=== PATIENT | female | born 1945 | race Caucasian/White ===

== ENCOUNTER 2020-04-06 11:28 | Outpatient (CLI) | payer MEDICARE, SELFPAY ==
[2020-04-06 12:14] LABS: Alanine Aminotransferase 36 U/L (4-35); Albumin Level 4.1 g/dL (3.5-5.1); Alkaline Phosphatase 74 U/L (38-126); Aspartate Amino Transferase 45 U/L (14-36); Bilirubin,Total 0.7 mg/dL (0.2-1.3); Blood Urea Nitrogen 18 mg/dL (7-17); Carbon Dioxide 29 mmol/L (22-30); Chloride 103 mmol/L (98-107); Cholesterol 155 mg/dL (0-200); Estimated Glomerular Filt Rate 34; Glucose 95 mg/dL (65-105); HDL Direct 50 mg/dL; Magnesium 2.1 mg/dL (1.6-2.3); Potassium 4.5 mmol/L (3.4-5.0); Sodium 136 mmol/L (137-145); Triglycerides 96 mg/dL (<150)
[2020-04-06 12:25] LABS: LDL Cholesterol Direct 84 mg/dL
== END 2020-04-06 11:29 | disposition home or self-care (01) ==
PROVIDERS: PCP Internal Medicine; Visit Provider Internal Medicine Cardiovascular Disease
DX: E78.5 Hyperlipidemia, unspecified (principal); I50.40 Unspecified combined systolic (congestive) and diastolic (congestive) heart failure
CPT/HCPCS: 36415; 80053; 80061; 83735

== ENCOUNTER 2020-07-08 11:54 | Outpatient (CLI) | payer MEDICARE, SELFPAY ==
[2020-07-08 12:41] LABS: Add Urine Microscopic? YES; Appearance Urine Clear (Clear); Bacteria Urine Trace /hpf; Bilirubin Urine Negative (Negative); Blood Urine 2+ (Negative); Color Urine Yellow (Yellow); Glucose Urine UA Negative (Negative); Ketones Urine Negative (Negative); Leukocyte Esterase Ur 2+ LEU/UL (NEGATIVE); Mucus Urine Rare /lpf; Nitrate Urine Negative (Negative); Protein Urine Negative (Negative); Specific Grav Ur 1.017 (1.001-1.035); Squamous Epithelial Cell Urine Few /hpf (Few); WBC Urine >75 /hpf (0-3)
== END 2020-07-08 11:55 | disposition home or self-care (01) ==
LOC: ANHLAB 11:57
PROVIDERS: PCP Internal Medicine; Visit Provider Internal Medicine
DX: R39.9 Unspecified symptoms and signs involving the genitourinary system (principal)
CPT/HCPCS: 81001; 87077; 87086; 87088; 87186

== ENCOUNTER 2020-10-04 11:39 | Outpatient (CLI) | payer MEDICARE, SELFPAY ==
[2020-10-04 12:19] LABS: Basophils Absolute Auto 0.1 K/mm3 (0.0-0.1); Basophils Percent Auto 0.4 % (0.2-1.2); Eosinophils Absolute Auto 0.4 K/mm3 (0-0.3); Eosinophils Percent Auto 3.1 % (0-4.4); Hematocrit 36.6 % (37.0-47.0); Hemoglobin 11.9 g/dL (12.0-15.0); Immature Granulocyte Absolute 0.05 K/mm3 (0.00-0.031); Immature Granulocyte Percent A 0.4 % (0-0.5); Lymphocytes Absolute Auto 1.83 K/mm3 (0.9-3.2); Lymphocytes Percent Auto 14.7 % (18.3-44.2); Mean Corpuscular HGB Conc 32.5 g/dl (32-36); Mean Corpuscular Hemoglobin 29.9 pg (26-34); Mean Platelet Volume 9.2 fl (7.4-10.4); Monocytes Absolute Auto 1.2 K/mm3 (0.1-0.6); Monocytes Percent Auto 9.7 % (2.6-8.5); Neutrophils Absolute Auto 8.9 K/mm3 (1.3-6.7); Neutrophils Percent Auto 71.7 % (45.5-73.1); Platelet Count Result 259 k/mm3 (150-375); Red Blood Count 3.98 M/mm3 (4.2-5.4); Red Cell Distribution Width 13.9 % (11.5-14.5); White Blood Count 12.4 K/mm3 (4.5-10.0)
[2020-10-04 12:22] LABS: Add Urine Microscopic? YES; Appearance Urine Clear (Clear); Bilirubin Urine Negative (Negative); Blood Urine 1+ (Negative); Color Urine Straw (Yellow); Glucose Urine UA Negative (Negative); Ketones Urine Negative (Negative); Leukocyte Esterase Ur Negative LEU/UL (NEGATIVE); Mucus Urine Rare /lpf; Nitrate Urine Negative (Negative); Protein Urine Negative (Negative); RBC Urine 0-2 /hpf (0-2); Specific Grav Ur 1.011 (1.001-1.035); Squamous Epithelial Cell Urine Few /hpf (Few); Urobilinogen Urine Negative mg/dL (<2.0)
[2020-10-04 12:32] LABS: Alanine Aminotransferase 48 U/L (4-35); Albumin Level 3.9 g/dL (3.5-5.1); Alkaline Phosphatase 81 U/L (38-126); Anion Gap 7 mmol/L (8-16); Aspartate Amino Transferase 51 U/L (14-36); Bilirubin,Total 0.5 mg/dL (0.2-1.3); Blood Urea Nitrogen 19 mg/dL (7-17); Calcium 8.8 mg/dL (8.4-10.2); Carbon Dioxide 27 mmol/L (22-30); Chloride 104 mmol/L (98-107); Cholesterol 146 mg/dL (0-200); Estimated Glomerular Filt Rate 44; Glucose 104 mg/dL (65-105); HDL Direct 50 mg/dL; Potassium 4.2 mmol/L (3.4-5.0); Sodium 138 mmol/L (137-145); Triglycerides 67 mg/dL (<150)
[2020-10-04 12:43] LABS: LDL Cholesterol Direct 87 mg/dL
[2020-10-04 13:01] LABS: Thyroid Stimulating Hormone 0.978 uIU/mL (0.465-4.680)
[2020-10-04 13:12] LABS: Free T4 Free Thyroxine 1.71 ng/mL (0.78-2.19)
== END 2020-10-04 11:40 | disposition home or self-care (01) ==
LOC: ANHLAB 11:43
PROVIDERS: PCP Internal Medicine; Visit Provider Internal Medicine
DX: Z79.899 Other long term (current) drug therapy (principal); E78.5 Hyperlipidemia, unspecified
CPT/HCPCS: 36415; 80048; 80061; 80076; 81001; 83036; 84439; 84443; 85025

== ENCOUNTER 2021-02-15 13:56 | Outpatient (CLI) | payer MEDICARE, SELFPAY ==
[2021-02-15 14:35] LABS: Basophils Absolute Auto 0.1 K/mm3 (0.0-0.1); Basophils Percent Auto 0.7 % (0.2-1.2); Eosinophils Absolute Auto 0.4 K/mm3 (0-0.3); Eosinophils Percent Auto 3.8 % (0-4.4); Hematocrit 36.8 % (37.0-47.0); Hemoglobin 12.1 g/dL (12.0-15.0); Immature Granulocyte Absolute 0.03 K/mm3 (0.00-0.031); Immature Granulocyte Percent A 0.3 % (0-0.5); Lymphocytes Absolute Auto 1.69 K/mm3 (0.9-3.2); Lymphocytes Percent Auto 16.6 % (18.3-44.2); Mean Corpuscular HGB Conc 32.9 g/dl (32-36); Mean Corpuscular Hemoglobin 30.3 pg (26-34); Mean Platelet Volume 9.3 fl (7.4-10.4); Monocytes Percent Auto 9.7 % (2.6-8.5); Neutrophils Percent Auto 68.9 % (45.5-73.1); Platelet Count Result 251 k/mm3 (150-375); Red Cell Distribution Width 13.9 % (11.5-14.5); White Blood Count 10.2 K/mm3 (4.5-10.0)
[2021-02-15 14:49] LABS: Anion Gap 3 mmol/L (8-16); Blood Urea Nitrogen 18 mg/dL (7-17); Calcium 8.7 mg/dL (8.4-10.2); Carbon Dioxide 31 mmol/L (22-30); Chloride 104 mmol/L (98-107); Cholesterol 143 mg/dL (0-200); Estimated Glomerular Filt Rate 40; Glucose 95 mg/dL (65-105); HDL Direct 53 mg/dL; Potassium 3.4 mmol/L (3.4-5.0); Sodium 138 mmol/L (137-145); Triglycerides 85 mg/dL (<150)
[2021-02-15 15:00] LABS: LDL Cholesterol Direct 72 mg/dL
[2021-02-15 15:19] LABS: Thyroid Stimulating Hormone 0.668 uIU/mL (0.465-4.680)
[2021-02-15 15:29] LABS: Free T4 Free Thyroxine 1.72 ng/mL (0.78-2.19)
[2021-02-18 13:32] LABS: Homocysteine 13.3 umol/L (<10.4)
== END 2021-02-15 13:57 | disposition home or self-care (01) ==
PROVIDERS: PCP Internal Medicine; Visit Provider Internal Medicine
DX: E78.5 Hyperlipidemia, unspecified (principal); Z51.81 Encounter for therapeutic drug level monitoring; Z79.899 Other long term (current) drug therapy; R79.89 Other specified abnormal findings of blood chemistry
CPT/HCPCS: 36415; 80048; 80061; 83090; 84439; 84443; 85025

== ENCOUNTER 2021-02-22 12:36 | Outpatient (CLI) | payer MEDICARE, SELFPAY ==
[2021-02-22 12:55] LABS: Add Urine Microscopic? YES; Appearance Urine Cloudy (Clear); Bacteria Urine Trace /hpf; Bilirubin Urine Negative (Negative); Blood Urine Negative (Negative); Color Urine Yellow (Yellow); Glucose Urine UA Negative (Negative); Ketones Urine Negative (Negative); Leukocyte Esterase Ur 1+ LEU/UL (NEGATIVE); Mucus Urine Rare /lpf; Nitrate Urine Negative (Negative); Protein Urine 1+ mg/dL (Negative); Specific Grav Ur 1.029 (1.001-1.035); Squamous Epithelial Cell Urine Few /hpf (Few)
== END 2021-02-22 12:37 | disposition home or self-care (01) ==
PROVIDERS: PCP Internal Medicine; Visit Provider Internal Medicine
DX: N18.2 Chronic kidney disease, stage 2 (mild) (principal)
CPT/HCPCS: 81001

== ENCOUNTER 2021-03-01 08:53 | Outpatient (CLI) | payer MEDICARE, SELFPAY ==
--- NOTE | ~2021-03-01 | XR_ITS ---
EXAMINATION: XR chest 2V DATE: 03/01/2021 09:17 INDICATION: Shortness of breath. TECHNIQUE: Frontal and lateral views of the chest were obtained. COMPARISON: Chest 2 views 12/12/2018 FINDINGS: There is mild atelectasis in the lingula. No pleural effusion or pneumothorax. Cardiomegaly is noted. There are changes of heart valve replacement. Calcified right lung nodules and calcified l eft hilar and mediastinal lymph nodes are consistent with old granulomatous disease. There is a chron ic sclerotic lesion in proximal left humerus, likely an enchondroma or osteonecrosis. IMPRESSION: 1. Mild atelectasis in the lingula. 2. Cardiomegaly. Reviewed, dictated and finalized at location A.
--- NOTE | ~2021-03-01 | CT_ITS ---
EXAMINATION: CT abdomen pelvis wo con EXAM DATE: 03/01/2021 09:20 INDICATION: R31.29 - Other microscopic hematuria. TECHNIQUE: Spiral CT of the abdomen and pelvis was performed without contrast. Axial, coronal and sag ittal images were reviewed. The dose-length product (DLP) for this examination was 228.91 mGy-cm. T he exposure was tailored according to patient size (auto mA exposure control), and iterative reconstr uction (ASIR) was used as additional dose reduction technique. Comparison is made to prior examinatio n from 05/22/2014. FINDINGS: There is no nephrolithiasis or hydronephrosis. The uterus is not identified and has likel y been surgically resected. The bladder is unremarkable. Liver hyperdense, measures 19 [place] u nits, could be hemosiderosis, hemachromatosis, or amiodarone treatment. No focal liver lesions. Splen ic granulomata. Adrenal glands, pancreas are unremarkable. There are gallstones within an otherwise u nremarkable gallbladder. No evidence of obstructive biliary disease. There is no retroperitoneal or pelvic lymphadenopathy. Small umbilical fat-containing hernia. The appendix is not positively visualized. There is no pericecal inflammatory change to suggest appe ndicitis. There is moderate sigmoid, otherwise mild scattered colonic diverticulosis. There is no ad jacent inflammatory change to suggest diverticulitis. The stomach and small bowel are unremarkable. There is expected amount of colonic stool. No free intraperitoneal gas. There is mild cardiomegal y. Aortic valve replacement. Basilar mosaic attenuation most consistent with air trapping. Mild tho racolumbar levoscoliosis. IMPRESSION: 1. No nephrolithiasis, hydronephrosis or acute intra-abdominal findings. 2. Hyperdense liver, could be amiodarone treatment, hemosiderosis or hemachromatosis. 3. Colonic diverticulosis. 4. Cholelithiasis. Reviewed, dictated and finalized at location A. IMPRESSION: 1. No nephrolithiasis, hydronephrosis or acute intra-abdominal findings. 2. Hyperdense liver, could be amiodarone treatment, hemosiderosis or hemachrom atosis. 3. Colonic diverticulosis. 4. Cholelithiasis.
--- NOTE | ~2021-03-01 | XR_ITS ---
EXAMINATION: XR shoulder RT min 2V DATE: 03/01/2021 09:17 INDICATION: Myalgia. Right shoulder pain. TECHNIQUE: 4 views of right shoulder were obtained. COMPARISON: None. FINDINGS: Bone alignment is normal. No fracture. There is mild glenohumeral and acromioclavicular laura nt osteoarthritis. There are changes of heart valve replacement. IMPRESSION: 1. Mild polyarticular osteoarthritis. Reviewed, dictated and finalized at location A.
== END 2021-03-01 08:54 | disposition home or self-care (01) ==
PROVIDERS: PCP Internal Medicine; Visit Provider Internal Medicine
DX: M79.18 Myalgia, other site (principal); M19.011 Primary osteoarthritis, right shoulder; R31.29 Other microscopic hematuria; K80.20 Calculus of gallbladder without cholecystitis without obstruction; K57.30 Diverticulosis of large intestine without perforation or abscess without bleeding; I51.7 Cardiomegaly
CPT/HCPCS: 71046; 73030; 74176

== ENCOUNTER 2021-03-08 14:05 | Outpatient (CLI) | payer MEDICARE, SELFPAY | END 2021-03-08 14:06 | disposition home or self-care (01) | PROVIDERS: PCP Internal Medicine; Visit Provider Internal Medicine | DX: D64.9 Anemia, unspecified (principal) | CPT/HCPCS: 36415; 82728 ==

== ENCOUNTER 2021-03-16 12:31 | Emergency (ER) | payer MEDICARE, SELFPAY ==
--- NOTE | ~2021-03-16 | XR_ITS ---
EXAMINATION: XR chest 1V portable DATE: 03/16/2021 12:52 INDICATION: Fall. TECHNIQUE: A single frontal view of the chest was obtained. COMPARISON: Chest 2 views 03/01/2021 FINDINGS: Again seen is linear atelectasis in left midlung zone. No pleural effusion or pneumothorax. Cardiomegaly is noted. Calcified left hilar lymph nodes are consistent with old granulomatous diseas e. There are changes of heart valve replacement. There is a chronic sclerotic lesion in proximal left humerus, likely an enchondroma or osteonecrosis. IMPRESSION: 1. Linear atelectasis in left midlung zone. 2. Cardiomegaly. Reviewed, dictated and finalized at location B.
--- NOTE | ~2021-03-16 | CT_ITS ---
EXAMINATION: CT brain wo con DATE: 03/16/2021 12:37 INDICATION: Stroke presenting with confusion, nausea and vomiting. TECHNIQUE: Computed tomography (CT) of the head was performed without intravenous contrast. Sagittal and coronal reconstructions were performed. The mA was adjusted according to patient size. Iterative reconstruction technique was employed. The dose-length product was 605.33 mGy-cm. COMPARISON: Brain MR dated 02/28/2018 FINDINGS: Kinsinger regions of encephalomalacia, small the right occipital lobe and moderate sized in the left occipital and posterior parietal regions consistent with chronic infarcts. Additional small old infar cts in the bilateral cerebellar hemispheres, again left more prominent than right. High attenuation a cute intraparenchymal hemorrhage centered at the right lentiform nucleus which measures 2.9 cm cranio caudally and 1.8 x 1.3 cm in maximal transaxial dimensions. No acute intracranial infarction or mass. There is mild to moderate scattered white matter hypoattenuation consistent with chronic small vesse l ischemic disease. Symmetric prominence of the sulci and subarachnoid spaces overlying the convexiti es consistent with mild to moderate age-appropriate diffuse cerebral volume loss. Ventricles are norm al and symmetric. The orbits, paranasal sinuses and mastoid air cells are normal. Intracranial calcif ied cerebral atherosclerosis is noted. IMPRESSION: 1. Acute intraparenchymal hemorrhage at the right basal ganglia measuring 2.9 x 1.[address] Anastasia zapien discussed these findings with Dr. Rivera at 12:40 PM. 2. Stable appearance of old infarcts in the bilateral cerebellar hemispheres and bilateral occipital lobes, both left greater than right. 3. Age-related changes including mild to moderate diffuse volume loss and mild to moderate scattered white matter hypoattenuation consistent with chronic small vessel ischemic disease. Reviewed, dictated and finalized at location A. IMPRESSION: 1. Acute intraparenchymal hemorrhage at the right basal ganglia measuring 2.9 x 1.[address] Murillo discussed these findings with Dr. Rivera at 12:40 PM. 2. Stable appearance of old infarcts in the bilateral cerebellar hemispheres an d bilateral occipital lobes, both left greater than right. 3. Age-related changes including mild to moderate diffuse volume loss and mild to moderate scattered white matter hypoattenuation consistent with chronic smal l vessel ischemic disease.
[2021-03-16 12:39] VITALS: BP 141/57; PULSE 60; RESP 24; TEMP 36.4; O2SAT 99
--- NOTE | 2021-03-16 12:40 | ECG_ITS ---
Measurements Intervals [place] Rate: 56 P: 59 CO: 242 QRS: -12 QRSD: 88 T: 143 QT: 430 QTc: 416 Interpretive Statements SINUS BRADYCARDIA WITH FIRST DEGREE AV BLOCK DELAYED PRECORDIAL R/S TRANSITION BORDERLINE ST-T WAVE ABNORMALITY- ANTEROLAT/HIGH LAT LEADS BASELINE WANDER- I, II, AVR, AVL, AVF, V1-V6 ABNORMAL ECG Electronically Signed On 03-16-2021 12:54:33 CDT by Keenan Mayes D.O.
--- NOTE | 2021-03-16 12:40 | ED.NEUROSD ---
HPI - Neuro Symptoms/Deficit General Chief Complaint: Suspected CVA Stated Complaint: L SIDED WEAKNESS,N/V/NOSE BLEED Time Seen by Provider: 03/16/21 12:37 Source: RN notes reviewed History of Present Illness HPI Narrative: Patient presents to emergency department from home for left-sided weakness. Patient states that approximately at 1145 she developed nausea and vomiting followed by a nosebleed. She states that immediately following this she developed left-sided weakness and left-sided facial droop patient states that her nausea is resolved at this time and currently no nosebleed. When she was getting out into her car the patient did fall questionably striking her head as well patient is currently on Coumadin secondary to an artificial valve she denies any vision changes chest pain shortness of breath or any other symptoms at this time Related Data Home Medications Medication Instructions Recorded Confirmed albuterol sulfate 90 mcg/actuation 1 puff INHALATION Q4H PRN 10/03/19 03/16/21 aerosol inhaler furosemide 20 mg tablet 20 mg PO DAILY tablet 10/03/19 03/16/21 omega 8-ivf-iuj-fish oil 100 cap PO 10/03/19 03/16/21 mg-160 mg-1,000 mg capsule mecobalamin (vitamin B12) 1,000 1,000 mcg SUBLINGUAL DAILY 10/07/19 03/16/21 mcg disintegrating tablet,sublingual dextromethorphan-guaifenesin ER 60 1 tablet PO Q12H 02/28/21 03/16/21 mg-1,200 mg tab,extend release,12hr Allergies Allergy/AdvReac Type Severity Reaction Status Date / Time hydroxyzine AdvReac Intermediate Nausea and Verified 03/15/21 09:43 Vomiting Review of Systems Review of Systems: Narrative: Gen.: Denies fevers or chills Eyes: Denies eye pain or visual change ENT: Denies congestion Respiratory: Denies shortness of breath or cough CV: Denies chest pain or palpitations GI: Denies abdominal pain nausea, emesis or diarrhea Musculoskeletal: Denies back pain or muscle pain Neuro: See HPI Skin: Denies rash Except as documented, all other systems reviewed and negative PMFSH Past Medical History Medical History Anemia Atrial fibrillation BMI 21.0-21.9, adult BMI 22.0-22.9, adult Bug bites Cancer Chronic obstructive pulmonary disease CKD (chronic kidney disease) Colon cancer screening Complaint of paresthesia Congestive heart failure Encounter for Medicare annual wellness exam Encounter for routine adult health examination without abnormal findings Encounter for screening mammogram for malignant neoplasm of breast Fatigue Follow up Hearing loss Memory impairment Microscopic hematuria Musculoskeletal pain Myocardial infarction 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 Stroke Surgical History Surgical History History of hysterectomy History of open heart surgery Family History Family History Sibling Diabetes mellitus Father Diabetes mellitus Family history of congestive heart failure Family history of cardiovascular disease Family history of diabetes mellitus in first degree relative Family history of heart disease in male family member before age 55 Mother Family history of Alzheimer's disease Other Family history of malignant neoplasm Social History Social History Smoking packs per day: 0.25 Smoking cigarettes per day: 5.0 Years smoked: 3 Smoking pack-years: 0.75 Smoking status: Former smoker Second hand tobacco smoke exposure: No Alcohol intake: current Exam Narrative: Exam Narrative: APPEARANCE: No acute distress, nontoxic, resting in bed HEENT: Normocephalic, atraumatic, OMM, TMs clear bilaterally EYES: PERRL, EOMI NECK: Supple, nontender, full range of motion without pain, no meningismus RESPIRATORY: No respiratory distress, clear to auscultation bilaterally with no rhonchi wheezing or rale
[2021-03-16 12:43] VITALS: BP 141/57; PULSE 73; RESP 23
[2021-03-16 12:46] LABS: Glucose Point of Care 109 (65-105)
[2021-03-16 12:53] VITALS: BP 143/58; PULSE 59; RESP 24; O2SAT 97
[2021-03-16 12:56] LABS: Basophils Absolute Auto 0.1 K/mm3 (0.0-0.1); Basophils Percent Auto 0.6 % (0.2-1.2); Eosinophils Absolute Auto 0.5 K/mm3 (0-0.3); Eosinophils Percent Auto 5.8 % (0-4.4); Hematocrit 36.2 % (37.0-47.0); Hemoglobin 11.7 g/dL (12.0-15.0); Immature Granulocyte Absolute 0.03 K/mm3 (0.00-0.031); Immature Granulocyte Percent A 0.4 % (0-0.5); Lymphocytes Absolute Auto 1.42 K/mm3 (0.9-3.2); Lymphocytes Percent Auto 16.8 % (18.3-44.2); Mean Corpuscular HGB Conc 32.3 g/dl (32-36); Mean Corpuscular Hemoglobin 29.8 pg (26-34); Mean Corpuscular Volume 92.1 fl (80-100); Mean Platelet Volume 8.9 fl (7.4-10.4); Monocytes Absolute Auto 0.8 K/mm3 (0.1-0.6); Monocytes Percent Auto 9.3 % (2.6-8.5); Neutrophils Absolute Auto 5.7 K/mm3 (1.3-6.7); Neutrophils Percent Auto 67.1 % (45.5-73.1); Platelet Count Result 270 k/mm3 (150-375); Red Blood Count 3.93 M/mm3 (4.2-5.4); Red Cell Distribution Width 14.5 % (11.5-14.5); White Blood Count 8.5 K/mm3 (4.5-10.0)
[2021-03-16 13:06] LABS: INR 2.9; Partial Thromboplastin Time 37.4 SECONDS (22.3-36.8); Prothrombin Time 30.5 Seconds (11.1-14.7)
[2021-03-16 13:08] LABS: Anion Gap 6 mmol/L (8-16); Blood Urea Nitrogen 20 mg/dL (7-17); Calcium 8.5 mg/dL (8.4-10.2); Carbon Dioxide 30 mmol/L (22-30); Chloride 102 mmol/L (98-107); Estimated CRCL calculation 31 ml/min; Estimated Glomerular Filt Rate 54; Glucose 120 mg/dL (65-105); Potassium 3.5 mmol/L (3.4-5.0); Sodium 138 mmol/L (137-145)
[2021-03-16 13:18] VITALS: BP 142/63; PULSE 59; RESP 22; O2SAT 97
[2021-03-16 13:20] LABS: Troponin I < 0.012 ng/mL (0.000-0.034)
[2021-03-16 13:43] VITALS: BP 146/65; PULSE 60; RESP 20; O2SAT 97
== END 2021-03-16 13:47 | disposition short-term general hospital (02) ==
LOC: ANHED 13:08
PROVIDERS: Emergency Provider Emergency Medicine; PCP Internal Medicine
DX: I62.9 Nontraumatic intracranial hemorrhage, unspecified (principal); D68.32 Hemorrhagic disorder due to extrinsic circulating anticoagulants; I44.0 Atrioventricular block, first degree; R94.31 Abnormal electrocardiogram [ECG] [EKG]; F17.210 Nicotine dependence, cigarettes, uncomplicated; I48.91 Unspecified atrial fibrillation; J44.9 Chronic obstructive pulmonary disease, unspecified; N18.9 Chronic kidney disease, unspecified; I50.9 Heart failure, unspecified; I25.2 Old myocardial infarction; Z86.73 Personal history of transient ischemic attack (TIA), and cerebral infarction without residual deficits
CPT/HCPCS: 36415; 70450; 71045; 80048; 82948; 84484; 85025; 85610; 85730; 93005; 96374; 99285; C9132

== ENCOUNTER 2021-06-15 10:12 | Outpatient (CLI) | payer MEDICARE, SELFPAY ==
[2021-06-15 11:16] LABS: Troponin I < 0.012 ng/mL (0.000-0.034)
== END 2021-06-15 10:13 | disposition home or self-care (01) ==
PROVIDERS: PCP Internal Medicine; Visit Provider Internal Medicine Cardiovascular Disease
DX: R07.9 Chest pain, unspecified (principal)
CPT/HCPCS: 36415; 84484

== ENCOUNTER 2021-09-01 15:27 | Outpatient (CLI) | payer MEDICARE, SELFPAY ==
[2021-09-01 16:05] LABS: Add Urine Microscopic? YES; Appearance Urine Cloudy (Clear); Bacteria Urine 4+ /hpf; Bilirubin Urine Negative (Negative); Blood Urine 2+ (Negative); Color Urine Yellow (Yellow); Glucose Urine UA Negative (Negative); Ketones Urine Negative (Negative); Leukocyte Esterase Ur 3+ LEU/UL (Negative); Mucus Urine Rare /lpf; Nitrate Urine Positive (Negative); Protein Urine 1+ mg/dL (Negative); Specific Grav Ur 1.019 (1.001-1.035); Squamous Epithelial Cell Urine Moderate /hpf (Few); WBC Urine >75 /hpf
== END 2021-09-01 15:28 | disposition home or self-care (01) ==
LOC: ANHLAB 15:30
PROVIDERS: PCP Internal Medicine; Visit Provider Internal Medicine
DX: N30.90 Cystitis, unspecified without hematuria (principal); R30.0 Dysuria
CPT/HCPCS: 81001; 87077; 87086; 87088; 87186

== ENCOUNTER 2021-10-07 10:56 | Outpatient (CLI) | payer MEDICARE, SELFPAY ==
--- NOTE | ~2021-10-07 | XR_ITS ---
XR chest 2V 10/07/2021 11:10 Indication: Cough Procedure: 2 view chest Comparison: Comparison to multiple prior studies sequentially, with oldest reviewed study dated 03/14. Findings: That is post median sternotomy for CABG. There is a prosthetic heart valve. Cardiomegaly. C alcified mediastinal lymph nodes, consistent with chronic granulomatous disease. There is focal right perihilar airspace disease, consistent with pneumonia. Impression: 1: Focal right perihilar airspace disease, consistent with pneumonia. Cannot exclude underlying mass. Recommend follow-up chest x-ray in 4-6 weeks following appropriate therapy to assess for resolution. Reviewed, dictated and finalized at location A. S MANAGEMENT TRAINEE Impression: 1: Focal right perihilar airspace disease, consistent with pneumonia. Cannot ex clude underlying mass. Recommend follow-up chest x-ray in 4-6 weeks following a ppropriate therapy to assess for resolution.
== END 2021-10-07 10:57 | disposition home or self-care (01) ==
PROVIDERS: PCP Internal Medicine; Visit Provider Internal Medicine
DX: R05.9 Cough, unspecified (principal); R91.8 Other nonspecific abnormal finding of lung field
CPT/HCPCS: 71046

== ENCOUNTER 2021-10-11 14:10 | Outpatient (CLI) | payer MEDICARE, SELFPAY ==
--- NOTE | ~2021-10-11 | XR_ITS ---
XR chest 2V DATE: 10/11/2021 14:33 INDICATION: Pneumonia TECHNIQUE: PA and lateral views COMPARISON: 10/07/2021 2 view chest FINDINGS: Status post sternotomy and cardiac valve replacement. There is cardiomegaly. There is aortic calcification and unfolding. There are calcified left hilar nodes and calcified splenic granulomas, consistent with old granulomat ous disease. There is patchy infiltrate in the right lower lung. The lungs are otherwise clear. No pleural effus ion. No pneumothorax. Right upper quadrant calcifications, likely due to cholelithiasis. There is diffuse osteopenia. 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 Thoracic and lumbar scoliosis. IMPRESSION: Right lower lung pulmonary infiltrate Status post sternotomy and cardiac valve replacement Cardiomegaly Osteopenia Reviewed, dictated and finalized at location A. NICAL INSPECTOR
== END 2021-10-11 14:11 | disposition home or self-care (01) ==
LOC: ANHIMG 14:11
PROVIDERS: PCP Internal Medicine; Visit Provider Internal Medicine
DX: J18.9 Pneumonia, unspecified organism (principal); R05.9 Cough, unspecified; I51.7 Cardiomegaly; M85.88 Other specified disorders of bone density and structure, other site; R91.8 Other nonspecific abnormal finding of lung field; Z95.2 Presence of prosthetic heart valve
CPT/HCPCS: 71046

== ENCOUNTER 2021-10-17 14:04 | Outpatient (CLI) | payer MEDICARE, SELFPAY ==
--- NOTE | ~2021-10-17 | XR_ITS ---
XR chest 2V 10/17/2021 14:49 Indication: Pneumonia Procedure: PA and lateral views of the chest Comparison: Comparison to multiple prior studies sequentially, with oldest reviewed study dated 03/16. Findings: Status post median sternotomy for CABG. Cardiomegaly. There is a prosthetic heart valve. Th ere are calcified left hilar lymph nodes, consistent with chronic granulomatous disease. There are po ssible gallstones. Stable airspace disease right lower lung. No significant pleural effusion. No alejandra a or pneumothorax. No acute osseous abnormality. There are epicardial pacing leads. Impression: 1: Stable airspace disease right lower lung, compatible with pneumonia. Reviewed, dictated and finalized at location A. 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
== END 2021-10-17 14:05 | disposition home or self-care (01) ==
LOC: ANHIMG 14:11
PROVIDERS: PCP Internal Medicine; Visit Provider Internal Medicine
DX: J18.9 Pneumonia, unspecified organism (principal); R91.8 Other nonspecific abnormal finding of lung field
CPT/HCPCS: 71046

== ENCOUNTER 2021-10-18 15:35 | Observation (INO) | payer MEDICARE, SELFPAY ==
[2021-10-18] VITALS (15 sets, daily range): BP systolic 96–109; BP diastolic 69–82; PULSE 125–139; RESP 12–31; TEMP 36.4; O2SAT 92–100
--- NOTE | ~2021-10-18 | XR_ITS ---
EXAMINATION: XR chest 2V DATE: 10/18/2021 16:27 INDICATION: Weakness. TECHNIQUE: Frontal and lateral views of the chest were obtained. COMPARISON: Chest 2 views 10/17/2021, CT abdomen and pelvis 03/01/2021, chest 2 views 12/12/2018 FINDINGS: There are airspace opacities in medial right lower lung zone. No pleural effusion or pneumo thorax. Cardiomegaly is noted. There are changes of aortic valve replacement. Calcified left hilar an d mediastinal lymph nodes are consistent with old granulomatous disease. There is a chronic sclerotic lesion in proximal left humerus, likely an enchondroma or osteonecrosis. IMPRESSION: 1. Persistent airspace opacities in medial right lower lung zone, consistent with pneumonia. 2. Cardiomegaly. Reviewed, dictated and finalized at location B. PING PROCESSOR IMPRESSION: 1. Persistent airspace opacities in medial right lower lung zone, consistent wi th pneumonia. 2. Cardiomegaly.
--- NOTE | ~2021-10-18 | XR_ITS ---
EXAMINATION: XR barium swallow modified DATE: 10/20/2021 12:00 INDICATION: Dysphagia TECHNIQUE: Modified barium esophagram was performed by myself to administered fluoroscopy, in conjun ction with speech pathologist who administered barium in varying consistencies as per speech patholog ist documentation. This was recorded on tape. A single fluoroscopic spot image was recorded. The DAP for this procedure was 1.9 Gycm2. Fluoroscopy exposure time was 2.9 minutes. FINDINGS: Oral stage: Adequate function. Pharyngeal phase: Reduced laryngeal elevation, reduced pharyngeal squeeze, vallecular and piriform si nus residue. Laryngeal penetration: Trace within liquids. Aspiration: None. Laryngeal sensitivity: Not applicable. IMPRESSION: Abnormal modified barium swallow as above. Please refer to speech pathologist findings an d specific feeding recommendations. Reviewed, dictated and finalized at location A. OM SAW OPERATOR IMPRESSION: Abnormal modified barium swallow as above. Please refer to speech p athologist findings and specific feeding recommendations.
--- NOTE | 2021-10-18 15:38 | ECG_ITS ---
Measurements Intervals [place] Rate: 127 P: [place]: 0 QRS: 10 QRSD: 77 T: 101 QT: 335 QTc: 489 Interpretive Statements ATRIAL FLUTTER WITH RAPID VENTRICULAR RESPONSE NONSPECIFIC ST & T-WAVE ABNORMALITY- INF/HIGH LAT LEADS BASELINE ARTIFACT- I, II, III, AVR, AVL, AVF ABNORMAL ECG Electronically Signed On 10-18-2021 16:31:45 CROSS CUT SAW OPERATOR by Keenan Mayes D.O.
[2021-10-18 15:50] LABS: Basophils Absolute Auto 0.1 K/mm3 (0.0-0.1); Basophils Percent Auto 0.8 % (0.2-1.2); Eosinophils Absolute Auto 0.4 K/mm3 (0-0.3); Hematocrit 35.9 % (37.0-47.0); Hemoglobin 11.7 g/dL (12.0-15.0); Immature Granulocyte Absolute 0.02 K/mm3 (0.00-0.031); Immature Granulocyte Percent A 0.2 % (0-0.5); Lymphocytes Absolute Auto 3.15 K/mm3 (0.9-3.2); Lymphocytes Percent Auto 34.7 % (18.3-44.2); Mean Corpuscular HGB Conc 32.6 g/dl (32-36); Mean Corpuscular Hemoglobin 31.3 pg (26-34); Monocytes Absolute Auto 0.6 K/mm3 (0.1-0.6); Monocytes Percent Auto 6.8 % (2.6-8.5); Neutrophils Absolute Auto 4.9 K/mm3 (1.3-6.7); Neutrophils Percent Auto 53.5 % (45.5-73.1); Platelet Count Result 242 k/mm3 (150-375); Red Blood Count 3.74 M/mm3 (4.2-5.4); Red Cell Distribution Width 14.6 % (11.5-14.5); White Blood Count 9.1 K/mm3 (4.5-10.0)
[2021-10-18 16:06] LABS: Alanine Aminotransferase 14 U/L (4-35); Albumin Level 4.4 g/dL (3.5-5.1); Alkaline Phosphatase 72 U/L (38-126); Anion Gap 9 mmol/L (8-16); Aspartate Amino Transferase 36 U/L (14-36); Bilirubin,Total 0.9 mg/dL (0.2-1.3); Blood Urea Nitrogen 22 mg/dL (7-17); Calcium 9.1 mg/dL (8.4-10.2); Carbon Dioxide 24 mmol/L (22-30); Chloride 103 mmol/L (98-107); Estimated CRCL calculation 24 ml/min; Estimated Glomerular Filt Rate 40; Glucose 116 mg/dL (65-110); Potassium 4.2 mmol/L (3.4-5.0); Sodium 136 mmol/L (137-145)
[2021-10-18 17:18] LABS: Add Urine Microscopic? YES; Appearance Urine Cloudy (Clear); Bilirubin Urine Negative (Negative); Blood Urine 1+ (Negative); Color Urine Yellow (Yellow); Glucose Urine UA Negative (Negative); Hyaline Casts Urine 20-29 /lpf; Ketones Urine Negative (Negative); Leukocyte Esterase Ur Negative LEU/UL (Negative); Mucus Urine Few /lpf; Nitrate Urine Negative (Negative); Protein Urine Negative (Negative); Specific Grav Ur 1.019 (1.001-1.035); Squamous Epithelial Cell Urine Occasional /hpf (Few); Urobilinogen Urine Negative mg/dL (<2.0); WBC Urine 0-3 /hpf
--- NOTE | 2021-10-18 17:19 | ED.GENADULT ---
HPI - General Adult General Chief complaint: Arrhythmia/Palpitations Stated complaint: Irreguar HR for One Month Time Seen by Provider: 10/18/21 16:14 Source: patient History of Present Illness HPI narrative: Patient is a 76 y/o female complaining of heart palpitation for over 1 month. She states that her HR was over 130. There is no known alleviating or exacerbating factor. She is on Toprol XL. She was on Amiodarone which caused vision problems and hair loss and was discontinued. She has no chest pain or SOB. Related Data Home Medications Medication Instructions Recorded Confirmed omega 1-len-peg-fish oil 100 cap PO 10/03/19 09/05/21 mg-160 mg-1,000 mg capsule mecobalamin (vitamin B12) 1,000 1,000 mcg SUBLINGUAL DAILY 10/07/19 09/05/21 mcg disintegrating tablet,sublingual furosemide 20 mg tablet 10 mg PO QAM tablet 05/04/21 09/05/21 Allergies Allergy/AdvReac Type Severity Reaction Status Date / Time hydroxyzine AdvReac Intermediate Nausea and Verified 10/18/21 14:28 Vomiting Review of Systems Constitutional: Constitutional: Denies chills, Denies fever(s), Denies headache(s) and Denies weakness Eyes: Eyes: Denies blurry vision ENT: Denies headache(s) and Denies neck pain Cardiovascular: Cardiovascular: Denies chest pain, Reports rapid heart rate and Denies dyspnea Respiratory: Respiratory: Denies cough and Denies dyspnea Gastrointestinal: Gastrointestinal: Denies abdominal pain, Denies diarrhea, Denies nausea and Denies vomiting Genitourinary: Genitourinary: Denies hematuria and Denies dysuria Musculoskeletal: Musculoskeletal: Denies back pain and Denies neck pain Neurologic: Denies headache(s) and Denies weakness [facility] Past Medical History Medical History (Updated 10/18/21 @ 21:04 by Ruthie De Jesus MD) Anemia Atrial fibrillation Bladder infection BMI 20.0-20.9, adult BMI 21.0-21.9, adult BMI 22.0-22.9, adult Bug bites Cancer Chronic obstructive pulmonary disease CKD (chronic kidney disease) Colon cancer screening Complaint of paresthesia Congestive heart failure Cough Encounter for Medicare annual wellness exam Encounter for routine adult health examination without abnormal findings Encounter for screening mammogram for malignant neoplasm of breast Fatigue Follow up Hearing loss 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 Memory impairment Microscopic hematuria Musculoskeletal pain Myocardial infarction 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 Pneumonia Stroke Stroke of right basal ganglia Vision changes Surgical History Surgical History History of hysterectomy History of open heart surgery Family History Family History Sibling Diabetes mellitus Father Diabetes mellitus Family history of congestive heart failure Family history of cardiovascular disease Family history of diabetes mellitus in first degree relative Family history of heart disease in male family member before age 55 Mother Family history of Alzheimer's disease Other Family history of malignant neoplasm Social History Social History Smoking packs per day: 0.25 Smoking cigarettes per day: 5.0 Years smoked: 3 Smoking pack-years: 0.75 Smoking status: Never smoker Second hand tobacco smoke exposure: No Alcohol intake: current Exam Const: General: no acute distress and well developed Orientation/consciousness: oriented to person, oriented to place, oriented to time and patient oriented x3 HENMT: Head: normocephalic Ears: external ears normal General nose exam: Normal external nose present Eyes: General: appearance normal, both eyes and all related structures Conjunctivae: conjunctivae normal Neck: Neck: normal visual inspection and full ROM Chest: Chest palpation & inspection: normal inspection of t
[2021-10-18 17:56] LABS: Troponin I < 0.012 ng/mL (0.000-0.034)
[2021-10-18] MEDS: METOPROLOL TARTRATE INJ 5 MG/5 ML VIAL IV PUSH (18:09)
[2021-10-18 18:15] LABS: Thyroid Stimulating Hormone 0.591 uIU/mL (0.465-4.680)
[2021-10-18 18:43] LABS: INR 1.8; Prothrombin Time 20.7 Seconds (11.1-14.7)
[2021-10-18 18:44] LABS: Partial Thromboplastin Time 34.4 SECONDS (22.3-36.8)
[2021-10-18] MEDS: SODIUM CHLORIDE 0.9% IV 1,000 ML 999 ML IV CONT (20:27)
[2021-10-18] MEDS: DIGOXIN INJ 250 MCG/ML 2 ML AMP (*BKC) IV PUSH (20:30)
[2021-10-18 20:32] LABS: Troponin I < 0.012 ng/mL (0.000-0.034)
--- NOTE | 2021-10-18 20:46 | PM.IMHP ---
H&P: HPI History of Present Illness Date/Time: 10/18/21 20:46 Chief Complaint: Palpitations Narrative: This is a 76-year-old female with past medical history significant for atrial fibrillation, atrial flutter, aortic valve replacement with mechanical valve, S stroke, hypertension, chronic obstructive pulmonary disease, chronic kidney disease, congestive heart failure, patient presented to the emergency room due to palpitations she has been having symptoms for over a month according to patient she had Holter monitoring for 1 month and 2 weeks ago went for office visit and is currently awaiting her upcoming appointment with 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 Woo. She presented today to the emergency room due to palpitations with lightheadedness, shortness of breath, no syncope, no near-syncope, no nausea, no vomiting, no abdominal pain, no chest pain, no fevers, no rigors, no chills, no leg swelling, no calf pain. Patient had been on amiodarone for many years but recently was discontinued due to adverse effects with alopecia vision changes and skin deposits. She has been kept on Toprol XL. Upon arrival to the emergency room patient was found to be on atrial flutter, she received digoxin and metoprolol IV push. Preliminary workup was significant for chest x-ray with lung infiltrate. Decision was made to bring the patient for further evaluation, assessment and treatment. Review of Systems Review of Systems: PALPITATIONS FOR OVER A MONTH Constitutional: Constitutional: Denies chills, Reports fatigue, Denies fever(s), Denies night sweats, Denies poor appetite and Denies weakness Eyes: Eyes: Denies change in vision ENT: Denies dysphagia, Denies vertigo, Denies nasal congestion, Denies nasal discharge and Denies nasal obstruction Cardiovascular: Cardiovascular: Denies chest pain, Denies claudication, Denies radiating jaw, neck or arm pain, Reports palpitations and Reports dyspnea Respiratory: Respiratory: Denies change in phlegm color, Denies cough, Denies excessive phlegm production and Denies wheezing Gastrointestinal: Gastrointestinal: Denies abdominal pain, Denies dyspepsia, Denies heartburn and Denies vomiting Genitourinary: Genitourinary: Denies dysuria Musculoskeletal: Musculoskeletal: Denies arthralgias and Denies joint swelling Integumentary/Breasts: Skin/Breast: Denies rash Neurologic: Denies Sensory deficit (Neuro) and Denies weakness Psychiatric: Psychiatric: Reports no additional psychiatric complaints and Reports as per HPI Endocrine: Endocrine: Reports no additional endocrine complaints and Reports as per HPI Hematologic/Lymphatic: Hematologic/Lymphatic: Reports no additional hematologic/lymphatic complaints and Reports as per HPI Allergic/Immunologic: Allergic/Immunologic: Reports no additional allergic/immunologic complaints and Reports as per HPI PMFSH Past Medical History Medical History (Updated 10/19/21 @ 03:45 by León Ashton MD) Anemia Atrial fibrillation Bladder infection BMI 20.0-20.9, adult BMI 21.0-21.9, adult BMI 22.0-22.9, adult Bug bites Cancer Chronic obstructive pulmonary disease CKD (chronic kidney disease) Colon cancer screening Complaint of paresthesia Congestive heart failure Cough Encounter for Medicare annual wellness exam Encounter for routine adult health examination without abnormal findings Encounter for screening mammogram for malignant neoplasm of breast Fatigue Follow up Hearing loss 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
[2021-10-18 23:38] LABS: Troponin I 0.012 ng/mL (0.000-0.034)
[2021-10-19] VITALS (26 sets, daily range): BP systolic 82–108; BP diastolic 45–71; PULSE 67–138; RESP 12–20; TEMP 36.1–37.7; O2SAT 95–98; BMI 18.3; BMI 35.9
--- NOTE | 2021-10-19 01:25 | ADMGEN ---
This patient, Elizabeth Marx, was admitted to IMU Room 210-01 AT 0050 on 10/19/2021. Patient/family oriented to hospital policies and general routines including ID bracelet, bed and alarms, visiting hours, pain management, procedures, bathroom and other care routines, personal items, smoking policy, room service/diet, and visiting hours. Information on how to activate the Rapid Response Team has been discussed. Patient/Family are encouraged to report perceived risks to care and to ask questions if they do not understand what they are told or what they should do.
--- NOTE | 2021-10-19 01:59 | ECG_ITS ---
Measurements Intervals [place] Rate: 129 P: OR: 0 QRS: 12 QRSD: 75 T: 137 QT: 369 QTc: 542 Interpretive Statements ATRIAL FLUTTER/TACHYCARDIA WITH RAPID VENTRICULAR RESPONSE NONSPECIFIC ST & T-WAVE ABNORMALITY- LAT/HIGH LAT LEADS BASELINE ARTIFACT- I, II, AVR, AVL, AVF ABNORMAL ECG Electronically Signed On 10-19-2021 6:46:25 EDI SPECIALIST by Keenan Mayes D.O.
[2021-10-19] MEDS: dilTIAZem HCl INJ 25 MG/5 ML VIAL 10 MG IV PUSH (04:33)
[2021-10-19] MEDS: cefTRIAXone 2 GM in SODIUM CHLORIDE 0.9% IV 100 ML 200 ML IVPB ×2 (04:45→21:10)
[2021-10-19] MEDS: FLUTICASONE/SALMETEROL 230-21 MCG INHALER 1 PUFF 2 PUFF INHALATION ×2 (08:28→21:16)
[2021-10-19 08:47] LABS: Hemoglobin 10.3 g/dL (12.0-15.0); Mean Corpuscular HGB Conc 33.2 g/dl (32-36); Mean Corpuscular Hemoglobin 31.1 pg (26-34); Mean Corpuscular Volume 93.7 fl (80-100); Mean Platelet Volume 9.1 fl (7.4-10.4); Platelet Count Result 168 k/mm3 (150-375); Red Blood Count 3.31 M/mm3 (4.2-5.4); Red Cell Distribution Width 14.4 % (11.5-14.5); White Blood Count 7.7 K/mm3 (4.5-10.0)
[2021-10-19 08:53] LABS: Albumin Level 3.6 g/dL (3.5-5.1); Anion Gap 6 mmol/L (8-16); Blood Urea Nitrogen 17 mg/dL (7-17); Calcium 8.5 mg/dL (8.4-10.2); Carbon Dioxide 22 mmol/L (22-30); Chloride 107 mmol/L (98-107); Estimated CRCL calculation 49 ml/min; Estimated Glomerular Filt Rate 54; Glucose 95 mg/dL (65-110); Sodium 135 mmol/L (137-145)
[2021-10-19] MEDS: PRAVASTATIN SODIUM 20 MG TABLET 40 MG BY MOUTH (10:07)
[2021-10-19] MEDS: ESCITALOPRAM OXALATE 10 MG TABLET BY MOUTH (10:08)
[2021-10-19] MEDS: CHOLECALCIFEROL 1,000 UNITS TABLET 2000 UNITS PO (10:08)
[2021-10-19] MEDS: CYANOCOBALAMIN 1,000 MCG TABLET 1000 MCG PO (10:08)
[2021-10-19] MEDS: SPIRONOLACTONE 12.5 MG TABLET BY MOUTH (10:08)
[2021-10-19] MEDS: METOPROLOL TARTRATE 12.5 MG TABLET PO (10:08)
[2021-10-19] MEDS: FOLIC ACID 1 MG TABLET BY MOUTH (10:08)
[2021-10-19] MEDS: OMEGA 3 POLYUNSAT FATTY ACIDS 1 GM CAP PO (10:08)
--- NOTE | 2021-10-19 10:29 | PM.CNCAR ---
Assessment and Plan Additional Plan 76-year-old lady who is in chronic stable but symptomatic atypical atrial flutter who is hospitalized because of the sense of tachycardia and palpitations. According to the cordwainer note which is in our chart for any ones review there is not much else that can be done in the way of rhythm control medication. She has not responded well to a modest dose of beta-alexandr. Her follow-up appointment with them is in several weeks at which time I would imagine an AV junction ablation and pacemaker implant will be discussed. In the meantime I suppose I am going to try shifting her from the beta-alexandr to diltiazem to see if we can not suppress her AV node medically a little bit more aggressively/effectively to help her feel better while she is waiting for that appointment. There is no other evaluation and workup that needs to be done here at [facility] as it has been completed as an outpatient and once again the reader is referred to the electrophysiology consult note from last month in the record. We will see how she response to some oral diltiazem and I will hopefully be able to discharge her relatively soon as I do not believe there is much else to offer her in the way of effective treatment for this here at [facility]. I will communicate with her physician at the arrhythmia Center at [facility] so they are aware of this situation. Cali Vna MD [facility] History of Present Illness History of Present Illness Consult date/time: 10/19/21 10:29 Reason For Visit: Atrial Flutter with RVR Narrative: This is a 76-year-old woman that I am seeing at the request of the hospitalist because of atrial flutter with rapid ventricular response. The patient's entire chart which is somewhat extensive was reviewed with the patient being seen in the IMU today. This is a lady with a long history of valvular heart disease with aortic valve replacement with a mechanical Medtr[employer] Bruno prosthesis that was done many years ago because of bicuspid aortic valve stenosis. She over the intervening years has seen quite a few rn appeals including her original physician in [place], 3 or 4 physicians [place] most recently in our practice by Dr. Woo. She has had a extensive outpatient workup of this atrial flutter the results of which are in the chart here for any ones review. She has had a history of atypical atrial flutter for quite a while and she is symptomatic with her arrhythmia with palpitations. She previously had been placed on amiodarone for this which I believe controlled the rhythm reasonably well but was stopped because of several drug-induced side effects including hair loss, skin pigmentation and blurring of her vision. She also had a skin rash which she attributed to the medication. She went into sustained pattern of atypical atrial flutter and had been seen by my partner in the office and referred to electrophysiology consultation at [facility] the note of which is on the chart from 1 month ago. According to the electrophysiology nursing education consultant there are really no effective rhythm control medication options left for this lady because of her desire not to consider amiodarone again and renal insufficiency making other anti arrhythmics contraindicated. The decision last month was to place the patient on a modest dose of amiodarone obtain a 30 day event monitor to look at the chronic heart rate control and she has follow-up with that physician scheduled for the middle of October and about 3 weeks. Patient states that her 30 day monitor demonstrated her heart rate to be 130 although all of the time and she was concerned that no one has called her and attended to this prior to now. She is not symptomatic with anything else she is not describing any symptoms of chest pain pressure or heaviness orthopnea PND or accumulating edema. Because of ongoing sense of tachycardia and p
--- NOTE | 2021-10-19 11:32 | PM.IMPN ---
Progress Note: A&P Assessment and Plan (1) Atrial flutter: Qualifiers: Atrial flutter type: unspecified Qualified Code(s): I48.92 - Unspecified atrial flutter Code(s): I48.92 - Unspecified atrial flutter Status: Acute Assessment and Plan: Currently in atrial flutter which sounds as if not well controlled over the past few weeks. Was on Diltiazem drip but changed to oral now. BP soft as well. Troponins negative x3. Continue tele monitoring. Add heparin until INR therapeutic. Appreciate Cardiology input (2) Pneumonia: Qualifiers: Laterality: right Lung location: lower lobe of lung Pneumonia type: due to unspecified organism Qualified Code(s): J18.9 - Pneumonia, unspecified organism Code(s): J18.9 - Pneumonia, unspecified organism Status: Acute Assessment and Plan: She states she was on abx prior to admission. CXR 10/11 showing RLL airspace disease. No notes to determine if and with what abx were given. CXR here showing stable RLL airspace disease. Continue Rocephin and Zithromax for now. Follow up on BCx results. Check bedside swallow. Clarify home meds. (3) H/O mechanical aortic valve replacement: Code(s): Z95.2 - Presence of prosthetic heart valve Status: Acute Assessment and Plan: Anticoagulated with Coumadin but INR 1.8. Start Heparin drip. Contineu Coumadiin (4) Combined systolic and diastolic heart failure: Qualifiers: Heart failure chronicity: chronic Qualified Code(s): I50.42 - Chronic combined systolic (congestive) and diastolic (congestive) heart failure Code(s): I50.40 - Unspecified combined systolic (congestive) and diastolic (congestive) heart failure Status: Acute Assessment and Plan: Echo in April 2021 showing EF 45-50%, severe LAE, mild-mod MR, mild AI, and mild pHTN. Appears euvolemic. Daily I's and O's. Lasix on hold. Hold Spironolactone given the soft BP (5) CKD (chronic kidney disease) stage 3, GFR 30-59 ml/min: Qualifiers: Chronic kidney disease stage 3 subtype: unspecified whether 3a or 3b Qualified Code(s): N18.30 - Chronic kidney disease, stage 3 unspecified Code(s): N18.3 - Chronic kidney disease, stage 3 (moderate) Status: Acute Assessment and Plan: BUN and creatinine normal now. Continue to hold Lasix. (6) CVA (cerebrovascular accident due to intracerebral hemorrhage): Qualifiers: Cerebral hemorrhage location: unspecified cerebral location Intracerebral hemorrhage etiology: nontraumatic Laterality: right Qualified Code(s): I61.9 - Nontraumatic intracerebral hemorrhage, unspecified Code(s): I61.9 - Nontraumatic intracerebral hemorrhage, unspecified Status: Acute Assessment and Plan: Patient with history of hemorrhagic CVA. Continue statin. Hold ASA for now. (7) Chronic obstructive pulmonary disease: Qualifiers: COPD type: unspecified COPD Qualified Code(s): J44.9 - Chronic obstructive pulmonary disease, unspecified Code(s): J44.9 - Chronic obstructive pulmonary disease, unspecified Status: Acute Assessment and Plan: No wheezing appreciated. Continue Advair. Continue to monitor Subjective Date/time seen: 10/19/21 11:32 Interval history: 76yo female with mechanical AVR, CHF, CKD, cAFib here for palpiations. No SOB or CP. She states she has had been on a monitor at home and has had elevated HR for the past few weeks 130-140. She has a cough but is finishing abx from the outpatient setting for a PNA. She confirms that she has a mechanical valve. Exam Narrative: AF 98.5 108/69 138 16 95% ra Gen - NARD Chest - CTA bilaterally, nml RR CV - tachycardic, regular; Tele showing AFlutter with mostly 2:1 Abd - Soft, NT/ND, Positive BS Ext - No pedal edema Psych - Nml mood and affect Skin - Warm and dry Objective Data Vital Signs Vital Signs: Vital Signs - 24 hr
[2021-10-19 11:37] LABS: INR 1.8; Prothrombin Time 20.6 Seconds (11.1-14.7)
[2021-10-19] MEDS: SODIUM CHLORIDE 0.9% IV 500 ML 999 ML IV CONT (11:55)
[2021-10-19] MEDS: HEPARIN SOD/D5W 100 UNITS/ML 25,000 UNITS/250 ML BAG 13 UNITS IV CONT (13:56)
[2021-10-19] MEDS: dilTIAZem HCL CD 180 MG CAP.ER.24H PO (13:56)
[2021-10-19] MEDS: WARFARIN (*PBKC) 1 MG TABLET BY MOUTH (18:22)
--- NOTE | 2021-10-19 18:29 | ECG_ITS ---
Measurements Intervals [place] Rate: 68 P: MT: 0 QRS: 7 QRSD: 101 T: 107 QT: 413 QTc: 440 Interpretive Statements ATRIAL FLUTTER BORDERLINE ST-T WAVE ABNORMALITY- HIGH LATERAL LEADS BASELINE ARTIFACT- I, II, III, AVR, AVL, AVF ABNORMAL ECG Electronically Signed On 10-20-2021 11:31:49 PLASTER MACHINE OPERATOR by Keenan Mayes D.O.
[2021-10-19 22:07] LABS: Partial Thromboplastin Time > 200.0 SECONDS (22.3-36.8)
[2021-10-20] VITALS (11 sets, daily range): BP systolic 93–105; BP diastolic 42–45; PULSE 66–136; RESP 16–18; TEMP 36.2–36.3; O2SAT 96–98
[2021-10-20] MEDS: METOPROLOL TARTRATE INJ 5 MG/5 ML VIAL IV PUSH ×2 (04:05→04:43)
--- NOTE | 2021-10-20 06:48 | PC.NURSE ---
dr woodson is aware of patients heart rate increased to the 130's. new medication orders are in.
[2021-10-20 06:52] LABS: Basophils Percent Auto 0.5 % (0.2-1.2); Eosinophils Absolute Auto 0.1 K/mm3 (0-0.3); Eosinophils Percent Auto 1.9 % (0-4.4); Hematocrit 30.6 % (37.0-47.0); Hemoglobin 9.8 g/dL (12.0-15.0); Immature Granulocyte Absolute 0.02 K/mm3 (0.00-0.031); Immature Granulocyte Percent A 0.3 % (0-0.5); Lymphocytes Absolute Auto 1.85 K/mm3 (0.9-3.2); Mean Corpuscular Hemoglobin 30.3 pg (26-34); Mean Corpuscular Volume 94.7 fl (80-100); Mean Platelet Volume 9.6 fl (7.4-10.4); Monocytes Absolute Auto 0.5 K/mm3 (0.1-0.6); Monocytes Percent Auto 6.8 % (2.6-8.5); Neutrophils Absolute Auto 4.9 K/mm3 (1.3-6.7); Neutrophils Percent Auto 65.5 % (45.5-73.1); Platelet Count Result 168 k/mm3 (150-375); Red Blood Count 3.23 M/mm3 (4.2-5.4); Red Cell Distribution Width 14.3 % (11.5-14.5); White Blood Count 7.4 K/mm3 (4.5-10.0)
[2021-10-20 07:01] LABS: Alanine Aminotransferase 13 U/L (4-35); Albumin Level 3.5 g/dL (3.5-5.1); Alkaline Phosphatase 62 U/L (38-126); Anion Gap 7 mmol/L (8-16); Aspartate Amino Transferase 31 U/L (14-36); Bilirubin,Total 0.4 mg/dL (0.2-1.3); Blood Urea Nitrogen 13 mg/dL (7-17); Calcium 8.7 mg/dL (8.4-10.2); Carbon Dioxide 23 mmol/L (22-30); Chloride 106 mmol/L (98-107); Estimated CRCL calculation 35 ml/min; Estimated Glomerular Filt Rate 54; Glucose 108 mg/dL (65-110); Magnesium 1.8 mg/dL (1.6-2.3); Phosphorus 3.8 mg/dL (2.5-4.5); Potassium 3.9 mmol/L (3.4-5.0); Sodium 136 mmol/L (137-145)
[2021-10-20 07:29] LABS: Prothrombin Time 22.1 Seconds (11.1-14.7)
[2021-10-20 07:43] LABS: Partial Thromboplastin Time > 200.0 SECONDS (22.3-36.8)
[2021-10-20] MEDS: FLUTICASONE/SALMETEROL 230-21 MCG INHALER 1 PUFF 2 PUFF INHALATION (08:06)
[2021-10-20] MEDS: FOLIC ACID 1 MG TABLET BY MOUTH (08:12)
[2021-10-20] MEDS: dilTIAZem HCL CD 180 MG CAP.ER.24H PO (08:12)
[2021-10-20] MEDS: ESCITALOPRAM OXALATE 10 MG TABLET BY MOUTH (08:12)
[2021-10-20] MEDS: PRAVASTATIN SODIUM 20 MG TABLET 40 MG BY MOUTH (08:12)
[2021-10-20] MEDS: CYANOCOBALAMIN 1,000 MCG TABLET 1000 MCG PO (08:12)
[2021-10-20] MEDS: CHOLECALCIFEROL 1,000 UNITS TABLET 2000 UNITS PO (08:12)
--- NOTE | 2021-10-20 12:50 | PCSTNOTE ---
Please refer to the Modified Barium Swallow Evaluation in the EMR.
--- NOTE | 2021-10-20 13:01 | PM.DS ---
DS: Admitting Diagnosis Discharge Date 10/20/21 Admitting Diagnosis palpitations DS: Discharge Diagnosis Discharge Diagnosis (1) Atrial flutter: Qualifiers: Atrial flutter type: unspecified Qualified Code(s): I48.92 - Unspecified atrial flutter Code(s): I48.92 - Unspecified atrial flutter Status: Acute Assessment and Plan: Currently in atrial flutter which sounds as if not well controlled over the past few weeks. Was on Diltiazem drip but changed to oral diltiazem. Troponins negative x3. Added heparin drip until INR therapeutic. Per cardiology note, there was no other evaluation or workup that was needed the patient needs to follow-up with electrophysiology. Patient has an appointment with diathermy equipment repairer on November 08 and she was encouraged to keep this appointment. Heart rate did become better controlled with the medications. Appreciate cardiology input. (2) Pneumonia: Qualifiers: Pneumonia type: due to unspecified organism Laterality: right Lung location: lower lobe of lung Qualified Code(s): J18.9 - Pneumonia, unspecified organism Code(s): J18.9 - Pneumonia, unspecified organism Status: Acute Assessment and Plan: She states she was on abx prior to admission. CXR 10/11 showing RLL airspace disease. CXR here showing stable RLL airspace disease. She was started on Rocephin and Zithromax. Modified barium swallow showed that she had some penetration but no aspiration. Speech therapy did not feel patient needed speech therapy at this time. Per the primary care doctor note, it appears the patient had pneumonia treated about 2 weeks prior to this admission. She completed course of antibiotics. Was not felt further antibiotic treatment was warranted. Recommend CT chest. (3) H/O mechanical aortic valve replacement: Code(s): Z95.2 - Presence of prosthetic heart valve Status: Acute Assessment and Plan: Anticoagulated with Coumadin but INR 1.8. And she has AFib/flutter. We started Heparin drip and INR became therapeutic. (4) Combined systolic and diastolic heart failure: Qualifiers: Heart failure chronicity: chronic Qualified Code(s): I50.42 - Chronic combined systolic (congestive) and diastolic (congestive) heart failure Code(s): I50.40 - Unspecified combined systolic (congestive) and diastolic (congestive) heart failure Status: Acute Assessment and Plan: Echo in April 2021 showing EF 45-50%, severe LAE, mild-mod MR, mild AI, and mild pHTN. Appears euvolemic. Lasix and Spironolactone held given the soft BP (5) CKD (chronic kidney disease) stage 3, GFR 30-59 ml/min: Qualifiers: Chronic kidney disease stage 3 subtype: unspecified whether 3a or 3b Qualified Code(s): N18.30 - Chronic kidney disease, stage 3 unspecified Code(s): N18.3 - Chronic kidney disease, stage 3 (moderate) Status: Acute Assessment and Plan: BUN 22, Cr 1.3 on admission but BUN and creatinine normal now. We held Lasix and spironolactone. Contineu to hold these medications for now. (6) CVA (cerebrovascular accident due to intracerebral hemorrhage): Qualifiers: Intracerebral hemorrhage etiology: nontraumatic Cerebral hemorrhage location: unspecified cerebral location Laterality: right Qualified Code(s): I61.9 - Nontraumatic intracerebral hemorrhage, unspecified Code(s): I61.9 - Nontraumatic intracerebral hemorrhage, unspecified Status: Acute Assessment and Plan: Patient with history of hemorrhagic CVA. Continue statin. Not on ASA probably due to hemorrhagic CVA and that she is on Coumadin (7) Chronic obstructive pulmonary disease: Qualifiers: COPD type: unspecified COPD Qualified Code(s): J44.9 - Chronic obstructive pulmonary disease, unspecified Code(s): J44.9 - Chronic obstructive pulmonary disease, unspecified Status: Acute
--- NOTE | 2021-10-20 14:36 | PM.PNCARD ---
Progress Note: A&P Additional Plan AF with RVR controlled today, plan cont diltiazem 180 mg daily and oral anticoagulation with warfarin Subjective Date/time seen: 10/20/21 14:36 Interval history: feels better today HR has been controlled in 80s Review of Systems Review of Systems: All systems reviewed & are unremarkable except as noted in HPI and below Exam Const: General: comfortable and no acute distress Other: Able to lie flat HENMT: General nose exam: Normal nares present and no epistaxis Mouth: Yes moist mucous membranes Eyes: Sclera: sclerae normal Pupils: Equal, round and reactive pupils present Neck: Neck: supple and no JVD Carotids: no bruits Resp: Auscultation: clear to auscultation bilaterally and lung sounds not diminished Other: No chest wall tenderness Cardio: Rate: abnormal rate Rhythm: abnormal rhythm Heart sounds: no gallops, no murmurs and no rubs GI: GI Palp: Yes Soft to palpation and No Tenderness to palpation present (GI) Auscultation: normal bowel sounds Skin: General skin exam: normal color, rashes and/or lesions noted and no erythema Other: Warm Neuro: Cranial nerves: Yes Equal, round and reactive pupils present Speech: normal speech Other: No obvious focal deficit or facial asymmetry Extrem: General: no edema Other: Normal capillary refills Intact distal pulses. Objective Data Vital Signs Vital Signs: Vital Signs - 24 hr 10/19/21 16:00 10/19/21 18:00 10/19/21 19:33 Temperature 36.7 C 37.7 C H Pulse Rate 134 H 68 68 Respiratory Rate 12 16 Blood Pressure 95/45 L 98/47 L Pulse Oximetry 96 98 10/19/21 20:00 10/19/21 21:17 10/19/21 22:00 Temperature Pulse Rate 68 67 Respiratory Rate 16 Blood Pressure Pulse Oximetry 98 95 10/20/21 00:00 10/20/21 02:00 10/20/21 04:00 Temperature 36.3 C L Pulse Rate 81 82 80 Respiratory Rate 16 16 Blood Pressure 93/42 L 94/42 L Pulse Oximetry 98 98 10/20/21 04:05 10/20/21 04:09 10/20/21 04:43 Temperature Pulse Rate 136 H 136 H 115 H Respiratory Rate Blood Pressure Pulse Oximetry 10/20/21 06:00 10/20/21 08:00 10/20/21 08:07 Temperature 36.3 C L Pulse Rate 83 66 Respiratory Rate 16 Blood Pressure 104/45 L Pulse Oximetry 97 98 10/20/21 10:00 10/20/21 12:00 Temperature 36.2 C L Pulse Rate 82 73 Respiratory Rate 18 Blood Pressure 105/45 L Pulse Oximetry 96 Intake/Output Intake/Output: Intake & Output 10/17/21 10/18/21 10/19/21 10/20/21 23:59 23:59 23:59 23:59 Intake Total 1000 960.5 420 Output Total 1100 Balance 1000 -139.5 420 Meds/Results Medications: Active Medications Generic Name Dose Route Start Last Admin Trade Name Freq PRN Reason Stop Dose Admin Albuterol 2 puff 10/19/21 03:10 Albuterol Sulfate (*Sp) Aerosol 1 Puff INHALATION Q4-6H PRN shortness of breath or wheezing Cyanocobalamin 1,000 mcg 10/19/21 09:00 10/20/21 08:12 Cyanocobalamin 1,000 Mcg Tablet PO 1,000 mcg QAM OTF Administration Diltiazem HCl 180 mg 10/19/21 13:05 10/20/21 08:12 Diltiazem Hcl Cd 180 Mg Cap.Er.24h PO 180 mg QAM OTF Administration Escitalopram Oxalate 10 mg 10/19/21 09:00 10/20/21 08:12 Escitalopram Oxalate 10 Mg Tablet BY MOUTH 10 mg DAILY OTF Administration Fish Oil 1 gm 10/19/21 09:00 10/20/21 08:16 [place] 3 Polyunsat Fatty Acids 1 Gm Cap PO 11/18/21 08:59 Not Given DAILY OTF Folic Acid 1 mg 10/19/21 09:00 10/20/21 08:12 Folic Acid 1 Mg Tablet BY MOUTH 1 mg DAILY OTF Administration Ceftriaxone Sodium 2 gm/ 100 mls @ 200 mls/hr 10/19/21 04:00 10/19/21 21:10 Sodium Chloride IVPB 200 mls/hr DAILY@2200 OTF Administration Azithromycin 500 mg in 250 mls @ 250 mls/hr 10/19/21 04:00 10/19/21 21:10 Zithromax IVPB 250 mls/hr DAILY@2200 OTF Administration Metoprolol Tartrate 5 mg 10/20/21 03:57 Metoprolol Tartrate Inj 5 Mg/5 Ml Vial IV PUSH Q2H PRN
== END 2021-10-20 13:45 | disposition home or self-care (01) ==
LOC: ANHED 21:04 → ANHIMU 10-19 03:55
PROVIDERS: Internal Medicine Cardiovascular Disease; Admitting Provider Internal Medicine; Emergency Provider Emergency Medicine; PCP Internal Medicine; Visit Provider Internal Medicine
DX: I48.92 Unspecified atrial flutter (principal); I48.0 Paroxysmal atrial fibrillation; J18.9 Pneumonia, unspecified organism; R13.10 Dysphagia, unspecified; R93.3 Abnormal findings on diagnostic imaging of other parts of digestive tract; D64.9 Anemia, unspecified; I13.0 Hypertensive heart and chronic kidney disease with heart failure and stage 1 through stage 4 chronic kidney disease, or unspecified chronic kidney disease; N18.30 Chronic kidney disease, stage 3 unspecified; I50.40 Unspecified combined systolic (congestive) and diastolic (congestive) heart failure; J44.9 Chronic obstructive pulmonary disease, unspecified; I69.352 Hemiplegia and hemiparesis following cerebral infarction affecting left dominant side; I25.2 Old myocardial infarction; Z79.01 Long term (current) use of anticoagulants; Z79.51 Long term (current) use of inhaled steroids; Z95.2 Presence of prosthetic heart valve; Z87.891 Personal history of nicotine dependence
CPT/HCPCS: 36415; 71046; 80053; 80069; 81001; 83735; 84100; 84443; 84484; 85025; 85027; 85610; 85730; 87040; 92611; 93005; 94640; 96361; 96365; 96366; 96367; 96368; 96375; 96376; 99285; A9270; G0378; J0456; J0696; J1160; J1644; J7030; J7040

== ENCOUNTER 2021-11-02 13:32 | Outpatient (CLI) | payer MEDICARE, SELFPAY ==
--- NOTE | ~2021-11-02 | CT_ITS ---
EXAMINATION: CT diagnostic chest w con DATE: 11/02/2021 14:04 INDICATION: Shortness of breath, abnormal finding of the lung field TECHNIQUE: Transaxial computed tomographic images of the chest were obtained after the administration of 75 cc of Omnipaque 350 intravenous contrast. The dose-length product (DLP) was 132.08 mGy-cm. Ite rative reconstruction was used. COMPARISON: 10/15/2016; chest radiograph dated 10/18/2021 FINDINGS: There are minimal airspace opacities of the right lower lobe and lingula. No persistent air space opacity is identified in the area questioned on chest radiograph. There is no pleural effusion or pneumothorax. Cardiomegaly is noted. There are changes of aortic valve surgery. There is fusiform enlargement of the ascending aorta which measures up to 4.1 cm. There is no aortic dissection. There is mild right lower paratracheal lymphadenopathy. Calcified pulmonary nodules and calcified left jian r, and mediastinal lymph nodes are consistent with old granulomatous disease. There is mild thoracic spondylosis. Stones are present in the nondistended gallbladder. Punctate calcifications in an other tellez normal spleen likely represent healed granulomatous disease. IMPRESSION: 1. Minimal airspace opacities of the lingula and right lower lobe, likely infectious or inflammatory. 2. Mild mediastinal lymphadenopathy, likely reactive. 3. Cardiomegaly. Reviewed, dictated and finalized at location A. ENT SAFETY ATTENDANT IMPRESSION: 1. Minimal airspace opacities of the lingula and right lower lobe, likely infec tious or inflammatory. 2. Mild mediastinal lymphadenopathy, likely reactive. 3. Cardiomegaly.
[2021-11-02 14:38] LABS: Basophils Absolute Auto 0.1 K/mm3 (0.0-0.1); Basophils Percent Auto 0.9 % (0.2-1.2); Eosinophils Absolute Auto 0.3 K/mm3 (0-0.3); Eosinophils Percent Auto 3.6 % (0-4.4); Hemoglobin 11.5 g/dL (12.0-15.0); Immature Granulocyte Absolute 0.03 K/mm3 (0.00-0.031); Immature Granulocyte Percent A 0.3 % (0-0.5); Lymphocytes Absolute Auto 2.45 K/mm3 (0.9-3.2); Lymphocytes Percent Auto 28.1 % (18.3-44.2); Mean Corpuscular HGB Conc 31.9 g/dl (32-36); Mean Corpuscular Hemoglobin 30.7 pg (26-34); Mean Platelet Volume 9.1 fl (7.4-10.4); Monocytes Absolute Auto 0.8 K/mm3 (0.1-0.6); Monocytes Percent Auto 8.9 % (2.6-8.5); Neutrophils Absolute Auto 5.1 K/mm3 (1.3-6.7); Neutrophils Percent Auto 58.2 % (45.5-73.1); Platelet Count Result 218 k/mm3 (150-375); Red Blood Count 3.75 M/mm3 (4.2-5.4); Red Cell Distribution Width 14.1 % (11.5-14.5); White Blood Count 8.7 K/mm3 (4.5-10.0)
[2021-11-02 15:02] LABS: Alanine Aminotransferase 17 U/L (4-35); Albumin Level 4.2 g/dL (3.5-5.1); Alkaline Phosphatase 81 U/L (38-126); Anion Gap 9 mmol/L (8-16); Aspartate Amino Transferase 39 U/L (14-36); Blood Urea Nitrogen 15 mg/dL (7-17); Calcium 9.1 mg/dL (8.4-10.2); Carbon Dioxide 25 mmol/L (22-30); Chloride 101 mmol/L (98-107); Cholesterol 139 mg/dL (0-200); Glucose 106 mg/dL (65-110); HDL Direct 50 mg/dL; Potassium 4.2 mmol/L (3.4-5.0); Sodium 135 mmol/L (137-145); Triglycerides 62 mg/dL (<150)
[2021-11-02 15:10] LABS: LDL Cholesterol Direct 65 mg/dL
[2021-11-02 15:18] LABS: Estimated Glomerular Filt Rate 48
[2021-11-02 15:53] LABS: Vitamin D 25 Hydroxy 79.7 ng/mL
[2021-11-02 19:49] LABS: Hemoglobin A1C 4.4 % (<5.7)
== END 2021-11-02 13:33 | disposition home or self-care (01) ==
LOC: ANHIMG 13:33
PROVIDERS: PCP Internal Medicine; Visit Provider Internal Medicine
DX: R91.8 Other nonspecific abnormal finding of lung field (principal); E55.9 Vitamin D deficiency, unspecified; E78.5 Hyperlipidemia, unspecified; Z79.899 Other long term (current) drug therapy; I51.7 Cardiomegaly
CPT/HCPCS: 36415; 71260; 80053; 80061; 82306; 83036; 85025; Q9967

== ENCOUNTER 2022-03-27 14:18 | Outpatient (CLI) | payer MEDICARE, SELFPAY ==
[2022-03-27 16:05] LABS: Free T4 Free Thyroxine 1.08 ng/mL (0.78-2.19); Vitamin D 25 Hydroxy 85.3 ng/mL
[2022-03-27 16:42] LABS: Alanine Aminotransferase 20 U/L (4-35); Albumin Level 4.2 g/dL (3.5-5.1); Alkaline Phosphatase 65 U/L (38-126); Anion Gap 5 mmol/L (8-16); Aspartate Amino Transferase 40 U/L (14-36); Bilirubin,Total 0.8 mg/dL (0.2-1.3); Blood Urea Nitrogen 15 mg/dL (7-17); Calcium 8.6 mg/dL (8.4-10.2); Carbon Dioxide 28 mmol/L (22-30); Chloride 106 mmol/L (98-107); Cholesterol 126 mg/dL (0-200); Estimated Glomerular Filt Rate > 60; Glucose 93 mg/dL (65-110); HDL Direct 46 mg/dL; Potassium 3.9 mmol/L (3.4-5.0); Sodium 139 mmol/L (137-145); Triglycerides 68 mg/dL (<150)
[2022-03-27 16:54] LABS: LDL Cholesterol Direct 58 mg/dL
[2022-03-27 17:41] LABS: Thyroid Stimulating Hormone 0.505 uIU/mL (0.465-4.680)
[2022-03-27 18:20] LABS: Folic Acid > 20.0 ng/mL (2.76->20); Vitamin B12 > 1000.0 pg/mL (239-931)
[2022-03-31 13:40] LABS: Vitamin B6 9.5 ng/mL (2.1-21.7)
[2022-03-31 17:01] LABS: Vitamin B1 19 nmol/L (8-30)
== END 2022-03-27 14:19 | disposition home or self-care (01) ==
LOC: ANHLAB 14:19
PROVIDERS: PCP Internal Medicine; Visit Provider Internal Medicine
DX: E78.5 Hyperlipidemia, unspecified (principal); Z13.29 Encounter for screening for other suspected endocrine disorder; Z79.899 Other long term (current) drug therapy; E55.9 Vitamin D deficiency, unspecified; I10 Essential (primary) hypertension; E53.8 Deficiency of other specified B group vitamins
CPT/HCPCS: 36415; 80053; 80061; 82306; 82607; 82746; 84207; 84252; 84425; 84439; 84443

== ENCOUNTER 2022-04-10 13:59 | Outpatient (CLI) | payer MEDICARE, SELFPAY ==
--- NOTE | ~2022-04-10 | XR_ITS ---
EXAM: XR shoulder LT min 2V HISTORY: M25.519 - Pain PROXIMAL to head of shoulder radiates to arm . COMPARISON: X-ray chest 08/28/2017. FINDINGS: Left chest pacer with intact leads. Abandoned epicardial wires. Intact sternotomy wires. V alve replacement. Calcified left lung granuloma and left hilar nodes. Diffusely decreased mineralizat ion. No fracture or dislocation. Likely proximal left humeral enchondroma without endosteal scallopin g or periosteal change, stable since 08/28/2017. Joint spaces maintained. No erosion or periosteal michelle nge. Soft tissues within normal limits. IMPRESSION: No acute osseous finding in the left shoulder. Sclerotic proximal humeral lesion has the radiographic appearance of an enchondroma, has been stable, and has no concerning radiographic featur es. However, if there is proximal humeral pain this would raise concern for low-grade chondrosarcoma, for which close clinical and radiographic follow-up would be recommended. Reviewed, dictated and finalized at location K. IMPRESSION: No acute osseous finding in the left shoulder. Sclerotic proximal h umeral lesion has the radiographic appearance of an enchondroma, has been stabl e, and has no concerning radiographic features. However, if there is proximal h umeral pain this would raise concern for low-grade chondrosarcoma, for which cl ose clinical and radiographic follow-up would be recommended.
== END 2022-04-10 14:00 | disposition home or self-care (01) ==
PROVIDERS: PCP Internal Medicine; Visit Provider Internal Medicine
DX: M25.519 Pain in unspecified shoulder (principal)
CPT/HCPCS: 73030

== ENCOUNTER 2022-05-18 10:50 | Outpatient (CLI) | payer MEDICARE, SELFPAY ==
--- NOTE | ~2022-05-18 | XR_ITS ---
EXAMINATION: XR humerus LT DATE: 05/18/2022 11:14 INDICATION: Disorder of bone with sclerotic lesion at the proximal left humerus TECHNIQUE: AP and lateral views of the left humerus were obtained. COMPARISON: 04/10/2022 and 07/27/2005 FINDINGS: Bone alignment is normal. No fracture. No significant interval change in a sclerotic lesion extending approximately 4 cm proximal to distal at the proximal metaphyseal region of the left humerus with ri ng and arc-like configuration consistent with chondroid matrix in an enchondroma. No evident endostea l scalloping or periosteal reaction. Mild left acromioclavicular osteoarthritis. Left pectoral dual-l ead cardiac pacemaker with a lead tip projecting along the lateral left heart border likely within a coronary vein. Calcified nodule at the left lung base consistent with old granulomatous disease. IMPRESSION: 1. 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 Reviewed, dictated and finalized at location B. IMPRESSION: 1. Chronic 4 cm enchondroma without aggressive features in the proximal left hu meral metaphysis.
--- NOTE | ~2022-05-18 | CT_ITS ---
EXAMINATION: CT humerus LT wo con DATE: 05/18/2022 11:24 INDICATION: Bone lesion TECHNIQUE: High resolution computed tomography (CT) of the left humerus was performed without intrave nous contrast. Additional sagittal and coronal reconstructions were performed. Automated exposure con trol and iterative reconstruction technique were employed. The dose-length product was 415.10 mGy-cm. COMPARISON: Radiograph dated 05/18/2022, 04/10/2022 and 07/27/2005 FINDINGS: Bone alignment is normal. No fracture. Chondroid matrix extending for approximately 3.8 cm proximal t o distal length along the proximal metaphysis of the left humerus consistent with an enchondroma. Thi s appears grossly unchanged when compared with radiograph dated 07/27/2005. No endosteal scalloping or evident soft tissue density replacement of the surrounding marrow fat to suggest malignancy/malignant transformation. Left glenohumeral joint space is normal. No left glenohumeral joint effusion. Mild l eft acromioclavicular osteoarthritis. Partially visualized left pectoral cardiac pacemaker. No pathol ogically enlarged left axillary lymphadenopathy. IMPRESSION: 1. Enchondroma at the proximal left humeral metaphysis without appreciable interval change on plain r adiographs since 07/27/2005 Reviewed, dictated and finalized at location B. IMPRESSION: 1. Enchondroma at the proximal left humeral metaphysis without appreciable inte rval change on plain radiographs since 07/27/2005
== END 2022-05-18 10:51 | disposition home or self-care (01) ==
PROVIDERS: PCP Internal Medicine; Visit Provider Internal Medicine
DX: M89.9 Disorder of bone, unspecified (principal)
CPT/HCPCS: 73060; 73200

== ENCOUNTER 2022-06-08 13:03 | Outpatient (CLI) | payer MEDICARE, SELFPAY ==
--- NOTE | ~2022-06-08 | XR_ITS ---
XR shoulder LT min 2V DATE: 06/08/2022 13:25 INDICATION: Left shoulder pain and limited range of motion following a fall 2 months ago. TECHNIQUE: 4 views COMPARISON: 05/18/2022 CT left humerus 05/18/2022 left humerus FINDINGS: Status post sternotomy and cardiac valve replacement. Cardiomegaly. Left-sided triple lead pacemaker device. Aortic calcification. Calcified left hilar and aortopulmonary window nodes and calc ified left lower lung granuloma consistent with old granulomatous disease. Diffuse osteopenia. Normal alignment at the left acromioclavicular and glenohumeral joints. Calcified and chondroma of left humeral proximal metaphysis and proximal shaft. No fracture or disloc ation of the left shoulder. No periosteal reaction or bone destruction. No abnormal soft tissue calci fication. IMPRESSION: Calcified enchondroma of the proximal left humeral metaphysis and shaft Osteopenia Reviewed, dictated and finalized at location A. IMPRESSION: Calcified enchondroma of the proximal left humeral metaphysis and s haft Osteopenia
== END 2022-06-08 13:04 | disposition home or self-care (01) ==
PROVIDERS: PCP Internal Medicine; Visit Provider Orthopaedic Surgery
DX: M85.812 Other specified disorders of bone density and structure, left shoulder (principal)
CPT/HCPCS: 73030

== ENCOUNTER 2022-12-11 14:15 | Outpatient (CLI) | payer MEDICARE, SELFPAY ==
--- NOTE | ~2022-12-11 | XR_ITS ---
XR_CERV2-3V_CR DATE: 12/11/2022 14:36 INDICATION: Left-sided neck pain. No injury. TECHNIQUE: AP, open-mouth and lateral views COMPARISON: None FINDINGS: There is mild reversal cervical curvature which may be due to muscle spasm. Mild levoscolio sis of the cervical spine. C1 and C2 are normally aligned and the odontoid process is intact. There is approximately 2.5 mm anterolisthesis and mild loss of interspace height at C3-4. There is superior degenerative disc disease and minimal retrolisthesis at C4-5. There is minimal anterolisthesis relative preservation of disc space at C5-6. There is severe degenerative disc disease and mild retrolisthesis at C6-7. There is degenerative change at the apophyseal joints throughout the cervical spine and degenerative spurring of the uncovertebral joints at the mid and lower cervical spine. Status post sternotomy. Left-sided transvenous pacemaker device. IMPRESSION: Reversal cervical curvature, likely due to muscle spasm Prominent cervical spondylosis Reviewed, dictated and finalized at [facility]. Reviewed, dictated and finalized at location [facility]. ADMINISTRATIVE ASSISTANT
== END 2022-12-11 14:16 | disposition home or self-care (01) ==
PROVIDERS: PCP Internal Medicine; Visit Provider Internal Medicine
DX: M54.2 Cervicalgia (principal); M53.82 Other specified dorsopathies, cervical region; M43.02 Spondylolysis, cervical region
CPT/HCPCS: 72040

== ENCOUNTER 2023-01-01 06:40 | Outpatient (CLI) | payer MEDICARE, SELFPAY ==
--- NOTE | ~2023-01-01 | CT_ITS ---
Non-contrast Head CT History: Head pain, memory issues COMPARISON: 03/16/2021 Technique: Axial imaging of the brain was performed prior to and following intravenous administratio n of 100 cc of Omnipaque 350 contrast material. Dose reduction technique was used on this scan by yuni ananding automated exposure control and iterative reconstruction technique. The dose-length product (DL P) was 1135.00 mGy-cm. Findings: There is no evidence of intracranial hemorrhage, mass lesion, or acute infarct. Stable chr onic infarcts in the posterior left parietal lobe and left cerebellum. Mild chronic white matter harris ges are noted bilaterally, consistent with microvascular ischemic change. The ventricles and subarach noid spaces are normal in size. The calvarium appears normal. The visualized paranasal sinuses and mastoid air cells are clear. No abnormal postcontrast enhancement. Impression: No acute abnormality. Stable chronic infarcts in the posterior left parietal lobe and left cerebellum. Stable chronic microvascular ischemic changes. Reviewed, dictated and finalized at [facility]. ING CAREGIVER Impression: No acute abnormality. Stable chronic infarcts in the posterior left parietal lobe and left cerebellum . Stable chronic microvascular ischemic changes.
[2023-01-01 07:24] LABS: Estimated Glomerular Filt Rate 54
== END 2023-01-01 06:41 | disposition home or self-care (01) ==
PROVIDERS: PCP Internal Medicine; Visit Provider Internal Medicine
DX: F09 Unspecified mental disorder due to known physiological condition (principal); H92.01 Otalgia, right ear; I61.9 Nontraumatic intracerebral hemorrhage, unspecified; R41.3 Other amnesia
CPT/HCPCS: 70470; Q9967

== ENCOUNTER 2023-06-18 09:34 | Outpatient (CLI) | payer MEDICARE, SELFPAY ==
[2023-06-18 10:10] LABS: Basophils Absolute Auto 0.1 K/mm3 (0.0-0.1); Basophils Percent Auto 0.8 % (0.2-1.2); Eosinophils Absolute Auto 0.5 K/mm3 (0-0.3); Eosinophils Percent Auto 5.7 % (0-4.4); Hematocrit 38.7 % (37.0-47.0); Hemoglobin 12.9 g/dL (12.0-15.0); Immature Granulocyte Absolute 0.02 K/mm3 (0.00-0.031); Immature Granulocyte Percent A 0.2 % (0-0.5); Lymphocytes Absolute Auto 2.39 K/mm3 (0.9-3.2); Lymphocytes Percent Auto 27.6 % (18.3-44.2); Mean Corpuscular HGB Conc 33.3 g/dl (32-36); Mean Corpuscular Hemoglobin 30.3 pg (26-34); Mean Corpuscular Volume 90.8 fl (80-100); Mean Platelet Volume 9.2 fl (7.4-10.4); Monocytes Absolute Auto 0.7 K/mm3 (0.1-0.6); Monocytes Percent Auto 8.2 % (2.6-8.5); Neutrophils Percent Auto 57.5 % (45.5-73.1); Platelet Count Result 224 k/mm3 (150-375); Red Blood Count 4.26 M/mm3 (4.2-5.4); Red Cell Distribution Width 13.5 % (11.5-14.5); White Blood Count 8.7 K/mm3 (4.5-10.0)
[2023-06-18 10:18] LABS: Appearance Urine Clear (Clear); Bacteria Urine None Seen /hpf; Bilirubin Urine Negative (Negative); Blood Urine 1+ (Negative); Color Urine Yellow (Yellow); Glucose Urine UA Negative (Negative); Ketones Urine Negative (Negative); Leukocyte Esterase Ur 2+ LEU/UL (Negative); Nitrate Urine Negative (Negative); Non Pathogenic Casts 0-2; Protein Urine Negative (Negative); RBC Urine 0-2 /hpf (0-2); Squamous Epithelial Cell Urine Few /hpf (Few); Urobilinogen Urine 0.2 mg/dL (<2.0); pH Urine 5.5 (5.0-9.0)
[2023-06-18 10:24] LABS: Potassium 4.1 mmol/L (3.4-5.0)
[2023-06-18 10:25] LABS: Alanine Aminotransferase 18 U/L (6-35); Albumin Level 4.3 g/dL (3.5-5.1); Alkaline Phosphatase 71 U/L (38-126); Anion Gap 8 mmol/L (8-16); Aspartate Amino Transferase 32 U/L (14-36); Bilirubin,Total 0.8 mg/dL (0.2-1.3); Blood Urea Nitrogen 16 mg/dL (7-17); Calcium 9.2 mg/dL (8.4-10.2); Carbon Dioxide 27 mmol/L (22-30); Chloride 105 mmol/L (98-107); Cholesterol 168 mg/dL (0-200); Estimated Glomerular Filt Rate 54; Glucose 100 mg/dL (65-110); HDL Direct 45 mg/dL; Sodium 140 mmol/L (137-145); Triglycerides 66 mg/dL (<150)
[2023-06-18 10:36] LABS: LDL Cholesterol Direct 91 mg/dL
[2023-06-18 10:52] LABS: Thyroid Stimulating Hormone 0.997 uIU/mL (0.465-4.680)
[2023-06-18 10:58] LABS: Free T4 Free Thyroxine 1.41 ng/mL (0.78-2.19); Vitamin D 25 Hydroxy 90.7 ng/mL
[2023-06-18 10:58] LABS: Add Urine Microscopic? YES
[2023-06-18 11:28] LABS: Folic Acid 7.2 ng/mL (2.76->20)
[2023-06-22 16:37] LABS: Vitamin B6 12.1 ng/mL (2.1-21.7)
[2023-06-24 09:16] LABS: Vitamin B1 15 nmol/L (8-30)
[2023-06-27 22:03] LABS: Vitamin B2 10.7 nmol/L (6.2-39.0)
== END 2023-06-18 09:35 | disposition home or self-care (01) ==
PROVIDERS: PCP Internal Medicine; Visit Provider Internal Medicine
DX: I10 Essential (primary) hypertension (principal); E53.8 Deficiency of other specified B group vitamins; R53.83 Other fatigue; Z79.899 Other long term (current) drug therapy; Z13.29 Encounter for screening for other suspected endocrine disorder; E78.2 Mixed hyperlipidemia; E55.9 Vitamin D deficiency, unspecified
CPT/HCPCS: 36415; 80053; 80061; 81001; 82306; 82607; 82746; 84207; 84252; 84425; 84439; 84443; 85025; 85610; 87086; 87088

== ENCOUNTER 2023-07-02 12:15 | Emergency (ER) | payer MEDICARE, SELFPAY ==
[2023-07-02] VITALS (8 sets, daily range): BP systolic 127–147; BP diastolic 51–70; PULSE 59–76; RESP 14–22; TEMP 36.1; O2SAT 96–99
--- NOTE | ~2023-07-02 | CT_ITS ---
Clinical Indication: Chest pain CT Scan of the Chest with Contrast: Technique: Contiguous sections were acquired throughout the chest after intravenous administration of 100 cc of Omnipaque 350. Dose reduction technique was used on this scan by utilizing automated expos ure control and iterative reconstruction technique. The dose-length product (DLP) was 175.42 mGy-cm. COMPARISON: 11/02/2021 Findings: Right paratracheal lymphadenopathy is similar to prior exam. Calcified left hilar lymph nodes are pre sent. There is no filling defect in the pulmonary arterial tree to suggest pulmonary embolus. Ascendi ng aorta is upper limits of normal in diameter, at 4 cm. No aortic dissection. There is cardiomegaly, with enlargement of the left atrium. There are atherosclerotic calcifications of the aorta. There is no evidence of pleural or pericardial effusion. There is extensive groundglass pulmonary disease. Images through the upper abdomen reveal calcified gallstones. Impression: Extensive groundglass pulmonary disease, nonspecific. Likely diagnostic considerations could include pulmonary edema, bronchiolitis, hypersensitivity pneumonitis. Clinical correlation required. Cardiomegaly, with ascending aorta upper limits of normal in diameter. Mild right paratracheal lymphadenopathy, stable from prior exam, therefore likely benign. Cholelithiasis. Reviewed, dictated and finalized at location [facility]. Impression: Extensive groundglass pulmonary disease, nonspecific. Likely diagnostic conside rations could include pulmonary edema, bronchiolitis, hypersensitivity pneumoni tis. Clinical correlation required. Cardiomegaly, with ascending aorta upper limits of normal in diameter. Mild right paratracheal lymphadenopathy, stable from prior exam, therefore like ly benign. Cholelithiasis.
--- NOTE | ~2023-07-02 | XR_ITS ---
EXAMINATION: XR chest 1V portable DATE: 07/02/2023 12:43 INDICATION: Chest pain. TECHNIQUE: A single frontal view of the chest was obtained. COMPARISON: Chest 2 views 10/18/2021 FINDINGS: Calcified left lung nodules and calcified left hilar and mediastinal lymph nodes are consis tent with old granulomatous disease. There is no pneumonia, pleural effusion, or pneumothorax. Cardio megaly is noted. There are changes of heart valve replacement. There is a left chest pacer with leads in right ventricle and coronary sinus. Again seen is a sclerotic lesion in proximal left humerus, li ta an enchondroma or osteonecrosis. IMPRESSION: 1. Cardiomegaly. Reviewed, dictated and finalized at location A. IMPRESSION: 1. Cardiomegaly.
--- NOTE | 2023-07-02 12:21 | ECG_ITS ---
Measurements Intervals [place] Rate: 60 P: AL: 0 QRS: 226 QRSD: 124 T: 86 QT: 479 QTc: 479 Interpretive Statements ELECTRONIC VENTRICULAR PACEMAKER ATRIAL RHYTHM IS ATRIAL FLUTTER ABNORMAL RHYTHM ECG COMPARED TO ECG 10/19/2021 18:37:16 ELECTRONIC VENTRICULAR PACING IS NOW SEEN Electronically Signed On 07-02-2023 14:08:57 CDT by Cali Van M.D.
[2023-07-02 12:39] LABS: Basophils Absolute Auto 0.1 K/mm3 (0.0-0.1); Basophils Percent Auto 0.7 % (0.2-1.2); Eosinophils Absolute Auto 0.3 K/mm3 (0-0.3); Eosinophils Percent Auto 2.7 % (0-4.4); Hematocrit 41.2 % (37.0-47.0); Hemoglobin 13.3 g/dL (12.0-15.0); Immature Granulocyte Absolute 0.04 K/mm3 (0.00-0.031); Immature Granulocyte Percent A 0.4 % (0-0.5); Lymphocytes Absolute Auto 2.88 K/mm3 (0.9-3.2); Lymphocytes Percent Auto 25.6 % (18.3-44.2); Mean Corpuscular HGB Conc 32.3 g/dl (32-36); Mean Corpuscular Hemoglobin 29.3 pg (26-34); Mean Corpuscular Volume 90.7 fl (80-100); Mean Platelet Volume 9.7 fl (7.4-10.4); Monocytes Absolute Auto 0.9 K/mm3 (0.1-0.6); Monocytes Percent Auto 7.7 % (2.6-8.5); Neutrophils Absolute Auto 7.1 K/mm3 (1.3-6.7); Neutrophils Percent Auto 62.9 % (45.5-73.1); Platelet Count Result 234 k/mm3 (150-375); Red Blood Count 4.54 M/mm3 (4.2-5.4); Red Cell Distribution Width 13.7 % (11.5-14.5); White Blood Count 11.2 K/mm3 (4.5-10.0)
[2023-07-02 12:48] LABS: Alanine Aminotransferase 20 U/L (6-35); Albumin Level 4.4 g/dL (3.5-5.1); Alkaline Phosphatase 70 U/L (38-126); Anion Gap 8 mmol/L (8-16); Aspartate Amino Transferase 34 U/L (14-36); Bilirubin,Total 0.8 mg/dL (0.2-1.3); Blood Urea Nitrogen 18 mg/dL (7-17); Calcium 9.2 mg/dL (8.4-10.2); Carbon Dioxide 23 mmol/L (22-30); Chloride 103 mmol/L (98-107); Estimated CRCL calculation 30 ml/min; Estimated Glomerular Filt Rate 54; Glucose 120 mg/dL (65-110); Lipase 170 U/L (23-300); Potassium 3.9 mmol/L (3.4-5.0); Sodium 134 mmol/L (137-145)
[2023-07-02] MEDS: ASPIRIN 81 MG CHEWABLE TABLET 324 MG PO (12:48)
[2023-07-02 12:51] LABS: INR 1.5; Partial Thromboplastin Time 31.4 SECONDS (22.3-36.8); Prothrombin Time 19.3 Seconds (11.1-14.7)
[2023-07-02 13:00] LABS: Troponin I 0.033 ng/mL (0.000-0.034)
--- NOTE | 2023-07-02 13:30 | ED.CHESTPAIN ---
HPI - Chest Pain General Chief Complaint: Chest Pain Stated Complaint: CP Time Seen by Provider: 07/02/23 13:23 History of Present Illness HPI narrative: Pt presents with throbbing pain in right chest for about 4 hrs. Pt was supposed to have some type of outpatient imaging but told them she had CP and was sent to ER. Pt denies precip or relieving factors. Pt denies SOB. Related Data Home Medications Medication Instructions Recorded Confirmed omega 3-rnd-jkd-fish oil 100 1 cap PO DAILY 10/03/19 06/19/23 mg-160 mg-1,000 mg capsule (Fish Oil) mecobalamin (vitamin B12) 1,000 1,000 mcg sublingual DAILY 10/07/19 06/19/23 mcg disintegrating tablet,sublingual calcium carbonate 600 mg calcium 600 mg PO BID 12/26/22 06/19/23 (1,500 mg) tablet cholecalciferol (vitamin D3) 25 25 mcg PO DAILY 06/18/23 06/19/23 mcg (1,000 unit) capsule riboflavin (vitamin B2) 50 mg 50 mg PO DAILY 06/28/23 tablet Allergies Allergy/AdvReac Type Severity Reaction Status Date / Time amiodarone Allergy Blurry Verified 06/18/23 08:46 Vision hydroxyzine AdvReac Intermediate Nausea and Verified 06/18/23 08:46 Vomiting Review of Systems Review of Systems: All systems reviewed & are unremarkable except as noted in HPI and below PMFSH Past Medical History Medical History (Updated 07/02/23 @ 16:42 by Roger López III, DO) Anemia Atrial fibrillation Benign essential hypertension Bladder infection BMI 20.0-20.9, adult BMI 21.0-21.9, adult BMI 22.0-22.9, adult Bone lesion Bug bites Cancer Cardiac pacemaker in situ Cervicalgia Chronic combined systolic and diastolic CHF, NYHA class 2 Chronic obstructive pulmonary disease Chronic systolic congestive heart failure CKD (chronic kidney disease) Cognitive dysfunction Colon cancer screening Complaint of paresthesia Congestive heart failure Cough Dizziness DJD (degenerative joint disease), multiple sites SINGLETARY (dyspnea on exertion) Encounter for Medicare annual wellness exam Encounter for routine adult health examination without abnormal findings Encounter for screening mammogram for malignant neoplasm of breast Fatigue Follow up Frozen shoulder Hearing loss 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 Intractable headache Itching Memory impairment Microscopic hematuria Mitral valve regurgitation Musculoskeletal pain Myocardial infarction On fci drug therapy Pacemaker Pneumonia Pneumonia due to infectious organism Shortness of breath Stroke Stroke of right basal ganglia Vision changes Surgical History Surgical History History of hysterectomy History of open heart surgery Family History Family History Sibling Diabetes mellitus Cancer Breast cancer Father Family history of heart disease in male family member before age 55 Family history of cardiovascular disease Diabetes mellitus Family history of diabetes mellitus in first degree relative Family history of congestive heart failure Mother Family history of Alzheimer's disease Social History Social History Smoking packs per day: 0.5 Smoking cigarettes per day: 10.0 Years smoked: 10 Smoking pack-years: 5.00 Smoking status: Former smoker Tobacco type: cigarettes Second hand tobacco smoke exposure: Yes Alcohol intake: current Substance use: never Lack of Transportation: No Lack of Food: Never True Current Housing: I Have Housing Concerned About Future Housing: No Difficulty Paying Gas/Electric Bills: No Difficulty Paying for Meds: No Currently Unemployed: No Education: Trade/Vocational Certificate Difficulty w/ Childcare or Family Care: No Living arrangements: with family Occupation/Education: retired Gender identity (if verbalized by the
[2023-07-02 16:04] LABS: Troponin I 0.027 ng/mL (0.000-0.034)
== END 2023-07-02 17:00 | disposition home or self-care (01) ==
PROVIDERS: Emergency Provider Emergency Medicine; PCP Internal Medicine
DX: R07.89 Other chest pain (principal); I48.91 Unspecified atrial fibrillation; I13.0 Hypertensive heart and chronic kidney disease with heart failure and stage 1 through stage 4 chronic kidney disease, or unspecified chronic kidney disease; N18.9 Chronic kidney disease, unspecified; I50.42 Chronic combined systolic (congestive) and diastolic (congestive) heart failure; J44.9 Chronic obstructive pulmonary disease, unspecified; I69.952 Hemiplegia and hemiparesis following unspecified cerebrovascular disease affecting left dominant side; I34.0 Nonrheumatic mitral (valve) insufficiency; I25.2 Old myocardial infarction; Z95.0 Presence of cardiac pacemaker; Z87.01 Personal history of pneumonia (recurrent); Z87.440 Personal history of urinary (tract) infections; Z87.891 Personal history of nicotine dependence; Z90.710 Acquired absence of both cervix and uterus; Z79.01 Long term (current) use of anticoagulants; I48.92 Unspecified atrial flutter; I51.7 Cardiomegaly
CPT/HCPCS: 36415; 71045; 71275; 80053; 83690; 84484; 85025; 85610; 85730; 93005; 99284; A9270; Q9967

== ENCOUNTER 2023-07-10 10:17 | Outpatient (CLI) | payer MEDICARE, SELFPAY ==
--- NOTE | 2023-08-02 19:10 | WPDSLEEPSTUD ---
Sleep Study Date of Study: 07/10/23 Ordering Provider: Thad Mitchell MD Interpreting Physician: Roxy Gibson DO Sleep Study Type: Split Polysomnogram Height: 1.52 m Weight: 47.627 kg Body Mass Index: 20.5 Neck Circumference (inches): 13.5 Maysel: 4 Reason for Sleep Study Difficulty sleeping Sleep History The patient is a 77-year-old female with atrial fibrillation, anemia, hypertension, pacemaker, congestive heart failure, COPD, chronic kidney disease, cognitive dysfunction, history of stroke and history of tobacco use that had a sleep study ordered by her primary care physician for evaluation of sleep apnea. The patient denies awakening from sleep short of breath. She denies awakening at night with heartburn, belching or cough. She denies snoring. She rarely has trouble sleeping when she has a cold. She denies waking up gasping for air throughout the night. She denies having breathing problems at night observed by herself or others. She occasionally sweats excessively at night. She rarely has heart palpitations or irregular heartbeats during the night. She denies falling asleep during the day and while driving. She denies sleep paralysis, cataplexy and hypnagogic / hypnopompic hallucinations. She denies having trouble at school or work due to sleepiness. She denies feeling afraid of going to sleep. She rarely has nightmares. She rarely remembers her dreams. She constantly has thoughts racing through her mind. She constantly feels sad or depressed. She occasionally has anxiety. She denies having muscular tension. She rarely notices parts of her body jerk. She constantly kicks during the night. She occasionally has crawling and aching feelings in her legs and occasionally has leg pain during the night. She occasionally grinds her teeth during sleep but denies awakening with morning jaw pain. She is occasionally bothered by pain during the night. She frequently wakes up feeling stiff in the morning. She frequently wakes up with sore or achy muscles. She occasionally wakes up with pain in the neck, spine or other joints. She goes to bed between 11:00 p.m. to midnight both weekdays and weekends. It takes her 10 minutes to fall asleep. She wakes up once throughout the to urinate and is able fall back asleep immediately. She wakes up at 7:00 a.m. on weekdays and 9:00 a.m. weekends. He typically gets 8 hours of sleep per. She does not stay in bed after waking up in the morning. She currently lives with her . She denies consuming any caffeinated beverages within 2 hours of bedtime. She denies engaging in physical exercise before bedtime. She will watch television before falling asleep. She will take naps in afternoon or the evening and they are refreshing. She consumes 2 cups of caffeinated beverage per day. She is a former smoker. She denies alcohol and recreational drug use. [facility] Past Medical History Medical History Adult BMI 19-24 kg/sq m Anemia Atrial fibrillation Benign essential hypertension Bladder infection BMI 20.0-20.9, adult BMI 21.0-21.9, adult BMI 22.0-22.9, adult Bone lesion Bug bites Cancer Cardiac pacemaker in situ Cervicalgia Cholelithiasis Chronic combined systolic and diastolic CHF, NYHA class 2 Chronic obstructive pulmonary disease Chronic systolic congestive heart failure CKD (chronic kidney disease) Cognitive dysfunction Colon cancer screening Complaint of paresthesia Congestive heart failure Costochondritis Cough Dizziness DJD (degenerative joint disease), multiple sites SINGLETARY (dyspnea on exertion) Encounter for Medicare annual wellness exam Encounter for routine adult health examination without abnormal findings Encounter for screening mammogram for malignant neoplasm of breast Fatigue Follow up Frozen shoulder Hearing loss 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
[2023-08-02 19:37] VITALS: BMI 20.5
== END 2023-07-11 06:37 | disposition home or self-care (01) ==
PROVIDERS: PCP Internal Medicine; Visit Provider Internal Medicine
DX: G47.33 Obstructive sleep apnea (adult) (pediatric) (principal); Z99.89 Dependence on other enabling machines and devices
CPT/HCPCS: 95811

== ENCOUNTER 2023-07-18 16:48 | Outpatient (CLI) | payer MEDICARE, SELFPAY ==
--- NOTE | ~2023-07-18 | US_ITS ---
EXAMINATION: US carotid duplex BI DATE: 07/18/2023 17:41 INDICATION: Endocarditis, valve unspecified TECHNIQUE: Grayscale, color Doppler, and pulsed Doppler images of the cervical carotid arteries were obtained. The degree of vessel stenosis is placed in one of the following categories: normal, <50%, 5 0-69%, >=70% but less than near-occlusion, near-occlusion, or total occlusion. Note that percent sten osis relative to normal distal artery lumen diameter is indirectly measured from velocity measurement s as described by Tirso, et al. Radiology 2003; 229:340-346. COMPARISON: None. FINDINGS: RIGHT: The right common carotid artery (CCA) peak systolic velocity (PSV) is 51 cm/s. The right internal car otid artery (ICA) PSV is 35 cm/s. The right ICA end-diastolic velocity (EDV) is 9 cm/s. The right ICA /CCA PSV ratio is 0.7. Grayscale and color Doppler images yield an estimate of <50% diameter reductio n from plaque in the ICA. The external carotid artery (ECA) PSV is 63 cm/s. There is antegrade flow i n the right vertebral artery. LEFT: The left CCA PSV is 60 cm/s. The left ICA PSV is 69 cm/s. The left ICA EDV is 20 cm/s. The left ICA/C CA PSV ratio is 1.2. Grayscale and color Doppler images yield an estimate of <50% diameter reduction from plaque in the ICA. The ECA PSV is 45 cm/s. There is antegrade flow in the left vertebral artery. IMPRESSION: 1. <50% stenosis in the right internal carotid artery. 2. <50% stenosis in the left internal carotid artery. Reviewed, dictated and finalized at location [facility].
== END 2023-07-18 16:49 | disposition home or self-care (01) ==
PROVIDERS: PCP Internal Medicine; Visit Provider Internal Medicine
DX: I65.23 Occlusion and stenosis of bilateral carotid arteries (principal); I38 Endocarditis, valve unspecified; R53.83 Other fatigue; I61.9 Nontraumatic intracerebral hemorrhage, unspecified
CPT/HCPCS: 36415; 85610; 93880

== ENCOUNTER 2023-07-31 11:12 | Outpatient (RCR) | payer MEDICARE, SELFPAY ==
[2023-05-04 14:16] LABS: INR 1.1; Prothrombin Time 14.5 Seconds (11.1-14.7)
[2023-05-10 11:15] LABS: INR 1.4; Prothrombin Time 18.4 Seconds (11.1-14.7)
[2023-05-15 13:55] LABS: INR 2.7; Prothrombin Time 30.7 Seconds (11.1-14.7)
[2023-05-25 16:43] LABS: INR 2.2; Prothrombin Time 25.8 Seconds (11.1-14.7)
[2023-06-18 10:21] LABS: INR 1.1; Prothrombin Time 14.9 Seconds (11.1-14.7)
[2023-07-18 18:06] LABS: INR 1.3; Prothrombin Time 16.9 Seconds (11.1-14.7)
[2023-07-31 12:23] LABS: INR 1.3
== END 2023-08-02 23:59 | disposition home or self-care (01) ==
LOC: ANHLAB 11:12
PROVIDERS: PCP Internal Medicine; Visit Provider Specialist
DX: Z51.81 Encounter for therapeutic drug level monitoring (principal); I48.91 Unspecified atrial fibrillation; Z95.2 Presence of prosthetic heart valve; Z79.01 Long term (current) use of anticoagulants
CPT/HCPCS: 36415; 85610

== ENCOUNTER 2023-08-06 16:53 | Outpatient (RCR) | payer MEDICARE, SELFPAY ==
[2023-08-06 18:43] LABS: INR 1.3; Prothrombin Time 16.9 Seconds (11.1-14.7)
== END 2023-09-27 11:17 | disposition home or self-care (01) ==
LOC: ANHLAB 16:53
PROVIDERS: PCP Internal Medicine; Visit Provider Specialist
DX: Z51.81 Encounter for therapeutic drug level monitoring (principal); I48.91 Unspecified atrial fibrillation; Z95.2 Presence of prosthetic heart valve; Z79.01 Long term (current) use of anticoagulants
CPT/HCPCS: 36415; 85610

== ENCOUNTER 2023-08-28 10:33 | Outpatient (CLI) | payer MEDICARE, SELFPAY ==
--- NOTE | ~2023-08-28 | XR_ITS ---
EXAMINATION: XR chest 2V DATE: 08/28/2023 11:17 INDICATION: Cough. Fatigue. TECHNIQUE: Frontal and lateral views of the chest were obtained. COMPARISON: Chest single view 07/02/23, 10/18/2021 FINDINGS: A calcified left lung nodule and calcified left hilar and mediastinal lymph nodes are consi stent with old granulomatous disease. No pleural effusion or pneumothorax. Cardiomegaly is noted. The re are changes of heart valve replacement. There is a left chest pacer with leads in right ventricle and coronary sinus. There is a chronic sclerotic lesion in proximal left humerus, likely an enchondro ma or osteonecrosis. IMPRESSION: 1. Cardiomegaly. Reviewed, dictated and finalized at location [facility]. IMPRESSION: 1. Cardiomegaly.
--- NOTE | ~2023-08-28 | XR_ITS ---
EXAMINATION: XR lumbar spine 2-3V DATE: 08/28/2023 11:17 INDICATION: Low back pain. TECHNIQUE: 3 views of lumbar spine were obtained. COMPARISON: CT abdomen and pelvis 03/01/21 FINDINGS: There is 10 degrees levoscoliosis of lumbar spine. There is 3 mm anterolisthesis of L4 on L 5. Vertebral body heights are normal. There is mildly decreased disc height at L2-L3, L3-L4, and L4-L 5. There is multilevel facet joint osteoarthritis, severe in lower lumbar spine. There are gallstones in the gallbladder. Calcifications in the spleen are consistent with old granulomatous disease. IMPRESSION: 1. Mild lumbar spondylosis. 2. Lumbar levoscoliosis. Reviewed, dictated and finalized at location [facility].
== END 2023-08-28 10:34 | disposition home or self-care (01) ==
PROVIDERS: PCP Internal Medicine; Visit Provider Internal Medicine
DX: R53.83 Other fatigue (principal); J98.4 Other disorders of lung; M47.896 Other spondylosis, lumbar region
CPT/HCPCS: 71046; 72100

== ENCOUNTER 2023-09-03 13:59 | Outpatient (CLI) | payer MEDICARE, SELFPAY ==
--- NOTE | ~2023-09-03 | CT_ITS ---
EXAMINATION: CT lumbar spine wo con DATE: 09/03/2023 14:30 INDICATION: Mid to low back pain. Unsteady gait. TECHNIQUE: Computed tomography (CT) of the lumbar spine was performed without intravenous contrast. A utomated exposure control and iterative reconstruction technique were employed. The dose-length produ ct was 169.39 mGy-cm. COMPARISON: None FINDINGS: There are gallstones in the gallbladder. Calcifications in the spleen are consistent with o ld granulomatous disease. There is calcified atherosclerosis of the aorta and many of the other arter ies. There is 11 degrees levoscoliosis of thoracolumbar spine. Vertebral body heights are normal. The re is mildly decreased disc height at L2-L3 and L3-L4. The following disc levels are specifically dis cussed: L1-L2: The disc is bulging. There is moderate bilateral facet joint osteoarthritis. There is mild aubree ateral neural foraminal stenosis. There is no central canal stenosis. L2-L3: The disc is bulging. There is severe bilateral facet joint osteoarthritis. There is mild bilat eral neural foraminal stenosis. There is mild central canal stenosis. L3-L4: The disc is bulging. There is severe bilateral facet joint osteoarthritis. There is mild bilat eral neural foraminal stenosis. There is mild central canal stenosis. L4-L5: The disc is bulging. There is severe bilateral facet joint osteoarthritis. There is mild bilat eral neural foraminal stenosis. There is mild central canal stenosis. L5-S1: The disc is bulging. There is severe bilateral facet joint osteoarthritis. There is mild bilat eral neural foraminal stenosis. There is mild central canal stenosis. IMPRESSION: 1. Mild lumbar spondylosis. 2. Thoracolumbar levoscoliosis. Reviewed, dictated and finalized at location A.
== END 2023-09-03 14:00 | disposition home or self-care (01) ==
PROVIDERS: PCP Internal Medicine; Visit Provider Internal Medicine
DX: M41.80 Other forms of scoliosis, site unspecified (principal); M47.896 Other spondylosis, lumbar region
CPT/HCPCS: 72131

== ENCOUNTER 2023-11-27 14:37 | Outpatient (RCR) | payer MEDICARE, SELFPAY ==
[2023-09-27 12:09] LABS: INR 1.4; Prothrombin Time 17.7 Seconds (11.1-14.7)
[2023-10-04 12:49] LABS: INR 1.7
[2023-10-25 15:55] LABS: INR 1.9; Prothrombin Time 23.6 Seconds (11.1-14.7)
[2023-11-23 13:26] LABS: INR 1.5; Prothrombin Time 19.4 Seconds (11.1-14.7)
[2023-11-27 15:16] LABS: INR 1.9; Prothrombin Time 23.2 Seconds (11.1-14.7)
== END 2023-12-26 23:59 | disposition home or self-care (01) ==
LOC: ANHLAB 14:37
PROVIDERS: PCP Internal Medicine; Visit Provider Specialist
DX: Z51.81 Encounter for therapeutic drug level monitoring (principal); Z95.2 Presence of prosthetic heart valve; Z79.01 Long term (current) use of anticoagulants
CPT/HCPCS: 36415; 85610

== ENCOUNTER 2023-12-27 16:06 | Outpatient (RCR) | payer MEDICARE, SELFPAY ==
[2023-12-27 17:39] LABS: INR 1.7; Prothrombin Time 20.6 Seconds (11.1-14.7)
== END 2024-03-26 23:59 | disposition home or self-care (01) ==
LOC: ANHLAB 16:06
PROVIDERS: PCP Internal Medicine; Visit Provider Specialist
DX: Z51.81 Encounter for therapeutic drug level monitoring (principal); Z95.2 Presence of prosthetic heart valve; Z79.01 Long term (current) use of anticoagulants
CPT/HCPCS: 36415; 85610

== ENCOUNTER 2023-12-30 12:33 | Observation (INO) | payer MEDICARE, SELFPAY ==
--- NOTE | ~2023-12-30 | XR_ITS ---
EXAMINATION: XR hip LT 2V w AP pelvis INDICATION: Left hip pain TECHNIQUE: AP view of the pelvis and two views of the left hip are obtained. COMPARISON: None available FINDINGS: Bone alignment is normal. There is no fracture. Calcified atherosclerosis is noted. There i s mild soft tissue swelling overlying the left hip. IMPRESSION: 1. No acute osseous abnormality. Reviewed, dictated and finalized at location A. FING ACCOUNT MANAGER
--- NOTE | ~2023-12-30 | CT_ITS ---
EXAMINATION: CT abd pelvis lumbar w con DATE: 12/30/2023 14:19 INDICATION: fall, pain TECHNIQUE: Computed tomography (CT) of the abdomen and pelvis and lumbar was performed with 100 cc Om nipaque 350 intravenous contrast. Automated exposure control and iterative reconstruction technique w ere employed. The dose-length product was 256.84 mGy-cm. COMPARISON: 12/30/2020. FINDINGS: Lower thorax: Senescent/interstitial change in the lung bases. Cardiomegaly. Cardiac valve replacemen t. Coronary artery calcification. Liver: Normal. Biliary/Gallbladder: Cholelithiasis. No bile duct dilation. Pancreas: No mass or duct dilation. Spleen: Normal. Adrenals:No mass. Kidneys: No suspicious mass, obstructing stone, or hydronephrosis. Subcentimeter right upper pole hyp odensities, likely cysts. Punctate nonobstructing right upper pole calcification. GI tract: Mild distal esophageal and gastric wall edema. No small or large bowel dilation. Appendix n ot confidently visualized. Diverticulosis without diverticulitis. Mesentery/Peritoneum: No ascites, mass, or free air. Retroperitoneum: No mass. Pelvis: Normal urinary bladder. Absent uterus. Soft Tissues: Soft tissues and body wall unremarkable. Bones (excluding spine): No acute osseous finding. LUMBAR SPINE: 5 nonrib-bearing lumbar-type vertebral bodies. Pedicles intact. Trace anterolisthesis at L4-5, otherw ise normal vertebral body alignment. Vertebral body heights preserved. Multilevel mild degenerative d isc disease. Multilevel mild and moderate degrees of facet arthropathy. No severe central canal or ne ural foraminal narrowing. IMPRESSION: Mild esophagitis/gastritis. Otherwise, no acute abdominopelvic process detected Reviewed, dictated and finalized at location K. DING INSULATION SUPERVISOR
--- NOTE | ~2023-12-30 | CT_ITS ---
EXAMINATION: CT cervical spine wo con DATE: 12/30/2023 14:19 INDICATION: trauma TECHNIQUE: Computed tomography (CT) of the cervical spine was performed without intravenous contrast. Automated exposure control and iterative reconstruction technique were employed. The dose-length pro duct was 166.07 mGy-cm. COMPARISON: MR C-spine 1023. FINDINGS: Vertebral Body Alignment: Intact. Stable mild multilevel degenerative listheses Craniocervical and atlantoaxial alignment: Moderate degenerative change. Alignment intact. Osseous structures/fracture: No evidence of a lytic or blastic process in the visualized spine. No e vidence of acute fracture. Cervical soft tissues: The paraspinal soft tissues planes are maintained. Septal thickening and mosai c attenuation in the lung apices. Degenerative changes: Degenerative changes, without severe neural foraminal or central canal narrowin g. IMPRESSION: No acute fracture or traumatic malalignment in the cervical spine. Mosaic attenuation which can be seen with asthma, bronchiolitis obliterans, hypersensitivity pneumoni tis, and chronic thromboembolic disease. Reviewed, dictated and finalized at location K. EDURE WRITER IMPRESSION: No acute fracture or traumatic malalignment in the cervical spine. Mosaic attenuation which can be seen with asthma, bronchiolitis obliterans, hyp ersensitivity pneumonitis, and chronic thromboembolic disease.
--- NOTE | ~2023-12-30 | CT_ITS ---
EXAMINATION: CT brain wo con DATE: 12/30/2023 14:18 INDICATION: fall, trauma . TECHNIQUE: Computed tomography (CT) of the head was performed without intravenous contrast. The mA wa s adjusted according to patient size. Iterative reconstruction technique was employed. The dose-lengt h product was 605.33 mGy-cm. COMPARISON: 01/01/23. FINDINGS: No acute intracranial hemorrhage or extra-axial fluid collection. No hydrocephalus, mass, or herniation. No acute ischemic infarct. Unremarkable dural venous sinus attenuation. No acute osseous abnormality. The aerated spaces are clear. Moderate atrophy and chronic white matter change. Atherosclerotic intracranial calcification. Bilater al parieto-occipital encephalomalacia. Old small right and moderate sized left cerebellar infarcts. IMPRESSION: No acute intracranial process. Reviewed, dictated and finalized at location K. GRADER
[2023-12-30 12:28] VITALS: BP 128/50; PULSE 66; RESP 16; TEMP 36.7; O2SAT 98
[2023-12-30 12:39] VITALS: BP 128/50; PULSE 100; RESP 20; O2SAT 100
--- NOTE | 2023-12-30 12:41 | ECG_ITS ---
Measurements Intervals [place] Rate: 60 P: NE: 0 QRS: 238 QRSD: 125 T: 118 QT: 458 QTc: 458 Interpretive Statements ELECTRONIC VENTRICULAR PACEMAKER ATRIAL RHYTHM IS ATRIAL FLUTTER ABNORMAL ECG COMPARED TO ECG 07/02/2023 12:26:20 NO SIGNIFICANT CHANGES Electronically Signed On 12-31-2023 7:27:45 EDUCATION PARAPROFESSIONAL by Cali Van M.D.
--- NOTE | 2023-12-30 12:58 | ED.FALL ---
HPI - Fall General Chief Complaint: Fall Stated Complaint: fall Time Seen by Provider: 12/30/23 12:47 History of Present Illness HPI Narrative: Patient is a 78 year old female with history of A.fib, HTN, CKD, CHF, pacemaker in place here after a fall. Patient notes that last night she was getting up to go to the bathroom and believes she tripped and fell. She denies any prodromal chest pain, shortness of breath, light headedness before falling. She notes that she fell straight down on her buttocks and had immediate pain in her tailbone. Patient believes she was helped off of the ground by her family. Today she had continued pain today in her tailbone and EMS brought her into the ER. They were concerned for possible hip fracture due to the positioning of her left leg. She denies hip pain, leg pain. She does believe she fell backward and hit her head when she fell down. Denies taking blood thinners. Related Data Home Medications Medication Instructions Recorded Confirmed Vitamin D3 2,000 unit PO DAILY 12/30/23 12/30/23 bupropion HBr 150 mg PO DAILY 12/30/23 12/30/23 buspirone 10 mg PO TID 12/30/23 12/30/23 co [id number] oil-omega 3-E 1,200 mg PO DAILY 12/30/23 12/30/23 cyproheptadine 4 mg PO BID 12/30/23 12/30/23 memantine 10 mg PO BID 12/30/23 12/30/23 riboflavin (vitamin B2) 400 mg PO DAILY 12/30/23 12/30/23 trazodone 100 mg PO QHS 12/30/23 12/30/23 warfarin See Rx Instructions .Route .COMPLEX 12/30/23 Allergies Allergy/AdvReac Type Severity Reaction Status Date / Time amiodarone Allergy Blurry Verified 10/24/23 14:24 Vision hydroxyzine AdvReac Intermediate Nausea and Verified 10/24/23 14:24 Vomiting Review of Systems Review of Systems: All systems reviewed & are unremarkable except as noted in HPI and below PMFSH Past Medical History Medical History (Updated 12/30/23 @ 16:51 by Supriya Tariq MD) Adult BMI 19-24 kg/sq m Adult BMI <19 kg/sq m Anemia Atrial fibrillation Benign essential hypertension Bladder infection BMI 20.0-20.9, adult BMI 21.0-21.9, adult BMI 22.0-22.9, adult Bone lesion Bug bites Cancer Cardiac pacemaker in situ Cervicalgia Cholelithiasis Chronic combined systolic and diastolic CHF, NYHA class 2 Chronic obstructive pulmonary disease Chronic systolic congestive heart failure CKD (chronic kidney disease) Cognitive dysfunction Colon cancer screening Complaint of paresthesia Congestive heart failure Costochondritis Cough Dizziness DJD (degenerative joint disease), multiple sites SINGLETARY (dyspnea on exertion) Encounter for Medicare annual wellness exam Encounter for routine adult health examination without abnormal findings Encounter for screening mammogram for malignant neoplasm of breast Fatigue Follow up Frozen shoulder Hearing loss 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 Intractable headache Itching Low back pain Memory impairment Microscopic hematuria Mitral valve regurgitation Musculoskeletal pain Myocardial infarction On long-term drug therapy Pacemaker Pneumonia Pneumonia due to infectious organism Shortness of breath Stroke Stroke of right basal ganglia Vision changes Surgical History Surgical History History of hysterectomy History of open heart surgery Family History Family History Sibling Diabetes mellitus Cancer Breast cancer Father Family history of heart disease in male family member before age 55 Family history of cardiovascular disease Diabetes mellitus Family history of diabetes mellitus in first degree relative Family history of congestive heart failure Mother Family history of Alzheimer's disease Social History Social History Smoking packs per day: 0.5 Smoking cigarettes per day: 10.0 Years smoked: 10 Smoking pack-years:
[2023-12-30 13:13] LABS: Basophils Percent Auto 0.4 % (0.2-1.2); Eosinophils Absolute Auto 0.2 K/mm3 (0-0.3); Hematocrit 36.5 % (37.0-47.0); Hemoglobin 11.6 g/dL (12.0-15.0); Immature Granulocyte Absolute 0.03 K/mm3 (0.00-0.031); Immature Granulocyte Percent A 0.3 % (0-0.5); Lymphocytes Absolute Auto 1.82 K/mm3 (0.9-3.2); Lymphocytes Percent Auto 19.5 % (18.3-44.2); Mean Corpuscular HGB Conc 31.8 g/dl (32-36); Mean Corpuscular Hemoglobin 29.5 pg (26-34); Mean Corpuscular Volume 92.9 fl (80-100); Mean Platelet Volume 9.5 fl (7.4-10.4); Monocytes Absolute Auto 0.7 K/mm3 (0.1-0.6); Monocytes Percent Auto 7.9 % (2.6-8.5); Neutrophils Absolute Auto 6.5 K/mm3 (1.3-6.7); Neutrophils Percent Auto 69.9 % (45.5-73.1); Platelet Count Result 160 k/mm3 (150-375); Red Blood Count 3.93 M/mm3 (4.2-5.4); Red Cell Distribution Width 13.7 % (11.5-14.5); White Blood Count 9.3 K/mm3 (4.5-10.0)
[2023-12-30 13:22] LABS: Alanine Aminotransferase 43 U/L (6-35); Albumin Level 3.6 g/dL (3.5-5.1); Alkaline Phosphatase 75 U/L (38-126); Anion Gap 3 mmol/L (8-16); Aspartate Amino Transferase 46 U/L (14-36); Bilirubin,Total 0.9 mg/dL (0.2-1.3); Blood Urea Nitrogen 12 mg/dL (7-17); Calcium 8.9 mg/dL (8.4-10.2); Carbon Dioxide 30 mmol/L (22-30); Chloride 103 mmol/L (98-107); Creatine Kinase 32 U/L (30-135); Estimated CRCL calculation 33 ml/min; Estimated Glomerular Filt Rate > 60; Glucose 122 mg/dL (65-110); Potassium 3.9 mmol/L (3.4-5.0); Sodium 136 mmol/L (137-145)
[2023-12-30 13:50] VITALS: PULSE 66; RESP 18; O2SAT 98
[2023-12-30 15:50] VITALS: BP 115/93; PULSE 60; RESP 17; O2SAT 99
[2023-12-30 15:55] LABS: Appearance Urine Clear (Clear); Bilirubin Urine Negative (Negative); Blood Urine Negative (Negative); Color Urine Dark Yellow (Yellow); Glucose Urine UA Negative (Negative); Ketones Urine Negative (Negative); Leukocyte Esterase Ur Negative LEU/UL (Negative); Nitrate Urine Negative (Negative); Protein Urine Negative (Negative); pH Urine 7.5 (5.0-9.0)
[2023-12-30 16:16] LABS: Add Urine Microscopic? NO
--- NOTE | 2023-12-30 18:00 | ADMGEN ---
This patient, Elizabeth Marx, was admitted to [facility] Surg Room 316-02. Patient/family oriented to hospital policies and general routines including ID bracelet, bed and alarms, visiting hours, pain management, procedures, bathroom and other care routines, personal items, smoking policy, room service/diet, and visiting hours. Information on how to activate the Rapid Response Team has been discussed. Patient/Family are encouraged to report perceived risks to care and to ask questions if they do not understand what they are told or what they should do.
[2023-12-30 20:33] VITALS: BP 145/60; PULSE 60; RESP 18; TEMP 36.4; O2SAT 93
--- NOTE | 2023-12-30 21:41 | PM.IMHP ---
H&P: HPI History of Present Illness Date/Time: 12/30/23 21:41 Chief Complaint: Fall and Hip/Tailbone Pain Narrative: 78 y/o F presents here with ground level fall with past medical history of AFib, HTN, CKD, CHF, pacemaker in place, anemia, [place], COPD, and CVA. Patient presents here for evaluation from home after sustaining a mechanical ground level fall last night. Patient was getting up to use the restroom when she tripped and fell onto her buttocks. Patient reports she felt immediate pain to her buttocks/tailbone region. Denies LOC. Was later helped off the ground by her family and brought in via EMS. Family voiced concerns that patient is no longer safe to stay at home given falls and patient is amenable to placement. Does have a family friend who lives with her occasionally. Fell last (12/27) as well, also a mechanical fall. Reports intermittent slurred speech x1 week. No focal weakness, blurred vision/diplopia, or ESCOBEDO. Assistive device - has a wheelchair at home, typically uses this. Initial VS at presentation: 98.1 F, HR 66, RR 16, 128/50, 98% on RA. ED workup showed no leukocytosis, mild anemia with hemoglobin of 11.6, chemistries unremarkable, glucose 122, LFTs mildly elevated, and UA not indicative of UTI. Hip and pelvis XR showed no acute osseous abnormality. Head CT, C-spine CT, CT of the abdomen/pelvis last lumbar showed no acute processes. Currently has moderate to full relief from buttock/coccyx pain post-fall. No other complaints. Review of Systems Review of Systems: All systems reviewed & are unremarkable except as noted in HPI and below [facility] Past Medical History Medical History (Updated 12/30/23 @ 21:53 by Ayesha Neal, NIRU) Anemia Atrial fibrillation Benign essential hypertension Bone lesion Cancer Cardiac pacemaker in situ Cervicalgia Cholelithiasis Chronic obstructive pulmonary disease CKD (chronic kidney disease) Cognitive dysfunction Congestive heart failure chronic, combined systolic and diastolic Dizziness DJD (degenerative joint disease), multiple sites Frozen shoulder Hearing loss 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 Memory impairment Mitral valve regurgitation Musculoskeletal pain Myocardial infarction Pneumonia Shortness of breath Stroke of right basal ganglia Vision changes Surgical History Surgical History (Updated 12/30/23 @ 21:53 by Ayesha Neal APRN) History of hysterectomy History of open heart surgery History of pacemaker Family History Family History Sibling Diabetes mellitus Cancer Breast cancer Father Family history of heart disease in male family member before age 55 Family history of cardiovascular disease Diabetes mellitus Family history of diabetes mellitus in first degree relative Family history of congestive heart failure Mother Family history of Alzheimer's disease Social History Social History Smoking packs per day: 0.5 Smoking cigarettes per day: 10.0 Years smoked: 10 Smoking pack-years: 5.00 Smoking status: Never smoker Tobacco type: cigarettes Second hand tobacco smoke exposure: Yes Alcohol intake: never Substance use: never Substance use type: does not use Do You Feel Safe in your Home?: Yes Lack of Transportation: No Lack of Food: Never True Current Housing: I Have Housing Concerned About Future Housing: No Difficulty Paying Gas/Electric Bills: No Difficulty Paying for Meds: No Currently Unemployed: No Education: Decline to Answer Difficulty w/ Childcare or Family Care: No Living arrangements: with family Occupation/Education: retired Gender identity (if verbalized by the patient): Female Spiritual care concerns: No Meds Home Medications and Allergies Home Medications Medication Instructions Recorded Confirmed Type
--- NOTE | 2023-12-31 04:34 | PC.NURSE ---
Pt states I woke up 3 times at 3 different hospitals. Where am I? pt AxO to person. Pt unaware of falling at home. Pt has been impulsive with getting out of bed and not understanding the importance of using the call light for help. Repetitive education of using the call light for help continues. Bed Alarm on Zone 2 maintained. Pt extremely unsteady on feet. Close monitoring continued.
[2023-12-31 05:29] VITALS: BP 134/59; PULSE 60; RESP 16; TEMP 36.3; O2SAT 96
[2023-12-31 06:50] LABS: Hematocrit 39.1 % (37.0-47.0); Hemoglobin 12.6 g/dL (12.0-15.0); Mean Corpuscular HGB Conc 32.2 g/dl (32-36); Mean Corpuscular Hemoglobin 29.4 pg (26-34); Mean Corpuscular Volume 91.1 fl (80-100); Mean Platelet Volume 9.5 fl (7.4-10.4); Platelet Count Result 177 k/mm3 (150-375); Red Blood Count 4.29 M/mm3 (4.2-5.4); Red Cell Distribution Width 13.7 % (11.5-14.5); White Blood Count 7.7 K/mm3 (4.5-10.0)
[2023-12-31 07:03] LABS: Anion Gap 5 mmol/L (8-16); Blood Urea Nitrogen 12 mg/dL (7-17); Calcium 9.3 mg/dL (8.4-10.2); Carbon Dioxide 31 mmol/L (22-30); Chloride 102 mmol/L (98-107); Estimated CRCL calculation 30 ml/min; Estimated Glomerular Filt Rate > 60; Glucose 90 mg/dL (65-110); Sodium 138 mmol/L (137-145)
[2023-12-31] MEDS: busPIRone HCL 10 MG TABLET PO ×3 (11:03→18:01)
[2023-12-31] MEDS: MEMANTINE 10 MG TABLET PO ×2 (11:03→20:23)
[2023-12-31] MEDS: PANTOPRAZOLE SODIUM IV 40 MG VIAL IV PUSH (11:50)
[2023-12-31 13:21] VITALS: BMI 17.2
[2023-12-31 14:00] VITALS: BP 108/46; PULSE 59; RESP 16; TEMP 36.3; O2SAT 97
[2023-12-31] MEDS: WARFARIN (*PBKC) 2 MG TABLET PO (18:06)
--- NOTE | 2023-12-31 18:45 | PM.IMPN ---
Progress Note: A&P Assessment and Plan (1) Fall: Qualifiers: Encounter type: initial encounter Qualified Code(s): W19.XXXA - Unspecified fall, initial encounter Code(s): W19.XXXA - Unspecified fall, initial encounter Status: Acute Assessment and Plan: -trauma workup benign -hip and pelvis XR: No acute osseous abnormality -head CT: No acute intracranial process -c spine CT: No acute fracture or traumatic malalignment in the cervical spine. Was ache attenuation which can be seen with asthma, bronchiolitis obliterans, hypersensitivity pneumonitis, and chronic thromboembolic disease. -abd/pelvis/lumbar CT: Mild esophagitis/gastritis, otherwise no acute abdominal/pelvic process detected -observation for placement -care coordination consulted -PT/OT eval and treat in interim (2) Combined systolic and diastolic heart failure: Qualifiers: Heart failure chronicity: chronic Qualified Code(s): I50.42 - Chronic combined systolic (congestive) and diastolic (congestive) heart failure Code(s): I50.40 - Unspecified combined systolic (congestive) and diastolic (congestive) heart failure Status: Acute Assessment and Plan: -previous echo (05/02/2021): EF 45-50%, -recheck echo pending -euvolemic on exam -monitor I&Os -record daily weights (3) CKD (chronic kidney disease) stage 3, GFR 30-59 ml/min: Qualifiers: Chronic kidney disease stage 3 subtype: unspecified whether 3a or 3b Qualified Code(s): N18.30 - Chronic kidney disease, stage 3 unspecified Code(s): N18.3 - Chronic kidney disease, stage 3 (moderate) Status: Acute Assessment and Plan: -creatinine 0.9, BUN 12, GFR greater than 60 -monitor renal function (4) Benign essential hypertension: Code(s): I10 - Essential (primary) hypertension Status: Acute Assessment and Plan: -BP currently well controlled -not currently on medications -monitor (5) PAF (paroxysmal atrial fibrillation): Code(s): I48.0 - Paroxysmal atrial fibrillation Status: Acute Assessment and Plan: -pacemaker in place -EKG, initial: Electronic ventricular pacemaker, abnormal rhythm EKG, when compared to previous EKG on 07/02/2023 there are no significant changes. . -continue home warfarin Plan Home Meds/Chronic Conditions -OTC/supplements: Hold home Co Z05-qxhe oil-[place] 3, vitamin B2, vitamin D3 -memory loss: Continue Namenda -continue home BuSpar and Wellbutrin -itching/allergies: continue peractin -insomnia: Continue home trazodone Diet: Heart healthy GI Prophylaxis: Starting pantoprazole due to gastritis seen on CT DVT Prophylaxis: Continue warfarin, SCDs Lines: pIV Code Status: Full Code Subjective Date/time seen: 12/31/23 1030 Interval history: 78 y/o F presents here with ground level fall with past medical history of AFib, HTN, CKD, CHF, pacemaker in place, anemia, [place], COPD, and CVA. Patient presents here for evaluation from home after sustaining a mechanical ground level fall last night.? Patient was getting up to use the restroom when she tripped and fell onto her buttocks.? Patient reports she felt immediate pain to her buttocks/tailbone region.? Denies LOC. Was later helped off the ground by her family and brought in via EMS.? Family voiced concerns that patient is no longer safe to stay at home given falls and patient is amenable to placement. Does have a family friend who lives with her occasionally. Fell last (12/27) as well, also a mechanical fall. Reports intermittent slurred speech x1 week. No focal weakness, blurred vision/diplopia, or ESCOBEDO. Assistive device - has a wheelchair at home, typically uses this. Initial VS at presentation:? 98.1 F, HR 66, RR 16, 128/50, 98% on RA. ED workup showed no leukocytosis, mild anemia with hemoglobin of 11.6, chemistries unremarkable, glucose 122, LFTs mildly elevated, and UA not indicative of UTI.
--- NOTE | 2023-12-31 20:40 | PC.NURSE ---
I reviewed Ary's charting and agree with her findings.
[2023-12-31 21:05] VITALS: BP 119/52; PULSE 61; RESP 17; TEMP 36.5; O2SAT 96
[2024-01-01 05:57] VITALS: BP 113/47; PULSE 77; RESP 17; TEMP 36.4; O2SAT 97
--- NOTE | 2024-01-01 07:00 | ECHO_ITS ---
Patient Info Name: Elizabeth Marx Age: 78 years : 1945 Gender: Female Ht: 61 in Wt: 91 lbs BSA: 1.32 m? BP: 113 / 47 mmHg HR: 77 bpm Exam Date: 01/01/2024 9:38 AM Admit Date: 12/30/2023 Exam Location: Echo Lab Patient Status: Outpatient Exam Type: CA echo doppler color flow Technical Quality: Good Power Tong Operator: Wendy Guzman RDCS Ordering Physician: Delores Good APRN Attending Provider: Blake Us MD Referring Physician: Latisha DOUGLAS; Study Info Indications Code Description weakness fall Procedure(s) Complete two-dimensional, color flow and Doppler transthoracic echocardiogram is performed. Summary 1. Complete two-dimensional, color flow and Doppler transthoracic echocardiogram is performed. 2. Left ventricular chamber dimension is normal. 3. Left ventricular systolic function is normal, estimated at 50-55%. 4. There is mildly increased left ventricular wall thickness. 5. Right ventricular systolic function is normal. 6. Linear artifact in right ventricle suggestive of catheter(s), pacemaker lead(s), or ICD lead(s). 7. Left atrial chamber dimension is severely enlarged. 8. Right atrial chamber dimension is severely enlarged. 9. Linear artifact in the right atrium suggestive of catheter(s), pacemaker lead(s), or ICD lead(s). 10. Known history of mechanical aortic valve. Mean gradient is 7mmHg. 11. There is mild to moderate aortic valve regurgitation. 12. There is moderate mitral valve regurgitation. 13. There is mild tricuspid valve regurgitation. Left Ventricle Left ventricular chamber dimension is normal. Left ventricular systolic function is normal, estimated at 50-55%. There is mildly increased left ventricular wall thickness. Left ventricular septal wall motion is abnormal with septal motion related to pacing. Right Ventricle Linear artifact in right ventricle suggestive of catheter(s), pacemaker lead(s), or ICD lead(s). Right ventricular chamber dimension is normal. Right ventricular systolic function is normal. Left Atria Left atrial chamber dimension is severely enlarged. Right Atria Linear artifact in the right atrium suggestive of catheter(s), pacemaker lead(s), or ICD lead(s). Right atrial chamber dimension is severely enlarged. Atrial Septum Intact interatrial septum visualized by color flow imaging. Aortic Valve Known history of mechanical aortic valve. Mean gradient is 7mmHg. There is mild to moderate aortic valve regurgitation. Mitral Valve There is moderate mitral valve regurgitation. Tricuspid Valve There is mild tricuspid valve regurgitation. Pulmonic Valve The pulmonic valve is not well visualized. There is trace pulmonic regurgitation. Aorta The aortic root size at the sinus of Valsalva is normal. Inferior Vena Cava Normal inferior vena cava with >50% collapse upon inspiration consistent with normal right atrial pressure, 3 mmHg. Pericardium/Pleural There is no pericardial effusion. Ventricles Name Value Normal Name Value Normal LV Dimensions 2D/MM IVS Diastolic Thickness (2D) 1.0 cm 0.6-1.0 LVOT Diameter 1.9 cm LVID Diastole (2D) 3.7 cm 3.8-5.2 LV Mass (2D Cubed) 117.38 g 67.00-162.00 LVIW Diastolic Thickness (2D) 1.0 cm 0.6-0.9 LV Mass Index (2D Cubed) 89 g/m? 43-95 LVID Systole (2D) 3.0 cm 2.2-3.5 Relative Wall Thickness (2D) 0.55 LV Fractional Shortening/Ejection Fraction 2D/MM LV Fractional Shortening (2D) 20 % 27-45 LV Diastolic Volume Index (BP MOD) 42 ml/m? 29-61 LV EF (2D Teicholz) 42 % 54-74 LV Systolic Volume (BP MOD) 27 ml 14-42 LV Diastolic Volume (4C MOD) 51 ml LV Systolic Volume Index (BP MOD) 20 ml/m? 8- 24 LV EF (4C MOD) 57 % LV EF (BP MOD) 52 % 54-74 LV Diastolic Volume (2C MOD) 56 ml LV Diastolic Length (4C) 6.3 cm LV EF (2C M
[2024-01-01 07:30] VITALS: BP 119/61; PULSE 62; RESP 17; TEMP 36.9; O2SAT 97
[2024-01-01] MEDS: PANTOPRAZOLE SODIUM IV 40 MG VIAL IV PUSH (08:40)
[2024-01-01] MEDS: busPIRone HCL 10 MG TABLET PO ×3 (08:41→17:08)
[2024-01-01] MEDS: MEMANTINE 10 MG TABLET PO ×2 (08:41→20:23)
[2024-01-01] MEDS: buPROPion HCL XL (24 HR) 150 MG TABCR PO (08:42)
--- NOTE | 2024-01-01 09:30 | PCOTNOTE ---
Patient unavailable at this time. Patient having an ECHO, will try back at a later time.
[2024-01-01] MEDS: HYDROcodone/acetaminophen (*CRX) 10-325 MG TABLET 1 TAB PO (10:00)
[2024-01-01 11:02] LABS: INR 1.3
[2024-01-01 14:00] VITALS: BP 107/55; PULSE 60; RESP 20; TEMP 36.4; O2SAT 100
--- NOTE | 2024-01-01 15:52 | PM.IMPN ---
Progress Note: A&P Assessment and Plan (1) Fall: Qualifiers: Encounter type: initial encounter Qualified Code(s): W19.XXXA - Unspecified fall, initial encounter Code(s): W19.XXXA - Unspecified fall, initial encounter Status: Acute Assessment and Plan: -trauma workup benign -patient has been accepted to [facility] waiting on insurance verification authorization -PT/OT eval and treat in interim (2) Combined systolic and diastolic heart failure: Qualifiers: Heart failure chronicity: chronic Qualified Code(s): I50.42 - Chronic combined systolic (congestive) and diastolic (congestive) heart failure Code(s): I50.40 - Unspecified combined systolic (congestive) and diastolic (congestive) heart failure Status: Acute Assessment and Plan: -previous echo (05/02/2021): EF 45-50%, -echo . Left ventricular systolic function is normal, estimated at 50-55%. ? There is mild tricuspid valve regurgitation. -euvolemic on exam -monitor I&Os -record daily weights (3) CKD (chronic kidney disease) stage 3, GFR 30-59 ml/min: Qualifiers: Chronic kidney disease stage 3 subtype: unspecified whether 3a or 3b Qualified Code(s): N18.30 - Chronic kidney disease, stage 3 unspecified Code(s): N18.3 - Chronic kidney disease, stage 3 (moderate) Status: Acute Assessment and Plan: -creatinine 0.9, BUN 12, GFR greater than 60 -monitor renal function (4) Benign essential hypertension: Code(s): I10 - Essential (primary) hypertension Status: Acute Assessment and Plan: -BP currently well controlled -not currently on medications (5) PAF (paroxysmal atrial fibrillation): Code(s): I48.0 - Paroxysmal atrial fibrillation Status: Acute Assessment and Plan: -pacemaker in place -EKG, initial: Electronic ventricular pacemaker, abnormal rhythm EKG, when compared to previous EKG on 07/02/2023 there are no significant changes. . -continue home warfarin Plan Home Meds/Chronic Conditions -OTC/supplements: Hold home Co Y91-uien oil-[place] 3, vitamin B2, vitamin D3 -memory loss: Continue Namenda -continue home BuSpar and Wellbutrin -itching/allergies: continue peractin -insomnia: Continue home trazodone Diet: Heart healthy GI Prophylaxis: Starting pantoprazole due to gastritis seen on CT DVT Prophylaxis: Continue warfarin, SCDs Lines: pIV Code Status: Full Code Subjective Date/time seen: 01/01/24 1030 Interval history: 78 y/o F presents here with ground level fall with past medical history of AFib, HTN, CKD, CHF, pacemaker in place, anemia, [place], COPD, and CVA. Patient presents here for evaluation from home after sustaining a mechanical ground level fall last night.? Patient was getting up to use the restroom when she tripped and fell onto her buttocks.? Patient reports she felt immediate pain to her buttocks/tailbone region.? Denies LOC. Was later helped off the ground by her family and brought in via EMS.? Family voiced concerns that patient is no longer safe to stay at home given falls and patient is amenable to placement. Does have a family friend who lives with her occasionally. Fell last (12/27) as well, also a mechanical fall. Reports intermittent slurred speech x1 week. No focal weakness, blurred vision/diplopia, or ESCOBEDO. Assistive device - has a wheelchair at home, typically uses this. Initial VS at presentation:? 98.1 F, HR 66, RR 16, 128/50, 98% on RA. ED workup showed no leukocytosis, mild anemia with hemoglobin of 11.6, chemistries unremarkable, glucose 122, LFTs mildly elevated, and UA not indicative of UTI.? Hip and pelvis XR showed no acute osseous abnormality.? Head CT, C-spine CT, CT of the abdomen/pelvis last lumbar showed no acute processes. Currently has moderate to full relief from buttock/coccyx pain post-fall. No other complaints. Interval Hx: 12/31/2023 Patient
[2024-01-01] MEDS: WARFARIN (*PBKC) 2 MG TABLET PO (17:08)
[2024-01-01 21:20] VITALS: BP 138/63; PULSE 60; RESP 16; TEMP 36.2; O2SAT 90
[2024-01-02 06:34] VITALS: BP 106/63; PULSE 60; RESP 16; TEMP 36.4; O2SAT 93
[2024-01-02 06:50] LABS: INR 1.3; Prothrombin Time 16.9 Seconds (11.1-14.7)
[2024-01-02] MEDS: buPROPion HCL XL (24 HR) 150 MG TABCR PO (09:10)
[2024-01-02] MEDS: MEMANTINE 10 MG TABLET PO (09:10)
[2024-01-02] MEDS: busPIRone HCL 10 MG TABLET PO ×2 (09:10→13:26)
[2024-01-02] MEDS: PANTOPRAZOLE SODIUM IV 40 MG VIAL IV PUSH (09:10)
[2024-01-02 11:10] LABS: SARS-CoV-2 RNA PCR Negative (Negative)
--- NOTE | 2024-01-02 11:40 | PCOTNOTE ---
Patient declined treatment at this time. Patient wanting to lay down only, convinced to stay up in the chair for her lunch. Patient's also encouraging Patient. Will check back at a later time.
[2024-01-02 13:13] VITALS: O2SAT 97
[2024-01-02 14:00] VITALS: BP 102/48; PULSE 60; RESP 16; TEMP 36.6; O2SAT 97
--- NOTE | 2024-01-02 14:04 | PM.DS ---
DS: Admitting Diagnosis Discharge Date January 02, 2024 Admitting Diagnosis Ground level fall DS: Discharge Diagnosis Discharge Diagnosis (1) Fall: Qualifiers: Encounter type: initial encounter Qualified Code(s): W19.XXXA - Unspecified fall, initial encounter Code(s): W19.XXXA - Unspecified fall, initial encounter Status: Acute DS: Summary Hospital Course Hospital Course: A pleasant 78-year-old white female presents with ground level fall. Has a past medical history paroxysmal AFib on warfarin, hypertension, CKD, combined systolic-diastolic CHF, pacemaker, anemia, COPD, history of CVA. Trauma workup benign. On 01/02 the patient is stable for discharge to [facility] for rehab. Her INR is 1.3. She will receive an additional 1 mg dose of warfarin today. On discharge she resume her normal dosing and have an INR recheck tomorrow and resume outpatient INR adjustments. The patient was full code during her admission. Time Spent with Patient Time attestation: Total time spent providing and/or coordinating discharge services: Exam Const: General: cooperative and no acute distress Resp: Effort & Inspection: normal respiratory effort Auscultation: clear to auscultation bilaterally Cardio: Rate: regular rate Rhythm: regular rhythm Heart sounds: S1 normal heart sound present and S2 normal heart sound present GI: GI Palp: No abdominal tenderness Auscultation: normal bowel sounds DS: Data Data Completed and Pending Labs on day of discharge: Labs from last 24 hours 01/02/24 01/02/24 10:27 06:23 PT 16.9 H INR 1.3 SARS-CoV-2 RNA (RT-PCR) Negative Discharge Plan Discharge Attending physician on discharge: Varsha Regan Discharging Clinician: Varsha Regan Patient Disposition: SNF Activity: march shower Diet: as tolerated Patient Instructions: Warfarin (By mouth), Heart Failure (DC) Stand Alone Forms: General Discharge Information Follow-up/Referrals: Thad Mitchell MD [Primary Care Provider] - 1 Week Discharge Medications: Continued Vitamin D3 2,000 unit PO DAILY bupropion HBr 150 mg PO DAILY buspirone 10 mg PO TID co [id number] oil-omega 3-E 1,200 mg PO DAILY cyproheptadine 4 mg PO BID memantine 10 mg PO BID riboflavin (vitamin B2) 400 mg PO DAILY trazodone 100 mg PO QHS warfarin See Rx Instructions .ROUTE .COMPLEX Rx Instructions: 1mg tablet =take2 tabs 4xwk (mon,tu,th,fri), 1.5tab 3xwk (wed,sun,sun) Other Ambulatory Orders: Prothrombin Time INR (Routine) Timeframe: 1 Day Location: Determined by Patient Ordered By: Varsha Regan Date of admission: 12/30/23 16:44 Primary Care Provider: Thad Mitchell Admitting Provider: Blake Us Attending physician on admission: Blake Us Condition: Stable
== END 2024-01-02 14:35 ==
LOC: ANHED 16:51 → ANH3MEDSUR 17:39
PROVIDERS: Nurse Practitioner; Student in an Organized Health Care Education/Training Program; Admitting Provider Internal Medicine; Emergency Provider Student in an Organized Health Care Education/Training Program; PCP Internal Medicine; Visit Provider General Practice
DX: M53.3 Sacrococcygeal disorders, not elsewhere classified (principal); W19.XXXA Unspecified fall, initial encounter; I48.0 Paroxysmal atrial fibrillation; I11.0 Hypertensive heart disease with heart failure; I50.42 Chronic combined systolic (congestive) and diastolic (congestive) heart failure; I13.0 Hypertensive heart and chronic kidney disease with heart failure and stage 1 through stage 4 chronic kidney disease, or unspecified chronic kidney disease; N18.30 Chronic kidney disease, stage 3 unspecified; I69.352 Hemiplegia and hemiparesis following cerebral infarction affecting left dominant side; K29.70 Gastritis, unspecified, without bleeding; D63.1 Anemia in chronic kidney disease; Z95.0 Presence of cardiac pacemaker; J44.9 Chronic obstructive pulmonary disease, unspecified; I08.3 Combined rheumatic disorders of mitral, aortic and tricuspid valves; I25.2 Old myocardial infarction; F10.90 Alcohol use, unspecified, uncomplicated; Z87.891 Personal history of nicotine dependence; Z98.890 Other specified postprocedural states; Z82.49 Family history of ischemic heart disease and other diseases of the circulatory system; Z11.52 Encounter for screening for COVID-19; Z79.01 Long term (current) use of anticoagulants; Z79.899 Other long term (current) drug therapy
CPT/HCPCS: 36415; 70450; 72125; 72132; 73502; 74177; 80048; 80053; 81003; 82550; 85025; 85027; 85610; 87635; 93005; 93306; 96374; 96376; 97116; 97161; 97166; 97530; 97535; 99285; A9270; C9113; G0378; Q9967

== ENCOUNTER 2024-01-04 11:50 | Emergency (ER) | payer MEDICARE, SELFPAY ==
--- NOTE | ~2024-01-04 | CT_ITS ---
EXAMINATION: CT brain wo con INDICATION: Head injury COMPARISON: 12/30/2023 TECHNIQUE: Standard unenhanced head CT. The dose-length product (DLP) was 681.00 mGy-cm. The mA was a djusted according to patient size. Iterative reconstruction technique was employed. FINDINGS: No acute intraparenchymal hemorrhage. No evidence of mass lesion. No evidence of acute infa rction. There are areas of prior infarction in the left cerebellum, the left occipital lobe, and the right parietal lobe. There is mild periventricular and subcortical hypodensity probably related to sm all vessel ischemic disease. There is moderate prominence of the sulci and ventricles related to cere bral atrophy. Intracranial calcified cerebral atherosclerosis is noted. No extra-axial collections. N o mass effect or midline shift. The orbits and soft tissues are unremarkable. The visualized sinuses and mastoid air cells are well aerated. IMPRESSION: 1. Areas of prior infarction without acute intracranial abnormality. 2. Age related findings. Reviewed, dictated and finalized at location B. RY SLICING MACHINE OPERATOR
--- NOTE | ~2024-01-04 | CT_ITS ---
EXAMINATION: CT cervical spine wo con DATE: 01/04/2024 12:28 INDICATION: Head injury TECHNIQUE: Computed tomography (CT) of the cervical spine was performed without intravenous contrast. The dose-length product (DLP) was 146.50 mGy-cm. Automated exposure control and iterative reconstruc tion technique were employed. COMPARISON: 12/30/2023 FINDINGS: There is no fracture. There are 2 mm of stable retrolisthesis of C4 on C5. There is unchang ed severe loss of intervertebral disc space height at C4-5 and C6-7. The odontoid process is intact. The vertebral body heights are maintained. There is multilevel moderate facet and uncovertebral joint osteoarthritis. IMPRESSION: 1. Severe cervical spondylosis without acute findings or significant interval change. Reviewed, dictated and finalized at location B. ANDRY PERSON IMPRESSION: 1. Severe cervical spondylosis without acute findings or significant interval denny greenberg
[2024-01-04 11:54] VITALS: BP 142/64; PULSE 66; RESP 16; TEMP 36.3; O2SAT 93
--- NOTE | 2024-01-04 13:17 | ED.FALL ---
HPI - Fall General Chief Complaint: Fall Stated Complaint: fall hit head Time Seen by Provider: 01/04/24 13:06 History of Present Illness HPI Narrative: Patient is a 78-year-old female who presents emergency department this afternoon status post ground level fall at her nursing facility. Patient fell backwards and hit the back of her head. No loss of consciousness, patient is currently alert oriented to person, place, time and situation and is at her baseline. Patient is currently on completed and was brought to our facility for further evaluation including CT scan given her blood thinner use. Patient is currently denying any symptoms including chest pain, shortness of breath, nausea, vomiting, abdominal pain, dysuria, hematuria, constipation, diarrhea, melena, hematochezia, fevers or chills. Patient also denies any headaches, dizziness, lightheadedness, blurry visions, focal weakness, numbness and or tingling. There are no other modifying, alleviating, or precipitating factors at this time. Related Data Home Medications Medication Instructions Recorded Confirmed Vitamin D3 2,000 unit PO DAILY 12/30/23 01/03/24 bupropion HBr 150 mg PO DAILY 12/30/23 01/03/24 buspirone 10 mg PO TID 12/30/23 01/03/24 co [id number] oil-omega 3-E 1,200 mg PO DAILY 12/30/23 01/03/24 cyproheptadine 4 mg PO BID 12/30/23 01/03/24 memantine 10 mg PO BID 12/30/23 01/03/24 riboflavin (vitamin B2) 400 mg PO DAILY 12/30/23 01/03/24 trazodone 100 mg PO QHS 12/30/23 01/03/24 warfarin See Rx Instructions .Route .COMPLEX 12/30/23 01/03/24 Allergies Allergy/AdvReac Type Severity Reaction Status Date / Time amiodarone Allergy Blurry Verified 12/30/23 18:24 Vision hydroxyzine AdvReac Intermediate Nausea and Verified 12/30/23 18:24 Vomiting Review of Systems Review of Systems: All systems are reviewed and are negative unless stated otherwise in the HPI. [facility] Past Medical History Medical History Anemia Atrial fibrillation Benign essential hypertension Bone lesion Cancer Cardiac pacemaker in situ Cervicalgia Cholelithiasis Chronic obstructive pulmonary disease CKD (chronic kidney disease) Cognitive dysfunction Congestive heart failure chronic, combined systolic and diastolic Dizziness DJD (degenerative joint disease), multiple sites Frozen shoulder Hearing loss 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 Memory impairment Mitral valve regurgitation Musculoskeletal pain Myocardial infarction Pneumonia Shortness of breath Stroke of right basal ganglia Vision changes Surgical History Surgical History History of hysterectomy History of open heart surgery History of pacemaker Family History Family History Sibling Diabetes mellitus Cancer Breast cancer Father Family history of heart disease in male family member before age 55 Family history of cardiovascular disease Diabetes mellitus Family history of diabetes mellitus in first degree relative Family history of congestive heart failure Mother Family history of Alzheimer's disease Social History Social History Smoking packs per day: 0.5 Smoking cigarettes per day: 10.0 Years smoked: 10 Smoking pack-years: 5.00 Smoking status: Never smoker Tobacco type: cigarettes Second hand tobacco smoke exposure: Yes Alcohol intake: never Substance use: never Substance use type: does not use Do You Feel Safe in your Home?: Yes Lack of Transportation: No Lack of Food: Never True Current Housing: I Have Housing Concerned About Future Housing: No Difficulty Paying Gas/Electric Bills: No Difficulty Paying for Meds: No Currently Unemployed: No Education: Decline to Answer Difficulty w/ Childcare or Family
[2024-01-04 13:42] VITALS: BP 140/78; PULSE 74; RESP 20; O2SAT 94
== END 2024-01-04 13:43 ==
PROVIDERS: Emergency Provider Emergency Medicine; PCP Internal Medicine
DX: S00.03XA Contusion of scalp, initial encounter (principal); I48.91 Unspecified atrial fibrillation; J44.9 Chronic obstructive pulmonary disease, unspecified; I13.0 Hypertensive heart and chronic kidney disease with heart failure and stage 1 through stage 4 chronic kidney disease, or unspecified chronic kidney disease; I50.42 Chronic combined systolic (congestive) and diastolic (congestive) heart failure; N18.9 Chronic kidney disease, unspecified; I69.954 Hemiplegia and hemiparesis following unspecified cerebrovascular disease affecting left non-dominant side; I34.0 Nonrheumatic mitral (valve) insufficiency; Z95.0 Presence of cardiac pacemaker; Z87.01 Personal history of pneumonia (recurrent); Z87.891 Personal history of nicotine dependence; Z90.710 Acquired absence of both cervix and uterus; Z79.01 Long term (current) use of anticoagulants; M47.812 Spondylosis without myelopathy or radiculopathy, cervical region; W19.XXXA Unspecified fall, initial encounter
CPT/HCPCS: 70450; 72125; 99284

== ENCOUNTER 2024-01-15 08:59 | Emergency (ER) | payer MEDICARE, SELFPAY ==
[2024-01-15] VITALS (13 sets, daily range): BP systolic 117–168; BP diastolic 56–87; PULSE 60–102; RESP 11–20; TEMP 36.3–36.6; O2SAT 95–100
[2024-01-15] MEDS: HALOPERIDOL LACTATE 5 MG/ML VIAL 2 MG IV PUSH (09:33)
[2024-01-15 10:11] LABS: Basophils Percent Auto 0.2 % (0.2-1.2); Eosinophils Absolute Auto 0.1 K/mm3 (0-0.3); Eosinophils Percent Auto 0.6 % (0-4.4); Hematocrit 41.1 % (37.0-47.0); Hemoglobin 13.4 g/dL (12.0-15.0); Immature Granulocyte Absolute 0.02 K/mm3 (0.00-0.031); Immature Granulocyte Percent A 0.2 % (0-0.5); Lymphocytes Absolute Auto 2.51 K/mm3 (0.9-3.2); Lymphocytes Percent Auto 30.5 % (18.3-44.2); Mean Corpuscular HGB Conc 32.6 g/dl (32-36); Mean Corpuscular Hemoglobin 29.8 pg (26-34); Mean Corpuscular Volume 91.3 fl (80-100); Mean Platelet Volume 9.4 fl (7.4-10.4); Monocytes Absolute Auto 0.8 K/mm3 (0.1-0.6); Monocytes Percent Auto 9.7 % (2.6-8.5); Neutrophils Absolute Auto 4.8 K/mm3 (1.3-6.7); Neutrophils Percent Auto 58.8 % (45.5-73.1); Platelet Count Result 241 k/mm3 (150-375); Red Cell Distribution Width 14.6 % (11.5-14.5); White Blood Count 8.2 K/mm3 (4.5-10.0)
[2024-01-15 10:20] LABS: Alanine Aminotransferase 34 U/L (6-35); Albumin Level 4.5 g/dL (3.5-5.1); Alkaline Phosphatase 153 U/L (38-126); Anion Gap 10 mmol/L (8-16); Aspartate Amino Transferase 52 U/L (14-36); Bilirubin,Total 0.9 mg/dL (0.2-1.3); Blood Urea Nitrogen 21 mg/dL (7-17); Calcium 9.3 mg/dL (8.4-10.2); Carbon Dioxide 30 mmol/L (22-30); Chloride 100 mmol/L (98-107); Estimated CRCL calculation 35 ml/min; Estimated Glomerular Filt Rate 54; Glucose 103 mg/dL (65-110); Lactic Acid Reflex 3.3 mmol/L (0.7-2.0); Sodium 140 mmol/L (137-145)
--- NOTE | 2024-01-15 10:21 | PC.NURSE ---
Pt resting with reg resp. Bilateral soft wrist restraints intact non constricting
[2024-01-15 10:26] LABS: Appearance Urine Cloudy (Clear); Bacteria Urine None Seen /hpf; Bilirubin Urine Negative (Negative); Blood Urine Negative (Negative); Color Urine Dark Yellow (Yellow); Glucose Urine UA Negative (Negative); Hyaline Casts Urine Present /lpf; Ketones Urine Negative (Negative); Leukocyte Esterase Ur Negative LEU/UL (Negative); Need Manual Microscopic Reviewed; Nitrate Urine Negative (Negative); Protein Urine Trace mg/dL (Negative); RBC Urine 0-2 /hpf (0-2); Specific Grav Ur 1.012 (1.001-1.035); Squamous Epithelial Cell Urine None seen /hpf (Few); WBC Urine 0-5 /hpf; pH Urine 5.5 (5.0-9.0)
[2024-01-15 10:27] LABS: Add Urine Microscopic? YES; INR 1.7; Prothrombin Time 20.7 Seconds (11.1-14.7)
--- NOTE | 2024-01-15 11:12 | PC.NURSE ---
Released right wrist restraint. Pts son Ed Gonzalo phone ER for pt update. Voices concerns that Paxlovoid & COVID are causing pts behaviors. RN reported concerns to Dr. Hoover
[2024-01-15] MEDS: HALOPERIDOL LACTATE 5 MG/ML VIAL IV PUSH (11:43)
--- NOTE | 2024-01-15 11:48 | PC.NURSE ---
Pt removed wrist restraints screaming sons name. Swinging at staff. Dr. Steiner informed pt placed back in restraints & Haldol order received.
--- NOTE | 2024-01-15 12:18 | PC.NURSE ---
No result from Dr. Jatin Palmer informed order received for Ativan
[2024-01-15] MEDS: LORazepam INJ (*CRX) 2 MG/ML VIAL 1 MG IV PUSH (12:31)
[2024-01-15 13:07] LABS: Reflex Lactic Acid Yes or No Add Lactic
--- NOTE | 2024-01-15 13:07 | PC.NURSE ---
Pt resting with regular resp. No yelling or screaming at this time
--- NOTE | 2024-01-15 13:34 | ECG_ITS ---
Measurements Intervals [place] Rate: 60 P: CA: 0 QRS: 206 QRSD: 121 T: 61 QT: 538 QTc: 538 Interpretive Statements ATRIAL FLUTTER ELECTRONIC VENTRICULAR PACEMAKER COMPARED TO ECG 12/30/2023 12:43:12 NO SIGNIFICANT CHANGES Electronically Signed On 01-15-2024 15:51:02 PARALLEL COMPUTING SOFTWARE ENGINEER by Shanel Calvo M.D.
--- NOTE | 2024-01-15 13:38 | PC.NURSE ---
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 EKG obtained [address] Dr. Steiner notified
[2024-01-15 14:03] LABS: Lactic Acid 1.2 mmol/L (0.7-2.0)
--- NOTE | 2024-01-15 14:51 | PC.NURSE ---
Pts son phone inquiring about pt update. Update given reviewed POC with pt son. Pt resting with reg resp
--- NOTE | 2024-01-15 16:25 | PC.NURSE ---
Pt remains drowsy, arouses to physical stimuli
--- NOTE | 2024-01-15 16:35 | ED.GENADULT ---
HPI - General Adult General Chief complaint: Unspecified Stated complaint: aggression, agitated Time Seen by Provider: 01/15/24 09:13 Source: EMS and RN notes reviewed Mode of arrival: EMS Limitations: altered mental status and dementia History of Present Illness HPI narrative: 78-year-old with a history of dementia was brought in from custodial with complaints of agitation since this morning. Upon arrival patient is constantly screaming saying Genesis . As per the EMS and custodial records patient had no recent falls recent diagnosis of COVID and is on Paxolvid Onset (ago): day(s) (1) Related Data Home Medications Medication Instructions Recorded Confirmed Vitamin D3 2,000 unit PO DAILY 12/30/23 01/10/24 bupropion HBr 150 mg PO DAILY 12/30/23 01/10/24 buspirone 10 mg PO TID 12/30/23 01/10/24 co [id number] oil-omega 3-E 1,200 mg PO DAILY 12/30/23 01/10/24 cyproheptadine 4 mg PO BID 12/30/23 01/10/24 memantine 10 mg PO BID 12/30/23 01/10/24 riboflavin (vitamin B2) 400 mg PO DAILY 12/30/23 01/10/24 trazodone 100 mg PO QHS 12/30/23 01/10/24 warfarin See Rx Instructions .Route .COMPLEX 12/30/23 01/10/24 Allergies Allergy/AdvReac Type Severity Reaction Status Date / Time amiodarone Allergy Blurry Verified 12/30/23 18:24 Vision hydroxyzine AdvReac Intermediate Nausea and Verified 12/30/23 18:24 Vomiting Review of Systems Review of Systems: ROS unobtainable: Yes unobtainable due to mental status PMFSH Past Medical History Medical History Anemia Atrial fibrillation Benign essential hypertension Bone lesion Cancer Cardiac pacemaker in situ Cervicalgia Cholelithiasis Chronic obstructive pulmonary disease CKD (chronic kidney disease) Cognitive dysfunction Congestive heart failure chronic, combined systolic and diastolic Dizziness DJD (degenerative joint disease), multiple sites Frozen shoulder Hearing loss 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 Memory impairment Mitral valve regurgitation Musculoskeletal pain Myocardial infarction Pneumonia Shortness of breath Stroke of right basal ganglia Vision changes Surgical History Surgical History History of hysterectomy History of open heart surgery History of pacemaker Family History Family History Sibling Diabetes mellitus Cancer Breast cancer Father Family history of heart disease in male family member before age 55 Family history of cardiovascular disease Diabetes mellitus Family history of diabetes mellitus in first degree relative Family history of congestive heart failure Mother Family history of Alzheimer's disease Social History Social History Smoking packs per day: 0.5 Smoking cigarettes per day: 10.0 Years smoked: 10 Smoking pack-years: 5.00 Smoking status: Never smoker Tobacco type: cigarettes Second hand tobacco smoke exposure: Yes Alcohol intake: never Substance use: never Substance use type: does not use Do You Feel Safe in your Home?: Yes Lack of Transportation: No Lack of Food: Never True Current Housing: I Have Housing Concerned About Future Housing: No Difficulty Paying Gas/Electric Bills: No Difficulty Paying for Meds: No Currently Unemployed: No Education: Decline to Answer Difficulty w/ Childcare or Family Care: No Living arrangements: with family Occupation/Education: retired Gender identity (if verbalized by the patient): Female Spiritual care concerns: No Exam Narrative: GENERAL: Very agitated and screaming, and in no acute distress. HEAD: Normocephalic, atraumatic. EYES: PERRLA and EOMI NECK: Supple. CHEST: Clear to auscultation. No respiratory distress. HEART: Regular rate and rhythm. No murmur heard. Normal per
== END 2024-01-15 17:22 ==
PROVIDERS: Emergency Provider Family Medicine; PCP Internal Medicine
DX: F03.90 Unspecified dementia, unspecified severity, without behavioral disturbance, psychotic disturbance, mood disturbance, and anxiety (principal); U07.1 COVID-19; I48.91 Unspecified atrial fibrillation; J44.9 Chronic obstructive pulmonary disease, unspecified; I50.42 Chronic combined systolic (congestive) and diastolic (congestive) heart failure; I13.0 Hypertensive heart and chronic kidney disease with heart failure and stage 1 through stage 4 chronic kidney disease, or unspecified chronic kidney disease; N18.9 Chronic kidney disease, unspecified; I69.954 Hemiplegia and hemiparesis following unspecified cerebrovascular disease affecting left non-dominant side; I34.0 Nonrheumatic mitral (valve) insufficiency; Z95.0 Presence of cardiac pacemaker; Z87.01 Personal history of pneumonia (recurrent); Z87.891 Personal history of nicotine dependence; Z90.710 Acquired absence of both cervix and uterus; Z79.01 Long term (current) use of anticoagulants; I48.92 Unspecified atrial flutter
CPT/HCPCS: 36415; 80053; 81001; 83605; 85025; 85610; 93005; 96374; 96375; 96376; 99285; J1630; J2060

== ENCOUNTER 2024-01-22 10:14 | Inpatient (IN) | payer MEDICARE, SELFPAY ==
[2024-01-22] VITALS (12 sets, daily range): BP systolic 114–150; BP diastolic 48–103; PULSE 60–66; RESP 17–25; TEMP 36.8–37.1; O2SAT 89–100
--- NOTE | ~2024-01-22 | XR_ITS ---
EXAMINATION: XR chest 1V portable DATE: 01/26/2024 09:11 INDICATION: Cough. TECHNIQUE: A single frontal view of the chest was obtained. COMPARISON: Chest single view 01/22/2024 FINDINGS: A calcified left lung nodule and calcified left hilar and mediastinal lymph nodes are consi stent with old granulomatous disease. There is mild atelectasis in lingula. No pleural effusion or pn eumothorax. Cardiomegaly is noted. There are changes of heart valve replacement. There is a left ches t pacer with leads in right ventricle and coronary sinus. Retained epicardial pacer wires are noted. IMPRESSION: 1. Cardiomegaly. Reviewed, dictated and finalized at location A. L OPERATIONS MANAGER IMPRESSION: 1. Cardiomegaly.
--- NOTE | ~2024-01-22 | XR_ITS ---
AP and lateral views of the right hip Clinical history: Pain Findings: There is an acute, mildly displaced fracture the subcapital region of the right femoral nec k. No dislocation. Soft tissues are unremarkable. Impression: Acute, mildly displaced fracture at the subcapital right femoral neck. Reviewed, dictated and finalized at [facility]. ITY ASSURANCE PROJECT MANAGER Impression: Acute, mildly displaced fracture at the subcapital right femoral neck.
--- NOTE | ~2024-01-22 | XR_ITS ---
EXAMINATION: XR chest 1V portable INDICATION: Pain after fall TECHNIQUE: Portable AP chest at 1058 hours COMPARISON: 08/28/2023 FINDINGS: The lungs are free of acute opacities. No pleural effusion or pneumothorax. Changes of card iac valve replacement are noted. A dual lead cardiac pacemaker of the left chest wall ends with leads in expected locations. Cardiomegaly is noted. IMPRESSION: 1. No acute cardiopulmonary abnormality. Reviewed, dictated and finalized at location L. INSPECTOR
--- NOTE | ~2024-01-22 | CT_ITS ---
EXAMINATION: CT brain wo con INDICATION: Headache COMPARISON: 01/04/2024 TECHNIQUE: Standard unenhanced head CT. The dose-length product (DLP) was moderate mGy-cm. The mA was adjusted according to patient size. Iterative reconstruction technique was employed. FINDINGS: No acute intraparenchymal hemorrhage. No evidence of mass lesion. No evidence of acute infa rction. Again noted are areas of prior infarction in the left cerebellum, left occipital lobe, and th e right parietal lobe. There is mild periventricular and subcortical hypodensity probably related to small vessel ischemic disease. There is moderate prominence of the sulci and ventricles related to ce rebral atrophy. Intracranial calcified cerebral atherosclerosis is noted. No extra-axial collections. No mass effect or midline shift. The orbits and soft tissues are unremarkable. There is mild mucosal thickening of the paranasal sinuses. IMPRESSION: 1. Areas of prior infarction without acute intracranial abnormality. 2. Age related findings. Reviewed, dictated and finalized at location L. UCTION MECHANIC
--- NOTE | ~2024-01-22 | XR_ITS ---
EXAMINATION: XR surgery orthopedic DATE: 01/25/2024 14:43 INDICATION: Right hip pinning of a subcapital fracture of the right femur TECHNIQUE: 2 fluoroscopic images of the right hip were obtained during procedure performed by Dr. Rayshawn pierce. Radiologist was not present for the imaging or procedure. The amount of fluoroscopy time used d uring this procedure was 4.8 minutes. COMPARISON: 01/22/2024 FINDINGS: Again seen is a subcapital fracture of the proximal right femur with unchanged anterior and lateral i mpaction. The fracture has been fixed with 3 lag screws the tips of which do not project beyond the a rticular cortical margin. No new fractures identified. Joint space at the right hip appears relativel y preserved. IMPRESSION: 1. Fluoroscopy utilized during Lili fixation of a subcapital fracture of the proximal right femur wit h unchanged anterior and lateral impaction. Reviewed, dictated and finalized at location B. [facility] IMPRESSION: 1. Fluoroscopy utilized during Lili fixation of a subcapital fracture of the pr oximal right femur with unchanged anterior and lateral impaction.
--- NOTE | 2024-01-22 10:52 | ECG_ITS ---
Measurements Intervals [place] Rate: 60 P: 136 PA: 132 QRS: 229 QRSD: 128 T: 120 QT: 483 QTc: 483 Interpretive Statements ELECTRONIC VENTRICULAR PACEMAKER ATRIAL FIBRILLATION ABNORMAL RHYTHM ECG COMPARED TO ECG 01/15/2024 13:37:40 NO SIGNIFICANT CHANGES Electronically Signed On 01-22-2024 12:46:31 LEASE ADMINISTRATION SUPERVISOR by Daniela Harris M.D.
[2024-01-22 11:25] LABS: Basophils Percent Auto 0.2 % (0.2-1.2); Eosinophils Absolute Auto 0.1 K/mm3 (0-0.3); Eosinophils Percent Auto 0.6 % (0-4.4); Hematocrit 37.1 % (37.0-47.0); Hemoglobin 12.2 g/dL (12.0-15.0); Immature Granulocyte Absolute 0.07 K/mm3 (0.00-0.031); Immature Granulocyte Percent A 0.6 % (0-0.5); Lymphocytes Absolute Auto 1.53 K/mm3 (0.9-3.2); Lymphocytes Percent Auto 12.7 % (18.3-44.2); Mean Corpuscular HGB Conc 32.9 g/dl (32-36); Mean Corpuscular Hemoglobin 29.4 pg (26-34); Mean Corpuscular Volume 89.4 fl (80-100); Mean Platelet Volume 9.5 fl (7.4-10.4); Monocytes Absolute Auto 1.2 K/mm3 (0.1-0.6); Monocytes Percent Auto 10.2 % (2.6-8.5); Neutrophils Absolute Auto 9.1 K/mm3 (1.3-6.7); Neutrophils Percent Auto 75.7 % (45.5-73.1); Platelet Count Result 248 k/mm3 (150-375); Red Blood Count 4.15 M/mm3 (4.2-5.4); Red Cell Distribution Width 14.5 % (11.5-14.5)
--- NOTE | 2024-01-22 11:26 | ED.FALL ---
HPI - Fall General Chief Complaint: Fall Stated Complaint: unwitnessed glf, R hip pain Time Seen by Provider: 01/22/24 10:22 History of Present Illness HPI Narrative: 78-year-old female with history of Alzheimer's presenting to the emergency department for evaluation of right hip pain. Patient got out of bed and was unsupervised and she had a fall landing on her right hip. Related Data Home Medications Medication Instructions Recorded Confirmed Vitamin D3 2,000 unit PO DAILY 12/30/23 01/22/24 buspirone 10 mg PO TID 12/30/23 01/22/24 co [id number] oil-omega 3-E 1,200 mg PO DAILY 12/30/23 01/22/24 cyproheptadine 4 mg PO BID 12/30/23 01/22/24 memantine 10 mg PO BID 12/30/23 01/22/24 riboflavin (vitamin B2) 400 mg PO DAILY 12/30/23 01/22/24 acetaminophen 650 mg 1,300 mg PO Q8H PRN (Drug) 01/22/24 01/22/24 tablet,extended release Ingestion trazodone 50 mg tablet 25 mg PO QHS 01/22/24 01/22/24 warfarin 2 mg tablet 2 mg PO QMWF 01/22/24 01/22/24 warfarin 3 mg tablet 3 mg PO DAILY 01/22/24 01/22/24 Allergies Allergy/AdvReac Type Severity Reaction Status Date / Time amiodarone Allergy Blurry Verified 01/22/24 18:07 Vision hydroxyzine AdvReac Intermediate Nausea and Verified 01/22/24 18:07 Vomiting Review of Systems Review of Systems: All systems reviewed & are unremarkable except as noted in HPI and below PMFSH Past Medical History Medical History (Updated 01/22/24 @ 19:25 by Reggie Larsen MD) Anemia Anxiety and depression Atrial fibrillation Benign essential hypertension Cervicalgia Cholelithiasis Chronic anticoagulation Mechanical aortic valve. Chronic kidney disease Chronic obstructive pulmonary disease Cognitive dysfunction Combined systolic and diastolic congestive heart failure Deep venous thrombosis Degenerative joint disease Hearing loss 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 Mitral valve regurgitation Mixed hyperlipidemia Myocardial infarction Obstructive sleep apnea on CPAP Pneumonia Restrictive lung disease Stroke of right basal ganglia Surgical History Surgical History (Updated 01/22/24 @ 16:26 by Carrie Vanessa PA-C) History of abdominoplasty History of hysterectomy History of mechanical aortic valve replacement (2000) Medtronic Bruno valve. History of pacemaker Family History Family History Sibling Diabetes mellitus Cancer Breast cancer Father Family history of heart disease in male family member before age 55 Family history of cardiovascular disease Diabetes mellitus Family history of diabetes mellitus in first degree relative Family history of congestive heart failure Mother Family history of Alzheimer's disease Social History Social History (Updated 01/22/24 @ 16:27 by Carrie Vanessa PA-C) Social History: Surrogate medical decision maker: Justin Barkley, significant other. Code status: Full code. Smoking packs per day: 0.5 Smoking cigarettes per day: 10.0 Years smoked: 10 Smoking pack-years: 5.00 Smoking status: Never smoker Tobacco type: cigarettes Second hand tobacco smoke exposure: Yes Alcohol intake: never Substance use: never Substance use type: does not use Do You Feel Safe in your Home?: Yes Lack of Transportation: No Lack of Food: Never True Current Housing: I Have Housing Concerned About Future Housing: No Difficulty Paying Gas/Electric Bills: No Difficulty Paying for Meds: No Currently Unemployed: No Education: High School Diploma/GED Difficulty w/ Childcare or Family Care: No Living arrangements: with family Occupation/Education: retired Spiritual care concerns: No Exam Narrative: APPEARANCE: Well appearing, no pain, no distress, well-nourished. HEAD: normocephalic, atraumatic. EYES: PERRLA/EOMI, conjunctivae clear. NOSE: Normal no drainage EARS:TMS clear with good light reflex. THROAT: Phar
[2024-01-22 11:34] LABS: Alanine Aminotransferase 45 U/L (6-35); Albumin Level 4.1 g/dL (3.5-5.1); Alkaline Phosphatase 165 U/L (38-126); Anion Gap 7 mmol/L (8-16); Aspartate Amino Transferase 53 U/L (14-36); Bilirubin,Total 1.3 mg/dL (0.2-1.3); Blood Urea Nitrogen 14 mg/dL (7-17); Calcium 9.1 mg/dL (8.4-10.2); Carbon Dioxide 27 mmol/L (22-30); Chloride 103 mmol/L (98-107); Estimated CRCL calculation 36 ml/min; Estimated Glomerular Filt Rate > 60; Glucose 108 mg/dL (65-110); INR 3.5; Potassium 3.6 mmol/L (3.4-5.0); Prothrombin Time 37.8 Seconds (11.1-14.7); Sodium 137 mmol/L (137-145)
[2024-01-22 11:35] LABS: Partial Thromboplastin Time 60.2 SECONDS (22.3-36.8)
[2024-01-22] MEDS: fentaNYL CITRATE INJ (*CRX) 100 MCG/2 ML VIAL 50 MCG IV PUSH ×2 (13:03→21:23)
[2024-01-22] MEDS: ONDANSETRON INJ 4 MG/2 ML VIAL IV PUSH (13:03)
--- NOTE | 2024-01-22 15:49 | PC.NURSE ---
standard heart healthy dinner tray ordered at [id number]
--- NOTE | 2024-01-22 15:50 | PM.IMHP ---
H&P: HPI History of Present Illness Date/Time: 01/22/24 16:00 Chief Complaint: Right hip pain after fall. Narrative: This is a 78-year-old female with history of stroke, cognitive dysfunction, combined systolic and diastolic congestive heart failure, permanent pacemaker, hypertension, paroxysmal atrial fibrillation, mechanical aortic valve replacement on warfarin, restrictive lung disease, chronic kidney disease, and anemia who presented to the emergency department via EMS for evaluation of right hip pain after a ground level fall. The patient provides the following history. She was just admitted to the hospital on 12/30/2023 after a ground level fall and she was discharged to a residential facility several days thereafter. This is her 3rd visit to the ED since discharge; she was here for evaluation on the after a ground level fall and again on the with aggression and agitation. This morning she got out of bed unsupervised and sustained a fall at which time she was found to be lying on her right side, complaining of right hip pain. X-rays showed an acute, mildly displaced fracture of the subcapital right femoral neck and she is being admitted in this setting. At the time my evaluation she knows that she is at the hospital with a broken hip. She cannot provide me any specifics with how she fell or how she was brought here today however. She complains of nondescript pain in the right hip but has no other complaints. Review of Systems Review of Systems: Unable to assess accurately as she is confused. She does deny fever, cold and flu symptoms, chest pain, shortness a breath, nausea, and vomiting. [facility] Past Medical History Medical History Anemia Anxiety and depression Atrial fibrillation Benign essential hypertension Cervicalgia Cholelithiasis Chronic anticoagulation Mechanical aortic valve. Chronic kidney disease Chronic obstructive pulmonary disease Cognitive dysfunction Combined systolic and diastolic congestive heart failure Deep venous thrombosis Degenerative joint disease Hearing loss 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 Mitral valve regurgitation Mixed hyperlipidemia Myocardial infarction Obstructive sleep apnea on CPAP Pneumonia Restrictive lung disease Stroke of right basal ganglia Surgical History Surgical History History of abdominoplasty History of hysterectomy History of mechanical aortic valve replacement (2000) Medtronic Bruno valve. History of pacemaker Family History Family History Sibling Diabetes mellitus Cancer Breast cancer Father Family history of heart disease in male family member before age 55 Family history of cardiovascular disease Diabetes mellitus Family history of diabetes mellitus in first degree relative Family history of congestive heart failure Mother Family history of Alzheimer's disease Social History Social History Social History: Surrogate medical decision maker: Justin Barkley, significant other. Code status: Full code. Smoking packs per day: 0.5 Smoking cigarettes per day: 10.0 Years smoked: 10 Smoking pack-years: 5.00 Smoking status: Never smoker Tobacco type: cigarettes Second hand tobacco smoke exposure: Yes Alcohol intake: never Substance use: never Substance use type: does not use Do You Feel Safe in your Home?: Yes Lack of Transportation: No Lack of Food: Never True Current Housing: I Have Housing Concerned About Future Housing: No Difficulty Paying Gas/Electric Bills: No Difficulty Paying for Meds: No Currently Unemployed: No Education: High School Diploma/GED Difficulty w/ Childcare or Family Care: No Living arrangements: with family Occupation/Edu
--- NOTE | 2024-01-22 17:08 | PCCCNOTE ---
Family requested to meet with CC to begin discharge planning. Pt has a hip fracture and will most likely have surgery. Son and DIL are at bedside and requesting information. Pt was here recently and discharge to [facility] for rehab for about 5 days when insurance would no longer cover. She went home from [facility] and fell at home resulting in the fracture. They were given information on SNFs in network with [facility] as she will likely require rehab again after surgery. They were also given information on ASL facilities and Memory care facilities in the area for termite treater care after rehab as she has a diagnosis of Alzheimers and they were considering that as a need. They are aware that [facility] will likely pay for rehab at a SNF but an ASL and Memory care facility will be out of pocket.
--- NOTE | 2024-01-22 18:00 | ADMGEN ---
This patient, Elizabeth Marx, was admitted to [facility] Surg Room 322-01. Patient/family oriented to hospital policies and general routines including ID bracelet, bed and alarms, visiting hours, pain management, procedures, bathroom and other care routines, personal items, smoking policy, room service/diet, and visiting hours. Information on how to activate the Rapid Response Team has been discussed. Patient/Family are encouraged to report perceived risks to care and to ask questions if they do not understand what they are told or what they should do.
--- NOTE | 2024-01-22 23:40 | PC.NURSE ---
Pt confused and suspicious of staff. Uncooperative with cares, yelling, cursing, and hitting at staff.
[2024-01-23 04:28] VITALS: BP 131/56; PULSE 59; RESP 16; TEMP 36.3; O2SAT 93
[2024-01-23] MEDS: fentaNYL CITRATE INJ (*CRX) 100 MCG/2 ML VIAL 50 MCG IV PUSH (04:37)
[2024-01-23 07:09] LABS: Basophils Percent Auto 0.3 % (0.2-1.2); Eosinophils Absolute Auto 0.2 K/mm3 (0-0.3); Eosinophils Percent Auto 2.9 % (0-4.4); Hematocrit 37.3 % (37.0-47.0); Hemoglobin 11.8 g/dL (12.0-15.0); Immature Granulocyte Absolute 0.03 K/mm3 (0.00-0.031); Immature Granulocyte Percent A 0.4 % (0-0.5); Mean Corpuscular HGB Conc 31.6 g/dl (32-36); Mean Corpuscular Hemoglobin 29.1 pg (26-34); Mean Corpuscular Volume 91.9 fl (80-100); Mean Platelet Volume 9.4 fl (7.4-10.4); Monocytes Absolute Auto 0.8 K/mm3 (0.1-0.6); Monocytes Percent Auto 10.7 % (2.6-8.5); Neutrophils Absolute Auto 5.7 K/mm3 (1.3-6.7); Neutrophils Percent Auto 71.7 % (45.5-73.1); Platelet Count Result 226 k/mm3 (150-375); Red Blood Count 4.06 M/mm3 (4.2-5.4); Red Cell Distribution Width 14.7 % (11.5-14.5); White Blood Count 7.9 K/mm3 (4.5-10.0)
[2024-01-23 07:12] LABS: Alanine Aminotransferase 33 U/L (6-35); Albumin Level 3.6 g/dL (3.5-5.1); Alkaline Phosphatase 131 U/L (38-126); Anion Gap 5 mmol/L (8-16); Aspartate Amino Transferase 37 U/L (14-36); Bilirubin,Total 1.3 mg/dL (0.2-1.3); Blood Urea Nitrogen 16 mg/dL (7-17); Calcium 8.8 mg/dL (8.4-10.2); Carbon Dioxide 29 mmol/L (22-30); Chloride 102 mmol/L (98-107); Creatine Kinase 40 U/L (30-135); Estimated CRCL calculation 29 ml/min; Estimated Glomerular Filt Rate > 60; Glucose 95 mg/dL (65-110); Magnesium 2.1 mg/dL (1.6-2.3); Potassium 4.1 mmol/L (3.4-5.0); Sodium 136 mmol/L (137-145)
[2024-01-23 07:21] LABS: INR 3.2; Prothrombin Time 35.3 Seconds (11.1-14.7)
[2024-01-23 09:30] VITALS: PULSE 57; RESP 18; O2SAT 100
[2024-01-23 10:32] VITALS: BP 155/56; PULSE 57; RESP 18; O2SAT 100
[2024-01-23] MEDS: MORPHINE SULFATE (*CRX) 2 MG/ML INJ 1 MG IV PUSH (11:25)
--- NOTE | 2024-01-23 12:03 | PM.IMPN ---
Progress Note: A&P Assessment and Plan (1) Closed right hip fracture: Code(s): S72.001A - Fracture of unspecified part of neck of right femur, initial encounter for closed fracture Status: Acute Assessment and Plan: ?X-ray showed a right subcapital femoral neck fracture for which Dr. Zabala has been consulted. -initiate fall precaution (2) Obstructive sleep apnea on CPAP: Code(s): G47.33 - Obstructive sleep apnea (adult) (pediatric) Status: Acute (3) History of mechanical aortic valve replacement: Code(s): Z95.2 - Presence of prosthetic heart valve Status: Acute Assessment and Plan: -status post mechanical aortic valve replacement (Medtronic-Bruno valve) -continue temporary interruption of warfarin therapy for surgery.? -INR 3.5 -consult Cardiology appreciate recommendation and plan -once INR is < 2, start heparin drip, discuss with surgery prior to starting (4) Restrictive lung disease: Code(s): J98.4 - Other disorders of lung Status: Acute (5) Fall: Qualifiers: Encounter type: initial encounter Qualified Code(s): W19.XXXA - Unspecified fall, initial encounter Code(s): W19.XXXA - Unspecified fall, initial encounter Status: Acute Assessment and Plan: -patient with history of multiple falls History of dementia -initiate fall precautions (6) KLAUS (obstructive sleep apnea): Code(s): G47.33 - Obstructive sleep apnea (adult) (pediatric) Status: Acute Subjective Date/time seen: 01/23/24 12:03 Interval history: Narrative: This is a 78-year-old female with history of stroke, cognitive dysfunction, combined systolic and diastolic congestive heart failure, permanent pacemaker, hypertension, paroxysmal atrial fibrillation, mechanical aortic valve replacement on warfarin, restrictive lung disease, chronic kidney disease, and anemia who presented to the emergency department via EMS for evaluation of right hip pain after a ground level fall. The patient provides the following history. She was just admitted to the hospital on 12/30/2023 after a ground level fall and she was discharged to a detention facility several days thereafter. This is her 3rd visit to the ED since discharge; she was here for evaluation on the after a ground level fall and again on the with aggression and agitation. This morning she got out of bed unsupervised and sustained a fall at which time she was found to be lying on her right side, complaining of right hip pain. X-rays showed an acute, mildly displaced fracture of the subcapital right femoral neck and she is being admitted in this setting. At the time my evaluation she knows that she is at the hospital with a broken hip. She cannot provide me any specifics with how she fell or how she was brought here today however. She complains of nondescript pain in the right hip but has no other complaints. Interval Hx: 01/23/2024 I assumed care for patient, she does not provide HPI, she is unable to tell me if she had any pain last night. Plan is to continue pain management q.4 hours, cardiology consulted, orthopedist surgeon consulted. Family by the bedside, gives history of patient recently had hospital admission, then went to SNF, the, was recently discharged home where patient was continuously getting out of bed without assistance, family reports patient being more confused since she was recently diagnosed with a COVID. Significant other by the bedside he reports patient got out of bed unsupervised and sustained a fall on her right hip. Review of Systems Review of Systems: ROS unobtainable: Yes unobtainable due to medical condition Exam Narrative: General: Thin, chronically ill-appearing elderly female in the semi-Leon position in bed. Weight: 47 kg. BMI: 20.2. HEENT: PERRL, EOMI. Sclera anicteric. Tacky mucous membranes appear tacky, she would not open her mouth for exam. Neck: Supple. Respi
[2024-01-23] MEDS: LACTATED RINGERS 1,000 ML 75 ML IV CONT (12:35)
[2024-01-23] MEDS: busPIRone HCL 10 MG TABLET PO ×2 (13:04→18:15)
[2024-01-23 14:00] VITALS: BP 124/37; PULSE 60; RESP 20; TEMP 37.2; O2SAT 100
[2024-01-23] MEDS: ACETAMINOPHEN 325 MG TABLET 650 MG PO (14:25)
--- NOTE | 2024-01-23 14:32 | PM.CNCAR ---
Assessment and Plan Assessment and plan (1) History of mechanical aortic valve replacement: Code(s): Z95.2 - Presence of prosthetic heart valve Status: Acute Assessment and Plan: INR at 3.2 this morning. Agree with holding Warfarin. Last echocardiogram 01/01/2024 shows LVEF 50-55%, severe biatrial enlargement, mechanical aortic valve with mean gradient of 7mmHg, mild-moderate AR, moderate MR, mild TR. If patient does need surgery, no further cardiac workup needed prior to surgery. Patient would be moderate risk for major adverse cardiac events. Continue to hold Warfarin. When INR is < 2, recommend to start Heparin drip (when okay with surgery). Post-operatively, resume Warfarin when okay from a surgical standpoint for a goal INR of 2-3. (2) Closed subcapital fracture of right femur: Code(s): S72.011A - Unspecified intracapsular fracture of right femur, initial encounter for closed fracture Status: Acute Assessment and Plan: Surgery consulted. History of Present Illness History of Present Illness Consult date/time: 01/23/24 14:32 Requesting physician: Carrie Vanessa PA-C Consult reason: Other (Mechanical AVR, hip fracture and needs surgery) Reason For Visit: hip fracture Narrative: Reason for consultation: Mechanical AVR, hip fracture and needs surgery This is a 78 year old female with mechanical aortic valve, history of atrial fibrillation and atypical atrial flutter s/p AV patel ablation and implantation of a BI V pacemaker. Patient follows with Dr. Van in our office. Patient presented after a ground level fall. History is limited from the patient, however, additional history provided by the family at bedside. Patient was trying to get out of bed to go to the bathroom and ended up sustaining a fall to the ground. Patient has had issues with falls, and family reports that she tries to walk without supervision. ER workup shows an acute mildly displaced fracture at the subcapital right femoral neck. Review of Systems Review of Systems: All systems reviewed & are unremarkable except as noted in HPI and below (HPI) REPLACED BY [facility] Past Medical History Medical History Anemia Anxiety and depression Atrial fibrillation Benign essential hypertension Cervicalgia Cholelithiasis Chronic anticoagulation Mechanical aortic valve. Chronic kidney disease Chronic obstructive pulmonary disease Cognitive dysfunction Combined systolic and diastolic congestive heart failure Deep venous thrombosis Degenerative joint disease Hearing loss 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 Mitral valve regurgitation Mixed hyperlipidemia Myocardial infarction Obstructive sleep apnea on CPAP Pneumonia Restrictive lung disease Stroke of right basal ganglia Surgical History Surgical History History of abdominoplasty History of hysterectomy History of mechanical aortic valve replacement (2000) Medtronic Bruno valve. History of pacemaker Family History Family History Sibling Diabetes mellitus Cancer Breast cancer Father Family history of heart disease in male family member before age 55 Family history of cardiovascular disease Diabetes mellitus Family history of diabetes mellitus in first degree relative Family history of congestive heart failure Mother Family history of Alzheimer's disease Social History Social History Social History: Surrogate medical decision maker: Justin Barkley, significant other. Code status: Full code. Smoking packs per day: 0.5 Smoking cigarettes per day: 10.0 Years smoked: 10 Smoking pack-years: 5.00 Smoking status: Never smoker Tobacco type: cigarettes Second hand tobacco smoke exposure: Yes Alcohol intake: never Substance use:
--- NOTE | 2024-01-23 17:34 | PM.CNOR ---
Assessment and Plan Assessment and plan (1) Fracture of neck of right femur: Code(s): S72.001A - Fracture of unspecified part of neck of right femur, initial encounter for closed fracture Status: Acute Assessment and Plan: CORWIN IS HERE FOR EVALUATION OF HER RIGHT HIP AFTER A FALL. SHE HAS A VALGUS IMPACTED RIGHT FEMORAL NECK FRACTURE. SHE WILL REQUIRE CLOSED REDUCTION AND PERCUTANEOUS PINNING. WE DISCUSSED THE RISKS AND COMPLICATIONS INVOLVING SURGERY SUCH A NON UNION WHICH MAY REQUIRE CONVERSION TO A HIP REPLACEMENT. SHE AND HER FAMILY UNDERSTAND. DISCUSSED NONOPERATIVE AND OPERATIVE TREATMENT OPTIONS WITH THE PATIENT. THE PATIENT'S QUESTIONS WERE ANSWERED. THE PATIENT DESIRES OPERATIVE TREATMENT. DISCUSSED ___CLOSED REDUCTION PERCUTANEOUS PINNING RIGHT FEMORAL NECK FRACTURE . RISKS OF SURGERY INCLUDING BUT NOT LIMITED TO NEUROVASCULAR DAMAGE, WOUND COMPLICATIONS, BLOOD CLOT, PULMONARY EMBOLUS, STROKE, RI, ANESTHETIC RISKS UP TO AND INCLUDING WERE REVIEWED. CONTINUED PAIN AND POSSIBLE DYSFUNCTION WERE EXPLAINED. NO GUARANTEES WERE OFFERED. THE PATIENT UNDERSTANDS AND WISHES TO PROCEED. History of Present Illness HPI Consult date: 01/23/24 Consult reason: fracture Chief complaint: RIGHT FEMORAL NECK FRACTURE Narrative: CORWIN IS HERE FOR EVALUATION OF HER RIGHT HIP. SHE GOT UP IN THE MIDDLE OF THE NIGHT AND FELL ONTO HER RIGHT HIP. SHE WAS CONFUSED. SHE HAD PAIN. SHE WAS SEEN IN THE ED AND ADMITTED FOR EVALUATION. SHE HAS A VALGUS IMPACTED RIGHT FEMORAL NECK FRACTURE. SHE DENIES ANY OTHER EXTREMITY PAIN, BACK OR NECK PAIN Review of Systems Review of Systems: All systems reviewed & are unremarkable except as noted in HPI and below PMFSH Past Medical History Medical History Anemia Anxiety and depression Atrial fibrillation Benign essential hypertension Cervicalgia Cholelithiasis Chronic anticoagulation Mechanical aortic valve. Chronic kidney disease Chronic obstructive pulmonary disease Cognitive dysfunction Combined systolic and diastolic congestive heart failure Deep venous thrombosis Degenerative joint disease Hearing loss 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 Mitral valve regurgitation Mixed hyperlipidemia Myocardial infarction Obstructive sleep apnea on CPAP Pneumonia Restrictive lung disease Stroke of right basal ganglia Surgical History Surgical History History of abdominoplasty History of hysterectomy History of mechanical aortic valve replacement (2000) Medtronic Bruno valve. History of pacemaker Family History Family History Sibling Diabetes mellitus Cancer Breast cancer Father Family history of heart disease in male family member before age 55 Family history of cardiovascular disease Diabetes mellitus Family history of diabetes mellitus in first degree relative Family history of congestive heart failure Mother Family history of Alzheimer's disease Social History Social History Social History: Surrogate medical decision maker: Justin Barkley, significant other. Code status: Full code. Smoking packs per day: 0.5 Smoking cigarettes per day: 10.0 Years smoked: 10 Smoking pack-years: 5.00 Smoking status: Never smoker Tobacco type: cigarettes Second hand tobacco smoke exposure: Yes Alcohol intake: never Substance use: never Substance use type: does not use Do You Feel Safe in your Home?: Yes Lack of Transportation: No Lack of Food: Never True Current Housing: I Have Housing Concerned About Future Housing: No Difficulty Paying Gas/Electric Bills: No Difficulty Paying for Meds: No Currently Unemployed: No Education: High School Diploma/GED Difficulty w/ Childcar
--- NOTE | 2024-01-23 17:43 | PM.DS ---
DS: Summary Time Spent with Patient Time attestation: Total time spent providing and/or coordinating discharge services: DS: Data Data Completed and Pending Labs on day of discharge: Labs from last 24 hours 01/23/24 06:38 WBC 7.9 RBC 4.06 L Hgb 11.8 L Hct 37.3 MCV 91.9 MCH 29.1 MCHC 31.6 L RDW 14.7 H Plt Count 226 MPV 9.4 Immature Gran % (Auto) 0.4 Neut % (Auto) 71.7 Lymph % (Auto) 14.0 L [place] % (Auto) 10.7 H Eos % (Auto) 2.9 Baso % (Auto) 0.3 Lymph # (Auto) 1.10 [place] # (Auto) 0.8 H Eos # (Auto) 0.2 Baso # (Auto) 0.0 Abs Immat Gran (auto) 0.03 Absolute Neuts (auto) 5.7 Absolute Nucleated RBC 0.0 Nucleated RBC % 0.0 PT 35.3 H INR 3.2 Sodium 136 L Potassium 4.1 Chloride 102 Carbon Dioxide 29 Anion Gap 5 L BUN 16 Creatinine 0.90 Estim Creat Clear Calc 29 Estimated GFR > 60 Glucose 95 Calcium 8.8 Magnesium 2.1 Total Bilirubin 1.3 AST 37 H ALT 33 Alkaline Phosphatase 131 H Total Creatine Kinase 40 Total Protein 7.0 Albumin 3.6 Discharge Plan Discharge Attending physician on discharge: Jo-Ann Bhagat Consulting providers: Torsten Zabala; Daniela Harris; Shanel Calvo; Mary Cardenas; John Grant; Nacho Murillo; Carrie Vanessa; Delores Good; Morelia Dorman; Kraig Neal V.; Venkatesh Montalvo; Adriel Monsalve Discharging Clinician: Jo-Ann Bhagat Anticipated Discharge Date/Time: 01/30/24 12:32 Patient Disposition: SNF Activity: may shower and follow weight bearing status Diet: as tolerated Wound Care Instructions: follow printed instructions Discharge Instructions: Postoperative Hip Fracture Instructions Dr. Torsten Zabala [phone] Dressing to be changed daily with an island dressing beginning on post op day #2. May stop dressing changes at post op day #14. [place] to be removed on post op day #14 Weight bearing: Toe-touch weight bearing. You may shower with your dressing but do not submerge in a bath tub. Do not drive or operate machinery until you are released by your surgeon. Do not walk without a walker for any reason until you are released by your surgeon. Resume home dose of anticoagulation. Continue to apply ice to the hip intermittently for additional pain relief. Protect your skin with a towel or pillow case. Continue to follow strict hip fracture precautions. Please contact our office with any questions/concerns regarding your hip at [phone]. Follow up appointment instructions indicated below. Patient Instructions: Antibiotic Form, Warfarin (By mouth) Stand Alone Forms: General Discharge Information Follow-up/Referrals: Torsten Zabala MD [Physician] - 03/10/24 10:00 am Discharge Medications: New benzonatate 100 mg Capsule 100 mg PO TID Qty: 30 0RF amoxicillin-pot clavulanate [Augmentin] 500-125 mg Tablet 1 tablet PO Q8HR Qty: 21 0RF sennosides-docusate sodium [Senokot-S] 8.6-50 mg Tablet 2 tab-cap PO BID Qty: 30 0RF famotidine 20 mg Tablet 20 mg PO Q12HR Qty: 60 0RF guaifenesin [Mucus Relief ER] 600 mg Tablet Extended Release 12hr 600 mg PO Q12HR Qty: 30 0RF hydrocodone-acetaminophen 7.5-325 mg Tablet 1 tablet PO Q6-12H PRN (Reason: Pain Rated 4-6) Qty: 12 0RF olanzapine [Zyprexa Zydis] 5 mg Tablet,Disintegrating 5 mg PO PRN PRN (Reason: Agitation) Qty: 15 0RF polyethylene glycol 3350 17 gram/dose powder 17 g PO QAM Qty: 30 0RF Continued Vitamin D3 2,000 unit PO DAILY buspirone 10 mg PO TID co [id number] oil-omega 3-E 1,200 mg PO DAILY cyproheptadine 4 mg PO BID memantine 10 mg PO BID riboflavin (vitamin B2) 400 mg PO DAILY lorazepam 0.5 mg tablet 0.5 mg PO BID PRN (Reason: anxiety) Qty: 60 0RF trazodone 50 mg tablet 25 mg PO QHS acetaminophen 650 mg tablet extended release 1,300 mg PO Q8H PRN (Reason: (Drug) Ingestion) Rx In
[2024-01-23] MEDS: CYPROHEPTADINE HCL 4 MG TABLET PO (18:13)
[2024-01-23] MEDS: MEMANTINE 10 MG TABLET PO (18:13)
[2024-01-23] MEDS: traZODone HCL 25 MG TABLET PO (21:08)
[2024-01-23 21:47] VITALS: BP 118/62; PULSE 63; RESP 18; TEMP 37.1; O2SAT 100
[2024-01-24] MEDS: MORPHINE SULFATE (*CRX) 2 MG/ML INJ 1 MG IV PUSH ×5 (01:37→20:17)
[2024-01-24] MEDS: LACTATED RINGERS 1,000 ML 75 ML IV CONT ×2 (02:00→15:30)
[2024-01-24] MEDS: MEMANTINE 10 MG TABLET PO (09:47)
[2024-01-24] MEDS: busPIRone HCL 10 MG TABLET PO ×2 (09:47→12:51)
[2024-01-24] MEDS: CYPROHEPTADINE HCL 4 MG TABLET PO (09:47)
[2024-01-24 09:50] VITALS: PULSE 63; RESP 18; O2SAT 100
[2024-01-24 11:16] VITALS: BMI 18.0
--- NOTE | 2024-01-24 12:15 | PM.IMPN ---
Progress Note: A&P Assessment and Plan (1) Closed right hip fracture: Code(s): S72.001A - Fracture of unspecified part of neck of right femur, initial encounter for closed fracture Status: Acute Assessment and Plan: ?X-ray showed a right subcapital femoral neck fracture for which Dr. Zabala has been consulted. -initiate fall precaution (2) Obstructive sleep apnea on CPAP: Code(s): G47.33 - Obstructive sleep apnea (adult) (pediatric) Status: Acute (3) History of mechanical aortic valve replacement: Code(s): Z95.2 - Presence of prosthetic heart valve Status: Acute Assessment and Plan: -status post mechanical aortic valve replacement (Medtronic-Bruno valve) -continue temporary interruption of warfarin therapy for surgery.? -INR 3.0 -consult Cardiology appreciate recommendation and plan -once INR is < 2, start heparin drip, discuss with surgery prior to starting (4) Restrictive lung disease: Code(s): J98.4 - Other disorders of lung Status: Acute (5) Fall: Qualifiers: Encounter type: initial encounter Qualified Code(s): W19.XXXA - Unspecified fall, initial encounter Code(s): W19.XXXA - Unspecified fall, initial encounter Status: Acute Assessment and Plan: -patient with history of multiple falls History of dementia -initiate fall precautions (6) KLAUS (obstructive sleep apnea): Code(s): G47.33 - Obstructive sleep apnea (adult) (pediatric) Status: Acute Subjective Date/time seen: 01/24/24 12:15 Interval history: Narrative: This is a 78-year-old female with history of stroke, cognitive dysfunction, combined systolic and diastolic congestive heart failure, permanent pacemaker, hypertension, paroxysmal atrial fibrillation, mechanical aortic valve replacement on warfarin, restrictive lung disease, chronic kidney disease, and anemia who presented to the emergency department via EMS for evaluation of right hip pain after a ground level fall. The patient provides the following history. She was just admitted to the hospital on 12/30/2023 after a ground level fall and she was discharged to a correction facility several days thereafter. This is her 3rd visit to the ED since discharge; she was here for evaluation on the after a ground level fall and again on the with aggression and agitation. This morning she got out of bed unsupervised and sustained a fall at which time she was found to be lying on her right side, complaining of right hip pain. X-rays showed an acute, mildly displaced fracture of the subcapital right femoral neck and she is being admitted in this setting. At the time my evaluation she knows that she is at the hospital with a broken hip. She cannot provide me any specifics with how she fell or how she was brought here today however. She complains of nondescript pain in the right hip but has no other complaints. Interval Hx: 01/23/2024 I assumed care for patient, she does not provide HPI, she is unable to tell me if she had any pain last night. Plan is to continue pain management q.4 hours, cardiology consulted, orthopedist surgeon consulted. Family by the bedside, gives history of patient recently had hospital admission, then went to SNF, the, was recently discharged home where patient was continuously getting out of bed without assistance, family reports patient being more confused since she was recently diagnosed with a COVID. Significant other by the bedside he reports patient got out of bed unsupervised and sustained a fall on her right hip. : pt seen today, she is resting with eyes open, in no acute distress. She is still intermittently confused when asked if she is in pain and she reports yes unable to recite location. Patient is being prepared for surgical repair of right femur s/p: fall. Family is by the bedside with no complaints or concerns at this time. Review of Systems Review of Systems: NATHANIEL horowitz
[2024-01-24 14:08] VITALS: BP 125/58; PULSE 59; RESP 17; TEMP 36.8; O2SAT 92
[2024-01-24 14:10] LABS: Prothrombin Time 33.1 Seconds (11.1-14.7)
[2024-01-24 14:11] LABS: Partial Thromboplastin Time 52.7 SECONDS (22.3-36.8)
[2024-01-24 20:00] VITALS: PULSE 60; O2SAT 95
[2024-01-24] MEDS: OLANZapine DISPERTAB 5 MG PO (20:17)
[2024-01-24] MEDS: ONDANSETRON INJ 4 MG/2 ML VIAL IV PUSH (20:18)
[2024-01-24] MEDS: traZODone HCL 25 MG TABLET PO (21:00)
[2024-01-24 21:06] VITALS: BP 120/41; PULSE 61; RESP 16; TEMP 37.4; O2SAT 94
[2024-01-25] VITALS (16 sets, daily range): BP systolic 118–159; BP diastolic 55–83; PULSE 56–84; RESP 12–20; TEMP 36.4–38.3; O2SAT 93–100
[2024-01-25 06:35] LABS: Hematocrit 29.5 % (37.0-47.0); Hemoglobin 9.5 g/dL (12.0-15.0); Mean Corpuscular HGB Conc 32.2 g/dl (32-36); Mean Corpuscular Hemoglobin 29.3 pg (26-34); Mean Platelet Volume 9.4 fl (7.4-10.4); Platelet Count Result 169 k/mm3 (150-375); Red Blood Count 3.24 M/mm3 (4.2-5.4); Red Cell Distribution Width 14.8 % (11.5-14.5); White Blood Count 7.2 K/mm3 (4.5-10.0)
[2024-01-25 06:44] LABS: Alanine Aminotransferase 20 U/L (6-35); Albumin Level 2.5 g/dL (3.5-5.1); Alkaline Phosphatase 96 U/L (38-126); Anion Gap 5 mmol/L (8-16); Aspartate Amino Transferase 27 U/L (14-36); Bilirubin,Total 1.1 mg/dL (0.2-1.3); Blood Urea Nitrogen 13 mg/dL (7-17); Carbon Dioxide 25 mmol/L (22-30); Chloride 103 mmol/L (98-107); Estimated CRCL calculation 38 ml/min; Estimated Glomerular Filt Rate > 60; Glucose 78 mg/dL (65-110); Potassium 3.7 mmol/L (3.4-5.0); Sodium 133 mmol/L (137-145)
[2024-01-25 06:47] LABS: INR 3.1; Prothrombin Time 34.2 Seconds (11.1-14.7)
[2024-01-25 06:48] LABS: Partial Thromboplastin Time 57.1 SECONDS (22.3-36.8)
--- NOTE | 2024-01-25 07:15 | WPDHPUPDATE1 ---
History and Physical Update Update Date/Time: 01/25/24 07:15 History and Physical has been reviewed, including an updated exam of the patient. There are NO changes in the patient's condition. Risks, benefits, and alternatives have been discussed and questions answered. Patient agrees to proceed with procedure.
[2024-01-25] MEDS: MEMANTINE 10 MG TABLET PO ×2 (08:42→17:36)
[2024-01-25] MEDS: busPIRone HCL 10 MG TABLET PO ×2 (08:42→17:36)
[2024-01-25] MEDS: PHYTONADIONE ADULT INJ 10 MG in DEXTROSE 5% IN WATER 50 ML 100 MG IVPB (08:42)
[2024-01-25] MEDS: CYPROHEPTADINE HCL 4 MG TABLET PO ×2 (08:42→17:36)
--- NOTE | 2024-01-25 09:20 | P.CDI_ITS ---
CDI Query Clarification Request BMI 18.0 Nutritional Diagnostic Statement Severe protein calorie malnutrition related to loss of appetite as evidenced by 11% weight loss x 4 months; report of inadequate PO intake less than 75% for greater than 1 month; NFPE findings of severe muscle wasting and fat loss (temporalis, clavicles,cheeks). Nutrition intervention Ensure Enlive TID for additional 350 kcal and 20g protein each. Please refer to the comprehensive nutrition assessment for further information. Based on your medical judgement can you further clarify in the progress notes, severity of protein calorie malnutrition if known: * Mild * Moderate * Severe * Other/Unspecified <Rena Ochoa RN - Last Filed: 01/25/24 09:28> Clarified Diagnosis Clarified Diagnosis: Moderate <Delores Good APRN - Last Filed: 01/25/24 12:58>
[2024-01-25] MEDS: PHYTONADIONE INJ 10 MG/ML AMP IM (10:10)
[2024-01-25 11:23] LABS: INR 1.7
[2024-01-25 11:24] LABS: Partial Thromboplastin Time 41.1 SECONDS (22.3-36.8)
[2024-01-25] MEDS: SODIUM CHLORIDE 0.9% IV 250 ML 30 ML IV CONT (11:52)
--- NOTE | 2024-01-25 12:58 | P.PNIM_ITS ---
Progress Note: A&P Assessment and Plan (1) Closed right hip fracture: Code(s): S72.001A - Fracture of unspecified part of neck of right femur, initial encounter for closed fracture Status: Acute Assessment and Plan: ?X-ray showed a right subcapital femoral neck fracture for which Dr. Zabala has been consulted. -initiate fall precaution (2) Obstructive sleep apnea on CPAP: Code(s): G47.33 - Obstructive sleep apnea (adult) (pediatric) Status: Acute (3) History of mechanical aortic valve replacement: Code(s): Z95.2 - Presence of prosthetic heart valve Status: Acute Assessment and Plan: -status post mechanical aortic valve replacement (Medtronic-Bruno valve) -continue temporary interruption of warfarin therapy for surgery.? -INR 3.0 -consult Cardiology appreciate recommendation and plan -once INR is < 2, start heparin drip, discuss with surgery prior to starting (4) Restrictive lung disease: Code(s): J98.4 - Other disorders of lung Status: Acute (5) Fall: Qualifiers: Encounter type: initial encounter Qualified Code(s): W19.XXXA - Unspecified fall, initial encounter Code(s): W19.XXXA - Unspecified fall, initial encounter Status: Acute Assessment and Plan: -patient with history of multiple falls History of dementia -initiate fall precautions (6) KLAUS (obstructive sleep apnea): Code(s): G47.33 - Obstructive sleep apnea (adult) (pediatric) Status: Acute Subjective Date/time seen: 01/25/24 12:58 Interval history: Narrative: This is a 78-year-old female with history of stroke, cognitive dysfunction, combined systolic and diastolic congestive heart failure, permanent pacemaker, hypertension, paroxysmal atrial fibrillation, mechanical aortic valve replacement on warfarin, restrictive lung disease, chronic kidney disease, and anemia who presented to the emergency department via EMS for evaluation of right hip pain after a ground level fall. The patient provides the following history. She was just admitted to the hospital on 12/30/2023 after a ground level fall and she was discharged to a long-term facility several days thereafter. This is her 3rd visit to the ED since discharge; she was here for evaluation on the after a ground level fall and again on the with aggression and agitation. This morning she got out of bed unsupervised and sustained a fall at which time she was found to be lying on her right side, complaining of right hip pain. X-rays showed an acute, mildly displaced fracture of the subcapital right femoral neck and she is being admitted in this setting. At the time my evaluation she knows that she is at the hospital with a broken hip. She cannot provide me any specifics with how she fell or how she was brought here today however. She complains of nondescript pain in the right hip but has no other complaints. Interval Hx: 01/23/2024 I assumed care for patient, she does not provide HPI, she is unable to tell me if she had any pain last night. Plan is to continue pain management q.4 hours, cardiology consulted, orthopedist surgeon consulted. Family by the bedside, gives history of patient recently had hospital admission, then went to SNF, the, was recently discharged home where patient was continuously getting out of bed without assistance, family reports patient being more confused since she was recently diagnosed with a COVID. Significant other by the bedside he reports patient got out of bed unsupervised and sustained a fall on her right hip. : pt seen today, she is resting with eyes open, in no acute distr
--- NOTE | 2024-01-25 13:06 | WPDANESEPPF ---
Anes - Initial Pre Proc Eval Procedure: Operation Date: 01/25/24 14:30 Proposed Procedures p Right Hip Pinning - Torsten Zabala MD Date/Time: 01/25/24 13:06 Surgeon: Christo Wen MD Pre Op Diagnosis: RIGHT FEMORAL NECK FRACTURE Patient Data Age: 78 Gender: F Height: 1.52 m Weight: 42.1 kg Last Vital Signs Temp 36.9 C 01/25/24 12:06 Pulse 60 01/25/24 12:06 Resp 14 01/25/24 12:06 BP 127/57 L 01/25/24 12:06 Pulse Ox 96 01/25/24 12:06 O2 Del Method Room Air 01/25/24 08:42 O2 Flow Rate 2 01/23/24 09:30 Allergies Allergy/AdvReac Type Severity Reaction Status Date / Time amiodarone Allergy Blurry Verified 01/22/24 18:07 Vision hydroxyzine AdvReac Intermediate Nausea and Verified 01/22/24 18:07 Vomiting Home Medications Medication Instructions Recorded Confirmed Type Vitamin D3 2,000 unit PO DAILY 12/30/23 01/22/24 History buspirone 10 mg PO TID 12/30/23 01/22/24 History co [id number] oil-omega 3-E 1,200 mg PO DAILY 12/30/23 01/22/24 History cyproheptadine 4 mg PO BID 12/30/23 01/22/24 History memantine 10 mg PO BID 12/30/23 01/24/24 History riboflavin (vitamin B2) 400 mg PO DAILY 12/30/23 01/22/24 History lorazepam 0.5 mg tablet 0.5 mg PO BID PRN anxiety #60 tabs 01/21/24 01/22/24 Rx acetaminophen 650 mg 1,300 mg PO Q8H PRN (Drug) 01/22/24 01/22/24 History tablet,extended release Ingestion trazodone 50 mg tablet 25 mg PO QHS 01/22/24 01/22/24 History warfarin 2 mg tablet 2 mg PO QMWF 01/22/24 01/22/24 History warfarin 3 mg tablet 3 mg PO DAILY 01/22/24 01/22/24 History Laboratory Tests 01/24/24 01/25/24 01/25/24 13:35 06:17 09:52 WBC 7.2 K/mm3 (4.5-10.0) RBC 3.24 L M/mm3 (4.2-5.4) Hgb 9.5 L g/dL (12.0-15.0) Hct 29.5 L % (37.0-47.0) MCV 91.0 fl (80-100) MCH 29.3 pg (26-34) MCHC 32.2 g/dl (32-36) RDW 14.8 H % (11.5-14.5) Plt Count 169 k/mm3 (150-375) MPV 9.4 fl (7.4-10.4) PT 33.1 H Seconds 34.2 H Seconds (11.1-14.7) (11.1-14.7) INR 3.0 3.1 APTT 52.7 H SECONDS 57.1 H SECONDS (22.3-36.8) (22.3-36.8) Sodium 133 L mmol/L (137-145) Potassium 3.7 mmol/L (3.4-5.0) Chloride 103 mmol/L (98-107) Carbon Dioxide 25 mmol/L (22-30) Anion Gap 5 L mmol/L (8-16) BUN 13 mg/dL (7-17) Creatinine 0.70 mg/dL (0.7-1.0) Estim Creat Clear Calc 38 ml/min Estimated GFR > 60 (59 - ) Glucose 78 mg/dL (65-110) Calcium 8.0 L mg/dL (8.4-10.2) Total Bilirubin 1.1 mg/dL (0.2-1.3) AST 27 U/L (14-36) ALT 20 U/L (6-35) Alkaline Phosphatase 96 U/L (38-126) Total Protein 5.0 L g/dL (6.3-8.2) Albumin 2.5 L g/dL (3.5-5.1) Blood Type O Negative Antibody Screen Negative 01/25/24 11:07 WBC RBC Hgb Hct MCV MCH MCHC RDW Plt Count MPV PT 21.0 H D Seconds (11.1-14.7) INR 1.7 APTT 41.1 H SECONDS (22.3-36.8) Sodium Potassium Chloride Carbon Dioxide Anion Gap BUN Creatinine Estim Creat Clear Calc Estimated GFR Glucose Calcium Total Bilirubin AST ALT Alkaline Phosphatase Total Protein Albumin Blood Type Antibody Screen Patient hx anesthesia problems: none Family hx anesthesia problems: none Results Review: All pre-operative results and documents have been reviewed as part of the pre-operative evaluation. FORMERLY [facility] Past Medical History Medical History Anemia Anxiety and depression Atrial fibrillation Benign essential hypertension Cervicalgia Choleli
[2024-01-25] MEDS: LACTATED RINGERS 1,000 ML 30 ML IV CONT (13:10)
[2024-01-25] MEDS: ceFAZolin 2 GM/D5W 50 ML 2 GM/50 ML BAG IVPB (14:23)
--- NOTE | 2024-01-25 15:00 | W.PM.PROC2 ---
Procedure Note - Detailed Date of Procedure 01/25/24 Pre-op Diagnosis RIGHT FEMORAL NECK FRACTURE Post-op Diagnosis Same Procedure Performed PERCUTANEOUS PINNING RIGHT FEMORAL NECK FRACTURE Surgeon Torsten Zabala MD Anesthesia General Description of Procedure THE PATIENT WAS TAKEN TO THE OPERATING ROOM AND PLACED UNDER GENERAL ANESTHESIA. THE PATIENT WAS PLACED ON A FRACTURE TABLE. THE RIGHT FEMORAL NECK FRACTURE WAS IMAGED WITH FLUOROSCOPY AND USING GENTLE TRACTION AND ROTATION THE FRACTURE WAS REDUCED TO NEAR ANATOMIC POSITION. THE RIGHT LOWER EXTREMITY WAS PREPPED AND DRAPED IN THE STERIL FASHION FROM THE KNEE TO THE ILIAC CREST. THE INCISION WAS MADE ON THE LATERAL HIP JUST DISTAL TO THE GREATER TROCHANTER DOWN TO THE BONE. BLEEDERS WERE CAUTERIZED. 3 GUIDE PINS WERE PLACED THROUGH THE FEMORAL NECK AND PASSED THE FRACTURE SITE AND IN TO THE SUBCHONDRAL BONE OF THE FEMORAL HEAD. THREE 7.0 CANNULATED SCREWS BY ARTHREX WERE PLACED OVER THE GUIDE PINS AND THESE WERE SHOWN TO BE IN GOOD POSITION PER FLUOROSCOPY ON BOTH THE AP AND LATERAL VIEWS. ALL SCREWS HAD EXCELLENT BITES. THE WOUND WAS WASHED WELL. THE DEEP FASCIAL LAYER WAS APPROXIMATED WITH #1 VICRYL SUTURE, THE SUBCUTANEOUS LAYER WITH 2-0 VICRYL AND THE SKIN WAS APPROXIMATED WITH DION. A STERILE DRESSING WAS PLACED. THE PATIENT WAS EXTUBATED AND SENT TO RECOVERY ROOM Estimated Blood Loss 20 Urine Output 200 Drains No Complications No immediate complications Condition Stable Disposition PACU
[2024-01-25] MEDS: ACETAMINOPHEN 325 MG TABLET 650 MG PO (17:35)
[2024-01-25] MEDS: WARFARIN (*PBKC) 3 MG TABLET PO (17:36)
[2024-01-25] MEDS: SENNA/DOCUSATE SODIUM TABLET 2 TAB PO (17:36)
[2024-01-25] MEDS: WARFARIN (*PBKC) 2 MG TABLET PO (17:40)
[2024-01-25] MEDS: SODIUM CHLORIDE 0.9% IV 1,000 ML 125 ML IV CONT (18:16)
--- NOTE | 2024-01-25 19:14 | PC.NURSE ---
Patient recieved from surgery. Offered toileting. Call light within reach. Patient comfortable at this time.
[2024-01-25] MEDS: ceFAZolin 1 GM/NS 50 ML 1 GM/50 ML BAG IVPB (22:48)
[2024-01-25] MEDS: FAMOTIDINE 20 MG TABLET PO (22:50)
[2024-01-25] MEDS: traZODone HCL 25 MG TABLET PO (22:50)
[2024-01-25] MEDS: HYDROcodone/acetaminophen (*CRX) 7.5-325 MG TABLET 1 TAB PO (22:56)
[2024-01-26 01:52] VITALS: BP 135/81; PULSE 67; RESP 16; TEMP 36.9; O2SAT 96
[2024-01-26] MEDS: SODIUM CHLORIDE 0.9% IV 1,000 ML 125 ML IV CONT (04:42)
[2024-01-26] MEDS: ceFAZolin 1 GM/NS 50 ML 1 GM/50 ML BAG IVPB ×2 (05:27→14:47)
[2024-01-26] MEDS: HYDROcodone/acetaminophen (*CRX) 7.5-325 MG TABLET 1 TAB PO ×2 (05:35→12:39)
[2024-01-26 05:52] VITALS: BP 146/60; PULSE 66; RESP 18; TEMP 36.8; O2SAT 95
[2024-01-26 06:30] LABS: Basophils Percent Auto 0.2 % (0.2-1.2); Eosinophils Percent Auto 0.3 % (0-4.4); Hematocrit 32.2 % (37.0-47.0); Hemoglobin 10.4 g/dL (12.0-15.0); Immature Granulocyte Absolute 0.07 K/mm3 (0.00-0.031); Immature Granulocyte Percent A 0.6 % (0-0.5); Lymphocytes Absolute Auto 1.76 K/mm3 (0.9-3.2); Lymphocytes Percent Auto 15.5 % (18.3-44.2); Mean Corpuscular HGB Conc 32.3 g/dl (32-36); Mean Corpuscular Hemoglobin 29.5 pg (26-34); Mean Corpuscular Volume 91.5 fl (80-100); Mean Platelet Volume 9.7 fl (7.4-10.4); Monocytes Absolute Auto 1.1 K/mm3 (0.1-0.6); Monocytes Percent Auto 9.2 % (2.6-8.5); Neutrophils Absolute Auto 8.4 K/mm3 (1.3-6.7); Neutrophils Percent Auto 74.2 % (45.5-73.1); Platelet Count Result 200 k/mm3 (150-375); Red Blood Count 3.52 M/mm3 (4.2-5.4); Red Cell Distribution Width 14.8 % (11.5-14.5); White Blood Count 11.4 K/mm3 (4.5-10.0)
[2024-01-26 06:39] LABS: INR 1.2; Prothrombin Time 15.7 Seconds (11.1-14.7)
[2024-01-26 06:42] LABS: Anion Gap 7 mmol/L (8-16); Blood Urea Nitrogen 17 mg/dL (7-17); Calcium 8.3 mg/dL (8.4-10.2); Carbon Dioxide 25 mmol/L (22-30); Chloride 105 mmol/L (98-107); Estimated CRCL calculation 38 ml/min; Estimated Glomerular Filt Rate > 60; Glucose 123 mg/dL (65-110); Potassium 3.9 mmol/L (3.4-5.0); Sodium 137 mmol/L (137-145)
[2024-01-26 08:00] VITALS: PULSE 63; RESP 18; O2SAT 95
--- NOTE | 2024-01-26 08:24 | PM.PNORT ---
Progress Note: A&P Assessment and Plan (1) Fracture of neck of right femur: Qualifiers: Encounter type: subsequent encounter Fracture type: closed Fracture healing: with routine healing Qualified Code(s): S72.001D - Fracture of unspecified part of neck of right femur, subsequent encounter for closed fracture with routine healing Code(s): S72.001A - Fracture of unspecified part of neck of right femur, initial encounter for closed fracture Status: Acute Assessment and Plan: postoperative day 1 right pinning. Operative treatment reviewed with the patient. Pain control DVT prophylaxis PT/OT Subjective Subjective Date/Time Seen: 01/26/24 08:24 Post Op day: 1 Principal diagnosis: right hip fracture Interval history: Patient resting comfortably. Awake and alert. Confused today. Oriented to person, place and time. Complains of minimal pain right hip. Exam Const: General: comfortable; No acute distress Resp: Effort & Inspection: normal respiratory effort and no audible wheezes Extrem: Right lower extremity: lower leg ( Negative Homans sign), ankle Details: normal ROM ( dorsiflexion and plantar flexion intact) and foot Details: vascular exam Details: dorsalis pedis pulse present and normal capillary refill, tendon exam Details: active flexion normal and active extension normal and motor-sensory exam Details: light-touch normal Location: in all toes; no edema Left lower extremity: normal to inspection, ankle Details: normal ROM and foot Details: vascular exam Details: dorsalis pedis pulse present and normal capillary refill and motor-sensory exam light-touch normal in all toes; no edema Objective Data Vital Signs Vital Signs: Vital Signs - 24 hr 01/25/24 11:48 01/25/24 12:06 01/25/24 08:42 Temperature 97.6 F 98.5 F Pulse Rate 64 60 Respiratory Rate 14 14 Blood Pressure 137/58 L 127/57 L Pulse Oximetry 99 96 Oxygen Delivery Room Air Oxygen Flow Rate 01/25/24 13:00 01/25/24 14:45 01/25/24 15:00 Temperature 100.9 F H Pulse Rate 59 L 60 60 Respiratory Rate 16 15 20 Blood Pressure 141/56 H 159/69 H 146/82 H Pulse Oximetry 98 100 96 Oxygen Delivery Room Air Simple Face Mask Room Air Oxygen Flow Rate 8 01/25/24 15:15 01/25/24 15:30 01/25/24 15:45 Temperature Pulse Rate 61 66 60 Respiratory Rate 20 20 20 Blood Pressure 145/58 H 157/60 H 146/71 H Pulse Oximetry 94 93 93 Oxygen Delivery Room Air Room Air Room Air Oxygen Flow Rate 01/25/24 15:55 01/25/24 16:41 01/25/24 16:17 Temperature 98.2 F Pulse Rate 60 64 Respiratory Rate 20 12 Blood Pressure 149/56 H 151/61 H Pulse Oximetry 96 95 95 Oxygen Delivery Room Air Room Air Oxygen Flow Rate 01/25/24 16:37 01/25/24 17:07 01/25/24 18:07 Temperature 98.5 F 98.7 F 99.1 F Pulse Rate 59 L 56 L 63 Respiratory Rate 14 12 12 Blood Pressure 144/66 H 146/58 H 141/55 H Pulse Oximetry 100 94 95 Oxygen Delivery Oxygen Flow Rate 01/25/24 21:52 01/25/24 20:00 01/26/24 01:52 Temperature 98.8 F 98.5 F Pulse Rate 60 67 Respiratory Rate 14 16 Blood Pressure 118/83 135/81 Pulse Oximetry 95 96 Oxygen Delivery Room Air Oxygen Flow Rate 01/26/24 05:52 Temperature 98.3 F Pulse Rate 66 Respiratory Rate 18 Blood Pressure 146/60 H Pulse Oximetry 95 Oxygen Delivery Oxygen Flow Rate Intake/Output Intake/Output: Intake & Output 01/23/24 01/24/24 01/25/24 01/26/24 23:59 23:59 23:59 23:59 Intake Total 240 2250 494 1000 Output Total 75 200 1410 550 Balance 165 2050 -916 450 Meds/Results Medications: Active Medications Generic Name Dose Route Start Last Admin Trade Name Lucioq PRN Reason Stop Dose Admin Acetaminophen 650 mg 01/22/24 16:31 01/25/24 17:35 Acetaminophen 325 Mg Tablet PO 650 mg Q6H PRN Administration Mild Pain (1-3) or Fever Hydrocodone Bitart/Acetaminophen 1 tab 01/25/24 16:07 01/26/24 05:35 Hydrocodone/Acetaminophen (*Crx
[2024-01-26] MEDS: busPIRone HCL 10 MG TABLET PO ×3 (08:50→17:30)
[2024-01-26] MEDS: SENNA/DOCUSATE SODIUM TABLET 2 TAB PO ×2 (08:50→17:30)
[2024-01-26] MEDS: FAMOTIDINE 20 MG TABLET PO ×2 (08:50→20:16)
[2024-01-26] MEDS: CHOLECALCIFEROL 1,000 UNITS TABLET 2000 UNITS PO (08:50)
[2024-01-26] MEDS: polyethylene glycoL 3350 17 GM POWD.PACK PO (08:51)
[2024-01-26] MEDS: MEMANTINE 10 MG TABLET PO ×2 (08:51→17:30)
[2024-01-26] MEDS: CYPROHEPTADINE HCL 4 MG TABLET PO ×2 (08:51→17:30)
[2024-01-26 09:39] VITALS: BP 121/45; PULSE 63; RESP 18; TEMP 36.6; O2SAT 95
--- NOTE | 2024-01-26 11:47 | PCSTNOTE ---
Please refer to the Bedside Swallow Evaluation in the EMR. Please note, silent aspiration cannot be ruled out at bedside.
[2024-01-26] MEDS: BENZONATATE 100 MG CAPSULE PO ×2 (12:38→17:30)
--- NOTE | 2024-01-26 13:14 | P.PNIM_ITS ---
Progress Note: A&P Assessment and Plan (1) Closed right hip fracture: Code(s): S72.001A - Fracture of unspecified part of neck of right femur, initial encounter for closed fracture Status: Acute Assessment and Plan: s/p: percutaneous pinning right femoral neck fx POD:2, -continue pain management Q 3-6 hours -PT/OT per ortho -up to chair (2) Obstructive sleep apnea on CPAP: Code(s): G47.33 - Obstructive sleep apnea (adult) (pediatric) Status: Acute (3) History of mechanical aortic valve replacement: Code(s): Z95.2 - Presence of prosthetic heart valve Status: Acute Assessment and Plan: -status post mechanical aortic valve replacement (Medtronic-Bruno valve) -restart Coumadin (4) Restrictive lung disease: Code(s): J98.4 - Other disorders of lung Status: Acute Assessment and Plan: - albuterol/Ipratropium q 4hrs prn for wheezing or SOB (5) Fall: Qualifiers: Encounter type: initial encounter Qualified Code(s): W19.XXXA - Unspecified fall, initial encounter Code(s): W19.XXXA - Unspecified fall, initial encounter Status: Acute Assessment and Plan: -patient with history of multiple falls has dementia -initiate fall precautions (6) KLAUS (obstructive sleep apnea): Code(s): G47.33 - Obstructive sleep apnea (adult) (pediatric) Status: Acute (7) Cough: Qualifiers: Cough type: subacute Qualified Code(s): R05.2 - Subacute cough Code(s): R05.9 - Cough, unspecified Status: Acute Assessment and Plan: - concern for aspiration - order CXR -check bedside swallow screen -benzonatate 100 mg p.o. t.i.d. (8) Dementia with behavioral disturbance: Code(s): F03.918 - Unspecified dementia, unspecified severity, with other behavioral disturbance Status: Acute Assessment and Plan: -continue home medication Namenda p.o. BID -may use olanzapine 5mg P.O PRN for behavioral disturbances Subjective Date/time seen: 01/26/24 13:14 Interval history: Interval history: Narrative: This is a 78-year-old female with history of stroke, cognitive dysfunction, combined systolic and diastolic congestive heart failure, permanent pacemaker, hypertension, paroxysmal atrial fibrillation, mechanical aortic valve replacement on warfarin, restrictive lung disease, chronic kidney disease, and anemia who presented to the emergency department via EMS for evaluation of right hip pain after a ground level fall. The patient provides the following history. She was just admitted to the hospital on 12/30/2023 after a ground level fall and she was discharged to a retirement facility several days thereafter. This is her 3rd visit to the ED since discharge; she was here for evaluation on the after a ground level fall and again on the with aggression and agitation. This morning she got out of bed unsupervised and sustained a fall at which time she was found to be lying on her right side, complaining of right hip pain. X-rays showed an acute, mildly displaced fracture of the subcapital right femoral neck and she is being admitted in this setting. At the time my evaluation she knows that she is at the hospital with a broken hip. She cannot provide me any specifics with how she fell or how she was brought here today however. She complains of nondescript pain in the right hip but has no other complaints. Interval Hx: 01/23/2024 I assumed care for patient, she does not provide HPI, she is unable to tell me if she had any pain last night.? Plan is to co
[2024-01-26 13:52] VITALS: BP 125/51; PULSE 63; RESP 18; TEMP 36.5; O2SAT 96
[2024-01-26] MEDS: WARFARIN (*PBKC) 3 MG TABLET PO (17:30)
[2024-01-26] MEDS: OLANZapine DISPERTAB 5 MG PO (18:00)
[2024-01-26] MEDS: LORazepam (*CRX) 0.5 MG TABLET PO (18:17)
[2024-01-26] MEDS: guaiFENesin 12 HR 600 MG TABCR PO (20:16)
[2024-01-26] MEDS: traZODone HCL 25 MG TABLET PO (20:17)
[2024-01-26 21:13] VITALS: BP 138/76; PULSE 63; RESP 20; TEMP 36.6; O2SAT 99
[2024-01-27 06:00] VITALS: BP 163/79; PULSE 60; RESP 22; TEMP 36.7; O2SAT 98
[2024-01-27 06:21] LABS: INR 1.2; Prothrombin Time 15.6 Seconds (11.1-14.7)
[2024-01-27] MEDS: HYDROcodone/acetaminophen (*CRX) 7.5-325 MG TABLET 1 TAB PO (08:43)
[2024-01-27] MEDS: SENNA/DOCUSATE SODIUM TABLET 2 TAB PO ×2 (08:43→16:08)
[2024-01-27] MEDS: CHOLECALCIFEROL 1,000 UNITS TABLET 2000 UNITS PO (08:43)
[2024-01-27] MEDS: BENZONATATE 100 MG CAPSULE PO ×3 (08:43→16:08)
[2024-01-27] MEDS: guaiFENesin 12 HR 600 MG TABCR PO ×2 (08:43→20:44)
[2024-01-27] MEDS: CYPROHEPTADINE HCL 4 MG TABLET PO ×2 (08:43→16:08)
[2024-01-27] MEDS: FAMOTIDINE 20 MG TABLET PO ×2 (08:43→20:44)
[2024-01-27] MEDS: busPIRone HCL 10 MG TABLET PO ×3 (08:43→16:08)
[2024-01-27] MEDS: MEMANTINE 10 MG TABLET PO ×2 (08:43→16:08)
[2024-01-27] MEDS: polyethylene glycoL 3350 17 GM POWD.PACK PO (08:44)
--- NOTE | 2024-01-27 09:29 | PM.PNORT ---
Progress Note: A&P Assessment and Plan (1) Fracture of neck of right femur: Qualifiers: Encounter type: subsequent encounter Fracture type: closed Fracture healing: with routine healing Qualified Code(s): S72.001D - Fracture of unspecified part of neck of right femur, subsequent encounter for closed fracture with routine healing Code(s): S72.001A - Fracture of unspecified part of neck of right femur, initial encounter for closed fracture Status: Acute Assessment and Plan: postoperative day 2 right pinning. Operative treatment reviewed with the patient. Pain control DVT prophylaxis PT/OT Subjective Subjective Date/Time Seen: 01/27/24 09:29 Post Op day: 2 Principal diagnosis: Right hip fracture Interval history: patient in bed. No complaints of pain. Exam Const: General: comfortable; No acute distress Resp: Effort & Inspection: normal respiratory effort and no audible wheezes Extrem: Right lower extremity: lower leg ( Negative Homans sign), ankle Details: normal ROM ( dorsiflexion and plantar flexion intact) and foot Details: vascular exam Details: dorsalis pedis pulse present and normal capillary refill, tendon exam Details: active flexion normal and active extension normal and motor-sensory exam Details: light-touch normal Location: in all toes; no edema Left lower extremity: normal to inspection, ankle Details: normal ROM and foot Details: vascular exam Details: dorsalis pedis pulse present and normal capillary refill and motor-sensory exam light-touch normal in all toes; no edema Objective Data Vital Signs Vital Signs: Vital Signs - 24 hr 01/26/24 09:33 01/26/24 09:39 01/26/24 13:52 Temperature 97.8 F 97.7 F Pulse Rate 63 63 Respiratory Rate 18 18 Blood Pressure 121/45 L 125/51 L Pulse Oximetry 95 96 Oxygen Delivery Room Air 01/26/24 21:13 01/26/24 20:00 01/27/24 06:00 Temperature 97.9 F 98.1 F Pulse Rate 63 60 Respiratory Rate 20 22 H Blood Pressure 138/76 163/79 H Pulse Oximetry 99 98 Oxygen Delivery Room Air Intake/Output Intake/Output: Intake & Output 01/24/24 01/25/24 01/26/24 01/27/24 23:59 23:59 23:59 23:59 Intake Total 2250 494 1600 Output Total 200 1410 950 975 Balance 7458 -808 585 -537 Meds/Results Medications: Active Medications Generic Name Dose Route Start Last Admin Trade Name Freq PRN Reason Stop Dose Admin Acetaminophen 650 mg 01/22/24 16:31 01/25/24 17:35 Acetaminophen 325 Mg Tablet PO 650 mg Q6H PRN Administration Mild Pain (1-3) or Fever Hydrocodone Bitart/Acetaminophen 1 tab 01/25/24 16:07 01/27/24 08:43 Hydrocodone/Acetaminophen (*Crx) 7.5-325 Mg Tablet PO 1 tab Q3H PRN Administration Pain Rated 4-6 Hydrocodone Bitart/Acetaminophen 2 tab 01/25/24 16:07 Hydrocodone/Acetaminophen (*Crx) 7.5-325 Mg Tablet PO Q6H PRN Pain Rated 7-10 Albuterol/Ipratropium 3 ml 01/26/24 09:03 Ipratropium 0.5 Mg/Albuterol Sulfate 2.5 Mg Ampul.Neb 3 Ml INHALATION Q4HR PRN Shortness Of Breath Or Wheezing Benzonatate 100 mg 01/26/24 13:00 01/27/24 08:43 Benzonatate 100 Mg Capsule PO 100 mg TID OTF Administration Buspirone HCl 10 mg 01/22/24 22:20 01/27/24 08:43 Buspirone Hcl 10 Mg Tablet PO 10 mg TID OTF Administration Cyproheptadine HCl 4 mg 01/22/24 22:20 01/27/24 08:43 Cyproheptadine Hcl 4 Mg Tablet PO 4 mg BID OTF Administration Diazepam 5 mg 01/25/24 16:07 Diazepam (*Crx) 5 Mg Tablet PO Q8H PRN Muscle Spasm Famotidine 20 mg 01/25/24 21:00 01/27/24 08:43 Famotidine 20 Mg Tablet PO 20 mg Q12HR OTF Administration Guaifenesin 600 mg 01/26/24 21:00 01/27/24 08:43 Guaifenesin 12 Hr 600 Mg Tabcr PO 600 mg Q12HR OTF Administration Hydroxyzine Pamoate 50 mg 01/25/24 16:07 Hydroxyzine Pamoate 25 Mg Capsule PO Q4H PRN Itching Lorazepam 0.5 mg 01/22/24 22:16 01/26/24 18
--- NOTE | 2024-01-27 10:37 | PM.IMPN ---
Progress Note: A&P Assessment and Plan (1) Closed right hip fracture: Code(s): S72.001A - Fracture of unspecified part of neck of right femur, initial encounter for closed fracture Status: Acute Assessment and Plan: s/p: percutaneous pinning right femoral neck fx POD:2, -continue pain management Q 3-6 hours -PT/OT per ortho -up to chair (2) Obstructive sleep apnea on CPAP: Code(s): G47.33 - Obstructive sleep apnea (adult) (pediatric) Status: Acute (3) History of mechanical aortic valve replacement: Code(s): Z95.2 - Presence of prosthetic heart valve Status: Acute Assessment and Plan: -status post mechanical aortic valve replacement (Medtronic-Bruno valve) -restart Coumadin (4) Restrictive lung disease: Code(s): J98.4 - Other disorders of lung Status: Acute Assessment and Plan: - albuterol/Ipratropium q 4hrs prn for wheezing or SOB (5) Fall: Qualifiers: Encounter type: initial encounter Qualified Code(s): W19.XXXA - Unspecified fall, initial encounter Code(s): W19.XXXA - Unspecified fall, initial encounter Status: Acute Assessment and Plan: -patient with history of multiple falls has dementia -initiate fall precautions (6) KLAUS (obstructive sleep apnea): Code(s): G47.33 - Obstructive sleep apnea (adult) (pediatric) Status: Acute (7) Cough: Qualifiers: Cough type: subacute Qualified Code(s): R05.2 - Subacute cough Code(s): R05.9 - Cough, unspecified Status: Acute Assessment and Plan: - concern for aspiration - order CXR -check bedside swallow screen -benzonatate 100 mg p.o. t.i.d. (8) Dementia with behavioral disturbance: Code(s): F03.918 - Unspecified dementia, unspecified severity, with other behavioral disturbance Status: Acute Assessment and Plan: -continue home medication Namenda p.o. BID -may use olanzapine 5mg P.O PRN for behavioral disturbances Subjective Date/time seen: 01/27/24 10:37 Interval history: Interval history: Narrative: This is a 78-year-old female with history of stroke, cognitive dysfunction, combined systolic and diastolic congestive heart failure, permanent pacemaker, hypertension, paroxysmal atrial fibrillation, mechanical aortic valve replacement on warfarin, restrictive lung disease, chronic kidney disease, and anemia who presented to the emergency department via EMS for evaluation of right hip pain after a ground level fall. The patient provides the following history. She was just admitted to the hospital on 12/30/2023 after a ground level fall and she was discharged to a intermediate facility several days thereafter. This is her 3rd visit to the ED since discharge; she was here for evaluation on the after a ground level fall and again on the with aggression and agitation. This morning she got out of bed unsupervised and sustained a fall at which time she was found to be lying on her right side, complaining of right hip pain. X-rays showed an acute, mildly displaced fracture of the subcapital right femoral neck and she is being admitted in this setting. At the time my evaluation she knows that she is at the hospital with a broken hip. She cannot provide me any specifics with how she fell or how she was brought here today however. She complains of nondescript pain in the right hip but has no other complaints. Interval Hx: 01/23/2024 I assumed care for patient, she does not provide HPI, she is unable to tell me if she had any pain last night.? Plan is to continue pain management q.4 hours, cardiology consulted, orthopedist surgeon consulted.? Family by the bedside, gives history of patient recently had hospital admission, then went to SNF, the, was recently discharged home where patient was continuously getting out of bed without assistance, family reports patient being more confused since she was recently diagnosed wit
[2024-01-27 15:12] VITALS: BP 144/53; PULSE 60; RESP 18; TEMP 36.9; O2SAT 94
[2024-01-27] MEDS: WARFARIN (*PBKC) 3 MG TABLET PO (16:08)
[2024-01-27] MEDS: traZODone HCL 25 MG TABLET PO (20:44)
[2024-01-27 21:38] VITALS: BP 157/63; PULSE 68; RESP 16; TEMP 37.1; O2SAT 99
[2024-01-28 05:48] VITALS: BP 168/66; PULSE 60; RESP 16; TEMP 36.6; O2SAT 97
[2024-01-28 07:14] LABS: Basophils Absolute Auto 0.1 K/mm3 (0.0-0.1); Basophils Percent Auto 0.3 % (0.2-1.2); Eosinophils Percent Auto 0.1 % (0-4.4); Hematocrit 35.7 % (37.0-47.0); Hemoglobin 11.4 g/dL (12.0-15.0); Immature Granulocyte Absolute 0.07 K/mm3 (0.00-0.031); Immature Granulocyte Percent A 0.5 % (0-0.5); Lymphocytes Absolute Auto 1.73 K/mm3 (0.9-3.2); Lymphocytes Percent Auto 11.7 % (18.3-44.2); Mean Corpuscular HGB Conc 31.9 g/dl (32-36); Mean Corpuscular Hemoglobin 29.3 pg (26-34); Mean Corpuscular Volume 91.8 fl (80-100); Mean Platelet Volume 9.3 fl (7.4-10.4); Monocytes Absolute Auto 1.3 K/mm3 (0.1-0.6); Neutrophils Absolute Auto 11.6 K/mm3 (1.3-6.7); Neutrophils Percent Auto 78.4 % (45.5-73.1); Platelet Count Result 253 k/mm3 (150-375); Red Blood Count 3.89 M/mm3 (4.2-5.4); Red Cell Distribution Width 14.7 % (11.5-14.5); White Blood Count 14.7 K/mm3 (4.5-10.0)
[2024-01-28 07:29] LABS: INR 1.2; Prothrombin Time 16.3 Seconds (11.1-14.7)
[2024-01-28 07:31] LABS: Alanine Aminotransferase 18 U/L (6-35); Albumin Level 3.5 g/dL (3.5-5.1); Alkaline Phosphatase 151 U/L (38-126); Anion Gap 6 mmol/L (8-16); Aspartate Amino Transferase 32 U/L (14-36); Bilirubin,Total 1.5 mg/dL (0.2-1.3); Blood Urea Nitrogen 13 mg/dL (7-17); Calcium 8.6 mg/dL (8.4-10.2); Carbon Dioxide 27 mmol/L (22-30); Chloride 103 mmol/L (98-107); Estimated CRCL calculation 56 ml/min; Estimated Glomerular Filt Rate > 60; Glucose 133 mg/dL (65-110); Potassium 3.4 mmol/L (3.4-5.0); Sodium 136 mmol/L (137-145)
[2024-01-28] MEDS: HYDROcodone/acetaminophen (*CRX) 7.5-325 MG TABLET 2 TAB PO (08:27)
--- NOTE | 2024-01-28 09:30 | PM.PNORT ---
Progress Note: A&P Assessment and Plan (1) Fracture of neck of right femur: Qualifiers: Encounter type: subsequent encounter Fracture type: closed Fracture healing: with routine healing Qualified Code(s): S72.001D - Fracture of unspecified part of neck of right femur, subsequent encounter for closed fracture with routine healing Code(s): S72.001A - Fracture of unspecified part of neck of right femur, initial encounter for closed fracture Status: Acute Assessment and Plan: POD #3: CRPP Right Hip Fracture Continue PT/OT. WBAT. Walker. HIGH FALL RISK. Continue pain control. HOLD narcotics due to lethargy. Ice Hip. Protect skin. DVT prophylaxis with resumed home Xarelto. SCDs. Incentive Spirometry Use reviewed. Monitor Dressing. Change prior to discharge. Bowel Regimen. Dispo: SNF pending progress with PT/OT and medical clearance. Time Spent With Patient Time: Reviewed history, exam, radiographs and current labs with attending MD and covering surgeon, Dr. Zabala, who agrees with current plan as indicated above. No further recommendations from Dr. Zabala at this time. Subjective Subjective Date/Time Seen: 01/28/24 09:30 Post Op day: 3 Principal diagnosis: Right hip fracture Interval history: Patient up in the chair. Lethargic. Rousable to voice. Denies pain. A&Ox2-3. Reorientation to situation. Review of Systems Review of Systems: All systems reviewed & are unremarkable except as noted in HPI and below Objective Data Vital Signs Vital Signs: Vital Signs - 24 hr 01/27/24 15:12 01/27/24 20:00 01/27/24 21:38 Temperature 36.9 C 37.1 C Pulse Rate 60 68 Respiratory Rate 18 16 Blood Pressure 144/53 H 157/63 H Pulse Oximetry 94 99 Oxygen Delivery Room Air 01/28/24 05:48 01/28/24 08:00 Temperature 36.6 C Pulse Rate 60 Respiratory Rate 16 Blood Pressure 168/66 H Pulse Oximetry 97 Oxygen Delivery Room Air Intake/Output Intake/Output: Intake & Output 01/25/24 01/26/24 01/27/24 01/28/24 23:59 23:59 23:59 23:59 Intake Total 494 1600 56 Output Total [phone] Balance -910 134 -4706 Meds/Results Medications: Active Medications Generic Name Dose Route Start Last Admin Trade Name Lucioq PRN Reason Stop Dose Admin Acetaminophen 650 mg 01/22/24 16:31 01/25/24 17:35 Acetaminophen 325 Mg Tablet PO 650 mg Q6H PRN Administration Mild Pain (1-3) or Fever Hydrocodone Bitart/Acetaminophen 1 tab 01/25/24 16:07 01/27/24 08:43 Hydrocodone/Acetaminophen (*Crx) 7.5-325 Mg Tablet PO 1 tab Q3H PRN Administration Pain Rated 4-6 Hydrocodone Bitart/Acetaminophen 2 tab 01/25/24 16:07 01/28/24 08:27 Hydrocodone/Acetaminophen (*Crx) 7.5-325 Mg Tablet PO 2 tab Q6H PRN Administration Pain Rated 7-10 Albuterol/Ipratropium 3 ml 01/26/24 09:03 Ipratropium 0.5 Mg/Albuterol Sulfate 2.5 Mg Ampul.Neb 3 Ml INHALATION Q4HR PRN Shortness Of Breath Or Wheezing Benzonatate 100 mg 01/26/24 13:00 01/27/24 16:08 Benzonatate 100 Mg Capsule PO 100 mg TID OTF Administration Buspirone HCl 10 mg 01/22/24 22:20 01/27/24 16:08 Buspirone Hcl 10 Mg Tablet PO 10 mg TID OTF Administration Cyproheptadine HCl 4 mg 01/22/24 22:20 01/27/24 16:08 Cyproheptadine Hcl 4 Mg Tablet PO 4 mg BID OTF Administration Diazepam 5 mg 01/25/24 16:07 Diazepam (*Crx) 5 Mg Tablet PO Q8H PRN Muscle Spasm Famotidine 20 mg 01/25/24 21:00 01/27/24 20:44 Famotidine 20 Mg Tablet PO 20 mg Q12HR OTF Administration Guaifenesin 600 mg 01/26/24 21:00 01/27/24 20:44 Guaifenesin 12 Hr 600 Mg Tabcr PO 600 mg Q12HR OTF Administration Hydroxyzine Pamoate 50 mg 01/25/24 16:07 Hydroxyzine Pamoate 25 Mg Capsule PO Q4H PRN Itching Lorazepam 0.5 mg 01/22/24 22:16 01/26/24 18:17 Lorazepam (*Crx) 0.5 Mg Tablet PO 0.5 mg BID PRN Administration anxiety
[2024-01-28] MEDS: guaiFENesin 12 HR 600 MG TABCR PO (09:31)
[2024-01-28] MEDS: CYPROHEPTADINE HCL 4 MG TABLET PO ×2 (09:31→16:18)
[2024-01-28] MEDS: FAMOTIDINE 20 MG TABLET PO ×2 (09:31→20:31)
[2024-01-28] MEDS: CHOLECALCIFEROL 1,000 UNITS TABLET 2000 UNITS PO (09:31)
[2024-01-28] MEDS: MEMANTINE 10 MG TABLET PO ×2 (09:32→16:18)
[2024-01-28] MEDS: BENZONATATE 100 MG CAPSULE PO ×3 (09:32→16:18)
[2024-01-28] MEDS: busPIRone HCL 10 MG TABLET PO ×3 (09:32→16:18)
[2024-01-28] MEDS: SENNA/DOCUSATE SODIUM TABLET 2 TAB PO ×2 (09:32→16:18)
[2024-01-28] MEDS: polyethylene glycoL 3350 17 GM POWD.PACK PO (09:32)
[2024-01-28 13:20] VITALS: BP 101/40; PULSE 59; RESP 17; TEMP 36.6; O2SAT 92
[2024-01-28] MEDS: WARFARIN (*PBKC) 3 MG TABLET PO (16:18)
[2024-01-28] MEDS: WARFARIN (*PBKC) 2 MG TABLET PO (16:29)
--- NOTE | 2024-01-28 17:07 | PM.IMPN ---
Progress Note: A&P Assessment and Plan (1) Closed right hip fracture: Code(s): S72.001A - Fracture of unspecified part of neck of right femur, initial encounter for closed fracture Status: Acute Assessment and Plan: 01/27/24: s/p: percutaneous pinning right femoral neck fx POD:2, -continue pain management Q 3-6 hours -PT/OT per ortho -up to chair 01/28/24: Post op day 3 Continue with pain control Continue with current treatment plan Case management working on SNF (2) Obstructive sleep apnea on CPAP: Code(s): G47.33 - Obstructive sleep apnea (adult) (pediatric) Status: Acute Assessment and Plan: of note (3) History of mechanical aortic valve replacement: Code(s): Z95.2 - Presence of prosthetic heart valve Status: Acute Assessment and Plan: 01/27/24: -status post mechanical aortic valve replacement (Medtronic-Bruno valve) -restart Coumadin 01/28/24: No change to current treatment plan (4) Restrictive lung disease: Code(s): J98.4 - Other disorders of lung Status: Acute Assessment and Plan: 01/27/24: - albuterol/Ipratropium q 4hrs prn for wheezing or SOB 01/28/24: No change to current treatment plan (5) Fall: Qualifiers: Encounter type: initial encounter Qualified Code(s): W19.XXXA - Unspecified fall, initial encounter Code(s): W19.XXXA - Unspecified fall, initial encounter Status: Acute Assessment and Plan: 01/27/24: -patient with history of multiple falls has dementia -initiate fall precautions 01/28/24: Continue with current treatment plan (6) KLAUS (obstructive sleep apnea): Code(s): G47.33 - Obstructive sleep apnea (adult) (pediatric) Status: Acute Assessment and Plan: of note (7) Cough: Qualifiers: Cough type: subacute Qualified Code(s): R05.2 - Subacute cough Code(s): R05.9 - Cough, unspecified Status: Acute Assessment and Plan: 01/27/24: - concern for aspiration - order CXR -check bedside swallow screen -benzonatate 100 mg p.o. t.i.d. 01/28/24: no change to current treatment plan (8) Dementia with behavioral disturbance: Code(s): F03.918 - Unspecified dementia, unspecified severity, with other behavioral disturbance Status: Acute Assessment and Plan: 01/27/24: -continue home medication Namenda p.o. BID -may use olanzapine 5mg P.O PRN for behavioral disturbances 01/28/24: no change to current treatment plan Subjective Date/time seen: 01/28/24 17:07 Interval history: This is a 78-year-old female with history of stroke, cognitive dysfunction, combined systolic and diastolic congestive heart failure, permanent pacemaker, hypertension, paroxysmal atrial fibrillation, mechanical aortic valve replacement on warfarin, restrictive lung disease, chronic kidney disease, and anemia who presented to the emergency department via EMS for evaluation of right hip pain after a ground level fall. The patient provides the following history. She was just admitted to the hospital on 12/30/2023 after a ground level fall and she was discharged to a alf facility several days thereafter. This is her 3rd visit to the ED since discharge; she was here for evaluation on the after a ground level fall and again on the with aggression and agitation. This morning she got out of bed unsupervised and sustained a fall at which time she was found to be lying on her right side, complaining of right hip pain. X-rays showed an acute, mildly displaced fracture of the subcapital right femoral neck and she is being admitted in this setting. At the time my evaluation she knows that she is at the hospital with a broken hip. She cannot provide me any specifics with how she fell or how she was brought here today however. She complains of nondescript pain in the right hip but has no other complaints. Interval Hx: 01/23/2024 I assumed care for patient
[2024-01-28] MEDS: traZODone HCL 25 MG TABLET PO (20:31)
[2024-01-28 20:45] VITALS: BP 151/52; PULSE 63; RESP 14; TEMP 37.3; O2SAT 99
[2024-01-29] MEDS: ACETAMINOPHEN 325 MG TABLET 650 MG PO ×2 (00:40→11:01)
[2024-01-29 04:21] VITALS: BP 116/64; PULSE 57; RESP 16; TEMP 36.4; O2SAT 98
[2024-01-29 07:17] LABS: Basophils Percent Auto 0.2 % (0.2-1.2); Eosinophils Absolute Auto 0.1 K/mm3 (0-0.3); Eosinophils Percent Auto 0.6 % (0-4.4); Hematocrit 34.5 % (37.0-47.0); Immature Granulocyte Absolute 0.07 K/mm3 (0.00-0.031); Immature Granulocyte Percent A 0.5 % (0-0.5); Lymphocytes Absolute Auto 2.47 K/mm3 (0.9-3.2); Lymphocytes Percent Auto 18.9 % (18.3-44.2); Mean Corpuscular HGB Conc 31.9 g/dl (32-36); Mean Corpuscular Hemoglobin 29.3 pg (26-34); Mean Platelet Volume 9.5 fl (7.4-10.4); Monocytes Absolute Auto 1.1 K/mm3 (0.1-0.6); Monocytes Percent Auto 8.5 % (2.6-8.5); Neutrophils Absolute Auto 9.3 K/mm3 (1.3-6.7); Neutrophils Percent Auto 71.3 % (45.5-73.1); Platelet Count Result 270 k/mm3 (150-375); Red Blood Count 3.75 M/mm3 (4.2-5.4); Red Cell Distribution Width 14.9 % (11.5-14.5); White Blood Count 13.1 K/mm3 (4.5-10.0)
[2024-01-29 07:34] LABS: Alanine Aminotransferase 15 U/L (6-35); Albumin Level 3.2 g/dL (3.5-5.1); Alkaline Phosphatase 137 U/L (38-126); Anion Gap 3 mmol/L (8-16); Aspartate Amino Transferase 27 U/L (14-36); Bilirubin,Total 1.1 mg/dL (0.2-1.3); Blood Urea Nitrogen 17 mg/dL (7-17); Calcium 8.7 mg/dL (8.4-10.2); Carbon Dioxide 29 mmol/L (22-30); Chloride 105 mmol/L (98-107); Estimated CRCL calculation 47 ml/min; Estimated Glomerular Filt Rate > 60; Glucose 117 mg/dL (65-110); Potassium 3.3 mmol/L (3.4-5.0); Sodium 137 mmol/L (137-145)
[2024-01-29 07:38] LABS: INR 1.5; Prothrombin Time 19.4 Seconds (11.1-14.7)
--- NOTE | 2024-01-29 09:08 | PM.PNORT ---
Progress Note: A&P Assessment and Plan (1) Fracture of neck of right femur: Qualifiers: Encounter type: subsequent encounter Fracture type: closed Fracture healing: with routine healing Qualified Code(s): S72.001D - Fracture of unspecified part of neck of right femur, subsequent encounter for closed fracture with routine healing Code(s): S72.001A - Fracture of unspecified part of neck of right femur, initial encounter for closed fracture Status: Acute Assessment and Plan: POD #4: CRPP Right Hip Fracture Continue PT/OT. WBAT. Walker. HIGH FALL RISK. Continue pain control. HOLD narcotics due to lethargy. Ice Hip. Protect skin. DVT prophylaxis with resumed home Xarelto. SCDs. Incentive Spirometry Use reviewed. Monitor Dressing. Change to mepilex silver dressing today. May leave in place until POD #7 and then change. Adamant to be removed on POD #14. Bowel Regimen. Dispo: SNF pending progress with PT/OT and medical clearance. Time Spent With Patient Time: Reviewed history, exam, radiographs and current labs with attending MD and covering surgeon, Dr. Zabala, who agrees with current plan as indicated above. No further recommendations from Dr. Zabala at this time. Subjective Subjective Date/Time Seen: 01/29/24 09:08 Post Op day: 4 Principal diagnosis: Right hip fracture Interval history: Patient sleeping. Awakes easily. Disoriented to place and situation today. Less lethargic today s/p holding pain medications. Review of Systems Review of Systems: All systems reviewed & are unremarkable except as noted in HPI and below Exam Const: General: comfortable; No acute distress Resp: Effort & Inspection: normal respiratory effort and no audible wheezes Extrem: Right lower extremity: lower leg ( Negative Homans sign), ankle Details: normal ROM ( dorsiflexion and plantar flexion intact) and foot Details: vascular exam Details: dorsalis pedis pulse present and normal capillary refill, tendon exam Details: active flexion normal and active extension normal and motor-sensory exam Details: light-touch normal Location: in all toes; no edema Left lower extremity: normal to inspection, ankle Details: normal ROM and foot Details: vascular exam Details: dorsalis pedis pulse present and normal capillary refill and motor-sensory exam light-touch normal in all toes; no edema Objective Data Vital Signs Vital Signs: Vital Signs - 24 hr 01/28/24 13:20 01/28/24 20:45 01/29/24 04:21 Temperature 36.6 C 37.3 C 36.4 C Pulse Rate 59 L 63 57 L Respiratory Rate 17 14 16 Blood Pressure 101/40 L 151/52 H 116/64 Pulse Oximetry 92 99 98 Intake/Output Intake/Output: Intake & Output 01/26/24 01/27/24 01/28/24 01/29/24 23:59 23:59 23:59 23:59 Intake Total 1600 56 360 Output Total 950 1825 300 Balance 650 -1769 60 Meds/Results Medications: Active Medications Generic Name Dose Route Start Last Admin Trade Name Freq PRN Reason Stop Dose Admin Acetaminophen 650 mg 01/22/24 16:31 01/29/24 00:40 Acetaminophen 325 Mg Tablet PO 650 mg Q6H PRN Administration Mild Pain (1-3) or Fever Hydrocodone Bitart/Acetaminophen 1 tab 01/25/24 16:07 01/27/24 08:43 Hydrocodone/Acetaminophen (*Crx) 7.5-325 Mg Tablet PO 1 tab Q3H PRN Administration Pain Rated 4-6 Hydrocodone Bitart/Acetaminophen 2 tab 01/25/24 16:07 01/28/24 08:27 Hydrocodone/Acetaminophen (*Crx) 7.5-325 Mg Tablet PO 2 tab Q6H PRN Administration Pain Rated 7-10 Albuterol/Ipratropium 3 ml 01/26/24 09:03 Ipratropium 0.5 Mg/Albuterol Sulfate 2.5 Mg Ampul.Neb 3 Ml INHALATION Q4HR PRN Shortness Of Breath Or Wheezing Benzonatate 100 mg 01/26/24 13:00 01/28/24 16:18 Benzonatate 100 Mg Capsule PO 100 mg TID OTF Administration Buspirone HCl 10 mg 01/22/24 22:20 01/28/24 16:18 Buspirone Hcl 10 Mg Tablet PO 10 mg TID OTF Administration Cyproheptadine HCl 4 mg
[2024-01-29] MEDS: CHOLECALCIFEROL 1,000 UNITS TABLET 2000 UNITS PO (09:34)
[2024-01-29] MEDS: guaiFENesin 12 HR 600 MG TABCR PO ×2 (09:34→21:39)
[2024-01-29] MEDS: MEMANTINE 10 MG TABLET PO ×2 (09:34→16:33)
[2024-01-29] MEDS: CYPROHEPTADINE HCL 4 MG TABLET PO ×2 (09:34→16:33)
[2024-01-29] MEDS: SENNA/DOCUSATE SODIUM TABLET 2 TAB PO ×2 (09:34→16:33)
[2024-01-29] MEDS: busPIRone HCL 10 MG TABLET PO ×3 (09:34→16:33)
[2024-01-29] MEDS: FAMOTIDINE 20 MG TABLET PO ×2 (09:34→21:39)
[2024-01-29] MEDS: polyethylene glycoL 3350 17 GM POWD.PACK PO (09:34)
[2024-01-29] MEDS: BENZONATATE 100 MG CAPSULE PO ×3 (09:35→16:33)
--- NOTE | 2024-01-29 12:02 | PCNFU ---
Nutrition Follow-Up Complete: Severe protein calorie malnutrition related to loss of appetite as evidenced by 11% weight loss x 4 months; report of inadequate PO intake less than 75% for greater than one month; NFPE findings of severe muscle wasting and fat loss (temporalis, clavicles, cheeks) Goal:Adequate PO intake at least 75% meals and supplements Pt is not meeting goal consistently Pt current nutrition is Regular, level 7 easy to chew. Nutrition recommendation: Add Ensure Enlive TID Last recorded weight is 45.3 kg. Bowel Motility: no BM recorded at this time Labs Reviewed: Hgb:11.8, NA:136 Meds Noted: zofran, coumadin Skin: no skin issues noted Additional Notes: Pt diet advanced to regular, easy to chew. No supplements in place at this time. Will order Ensure Enlive TID per previous recommendation. Encourage po intake. Monitor intakes, weights, labs, plan of care Follow up in 5 days
[2024-01-29 14:08] VITALS: BP 90/48; PULSE 64; RESP 14; TEMP 36.1; O2SAT 96
[2024-01-29 14:45] VITALS: BP 134/46
--- NOTE | 2024-01-29 15:36 | PM.IMPN ---
Progress Note: A&P Assessment and Plan (1) Closed right hip fracture: Code(s): S72.001A - Fracture of unspecified part of neck of right femur, initial encounter for closed fracture Status: Acute Assessment and Plan: 01/27/24: s/p: percutaneous pinning right femoral neck fx POD:2, -continue pain management Q 3-6 hours -PT/OT per ortho -up to chair 01/28/24: Post op day 3 Continue with pain control Continue with current treatment plan Case management working on SNF 01/29/24 start oral abx and incentive spirometry (2) Obstructive sleep apnea on CPAP: Code(s): G47.33 - Obstructive sleep apnea (adult) (pediatric) Status: Acute Assessment and Plan: of note (3) History of mechanical aortic valve replacement: Code(s): Z95.2 - Presence of prosthetic heart valve Status: Acute Assessment and Plan: 01/27/24: -status post mechanical aortic valve replacement (Medtronic-Bruno valve) -restart Coumadin 01/29/24: No change to current treatment plan (4) Restrictive lung disease: Code(s): J98.4 - Other disorders of lung Status: Acute Assessment and Plan: 01/27/24: - albuterol/Ipratropium q 4hrs prn for wheezing or SOB 01/29/24: No change to current treatment plan (5) Fall: Qualifiers: Encounter type: initial encounter Qualified Code(s): W19.XXXA - Unspecified fall, initial encounter Code(s): W19.XXXA - Unspecified fall, initial encounter Status: Acute Assessment and Plan: 01/27/24: -patient with history of multiple falls has dementia -initiate fall precautions 01/29/24: Continue with current treatment plan (6) KLAUS (obstructive sleep apnea): Code(s): G47.33 - Obstructive sleep apnea (adult) (pediatric) Status: Acute Assessment and Plan: of note (7) Cough: Qualifiers: Cough type: subacute Qualified Code(s): R05.2 - Subacute cough Code(s): R05.9 - Cough, unspecified Status: Acute Assessment and Plan: 01/27/24: - concern for aspiration - order CXR -check bedside swallow screen -benzonatate 100 mg p.o. t.i.d. 01/29/24: no change to current treatment plan (8) Dementia with behavioral disturbance: Code(s): F03.918 - Unspecified dementia, unspecified severity, with other behavioral disturbance Status: Acute Assessment and Plan: 01/27/24: -continue home medication Namenda p.o. BID -may use olanzapine 5mg P.O PRN for behavioral disturbances 01/29/24: no change to current treatment plan Subjective Date/time seen: 01/29/24 15:36 Interval history: Interval Hx: 01/23/2024 I assumed care for patient, she does not provide HPI, she is unable to tell me if she had any pain last night.? Plan is to continue pain management q.4 hours, cardiology consulted, orthopedist surgeon consulted.? Family by the bedside, gives history of patient recently had hospital admission, then went to SNF, the, was recently discharged home where patient was continuously getting out of bed without assistance, family reports patient being more confused since she was recently diagnosed with a COVID.? Significant other by the bedside he reports patient got out of bed unsupervised and sustained a fall on her right hip. :?pt seen today, she is resting with eyes open, in no acute distress. She is still intermittently confused when asked if she is in pain and she reports yes unable to recite location.? Patient is being prepared for surgical repair of right femur s/p: fall.? Family is by the bedside with no complaints or concerns at this time.? Surgical procedure was postponed due to patient's INR. 01/24:??Patient seen here today she is lying in bed in no acute distress, family is by the bedside she denies any overnight events complains of ongoing right hip pain.? Plan is, patient is being prepared for surgical procedure, right hip closed reduction percutaneous pinning for? right femoral
[2024-01-29] MEDS: WARFARIN (*PBKC) 3 MG TABLET PO (16:33)
[2024-01-29 20:00] VITALS: O2SAT 99
[2024-01-29] MEDS: AMOXICILLIN/CLAVULANATE K 500-125 MG TAB 1 TABLET PO (21:39)
[2024-01-29] MEDS: traZODone HCL 25 MG TABLET PO (21:39)
[2024-01-29 22:00] VITALS: BP 118/47; PULSE 64; RESP 20; TEMP 36.8; O2SAT 99
[2024-01-30] MEDS: ACETAMINOPHEN 325 MG TABLET 650 MG PO ×2 (02:18→09:01)
[2024-01-30] MEDS: LORazepam (*CRX) 0.5 MG TABLET PO (02:18)
[2024-01-30] MEDS: AMOXICILLIN/CLAVULANATE K 500-125 MG TAB 1 TABLET PO (05:12)
[2024-01-30 06:00] VITALS: BP 120/50; PULSE 60; RESP 14; TEMP 36.4; O2SAT 92
[2024-01-30 06:31] LABS: Basophils Percent Auto 0.4 % (0.2-1.2); Eosinophils Absolute Auto 0.1 K/mm3 (0-0.3); Eosinophils Percent Auto 1.1 % (0-4.4); Hematocrit 30.6 % (37.0-47.0); Hemoglobin 9.6 g/dL (12.0-15.0); Immature Granulocyte Absolute 0.05 K/mm3 (0.00-0.031); Immature Granulocyte Percent A 0.4 % (0-0.5); Lymphocytes Absolute Auto 2.72 K/mm3 (0.9-3.2); Lymphocytes Percent Auto 23.9 % (18.3-44.2); Mean Corpuscular HGB Conc 31.4 g/dl (32-36); Mean Corpuscular Hemoglobin 28.8 pg (26-34); Mean Corpuscular Volume 91.9 fl (80-100); Mean Platelet Volume 9.5 fl (7.4-10.4); Neutrophils Absolute Auto 7.4 K/mm3 (1.3-6.7); Neutrophils Percent Auto 65.2 % (45.5-73.1); Platelet Count Result 267 k/mm3 (150-375); Red Blood Count 3.33 M/mm3 (4.2-5.4); Red Cell Distribution Width 14.8 % (11.5-14.5); White Blood Count 11.4 K/mm3 (4.5-10.0)
[2024-01-30 06:44] LABS: INR 2.3; Prothrombin Time 26.8 Seconds (11.1-14.7)
[2024-01-30 06:52] LABS: Alanine Aminotransferase 17 U/L (6-35); Albumin Level 2.8 g/dL (3.5-5.1); Alkaline Phosphatase 130 U/L (38-126); Anion Gap 5 mmol/L (8-16); Aspartate Amino Transferase 30 U/L (14-36); Blood Urea Nitrogen 17 mg/dL (7-17); Calcium 8.3 mg/dL (8.4-10.2); Carbon Dioxide 27 mmol/L (22-30); Chloride 105 mmol/L (98-107); Estimated CRCL calculation 47 ml/min; Estimated Glomerular Filt Rate > 60; Glucose 118 mg/dL (65-110); Potassium 3.1 mmol/L (3.4-5.0); Sodium 137 mmol/L (137-145)
[2024-01-30] MEDS: CYPROHEPTADINE HCL 4 MG TABLET PO (09:01)
[2024-01-30] MEDS: guaiFENesin 12 HR 600 MG TABCR PO (09:01)
[2024-01-30] MEDS: BENZONATATE 100 MG CAPSULE PO (09:01)
[2024-01-30] MEDS: MEMANTINE 10 MG TABLET PO (09:01)
[2024-01-30] MEDS: FAMOTIDINE 20 MG TABLET PO (09:02)
[2024-01-30] MEDS: CHOLECALCIFEROL 1,000 UNITS TABLET 2000 UNITS PO (09:02)
[2024-01-30] MEDS: busPIRone HCL 10 MG TABLET PO (09:02)
[2024-01-30] MEDS: SENNA/DOCUSATE SODIUM TABLET 2 TAB PO (09:02)
[2024-01-30] MEDS: polyethylene glycoL 3350 17 GM POWD.PACK PO (09:02)
[2024-01-30 11:00] VITALS: BMI 10.0
--- NOTE | 2024-01-30 12:37 | PM.DS ---
DS: Admitting Diagnosis Discharge Date 01/30/2024 Admitting Diagnosis Right hip pain after fall. DS: Discharge Diagnosis Discharge Diagnosis (1) Closed right hip fracture: Code(s): S72.001A - Fracture of unspecified part of neck of right femur, initial encounter for closed fracture Status: Acute Assessment and Plan: 01/27/24: s/p: percutaneous pinning right femoral neck fx POD:2, -continue pain management Q 3-6 hours -PT/OT per ortho -up to chair 01/28/24: Post op day 3 Continue with pain control Continue with current treatment plan Case management working on SNF 01/29/24 start oral abx and incentive spirometry (2) Obstructive sleep apnea on CPAP: Code(s): G47.33 - Obstructive sleep apnea (adult) (pediatric) Status: Acute Assessment and Plan: of note (3) History of mechanical aortic valve replacement: Code(s): Z95.2 - Presence of prosthetic heart valve Status: Acute Assessment and Plan: 01/27/24: -status post mechanical aortic valve replacement (Medtronic-Bruno valve) -restart Coumadin 01/29/24: No change to current treatment plan (4) Restrictive lung disease: Code(s): J98.4 - Other disorders of lung Status: Acute Assessment and Plan: 01/27/24: - albuterol/Ipratropium q 4hrs prn for wheezing or SOB 01/29/24: No change to current treatment plan (5) Fall: Qualifiers: Encounter type: initial encounter Qualified Code(s): W19.XXXA - Unspecified fall, initial encounter Code(s): W19.XXXA - Unspecified fall, initial encounter Status: Acute Assessment and Plan: 01/27/24: -patient with history of multiple falls has dementia -initiate fall precautions 01/29/24: Continue with current treatment plan (6) KLAUS (obstructive sleep apnea): Code(s): G47.33 - Obstructive sleep apnea (adult) (pediatric) Status: Acute Assessment and Plan: of note (7) Cough: Qualifiers: Cough type: subacute Qualified Code(s): R05.2 - Subacute cough Code(s): R05.9 - Cough, unspecified Status: Acute Assessment and Plan: 01/27/24: - concern for aspiration - order CXR -check bedside swallow screen -benzonatate 100 mg p.o. t.i.d. 01/29/24: no change to current treatment plan (8) Dementia with behavioral disturbance: Code(s): F03.918 - Unspecified dementia, unspecified severity, with other behavioral disturbance Status: Acute Assessment and Plan: 01/27/24: -continue home medication Namenda p.o. BID -may use olanzapine 5mg P.O PRN for behavioral disturbances 01/29/24: no change to current treatment plan DS: Summary Hospital Course Hospital Course: 01/23/2024 I assumed care for patient, she does not provide HPI, she is unable to tell me if she had any pain last night.? Plan is to continue pain management q.4 hours, cardiology consulted, orthopedist surgeon consulted.? Family by the bedside, gives history of patient recently had hospital admission, then went to SNF, the, was recently discharged home where patient was continuously getting out of bed without assistance, family reports patient being more confused since she was recently diagnosed with a COVID.? Significant other by the bedside he reports patient got out of bed unsupervised and sustained a fall on her right hip. :?pt seen today, she is resting with eyes open, in no acute distress. She is still intermittently confused when asked if she is in pain and she reports yes unable to recite location.? Patient is being prepared for surgical repair of right femur s/p: fall.? Family is by the bedside with no complaints or concerns at this time.? Surgical procedure was postponed due to patient's INR. 01/24:??Patient seen here today she is lying in bed in no acute distress, family is by the bedside she denies any overnight events complains of ongoing right hip pain.? Plan is, patient is being prepared for surgical procedure,
[2024-01-30 13:15] VITALS: BP 127/55; PULSE 60; RESP 20; TEMP 36.5; O2SAT 98
== END 2024-01-30 13:40 | DRG 481 ==
LOC: ANHED 11:06 → ANH3MEDSUR 17:04
PROVIDERS: Nurse Practitioner; Orthopaedic Surgery; Physician Assistant; Admitting Provider Internal Medicine; Emergency Provider Emergency Medicine; PCP Internal Medicine; Visit Provider Family Medicine
PROC: 0QS634Z Reposition Right Upper Femur with Internal Fixation Device, Percutaneous Approach (ICD-10-PCS; principal; 2024-01-25 14:30)
DX: S72.011A Unspecified intracapsular fracture of right femur, initial encounter for closed fracture (principal); E44.0 Moderate protein-calorie malnutrition; I69.352 Hemiplegia and hemiparesis following cerebral infarction affecting left dominant side; I13.0 Hypertensive heart and chronic kidney disease with heart failure and stage 1 through stage 4 chronic kidney disease, or unspecified chronic kidney disease; I50.42 Chronic combined systolic (congestive) and diastolic (congestive) heart failure; Z68.1 Body mass index [BMI] 19.9 or less, adult; F03.918 Unspecified dementia, unspecified severity, with other behavioral disturbance; J95.89 Other postprocedural complications and disorders of respiratory system, not elsewhere classified; W18.30XA Fall on same level, unspecified, initial encounter; N18.9 Chronic kidney disease, unspecified; G47.33 Obstructive sleep apnea (adult) (pediatric); F03.90 Unspecified dementia, unspecified severity, without behavioral disturbance, psychotic disturbance, mood disturbance, and anxiety; D64.9 Anemia, unspecified; J98.4 Other disorders of lung; I48.0 Paroxysmal atrial fibrillation; E78.2 Mixed hyperlipidemia; Z95.2 Presence of prosthetic heart valve; Z91.81 History of falling; Z79.01 Long term (current) use of anticoagulants; Z86.718 Personal history of other venous thrombosis and embolism; I25.2 Old myocardial infarction; Z87.01 Personal history of pneumonia (recurrent); Z95.0 Presence of cardiac pacemaker; Z90.710 Acquired absence of both cervix and uterus; Z86.16 Personal history of COVID-19
CPT/HCPCS: 36415; 36430; 70450; 71045; 73502; 80048; 80053; 82550; 83735; 85025; 85027; 85610; 85730; 86850; 86900; 86901; 87040; 92610; 93005; 94667; 96361; 96374; 96375; 96376; 97110; 97161; 97165; 97530; 97535; 99199; 99285; A9270; C1713; G0378; J0690; J1100; J2270; J2405; J2704; J3010; J3430; J7030; J7050; J7120; P9017

== ENCOUNTER 2024-04-28 16:13 | Outpatient (CLI) | payer MEDICARE, SELFPAY ==
[2024-04-28 16:48] LABS: Basophils Absolute Auto 0.1 K/mm3 (0.0-0.1); Basophils Percent Auto 0.3 % (0.2-1.2); Eosinophils Absolute Auto 0.2 K/mm3 (0-0.3); Eosinophils Percent Auto 1.1 % (0-4.4); Hematocrit 35.4 % (37.0-47.0); Hemoglobin 11.6 g/dL (12.0-15.0); Immature Granulocyte Absolute 0.05 K/mm3 (0.00-0.031); Immature Granulocyte Percent A 0.3 % (0-0.5); Lymphocytes Absolute Auto 2.27 K/mm3 (0.9-3.2); Lymphocytes Percent Auto 15.6 % (18.3-44.2); Mean Corpuscular HGB Conc 32.8 g/dl (32-36); Mean Corpuscular Hemoglobin 29.7 pg (26-34); Mean Corpuscular Volume 90.8 fl (80-100); Mean Platelet Volume 9.2 fl (7.4-10.4); Neutrophils Percent Auto 75.7 % (45.5-73.1); Platelet Count Result 240 k/mm3 (150-375); Red Cell Distribution Width 15.2 % (11.5-14.5); White Blood Count 14.5 K/mm3 (4.5-10.0)
[2024-04-28 17:01] LABS: Appearance Urine Clear (Clear); Bacteria Urine 1+ /hpf; Bilirubin Urine Negative (Negative); Blood Urine Trace (Negative); Color Urine Yellow (Yellow); Glucose Urine UA Negative (Negative); Ketones Urine Negative (Negative); Leukocyte Esterase Ur 1+ LEU/UL (Negative); Nitrate Urine Negative (Negative); Non Pathogenic Casts 0-2; Protein Urine Negative (Negative); Specific Grav Ur 1.011 (1.001-1.035); Squamous Epithelial Cell Urine None Seen /hpf (Few); Urobilinogen Urine 0.2 mg/dL (<2.0); WBC Urine 21-50 /hpf (0-3); pH Urine 5.5 (5.0-9.0)
[2024-04-28 17:04] LABS: Add Urine Microscopic? YES
[2024-04-28 18:02] LABS: Anion Gap 5 mmol/L (4-12); Blood Urea Nitrogen 18 mg/dL (7-17); Calcium 8.6 mg/dL (8.4-10.2); Carbon Dioxide 28 mmol/L (22-30); Chloride 100 mmol/L (98-107); Estimated Glomerular Filt Rate > 60; Glucose 85 mg/dL (65-110); Potassium 4.3 mmol/L (3.4-5.0); Sodium 133 mmol/L (137-145)
[2024-04-28 18:13] LABS: Free T4 Free Thyroxine 0.96 ng/mL (0.78-2.19)
[2024-04-28 18:27] LABS: Thyroid Stimulating Hormone 0.853 uIU/mL (0.465-4.680)
== END 2024-04-28 16:14 | disposition home or self-care (01) ==
PROVIDERS: PCP Internal Medicine; Visit Provider Internal Medicine
DX: I10 Essential (primary) hypertension (principal); Z13.29 Encounter for screening for other suspected endocrine disorder; Z79.899 Other long term (current) drug therapy
CPT/HCPCS: 36415; 80048; 81001; 84439; 84443; 85025; 87077; 87086; 87088; 87186

== ENCOUNTER 2024-05-27 13:17 | Outpatient (CLI) | payer MEDICARE, SELFPAY ==
[2024-05-27 13:58] LABS: Appearance Urine Clear (Clear); Bacteria Urine 2+ /hpf; Bilirubin Urine Negative (Negative); Blood Urine Negative (Negative); Color Urine Yellow (Yellow); Glucose Urine UA Negative (Negative); Ketones Urine Negative (Negative); Leukocyte Esterase Ur Trace LEU/UL (Negative); Nitrate Urine Negative (Negative); Non Pathogenic Casts 0-2; Protein Urine Negative (Negative); RBC Urine 0-2 /hpf (0-2); Specific Grav Ur 1.009 (1.001-1.035); Squamous Epithelial Cell Urine None Seen /hpf (Few); Urobilinogen Urine 0.2 mg/dL (<2.0); pH Urine 5.5 (5.0-9.0)
[2024-05-27 14:01] LABS: Add Urine Microscopic? YES
== END 2024-05-27 13:18 | disposition home or self-care (01) ==
LOC: ANHLAB 13:19
PROVIDERS: PCP Internal Medicine; Visit Provider Internal Medicine
DX: R41.82 Altered mental status, unspecified (principal); R82.998 Other abnormal findings in urine
CPT/HCPCS: 81001; 87077; 87086; 87088; 87186

== ENCOUNTER 2024-06-17 10:58 | Outpatient (CLI) | payer MEDICARE, SELFPAY ==
[2024-06-17 11:29] LABS: Appearance Urine Clear (Clear); Bilirubin Urine Negative (Negative); Blood Urine Negative (Negative); Color Urine Yellow (Yellow); Glucose Urine UA Negative (Negative); Ketones Urine Negative (Negative); Leukocyte Esterase Ur Negative LEU/UL (Negative); Nitrate Urine Negative (Negative); Protein Urine Negative (Negative); Specific Grav Ur 1.007 (1.001-1.035); Urobilinogen Urine 0.2 mg/dL (<2.0); pH Urine 5.5 (5.0-9.0)
[2024-06-17 11:59] LABS: Add Urine Microscopic? NO
== END 2024-06-17 10:59 | disposition home or self-care (01) ==
PROVIDERS: PCP Internal Medicine; Visit Provider Internal Medicine
DX: R39.9 Unspecified symptoms and signs involving the genitourinary system (principal)
CPT/HCPCS: 81003

== ENCOUNTER 2024-07-08 12:36 | Outpatient (RCR) | payer MEDICARE, SELFPAY ==
[2024-05-20 14:46] LABS: INR 4.1; Prothrombin Time 40.1 Seconds (11.1-14.7)
[2024-06-03 10:44] LABS: INR 2.8
[2024-07-08 13:08] LABS: INR 2.4
== END 2024-08-18 23:59 | disposition home or self-care (01) ==
LOC: ANHLAB 12:36
PROVIDERS: PCP Internal Medicine; Visit Provider Specialist
DX: Z51.81 Encounter for therapeutic drug level monitoring (principal); Z95.2 Presence of prosthetic heart valve; Z79.01 Long term (current) use of anticoagulants
CPT/HCPCS: 36415; 85610

== ENCOUNTER 2024-07-21 17:27 | Outpatient (CLI) | payer MEDICARE, SELFPAY ==
[2024-07-21 17:55] LABS: Basophils Absolute Auto 0.1 K/mm3 (0.0-0.1); Basophils Percent Auto 0.5 % (0.2-1.2); Eosinophils Absolute Auto 0.5 K/mm3 (0-0.3); Hematocrit 41.8 % (37.0-47.0); Hemoglobin 13.7 g/dL (12.0-15.0); Immature Granulocyte Absolute 0.02 K/mm3 (0.00-0.031); Immature Granulocyte Percent A 0.2 % (0-0.5); Lymphocytes Absolute Auto 3.03 K/mm3 (0.9-3.2); Lymphocytes Percent Auto 31.6 % (18.3-44.2); Mean Corpuscular HGB Conc 32.8 g/dl (32-36); Mean Corpuscular Hemoglobin 30.4 pg (26-34); Mean Corpuscular Volume 92.9 fl (80-100); Mean Platelet Volume 9.1 fl (7.4-10.4); Monocytes Absolute Auto 0.9 K/mm3 (0.1-0.6); Monocytes Percent Auto 9.2 % (2.6-8.5); Neutrophils Absolute Auto 5.1 K/mm3 (1.3-6.7); Neutrophils Percent Auto 53.5 % (45.5-73.1); Platelet Count Result 222 k/mm3 (150-375); Red Cell Distribution Width 14.3 % (11.5-14.5); White Blood Count 9.6 K/mm3 (4.5-10.0)
[2024-07-21 18:01] LABS: Add Urine Microscopic? YES; Appearance Urine Clear (Clear); Bacteria Urine None Seen /hpf; Bilirubin Urine Negative (Negative); Blood Urine 1+ (Negative); Color Urine Dark Yellow (Yellow); Glucose Urine UA Negative (Negative); Ketones Urine Negative (Negative); Leukocyte Esterase Ur Negative LEU/UL (Negative); Nitrate Urine Negative (Negative); Non Pathogenic Casts 0-2; Protein Urine Negative (Negative); RBC Urine 0-2 /hpf (0-2); Specific Grav Ur 1.014 (1.001-1.035); Squamous Epithelial Cell Urine Few /hpf (Few); Urobilinogen Urine 0.2 mg/dL (<2.0); WBC Urine 0-5 /hpf (0-3); pH Urine 5.5 (5.0-9.0)
[2024-07-21 18:06] LABS: Alanine Aminotransferase 16 U/L (6-35); Albumin Level 4.4 g/dL (3.5-5.1); Alkaline Phosphatase 82 U/L (38-126); Anion Gap 11 mmol/L (4-12); Aspartate Amino Transferase 31 U/L (14-36); Bilirubin,Total 0.6 mg/dL (0.2-1.3); Blood Urea Nitrogen 20 mg/dL (7-17); Calcium 8.8 mg/dL (8.4-10.2); Carbon Dioxide 29 mmol/L (22-30); Chloride 99 mmol/L (98-107); Estimated Glomerular Filt Rate 54; Glucose 97 mg/dL (65-110); Potassium 3.8 mmol/L (3.4-5.0); Sodium 139 mmol/L (137-145)
[2024-07-21 18:43] LABS: Free T4 Free Thyroxine 1.04 ng/mL (0.78-2.19)
== END 2024-07-21 17:28 | disposition home or self-care (01) ==
PROVIDERS: PCP Internal Medicine; Visit Provider Internal Medicine
DX: D64.9 Anemia, unspecified (principal); I48.92 Unspecified atrial flutter; I12.9 Hypertensive chronic kidney disease with stage 1 through stage 4 chronic kidney disease, or unspecified chronic kidney disease; N18.9 Chronic kidney disease, unspecified; R53.83 Other fatigue
CPT/HCPCS: 36415; 80053; 81001; 84439; 84443; 85025

== ENCOUNTER 2024-10-21 12:55 | Outpatient (CLI) | payer MEDICARE, SELFPAY | END 2024-10-21 12:56 | disposition home or self-care (01) | LOC: ANHAUDASC 12:56 | PROVIDERS: PCP Internal Medicine; Visit Provider Internal Medicine | DX: H90.3 Sensorineural hearing loss, bilateral (principal) | CPT/HCPCS: 92557; 92567 ==

== ENCOUNTER 2024-11-04 13:25 | Outpatient (RCR) | payer MEDICARE, SELFPAY ==
[2024-09-15 13:51] LABS: Prothrombin Time 50.3 Seconds (11.1-14.7)
[2024-09-15 14:06] LABS: INR 5.5
[2024-10-08 13:27] LABS: Prothrombin Time 31.8 Seconds (11.1-14.7)
[2024-11-04 14:41] LABS: INR 2.5; Prothrombin Time 27.3 Seconds (11.1-14.7)
== END 2024-12-14 23:59 | disposition home or self-care (01) ==
LOC: ANHLAB 13:25
PROVIDERS: PCP Internal Medicine; Visit Provider Specialist
DX: Z95.2 Presence of prosthetic heart valve (principal); Z79.01 Long term (current) use of anticoagulants
CPT/HCPCS: 36415; 85610

== ENCOUNTER 2025-01-08 12:18 | Outpatient (CLI) | payer MEDICARE, SELFPAY ==
--- OUTSIDE RECORDS SUMMARY | 2025-01-08 12:21 | XMS_ITS | Encounter Summary ---
Author Organization [facility] Address [address] [place] [address] Care Team Providers Care Nursery Rn Name Role Phone Darrick Santos MD Primary Care Provider [phone] Encounter Details Date Type Department Care Team (Late st Contact Info) Description 11/09/2003 Outpatient Historical [facility] Andrew Hirsch MD [address] 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
--- OUTSIDE RECORDS SUMMARY | 2025-01-08 12:21 | XMS_ITS | Patient Health Summary ---
Author Organization [facility] Address [address] [place] [address] Care Team Providers Care Gas Prover Name Role Phone Thad Mitchell MD Primary Care Provider [phone] Note from [facility],non-owned Affiliates and Associated Physician Practices is amultiple site organization consisting of ambulatory clinics and hospital sitesin [place], [place], [place] and [place]. This disclosure is being madepursuant to the Care Everywhere program and may not contain all information available regarding this patient. Last updated 18.[facility] Allergies No known active allergies Medications * Be aware that medications may not be up to date on this document. Alwaysverify current medications with the patient. * donepezil (ARICEPT) 5 MG tablet(Started 03/15/2021) * folic acid (FOLVITE) 1 MG tablet(Started 02/18/2021) Take 1 mg by mouth once daily * metoprolol tartrate (LOPRESSOR) 25 MG tablet(Started 01/08/2021) Take 12.5 mg by mouth 2 times daily * pravastatin (PRAVACHOL) 40 MG tablet(Started 01/29/2021) Take 40 mg by mouth once daily * spironolactone (ALDACTONE) 25 MG tablet(Started 01/25/2021) Take 25 mg by mouth once daily * warfarin (COUMADIN) 1 MG tablet(Started 03/24/2021) Take 1 (one) tablet by mouth every Mon, Tu, Sun, , & Sun * umeclidinium-vilanterol (ANORO ELLIPTA) 62.5-25 MCG/INH inhaler Inhale 1 puff by mouth once daily * Cholecalciferol 50 MCG (2000 UT) Take 2,000 Units by mouth once daily * escitalopram (LEXAPRO) 10 MG tablet Take 10 mg by mouth once daily * furosemide (LASIX) 20 MG tablet Take 20 mg by mouth once daily * Docosahexaenoic Acid (DHA OMEGA 3 PO) Take 300-1,000 mg by mouth once daily * predniSONE (DELTASONE) 10 MG tablet Take 10 mg by mouth once daily Active Problems Problem Noted Date Diagnosed Date Weakness 03/16/2021 Intraparenchymal hematoma of brain Immunizations * Covid Moderna primary monovalent 12+ yr 0.5mL(Given 02/14/2021) Social History Tobacco Use Types Packs/Day Years Used Date Smoking Tobacco: Never Cigarettes Smokeless Tobacco: Never Alcohol Use Standard Drinks/Week Comments Yes 0 (1 standard drink = 0.6 oz pur e alcohol) Sex and Gender Information Value Date Recorded Sex Assigned at Not on file Gender Identity Not on file Sexual Orientation Not on file Last Filed Vital Signs Vital Sign Reading Time Taken Comments Blood Pressure 113/60 05/05/2021 11:25 AM CDT Pulse 66 05/05/2021 11:25 AM CDT Temperature 36.6 C (97.8 F) 05/05/2021 11:25 AM CDT Respiratory Rate 18 03/23/2021 7:57 AM CDT Oxygen Saturation 97% 05/05/2021 11:25 AM CDT Inhaled Oxygen Concentration - - Weight 52.6 kg (116 lb) 05/05/2021 11:25 AM CDT Height 152.4 cm (5') 05/05/2021 11:25 AM CDT Body Mass Index 22.65 05/05/2021 11:25 AM CDT Procedures * PHOSPHORUS BLOOD(Performed 03/23/2021) * MAGNESIUM BLOOD(Performed 03/23/2021) * PT-INR [facility](Performed 03/23/2021) * BASIC METABOLIC PANEL (CALCIUM TOTAL)(Performed 03/23/2021) * CBC W/O DIFFERENTIAL(Performed 03/23/2021) * PHOSPHORUS BLOOD(Performed 03/22/2021) * MAGNESIUM BLOOD(Performed 03/22/2021) * PT-INR [facility](Performed 03/22/2021) * BASIC METABOLIC PANEL (CALCIUM TOTAL)(Performed 03/22/2021) * CBC W/O DIFFERENTIAL(Performed 03/22/2021) * SARS-COV-2 (COVID-19) IN HOUSE(Performed 03/21/2021) * CT HEAD WO CONTRAST(Performed 03/21/2021) Performed for Intraparenchymal hematoma of brain, right, without loss of consciousness, initial encounter (HCC) * ECHO COMPLETE W BUBBLE STUDY(Performed 03/21/2021) Performed for H/O heart valve replacement with mechanical valve * PHOSPHORUS BLOOD(Performed 03/21/2021) * MAGNESIUM BLOOD(Performed 03/21/2021) * PT-INR [facility](Performed 03/21/2021) * BASIC METABOLIC PANEL (CALCIUM TOTAL)(Performed 03/21/2021) * CBC W/O DIFFERENTIAL(Performed 03/21/2021) * PHOSPHORUS BLOOD(Performed 03/20/2021) * MAGNESIUM BLOOD(Performed 03/20/2021) * PT-INR [facility](Performed 03/20/2021) * BASIC METABOLIC PANEL (CALCIUM TOTAL)(Performed 03/20/2021) * CBC W/O DIFFERENTIAL(Performed 03/20/2021) * PHOSPHORUS BLOOD(Performed 03/19/2021) * MAGNESIUM BLOOD(Performed 03/19/2021) * PT-INR [facility](Performed 03/19/2021) * BASIC METABOLIC PANEL (CALCIUM TOTAL)(Performed 03/19/2021) * CBC W/O DIFFERENTIAL(Performed 03/19/2021) * PHOSPHORUS BLOOD(Performed 03/18/2021) * MAGNESIUM BLOOD(Performed 03/18/2021) * PT-INR [facility](Performed 03/18/2021) * BASIC METABOLIC PANEL (CALCIUM TOTAL)(Performed 03/18/2021) * CBC W/O DIFFERENTIAL(Performed 03/18/2021) * TROPONIN I(Performed 03/18/2021) * CARDIAC EKG ORDER(Performed 03/17/2021) * PHOSPHORUS BLOOD(Performed 03/17/2021) * MAGNESIUM BLOOD(Performed 03/17/2021) * PT-INR [facility](Performed 03/17/2021) * BASIC METABOLIC PANEL (CALCIUM TOTAL)(Performed 03/17/2021) * CBC W/O DIFFERENTIAL(Performed 03/17/2021) * MRI BRAIN WWO CONTRAST(Performed 03/16/2021) Performed for Intraparenchymal hematoma of brain, right, without loss of consciousness, initial encounter (HCC) * TROPONIN I(Performed 03/16/2021) * SARS-COV-2 (COVID-19)+INFLU A+B PCR RAPID(Performed 03/16/2021) Performed for Weakness * EKG 12-LEAD(Performed 03/16/2021) Performed for Intraparenchymal hematoma of brain, right, without loss of consciousness, initial encounter ([facility]) * TYPE + SCREEN PANEL(Performed 03/16/2021) * TROPONIN I(Performed 03/16/2021) * PT-INR [facility](Performed 03/16/2021) * COMPREHENSIVE METABOLIC PANEL(Performed 03/16/2021) * CBC W AUTO DIFFERENTIAL(Performed 03/16/2021) * CT ANGIO BRAIN(Performed 03/16/2021) Performed for Weakness * CREATININE - POCT INTERFACED(Performed 03/16/2021) * CT BRAIN STROKE(Performed 03/16/2021) Performed for Weakness * GROSS + MICRO EXAM(Performed 07/24/2001) Results * PT-INR [facility] (03/23/2021 1:30 AM CDT) Only the most recent of8 resultswithin the time period is included. PT 14.1 12.1 - 14.8 Seconds 03/23/2021 2:20 AM CDT [facility] INR 1.1 See Comment 03/23/2021 2:20 AM CDT [facility] Comment:The suggested therap eutic range for standard coumadin (warfarin) therapy is an INR of 2.0-3.0. For high-risk patients (Mechanical Mitral Valve Prosthesis, etc.), the suggested prophylactic therapeutic range is an INR of 2.5-3.5. Blood BLOOD SPECIMEN / Unknown Lab Venipuncture / Unknown 03/23/2021 1:30 AM CDT 03/23/2021 2:10 AM CDT Aidan Alcaraz MD LAB - COAGULATION O RDERABLES [facility] [address] [place] [address], [facility] [phone] * (ABNORMAL) CBC W/O DIFFERENTIAL (03/23/2021 1:30 AM [facility]) Only the most recent of7 resultswithin the time period is included. WBC 12.7(H) 3.5 - 10.5 10 3/uL 03/23/2021 2:07 AM [facility] RBC 3.92 3.90 - 5.00 10 6/uL 03/23/2021 2:07 AM [facility] Hemoglobin 11.9(L) 12.0 - 15.5 g/dL 03/23/2021 2:07 AM [facility] Hematocrit 35.3 35.0 - 45.0 % 03/23/2021 2:07 AM [facility] MCV 90.1 81.0 - 97.0 fL 03/23/2021 2:07 AM [facility] MCH 30.4 28.0 - 34.0 pg 03/23/2021 2:07 AM [facility] MCHC 33.7 32.0 - 36.0 g/dL 03/23/2021 2:07 AM [facility] Platelet Count 254 150 - 400 10 3/uL 03/23/2021 2:07 AM [facility] RDW-SD 47.4 36.0 - 50.0 fL 03/23/2021 2:07 AM [facility] RDW-CV 14.4 11.2 - 14.8 % 03/23/2021 2:07 AM [facility] MPV 9.9 9.3 - 12.8 fL 03/23/2021 2:07 AM [facility] nRBC Absolute 0.00 0 10 3/uL 03/23/2021 2:07 AM [facility] nRBC Auto 0.0 0 /100 WBC 03/23/2021 2:07 AM [facility] Blood BLOOD SPECIMEN / Unknown Lab Venipuncture / Unknown 03/23/2021 1:30 AM CDT 03/23/2021 2:02 AM CDT Aidan Alcaraz MD LAB - HEMATOLOGY OR DERABLES [facility] [address] [place] [address], [facility] [phone] * (ABNORMAL) BASIC METABOLIC PANEL (CALCIUM TOTAL) (03/23/2021 1:30 AM CDT) Only the most recent of7 resultswithin the time period is included. BUN 20 7 - 26 mg/dL 03/23/2021 2:27 AM [facility] Creatinine 1.0 0.6 - 1.2 mg/dL 03/23/2021 2:27 AM [facility] Sodium 138 136 - 145 mmol/L 03/23/2021 2:27 AM [facility] Potassium 4.3 3.5 - 4.5 mmol/L 03/23/2021 2:27 AM [facility] Chloride 104 98 - 107 mmol/L 03/23/2021 2:27 AM [facility] CO2 22 22 - 29 mmol/L 03/23/2021 2:27 AM [facility] Glucose 100 70 - 115 mg/dL 03/23/2021 2:27 AM [facility] Calcium 9.0 8.4 - 10.2 mg/dL 03/23/2021 2:27 AM [facility] Anion Gap 16 8 - 18 03/23/2021 2:27 AM [facility] BUN/Creatinine Ratio 20 7 - 23 03/23/2021 2:27 AM [facility] Osmolality Calculated 289 270 - 300 mOsm/kg 03/23/2021 2:27 AM [facility] eGFR 54(L) >60 mL/min/1.7 3 m2 03/23/2021 2:27 AM [facility] Blood BLOOD SPECIMEN / Unknown Lab Venipuncture / Unknown 03/23/2021 1:30 AM CDT 03/23/2021 2:01 AM CDT Aidan Alcaraz MD LAB - CHEMISTRY ORD ERABLES Performing Organization Address City/[facility]/ZIP Co de Phone Number [address] [address], [facility] [phone] * PHOSPHORUS BLOOD (03/23/2021 1:30 AM CDT) Only the most recent of7 resultswithin the time period is included. Phosphorus 4.2 2.3 - 4.7 mg/dL 03/23/2021 2:27 AM CDT [facility] Blood BLOOD SPECIMEN / Unknown Lab Venipuncture / Unknown 03/23/2021 1:30 AM CDT 03/23/2021 2:01 AM CDT Aidan Alcaraz MD LAB - CHEMISTRY ORD ERABLES Performing Organization Address [facility] Co de Phone Number [address] [address], [facility] [phone] * MAGNESIUM BLOOD (03/23/2021 1:30 AM CDT) Only the most recent of7 resultswithin the time period is included. Magnesium 2.0 1.6 - 2.6 mg/dL 03/23/2021 2:27 AM CDT [facility] Blood BLOOD SPECIMEN / Unknown Lab Venipuncture / Unknown 03/23/2021 1:30 AM CDT 03/23/2021 2:01 AM CDT Aidan Alcaraz MD LAB - CHEMISTRY ORD ERABLES [address] [address], [facility] [phone] * SARS-COV-2 (COVID-19) IN HOUSE (03/21/2021 4:01 PM CDT) COVID-19 PCR Not detected Not detected 03/22/2021 1:35 AM CDT [facility] MICROBIOLOGY Microbiology SPECIMEN FROM NASOPHARYNGEAL STRUCTURE / Unknown Collection / Unknown 03/21/2021 4:01 PM CDT 03/21/2021 5:16 PM CDT Narrative [facility]CRO[facility] - 03/22/2021 1:35 AM CDT This nucleic acid amplification assay performance was validated by [facility]. This test has been authorized by the Food and Drug administration (FDA)under an Emergency Use Authorization (EUA). This test has been validated in accordance with the FDA's guidance document Policy for Diagnostic Testing in Laboratories Certified to perform High Complexity Testing under CLIA prior to Emergency Use Authorization for Coronavirus Disease-2019 during the Public Health Emergency issued on January 24, 2020. FDA independent review of this validation is pending. This test is only authorized for the duration of time the declaration that circumstances exist justifying the authorization of emergency use of in vitro diagnostic tests for detection of SARS-CoV-2 virus and/or diagnosis of COVID-19 infection under section 564(b)(1) of the Act, 21 U.S.C 360bbb-3 (b)(1), unless the authorization is terminated or revoked sooner. Fact Sheets for this EUA assay are available upon request. Braydon Torres [employer] LAB - MICROBIOLOGY ORDERABLES [facility] MICROBIOLOGY [address] [place] [address], [facility] [phone] * CT HEAD WO CONTRAST (03/21/2021 11:31 AM CDT) Anatomical Region Laterality Modality Head Computed Tomogra phy 03/21/2021 12:5 0 PM CDT Impressions 03/21/2021 12:52 PM CDT FINDINGS-IMPRESSION: The right lentiform nucleus hemorrhage is grossly stable in size. There is moderate surrounding edema, increased since prior studies, expected evolution. There is no critical mass effect. The other chronic findings unchanged. There is no new abnormality. This report was electronically signed by KIMEBRLY DARLING on 03/21/2021 12:52 PM . Narrative 03/21/2021 12:52 PM CDT EXAMINATION: Computed tomography (CT) of the head without contrast HISTORY: S06.340A: Intraparenchymal hematoma of brain, right, without loss of consciousness, initial encounter TECHNIQUE: CT of the head was performed without contrast according to standard protocol. COMPARISON: Multiple prior studies from 03/16/2021. Procedure Note Kimberly Darling MD - 03/21/2021 EXAMINATION: Computed tomography (CT) of the head without contrast HISTORY: S06.340A: Intraparenchymal hematoma of brain, right, withoutloss of consciousness, initial encounter TECHNIQUE: CT of the head was performed without contrast according to standard protocol. COMPARISON: Multiple prior studies from 03/16/2021. FINDINGS-IMPRESSION: The right lentiform nucleus hemorrhage is grossly stable in size. Thereis moderate surrounding edema, increased since prior studies, expected evolution. There is no critical mass effect. The other chronic findings unchanged. There is no new abnormality. This report was electronically signed by KIMBERLY DARLING on 03/21/2021 12:52 PM . Aidan Alcaraz MD CT ORDERABLES * ECHO COMPLETE W BUBBLE STUDY (03/21/2021 8:57 AM CDT) Anatomical Region Laterality Modality Chest Echo 03/21/2021 8:22 AM CDT Narrative Procedure Note Bety Conway MD - 03/21/2021 Aidan Alcaraz MD ECHOCARDIOGRAPHY RA DIANT * TROPONIN I (03/18/2021 1:43 AM CDT) Only the most recent of3 resultswithin the time period is included. Troponin I 0.031 <0.032 ng/mL 03/18/2021 3:06 AM CDT [facility] Blood BLOOD SPECIMEN / Unknown Lab Venipuncture / Unknown 03/18/2021 1:43 AM CDT 03/18/2021 2:36 AM CDT Romaine Regalado MD LAB - CHEMISTRY DINORA COLUNGA [facility] Organization Address City/State/ZIP Co de Phone Number [facility] [address] [place] [address] [phone] * CARDIAC EKG ORDER (03/17/2021 2:38 PM CDT) Narrative 03/17/2021 2:38 PM CDT Ordered by an unspecified provider. Scanned Document CARDIAC SERVICES ORD ERABLES * MRI BRAIN WWO CONTRAST (03/16/2021 9:34 PM CDT) Anatomical Region Laterality Modality Head Magnetic Resonan ce 03/17/2021 8:08 AM CDT Impressions 03/17/2021 3:31 PM CDT IMPRESSION: 1.Redemonstrated early subacute hemorrhage in the right basal ganglia, grossly unchanged from the CT head dated on 03/16/2021 at 2:29 PM. 2.No evidence of underlying vascular malformation or enhancing mass in the right basal ganglia. This report was approved by Domonique Felix on 03/17/2021 11:57 AM . I, Dr. DARSHAN PFEIFFER have personally reviewed and interpreted this examination/study. This report was electronically signed by DARSHAN PFEIFFER on 03/17/2021 3:31 PM . Narrative 03/17/2021 3:31 PM CDT MRI BRAIN WWO CONTRAST DATE: 03/16/2021 9:35 PM EXAMINATION: Magnetic resonance imaging (MRI) of the brain without and with contrast HISTORY: S06.340A: Intraparenchymal hematoma of brain, right, without loss of consciousness, initial encounter TECHNIQUE: MRI of the brain was performed prior to and following the uneventful administration of [5 mL] intravenous GADAVIST contrast according to standard protocol. COMPARISON: CT brain without contrast on 03/16/2021 FINDINGS: T2 hyperintense and T1 isointense hemorrhage is seen in the right basal ganglia measuring approximately 1.1 x 1 cm (series 4 image 14) with mild surrounding edema. There is a small focus of susceptibility in the left posterior temporal lobe likely represents prior microhemorrhage (series 7 image 22). No evidence of acute cerebral infarction is seen. There is mild cerebral volume loss with associated ex vacuo ventricular dilatation. No mass effect or midline shift is seen. Periventricular, subcortical, and pontine white matter FLAIR hyperintensities likely represent sequelae of chronic small vessel ischemic disease. 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 No enhancing lesions are identified. The corpus callosum and sella appear normal. The posterior fossa, brainstem, and craniocervical junction appear normal. Other than bilateral cataract extractions, the visualized portions of the orbits appear grossly unremarkable. There is circumferential mucosal thickening in the left maxillary sinus and mild mucosal thickening in the remaining paranasal sinuses. The imaged mastoid air cells appear grossly clear. Normal flow voids are demonstrated in the carotid arteries and basilar artery. The calvarium and visualized cervical spine appear normal. Procedure Note Darshan Pfeiffer MD - 03/17/2021 MRI BRAIN WWO CONTRAST DATE: 03/16/2021 9:35 PM EXAMINATION: Magnetic resonance imaging (MRI) of the brain without and with contrast HISTORY: S06.340A: Intraparenchymal hematoma of brain, right, withoutloss of consciousness, initial encounter TECHNIQUE: MRI of the brain was performed prior to and following the uneventful administration of [5 mL] intravenous GADAVIST contrast according to standard protocol. COMPARISON: CT brain without contrast on 03/16/2021 FINDINGS: T2 hyperintense and T1 isointense hemorrhage is seen in the right basal ganglia measuring approximately 1.1 x 1 cm (series 4 image 14) with mild surrounding edema. There is a small focus of susceptibility in the left posterior temporal lobe likely represents prior microhemorrhage (series7 image 22). No evidence of acute cerebral infarction is seen. There ismild cerebral volume loss with associated ex vacuo ventricular dilatation. No mass effect or midline shift is seen. Periventricular, subcortical, and pontine white matter FLAIR hyperintensities likely represent sequelae of chronic small vessel ischemic disease. 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 No enhancing lesions are identified. The corpus callosum and sella appear normal. The posterior fossa, brainstem, and craniocervical junction appear normal. Other than bilateral cataract extractions, the visualized portions ofthe orbits appear grossly unremarkable. There is circumferential mucosal thickening in the left maxillary sinus and mild mucosal thickening inthe remaining paranasal sinuses. The imaged mastoid air cells appear grossly clear. Normal flow voids are demonstrated in the carotid arteries and basilar artery. The calvarium and visualized cervical spine appearnormal. IMPRESSION: 1.Redemonstrated early subacute hemorrhage in the right basal ganglia, grossly unchanged from the CT head dated on 03/16/2021 at 2:29 PM. 2.No evidence of underlying vascular malformation or enhancing mass inthe right basal ganglia. This report was approved by Domonique Felix on 03/17/2021 11:57 AM . I, Dr. DARSHAN PFEIFFER have personally reviewed and interpreted this examination/study. This report was electronically signed by DARSHAN PFEIFFER on03/17/2021 3:31 PM . Aidan Alcaraz MD MR ORDERABLES * SARS-COV-2 (COVID-19)+INFLU A+B PCR RAPID (03/16/2021 4:39 PM CDT) COVID-19 PCR Not detected Not detected 03/16/20 5:24 PM CDT [facility] Influenza A Rapid [place]MA Not Detected Not Detected 03/16/2021 5:24 PM CDT [facility] Influenza B ELMA Rapid Not Detected Not Detected 03/16/2021 5:24 PM CDT [facility] Microbiology SPECIMEN FROM NASOPHARYNGEAL STRUCTURE / Unknown Collection / Unknown 03/16/2021 4:39 PM CDT 03/16/2021 4:55 PM CDT [facility] - 03/16/2021 5:24 PM CDT Influenza assay performed by Nucleic Acid Amplification. Results do not exclude the possibility of a mixed viral infection. NOTE: Detecting and identifying specific viral nucleic acids from individuals exhibiting signs and symptoms of respiratory infection aids in the diagnosis of respiratory infection, if used in conjunction with other clinical and laboratory findings. The results of this test should not be used as the sole basis for diagnosis, treatment, or patient management decisions. This nucleic acid amplification assay performance was validated by [facility]. This test has been authorized by the Food and Drug administration (FDA)under an Emergency Use Authorization (EUA). This test has been validated in accordance with the FDA's guidance document Policy for Diagnostic Testing in Laboratories Certified to perform High Complexity Testing under CLIA prior to Emergency Use Authorization for Coronavirus Disease-2019 during the Public Health Emergency issued on January 24, 2020. FDA independent review of this validation is pending. This test is only authorized for the duration of time the declaration that circumstances exist justifying the authorization of emergency use of in vitro diagnostic tests for detection of SARS-CoV-2 virus and/or diagnosis of COVID-19 infection under section 564(b)(1) of the Act, 21 U.S.C 360bbb-3 (b)(1), unless the authorization is terminated or revoked sooner. Fact Sheets for this EUA assay are available upon request. Romaine Baldwin MD LAB - MICROBIOLOGY O RDERABLES Performing Organization Address [facility]/ZIP Co de Phone Number [facility] [address] [place] [address], [facility] [phone] * EKG 12-LEAD (03/16/2021 3:12 PM CDT) Pathologist [facility] Ventricular Rate 59 BPM [facility] Atrial Rate 59 BPM [facility] P-R Interval 230 ms [facility] QRS Duration ms 80 ms [facility] Q-T Interval ms 550 ms [facility] QTC Calculation (Bezet) 544 ms [facility] Calculated P [place] 62 degrees [facility] Calculated R [place] -6 degrees [facility] Calculated T [place] 85 degrees [facility] Interpretation EKG SINUS BRADYCARDIA WITH 1ST DEGREE A-V BLOCK CANNOT RULE OUT INFERIOR INFARCT , AGE UNDETERMINED ST & T WAVE ABNORMALITY, CONSIDER ANTERIOR ISCHEMIA ABNORMAL ECG WHEN COMPARED WITH ECG OF 04-AUG-2001 18:13, [place] INTERVAL HAS INCREASED NONSPECIFIC T WAVE ABNORMALITY, IMPROVED IN INFERIOR LEADS T WAVE INVERSION NOW EVIDENT IN ANTERIOR LEADS QT HAS LENGTHENED HR DECREASED BY 21 BPM Confirmed by Dajuan Etienne ([id number]) on 03/19/2021 5:53:11 AM [facility] 03/16/2021 3:12 PM CDT 03/19/2021 5:53 AM CDT Aidan Alcaraz MD ECG ORDERABLES Performing Organization Address [facility] Co de Phone Number [facility] * TYPE + SCREEN PANEL (03/16/2021 3:05 PM CDT) Pathologist [facility] Antibody Screen NEG 3:54 PM CDT [facility] B[facility]OD BANK LAB ABO Rh O NEG 03/16/2021 3:54 PM CDT [facility] B[facility] LAB Blood Bank BLOOD SPECIMEN / Unknown Venipuncture / Unknown 03/16/2021 3:05 PM CDT 03/16/2021 3:14 PM CDT Romaine Regalado MD LAB - BLOOD BANK ORD ERABLES [facility] [address] [place] [address], [facility] [phone] * (ABNORMAL) CBC W AUTO DIFFERENTIAL (03/16/2021 3:05 PM CDT) WBC 9.2 3.5 - 10.5 10 3/uL 03/16/2021 3:30 PM [facility] RBC 3.84(L) 3.90 - 5.00 10 6/uL 03/16/2021 3:30 PM [facility] Hemoglobin 11.4(L) 12.0 - 15.5 g/dL 03/16/2021 3:30 PM [facility] [facility] Hematocrit 34.4(L) 35.0 - 45.0 % 03/16/2021 3:30 PM [facility] MCV 89.6 81.0 - 97.0 fL 03/16/2021 3:30 PM [facility] MCH 29.7 28.0 - 34.0 pg 03/16/2021 3:30 PM [facility] MCHC 33.1 32.0 - 36.0 g/dL 03/16/2021 3:30 PM [facility] Platelet Count 279 150 - 400 10 3/uL 03/16/2021 3:30 PM [facility] RDW-SD 47.7 36.0 - 50.0 fL 03/16/2021 3:30 PM [facility] RDW-CV 14.6 11.2 - 14.8 % 03/16/2021 3:30 PM [facility] MPV 9.4 9.3 - 12.8 fL 03/16/2021 3:30 PM [facility] nRBC Absolute 0.00 0 10 3/uL 03/16/2021 3:30 PM [facility] nRBC Auto 0.0 0 /100 WBC 03/16/2021 3:30 PM [facility] Neutrophils % 70.8(H) 35.0 - 70.0 % 03/16/2021 3:30 PM [facility] Lymphocytes % 15.3(L) 19.7 - 55.1 % 03/16/2021 3:30 PM [facility] Monocytes % 8.9 3.0 - 15.0 % 03/16/2021 3:30 PM [facility] Eosinophils % 4.2 0.0 - 6.0 % 03/16/2021 3:30 PM [facility] Basophil % 0.5 0.0 - 1.5 % 03/16/2021 3:30 PM [facility] Neutrophils Absolute 6.5 1.6 - 7.0 10 3/uL 03/16/2021 3:30 PM [facility] Lymphocyte Absolute 1.4 0.8 - 2.9 10 3/uL 03/16/2021 3:30 PM [facility] Monocytes Absolute 0.82(H) 0.14 - 0.66 10 3/uL 03/16/2021 3:30 PM [facility] Eosinophils Absolute 0.39 0.00 - 0.45 10 3/uL 03/16/2021 3:30 PM [facility] Basophils Absolute 0.05 0.00 - 0.06 10 3/uL 03/16/2021 3:30 PM [facility] Immature Granulocytes % 0.3 0.0 - 1.0 % 03/16/2021 3:30 PM [facility] Blood BLOOD SPECIMEN / Unknown Venipuncture / Unknown 03/16/2021 3:05 PM CDT 03/16/2021 3:14 PM CDT Romaine Regalado MD LAB - HEMATOLOGY ORD ERABLES [facility] [address] [place] [address], [facility] [phone] * (ABNORMAL) COMPREHENSIVE METABOLIC PANEL (03/16/2021 3:05 PM [facility]) BUN 16 7 - 26 mg/dL 03/16/2021 3:40 PM [facility] Creatinine 1.0 0.6 - 1.2 mg/dL 03/16/2021 3:40 PM [facility] Sodium 141 136 - 145 mmol/L 03/16/2021 3:40 PM [facility] Potassium 3.1(L) 3.5 - 4.5 mmol/L 03/16/2021 3:40 PM [facility] Chloride 104 98 - 107 mmol/L 03/16/2021 3:40 PM [facility] CO2 26 22 - 29 mmol/L 03/16/2021 3:40 PM [facility] Glucose 110 70 - 115 mg/dL 03/16/2021 3:40 PM [facility] Calcium 8.3(L) 8.4 - 10.2 mg/dL 03/16/2021 3:40 PM [facility] Protein Total 7.3 6.0 - 8.3 g/dL 03/16/2021 3:40 PM [facility] Albumin 3.6 3.4 - 5.0 g/dL 03/16/2021 3:40 PM [facility] Bilirubin Total 0.7 0.2 - 1.2 mg/dL 03/16/2021 3:40 PM [facility] Alkaline Phosphatase 82 40 - 150 Units/L 03/16/2021 3:40 PM [facility] ALT 17 0 - 55 Units/L 03/16/2021 3:40 PM [facility] AST 31 5 - 34 Units/L 03/16/2021 3:40 PM [facility] Anion Gap 14 8 - 18 03/16/2021 3:40 PM [facility] BUN/Creatinine Ratio 16 7 - 23 03/16/2021 3:40 PM [facility] Osmolality Calculated 294 270 - 300 mOsm/kg 03/16/2021 3:40 PM [facility] Albumin/Globulin Ratio 1.0(L) 1.1 - 2.3 03/16/2021 3:40 PM CDT [facility] eGFR 54(L) >60 mL/min/1.7 3 m2 03/16/2021 3:40 PM CDT [facility] Blood BLOOD SPECIMEN / Unknown Venipuncture / Unknown 03/16/2021 3:05 PM CDT 03/16/2021 3:14 PM CDT Romaine Regalado MD LAB - CHEMISTRY DINORA COLUNGA [facility] Organization Address City/State/ZIP Co de Phone Number [facility] [address] [place] [address], [facility] [phone] * CT ANGIO BRAIN (03/16/2021 2:46 PM CDT) Anatomical Region Laterality Modality Head Computed Tomogra phy 03/16/2021 2:51 PM CDT Impressions 03/16/2021 9:27 PM CDT IMPRESSION: 1.Stable right basal ganglia parenchymal hemorrhage. 2.No aneurysms, spot sign, or signs of a high flow vascular malformation identified. No large arterial occlusions or significant stenoses identified in the head. This report was approved by Domonique Felix on 03/16/2021 9:27 PM . I, Dr. DARSHAN PFEIFFER have personally reviewed and interpreted this examination/study. This report was electronically signed by DARSHAN PFEIFFER on 03/16/2021 9:27 PM . Narrative 03/16/2021 9:[address] ANGIO BRAIN DATE: 03/16/2021 2:40 PM EXAMINATION: 1. Computed tomographic (CT) angiography of the head HISTORY: R53.1: Weakness TECHNIQUE: CT angiography of the head was obtained after the uneventful administration of 50 mL of Isovue-370 intravenous contrast. Three dimensional postprocessing was performed by the technologist and sent to the workstation for review. COMPARISON: CT head without contrast on 03/16/2021 at 2:29 PM FINDINGS: The intraparenchymal hemorrhage in the right basal ganglia is redemonstrated and better characterize on concurrent CT head without contrast. The visualized portions of the cervical vertebral arteries are tortuous. There is atherosclerotic disease involving the distal internal carotid arteries without significant focal stenosis. The middle cerebral arteries are normal. The right anterior cerebral artery is hypoplastic. The distal vertebral arteries appear normal. The basilar artery and posterior cerebral arteries appear normal. No aneurysms, spot sign, or signs of a high flow vascular malformation are identified. Procedure Note Darshan Pfeiffer MD - 03/16/2021 CT ANGIO BRAIN DATE: 03/16/2021 2:40 PM EXAMINATION: 1. Computed tomographic (CT) angiography of the head HISTORY: R53.1: Weakness TECHNIQUE: CT angiography of the head was obtained after the uneventful administration of 50 mL of Isovue-370 intravenous contrast. Three dimensional postprocessing was performed by the technologist and sent to the workstation for review. COMPARISON: CT head without contrast on 03/16/2021 at 2:29 PM FINDINGS: The intraparenchymal hemorrhage in the right basal ganglia is redemonstrated and better characterize on concurrent CT head without contrast. The visualized portions of the cervical vertebral arteries are tortuous. There is atherosclerotic disease involving the distal internal carotid arteries without significant focal stenosis. The middle cerebralarteries are normal. The right anterior cerebral artery is hypoplastic. Thedistal vertebral arteries appear normal. The basilar artery and posterior cerebral arteries appear normal. No aneurysms, spot sign, or signs of a high flow vascular malformation are identified. IMPRESSION: 1.Stable right basal ganglia parenchymal hemorrhage. 2.No aneurysms, spot sign, or signs of a high flow vascular malformation identified. No large arterial occlusions or significant stenoses identified in the head. This report was approved by Domonique Felix on 03/16/2021 9:27 PM . I, Dr. DARSHAN PFEIFFER have personally reviewed and interpreted this examination/study. This report was electronically signed by DARSHAN PFEIFFER on03/16/2021 9:27 PM . Romaine Regalado MD CT ORDERABLES * (ABNORMAL) INR WHOLE BLOOD - POINT OF CARE (IP) STROKE (03/16/2021 2:38 PM CDT) Blood BLOOD SPECIMEN / Unknown 03/16/2021 2:38 PM CDT 03/17/2021 1:02 AM CDT Provider Unknown LAB - POINT OF CARE ORDERABLES [address] [address], [facility] [phone] * CREATININE - POCT INTERFACED (03/16/2021 2:38 PM CDT) Creatinine POCT 0.76 0.30 - 1.30 mg/dL 03/16/2021 3:11 PM CDT [facility] eGFR >60 >60 mL/min/1.7 3 m2 03/16/2021 3:11 PM CDT [facility] Blood BLOOD SPECIMEN / Unknown 03/16/2021 2:38 PM CDT 03/16/2021 3:11 PM CDT Provider Unknown LAB - POINT OF CARE ORDERABLES Performing Organization Address [facility]/ZIP Co de Phone Number [address] [address], [facility] [phone] * CT BRAIN STROKE (03/16/2021 2:29 PM CDT) Anatomical Region Laterality Modality Head Computed Tomogra phy 03/16/2021 2:37 PM CDT Impressions 03/16/2021 2:53 PM CDT IMPRESSION: 1.Acute intraparenchymal hemorrhage centered in the right basal ganglia, without significant mass effect or midline shift. 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 The above findings were communicated to Dr. Moreno by Diane Boss (residential support specialist) on 03/16/2021 at 2:43 PM with readback confirmation obtained. Dictated by Diane Boss MD (residential support specialist). This report was approved by Diane Boss on 03/16/2021 2:53 PM . I, Dr. DARSHAN PFEIFFER have personally reviewed and interpreted this examination/study. This report was electronically signed by DARSHAN PFEIFFER on 03/16/2021 2:53 PM . Narrative 03/16/2021 2:[address] HEAD WO CONTRAST EXAMINATION: Computed tomography (CT) of the head without contrast DATE: 03/16/2021 2:27 PM HISTORY: R53.1: Weakness, transferred for known ICH TECHNIQUE: CT of the head was performed without contrast according to standard protocol. COMPARISON: No prior study is available for comparison at the time of this dictation. FINDINGS: There is a 1.7 x 1.2 cm acute intraparenchymal hemorrhage centered in the right basal ganglia, (series 3 image 12, series 7 image 34). There is minimal surrounding vasogenic edema and minimal local mass effect. There is moderate cerebral volume loss with associated ex vacuo ventricular dilatation. The basilar cisterns are patent. Otherwise, no mass effect. No midline shift is seen. Old infarcts are also seen in the left cerebellar hemisphere and smaller old infarct in the right cerebellar hemisphere. Old infarct is noted in the left BELT BUILDER territory. The reyes-white matter differentiation otherwise appears normal. Periventricular white matter hypoattenuation is indicative of chronic small vessel ischemic disease. There is vascular calcification of the carotid siphons. No acute calvarial fracture is identified. Other than bilateral cataract extractions, the orbits appear normal. There is mild paranasal sinus disease. The mastoid air cells are grossly clear. No soft tissue abnormality is identified. Procedure Note Darshan Pfeiffer MD - 03/16/2021 CT HEAD WO CONTRAST EXAMINATION: Computed tomography (CT) of the head without contrast DATE: 03/16/2021 2:27 PM HISTORY: R53.1: Weakness, transferred for known ICH TECHNIQUE: CT of the head was performed without contrast according to standard protocol. COMPARISON: No prior study is available for comparison at the time ofthis dictation. FINDINGS: There is a 1.7 x 1.2 cm acute intraparenchymal hemorrhage centered inthe right basal ganglia, (series 3 image 12, series 7 image 34). There is minimal surrounding vasogenic edema and minimal local mass effect. There is moderate cerebral volume loss with associated ex vacuo ventricular dilatation. The basilar cisterns are patent. Otherwise, no mass effect. No midline shift is seen. Old infarcts are also seen in the left cerebellar hemisphere and smaller old infarct in the rightcerebellar hemisphere. Old infarct is noted in the left BELT BUILDER territory. Thegray-white matter differentiation otherwise appears normal. Periventricular white matter hypoattenuation is indicative of chronic small vessel ischemic disease. There is vascular calcification of the carotid siphons. Noacute calvarial fracture is identified. Other than bilateral cataract extractions, the orbits appear normal.There is mild paranasal sinus disease. The mastoid air cells are grosslyclear. No soft tissue abnormality is identified. IMPRESSION: 1.Acute intraparenchymal hemorrhage centered in the right basal ganglia, without significant mass effect or midline shift. 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 The above findings were communicated to Dr. Moreno by Diane Boss (residential support specialist) on 03/16/2021 at 2:43 PM with readback confirmation obtained. Dictated by Diane Boss MD (residential support specialist). This report was approved by Diane Boss on 03/16/2021 2:53 PM . I, Dr. DARSHAN PFEIFFER have personally reviewed and interpreted this examination/study. This report was electronically signed by DARSHAN PFEIFFER on03/16/2021 2:53 PM . Romaine Regalado MD CT ORDERABLES * GROSS + MICRO EXAM (07/24/2001 11:57 AM CDT) Result CASE NUMBER [id number] Comment: ORDERING PHYSICIAN JEMIMA MCDOWELL SPECIMEN TYPE Heart Valve-aortic leaflet Date 07/24/2001 Physician Karely Leahy Gross Description The specimen is received in a single formalin-filled container labeled with the patient's name and aortic valve leaflet and consists of two semi-circular and semi-transparent vásquez-white soft tissue fragments measuring approximately 3 x 1.5 x 0.6 cm. and 2.5 x 1.5 x 0.6 cm. Both these have calcified nodules on the base of the leaflet. Nursery Attendant sections of the leaflets are submitted in a single container for decalcification. 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 Malignancy or inflammation is not seen. 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 Lacing Operator bk Pathologist Erich Alexis M.D. [place]. 07/25/2001 1132 <1> CPT code 63308 MISCELLANEOUS SAMPLES / Unknown 07/24/2001 11:57 AM CDT 07/24/2001 11:57 AM CDT Historical Provider LAB - PATHOLOGY/C YTOLOGY ORDERABLES Care Teams Gas Prover Relationship Specialty Start Date End Date Thad Mitchell MD [address] [facility] [address] [facility] [address] [place] [address] PCP - General Internal Medicine 03/16/21
--- OUTSIDE RECORDS SUMMARY | 2025-01-08 12:21 | XMS_ITS | Encounter Summary ---
Author Organization [facility] Address 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
--- OUTSIDE RECORDS SUMMARY | 2025-01-08 12:21 | XMS_ITS | Encounter Summary ---
Author Organization [facility] Address 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 USE (Primary Dx) Social History Tobacco Use Types Packs/Day Years Used Date Smoking Tobacco: Never Assessed Comments Unknown Sex and Gender Information Value Date Recorded Sex Assigned at Not on file 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
--- OUTSIDE RECORDS SUMMARY | 2025-01-08 12:21 | XMS_ITS | Referral Summary ---
Author Organization [facility] Address [address] [place] [address] Care Team Providers Care Intelligence Intern Name Role Phone Thad Mitchell MD Primary Care Provider [phone] Source Comments [facility],non-owned Affiliates and Associated Physician Practices is amultiple site organization consisting of ambulatory clinics and hospital sitesin [place], [place], [place] and [place]. This disclosure is being madepursuant to the Care Everywhere program and may not contain all information available regarding this patient. Last updated 18.[facility] [employer] Allergies No known active allergies Medications * Be aware that medications may not be up to date on this document. Alwaysverify current medications with the patient. Medication Sig Dispensed Refills Start Date End Date Status donepezil (ARICEPT) 5 MG tablet 03/15/2021 Active folic acid (FOLVITE) 1 MG tablet Take 1 mg by mouth once daily 02/18/2021 Active metoprolol tartrate (LOPRESSOR) 25 MG tablet Take 12.5 mg by mouth 2 times daily 01/08/2021 Active pravastatin (PRAVACHOL) 40 MG tablet Take 40 mg by mouth once daily 01/29/2021 Active spironolactone (ALDACTONE) 25 MG tablet Take 25 mg by mouth once daily 01/25/2021 Active warfarin (COUMADIN) 1 MG tablet Take 1 (one) tablet by mouth every Mon, Tu, Wed, , & Sun03/24/2021 Active umeclidinium-vilantero l (ANORO ELLIPTA) 62.5-25 MCG/INH inhaler Inhale 1 puff by mouth once daily Active Cholecalciferol 50 MCG (1999 UT) Take 2,000 Units by mouth once daily Active escitalopram (LEXAPRO) 10 MG tablet Take 10 mg by mouth once daily Active furosemide (LASIX) 20 MG tablet Take 20 mg by mouth once daily Active Docosahexaenoic Acid (DHA OMEGA 3 PO) Take 300-1,000 mg by mouth once daily Active predniSONE (DELTASONE) 10 MG tablet Take 10 mg by mouth once daily Active Active Problems Problem Noted Date Diagnosed Date Weakness 03/16/2021 Intraparenchymal hematoma of brain Immunizations Name Administration Dates Next Due Chandan Falcon primary monovalent 12+ yr 0.5mL Social History Tobacco Use Types Packs/Day Years [...] Mass Index 22.65 05/05/2021 11:25 AM CDT Functional Status Functional Status Response Date of Assess ment Is person deaf or have serious hearing difficult y? No 03/23/2021 Is person blind or have serious difficulty seein g? No 03/23/2021 Does person have serious dif ficulty walking/climbing stairs? No 03/23/2021 Does person have difficulty dressing/bathing? No 03/23/2021 Does person have difficulty doing errands alone? No 03/23/2021 Cognitive Status Response Date of Assessm ent Does person have difficulty concentrating/remembering/making decisions? No 03/23/2021 Plan of Treatment Not on file Advance Directives * Full Code (Latest Code Status on File) Date Activated Date Inactivated Comments 03/16/2021 2:40 PM 03/23/2021 12:44 PM Care Teams Intelligence Intern Relationship Specialty Start Date End Date Thad Mitchell MD [address] [place] [address] PCP - General Internal Medicine 03/16/21
--- OUTSIDE RECORDS SUMMARY | 2025-01-08 12:21 | XMS_ITS | Encounter Summary ---
Author Organization [facility] Address [address] [place] [address] Care Team Providers Care Gasoline Pump Mechanic Name Role Phone Darrick Santos MD Primary Care Provider [phone] Encounter Details Date Type Department Care Team (Latest Contact Info) Description 04/03/2002 Outpatient Historical 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
--- OUTSIDE RECORDS SUMMARY | 2025-01-08 12:21 | XMS_ITS | Clinical Summary ---
Author Organization [facility] Address [address] [place] [address] Care Team Providers Care Thermal Molder Name Role Phone Thad Mitchell MD Primary Care Provider [phone] Source Comments [facility] [employer],non-owned Affiliates and Associated Physician Practices is amultiple site organization consisting of ambulatory clinics and hospital sitesin [place], [place], [place] and [place]. This disclosure is being madepursuant to the Care Everywhere program and may not contain all information available regarding this patient. Last updated 18.[facility] [employer] Allergies No known active allergies Medications * [...] Mass Index 22.65 05/05/2021 11:25 AM CDT Plan of Treatment Health Maintenance Due Date Last Done Comments BONE DENSITY TESTING 1945 DTAP/TDAP/TD VACCINES (1 - Tdap) 1964 PNEUMOCOCCAL VACCINE 50+ (1 of 1 - PCV) 1995 ZOSTER VACCINE (1 of 2) 1995 Respiratory Syncytial Virus (RSV) Vaccine Pt: or over 60 yrs (1 - 1-dose 75+ series) 2020 COVID-19 VACCINE (2 - 2023-2 5 season) 2024 02/14/2021 INFLUENZA VACCINE (#1) 2024 DEPRESSION SCREENING 11/26/2024 MEDICARE AWV CALENDAR YEAR 2024 HEPATITIS B VACCINE Aged Out No longe r eligible based on patient's age to complete this topic HIB VACCINE Aged Out No longer eligi ble based on patient's age to complete this topic HPV VACCINE Aged Out No longer eligi ble based on patient's age to complete this topic MENINGOCOCCAL (Group B) VACCINE Aged Out No longer eligible based on patient's age to complete this topic MENINGOCOCCAL VACCINE Aged Out No gayla anival eligible based on patient's age to complete this topic Advance Directives * Full Code (Latest Code Status on File) Date Activated Date Inactivated Comments 03/16/2021 2:40 PM 03/23/2021 12:44 PM Care Teams Thermal Molder Relationship Specialty Start Date End Date Thad Mitchell MD [address] [place] [address] PCP - General Internal Medicine 03/16/21
--- OUTSIDE RECORDS SUMMARY | 2025-01-08 12:21 | XMS_ITS | Encounter Summary ---
Author Organization [facility] Healthcare Address [address] [place] [address] Care Team Providers Care Auto Repair Technician Name Role Phone Thad Mitchell MD Primary Care Provider [phone] Encounter Details Date Type Department Care Team (Late st Contact Info) Description 05/20/2024 Orders Only [facility] Health Information Management [address] [place] [id number] Scanning, Provider Social History Tobacco Use Types Packs/Day Years Used Date Smoking Tobacco: Never Smokeless Tobacco: Never AUDIT-C Answer Date Recorded Q1: How often do you have a drink containing alc ohol? Never 11/24/2021 Average Number of Drinks Not on file 021 Q3: How often do you have si x or more drinks on one occasion? 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 Gender Identity Not on file Sexual Orientation Not on file documented as of this encounter Plan of Treatment Not on file documented as of this encounter Procedures Procedure Name Priority Date/Time Associated Diagnosis Comments SCAN - LABS 05/20/2024 documented in this encounter Results * SCAN - LABS (05/20/2024) us Provider Scanning Final Result documented in this encounter Visit Diagnoses Not on filedocumented in this encounter Care Teams Auto Repair Technician Relationship Specialty Start Date End Date Thad Mitchell MD [address] [facility] [address] [place], [place] [address] PCP - General 03/20/18 documented as of this encounter
--- OUTSIDE RECORDS SUMMARY | 2025-01-08 12:21 | XMS_ITS | Referral Summary ---
Author Organization [facility] Address [address] [place] [address] Care Team Providers Care Target Network Analyst Name Role Phone Thad Mitchell MD Primary Care Provider [phone] Encounters Date Type Department Care Team Description 12/18/2024 Anticoagulation Visit [facility] [address] [facility] [address] [place] [address] Jorge Ying RN H/O mechanical aortic valve replacement (Primary Dx) 12/17/2024 Orders Only [facility] [address] [facility] [address], [place] [address] Cali Van MD Pacemaker (Primary Dx); Heart failure, unspecified (CMS/HCC) (HCC); Permanent atrial fibrillation (CMS/HCC) (HCC) 12/17/2024 10:30 AM TITLE CURATOR Ancillary Procedure [facility] [address] [facility] [address] [place] [address] Pacemaker; Atrial fibrillation, unspecified type (HCC); Heart failure, unspecified (CMS/HCC) (HCC) 11/24/2024 11:15 AM TITLE CURATOR Office Visit [address] 6[address] [place] [address] Brenda Cherry NP Agitation (Primary Dx) 11/05/2024 Anticoagulation Visit [facility] [address] [place] [address] Jorge Ying RN H/O mechanical aortic valve replacement (Primary Dx) 10/09/2024 Anticoagulation Visit [facility] [address] [place] [address] Rena Greco RN H/O mechanical aortic valve replacement (Primary Dx) from Last 3 Months Allergies Active Allergy Reactions Criticality Noted Date Comments Amiodarone Unknown Medium 01/30/2024 Codeine Stomach upset Low 10/30/2014 Stomach/GI Upset Hydroxyzine Unknown Medium 01/30/2024 Medications omega 4-pyc-ctb-fish oil 300-1,000 mg capsule 8 Active cyanocobalamin/ folic acid (VITAMIN K89-[id number] ACID) 1,000-400 mcg tablet, sublingual Place under the tongue Active busPIRone (BUSPAR) 10 mg tablet Take 1 tablet (10 mg total) by mouth 3 (three) times a day 3 Active traZODone (DESYREL) 50 mg tablet Take 1 tablet (50 mg total) by mouth nightly Active riboflavin, vitamin B2, 25 mg tablet Take by mouth Active Nyamyc powder Apply 10,000 Applications topically 2 (two) times a day 4 Active famotidine (PEPCID) 20 mg tablet Take 1 tablet (20 mg total) by mouth 2 (two) times a day 4 Active warfarin (COUMADIN) 1 mg tablet TAKE 1 TABLET BY MOUTH ON Sunday AND 1 AND 1/2 TABLETS BY MOUTH ALL OTHER DAYS OR INSTRUCTED 138 tablet 2 4 Active memantine (NAMENDA) 10 mg tablet TAKE 1 TABLET BY MOUTH TWICE DAILY 200 tablet 3 4 Active potassium chloride ER 20 mEq CR tablet Take 1 tablet (20 mEq total) by mouth daily 4 Active buPROPion XL (WELLBUTRIN XL) 150 mg 24 hr tablet Take 1 tablet (150 mg total) by mouth every morning 4 Active furosemide (LASIX) 20 mg tablet Take 1 tablet (20 mg total) by mouth every morning 4 Active mirtazapine (REMERON) 15 mg tablet Take 1 tablet (15 mg total) by mouth nightly at bedtime 4 Active QUEtiapine (SEROquel) 25 mg tabletIndicatio ns:agitation Take 1 tablet (25 mg total) by mouth 3 (three) times a day 90 tablet 6 4 Active Active Problems Problem Noted Date Diagnosed Date Agitation 11/24/2024 Mixed Alzheimer's and vascular dementia 11/24/20 24 Pacemaker 09/07/2022 Overview (09/27/2022): Veras Quadra Allure BIV Pacemaker. Dx; CHF, Afib/Aflutter. DOI 11/24/2021- Steyers. Vick. Rojelio remote monitoring. Programmed VVIR. Mixed hyperlipidemia 02/22/2022 Assessment & Plan (02/22/2022 4:50 PM CDT): Continue Pravachol Moderate mitral regurgitation 02/17/2022 Assessment & Plan (02/17/2022 4:17 PM CDT): Modest on a recent echocardiogram. Asymptomatic. Follow. A-fib (CMS/HCC) 11/24/2021 Atypical atrial flutter ([facility]/HCC) 09/06/2021 Assessment & Plan (02/17/2022 4:17 PM CDT): Rhythm regular and completely paced. Continue warfarin. Assessment & Plan (11/08/2021 3:04 PM TITLE CURATOR): Persistent, probably atypical, symptomatic rapidly conducted atrial flutter. Refractory to rate control. Occurring in the context of prior mechanical aortic valve replacement and hemorrhagic stroke this year. I discussed with the patient the complexity of the situation. I do not think that pharmacologic rate control will be effective at controlling her atrial arrhythmias. The patient has been intolerant of amiodarone, which is the only antiarrhythmic agent which is likely to be effective at controlling her arrhythmias. I reviewed the two most reasonable therapeutic options. The 1st option would be mapping and ablation of her atypical atrial flutter mechanism. Her atrial flutter appears to be atypical and probably left atrial, which increases the procedural risk and duration. Given her mechanical aortic valve and overall frailty, I am not enthusiastic about this approach. Alternatively, AV node ablation and biventricular pacing could be considered as a definitive rate control option. This could be done without completely interrupting anticoagulation. We reviewed the risks and benefits each approach. I discussed AV node ablation and pacing at length the patient and her . We discussed the procedural steps, risks, recovery and expected outcomes. This patient is specifically at elevated risk of procedural complications due to her frailty, mechanical aortic valve and recent hemorrhagic stroke. They expressed understanding and desired to proceed with AV node ablation and pacing. --Will arrange for AV node ablation and pacemaker implantation w/anesthesia (Veras). --Continue warfarin. Adjust for INR target of 2.0 on the day of procedure. --Continue diltiazem LA 240 mg daily --Continue metoprolol XL 25 mg daily. Assessment & Plan (09/06/2021 11:56 AM CDT): Presenting rhythm today. Occurring in concert with persistent AF. Rapid AV conduction, rates 110s. Associated with fatigue, dyspnea. Unclear pattern, suspect this has been ongoing. Recommend ambulatory cardiac monitoring to document arrhythmia burden, ventricular rates and pattern. Discussed management options, which are limited. Pt was intolerant of and refuses amiodarone. Her renal function makes sotalol and dofetilide relatively contraindicated. Options would include pharmacologic rate control strategy (limited by blood pressure), AVJ ablation and pacing, and catheter ablation of atypical AFL/AF. This would be a complex procedure and pt would be at higher risk or procedural complications given her recent hemorrhagic stroke, mechanical aortic valve and overall frailty. I have recommended starting with ambulatory monitor. We will revisit treatment options after monitoring data available. --30d event monitor. --Continue metoprolol. --Continue warfarin. --F/u 2 months to discuss treatment options. Nonrheumatic mitral valve stenosis 05/22/2021 H/O mechanical aortic valve replacement 04/11/20 21 Assessment & Plan (02/17/2022 4:17 PM CDT): Examination consistent with surgical history. Recent echocardiogram indicates normal functioning of mechanical prosthesis. Continue oral anticoagulant therapy. 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 Aftercataract 03/26/2018 Assessment & Plan (07/30/2018 12:24 PM CDT): S/p Yag Cap OU (spring 2017) - doing well MRX 20/40 to 20/25 OD / NI OS Recommend new frames or glasses since she has to lift current frames in order to see to read (placed in comments of MRX Fuchs' endothelial dystrophy 03/26/2018 Assessment & Plan (2022 2:51 PM CDT): Confocal 2017 2018 TODAY OD 2549 2193 2249 OS 1878 1879 1732 Decrease in cell count OS today VA stable 20/20 and 20/25 Monitor MRx provided today RTC 1 year with confocal Assessment & Plan (06/12/2019 12:39 PM CDT): 2017 Today OD 2549 2193 OS 1878 1879 Vision stable OU Cell count OD slightly worse, OS stable Plan: follow-up 1 year w/ confocal Paroxysmal atrial fibrillation (CMS/HCC) Assessment & Plan (11/08/2021 3:02 PM TITLE CURATOR): As above. Recommend AVJ/pacing for definitive rate control. Assessment & Plan (09/06/2021 11:58 AM CDT): Unclear pattern. Coexisting with atypical AFL. Occurring in context of mechanical AVR and recent hemorrhagic stroke. As above, recommend ambulatory monitoring to start. Will revisit options after monitoring data available. --Continue wafarin, metoprolol for now. Stroke Assessment & Plan (2022 2:52 PM CDT): Residual left-sided weakness No lagophthalmos PEE OS Resolved Problems Problem Noted Date Diagnosed Date Resolved Date Cataract, total/mature 03/26/201807/30 Social History Tobacco Use Types Packs/Day Years Used Date Smoking Tobacco: Former Cigarettes Smokeless Tobacco: Never Tobacco Cessation:Counseling Given: Not Answered Comments:Not sure when she stopped. AUDIT-C Answer Date Recorded Q1: How often do you have a drink containing alc ohol? Never 11/24/2021 Average Number of Drinks Not on file 021 Q3: How often do you have si x or more drinks on one occasion? Never 11/24/2021 Comments Unknown Sex and Gender Information Value Date Recorded Sex Assigned at Not on file Legal Sex Female 10:30 PM TITLE CURATOR Gender Identity Not on file Sexual Orientation Not on file Last Filed Vital Signs Vital Sign Reading Time Taken Comments Blood Pressure 114/61 11/24/2024 11:12 AM TITLE CURATOR Pulse 60 11/24/2024 11:12 AM TITLE CURATOR Temperature 36.4 C (97.5 F) 11/24/2024 11:12 AM TITLE CURATOR Respiratory Rate 16 11/06/2023 1:55 PM TITLE CURATOR Oxygen Saturation 98% 11/24/2024 11:12 AM TITLE CURATOR Inhaled Oxygen Concentration - - Weight 42.6 kg (94 lb) 11/24/2024 11:12 AM TITLE CURATOR Height 152.4 cm (5') 11/24/2024 11:12 AM TITLE CURATOR Body Mass Index 18.36 11/24/2024 11:12 AM TITLE CURATOR Plan of Treatment Not on file Medical Devices Implanted Type Area Washing Machine Loader Device Identifier Shelf Expiration Date Model / Serial / Lot [employer] 2088tc/58 Tendril Sts 6fr 58cm Is-1 Connector Active Fixation Bipolar Soft - [id number] - [id number] Implanted:Qty : 1 on 11/24/2021 by Aldo Florian III, MD at [facility] Lead [employer] [id number] 08/25/2024 2088TC/58 / [id number] / [employer] 1458q/86 Quartet 5fr [id number] 4 Electrode Is-4 Connector Steerable Tip - [id number] - [id number] Implanted:Qty : 1 on 11/24/2021 by Aldo Florian III, MD at [facility] Lead [employer] [id number] 08/25/2024 1458Q/86 / [id number] / [employer] [id number] Pacemaker Quadra Allure Mp Rf Home Economics Extension Worker-P Mri - [id number] - [id number] Implanted:Qty : 1 on 11/24/2021 by Aldo Florian III, MD at [facility] Pacemaker [employer] [id number] 04/25/2023 PM356 2 / [id number] / Procedures Procedure Name Priority Date/Time Associated Diagnosis Comments DEVICE CHECK - IN OFFICE Routine 12/17/2024 10:24 AM TITLE CURATOR Pacemaker Atrial fibrillation, unspecified type (HCC) Heart failure, unspecified (CMS/HCC) (HCC) PROTIME-INR Routine 12/17/2024 PROTIME-INR Routine 11/04/2024 PROTIME-INR Routine 10/08/2024 from Last 3 Months Results * DEVICE CHECK - IN OFFICE (12/17/2024 10:24 AM TITLE CURATOR) Anatomical Region Laterality Modality Other Narrative 12/18/2024 2:43 PM TITLE CURATOR Veras Quadra Allure BIV Pacemaker. Dx; CHF, Afib/Aflutter. DOI 11/24/2021-Steyers. Margarita Serrato remote monitoring. Programmed VVIR. Bill for dual pacemaker. Supervising MD: Dr Le. Office VVIR Pacemaker evaluation demonstrated appropriate device function. Left pectoral incision well healed without signs of infection. Battery function-3.02V, 7.1 years remaining battery longevity to IFTIKHAR. Appropriate lead measurements noted. Presenting rhythm-BIV Paced. Underlying rhythm-Vsensed @ 40 bpm. BIVP->99%. No Ventricular high rate episodes noted. Medications; Coumadin. No programming changes made to device settings. See scanned report. Office device f/u 03/17/2026. Roseline remote f/u 03/24/2025. Laura Barber, EVELIO Result [facility] Cali Van MD CV CARDIAC SERVICES PROC EDURES Final Result * (ABNORMAL) Protime-INR (12/17/2024) INR 3.30(A) 0.90 - 1.10 EXTERNAL LAB Blood Result [facility] Historical Provider MD LAB BLOOD ORDERABLES Martha l Result Performing Organization Address [facility] Co de Phone Number EXTERNAL LAB * (ABNORMAL) Protime-INR (11/04/2024) INR 2.50(A) 0.90 - 1.10 EXTERNAL LAB Blood Result [facility] Provider MD LAB BLOOD ORDERABLES Martha l Result Performing Organization Address City/[facility]/ZIP Co de Phone Number EXTERNAL LAB * (ABNORMAL) Protime-INR (10/08/2024) INR 3.00(A) 0.90 - 1.10 EXTERNAL LAB Blood Result [facility] Historical Provider MD LAB BLOOD ORDERABLES Martha l Result Performing Organization Address [facility] Co de Phone Number EXTERNAL LAB from Last 3 Months Insurance [employer] [place] [address] [place] [address] [employer] [place] [id number] Advance Directives For more information, please contact: [phone] Documents on File Type Date Recorded Patient Mechanical Reliability Engineer Expl anation Power of Coating Machine Operator Helper 09/18/2023 1:16 PM * Full Code (Latest Code Status on File) Date Activated Date Inactivated Comments 11/24/2021 4:37 PM 11/25/2021 4:06 PM Care Teams Target Network Analyst Relationship Specialty Start Date End Date Thad Mitchell MD [address] [facility] [address] [place] [address] PCP - General 03/20/18
--- OUTSIDE RECORDS SUMMARY | 2025-01-08 12:21 | XMS_ITS | Encounter Summary ---
Author Organization [facility] Healthcare Address [address] [place] [address] Care Team Providers Care Community Action Worker Name Role Phone Thad Mitchell MD Primary Care Provider [phone] Encounter Details Date Type Department Care Team (Late st Contact Info) Description 03/21/2024 Telephone [facility] Medical [facility] Cardiology [address] [address] Cali Van MD [address] [facility] [address] [place] [address] Social History Tobacco Use Types Packs/Day Years [...] on file Legal Sex Female 10:30 PM IMPLEMENTATION TECHNICIAN Gender Identity Not on file Sexual Orientation Not on file documented as of this encounter Plan of Treatment Not on file documented as of this encounter Visit Diagnoses Not on filedocumented in this encounter Care Teams Community Action Worker Relationship Specialty Start Date End Date Thad Mitchell MD [address] [facility] [address] [place] [address] PCP - General 03/20/18 documented as of this encounter
--- OUTSIDE RECORDS SUMMARY | 2025-01-08 12:21 | XMS_ITS | Clinical Summary ---
Author Organization [facility] Address [address] [place] [address] Care Team Providers Care Return Agent Airport Name Role Phone Thad Mitchell MD Primary Care Provider [phone] Allergies Active Allergy Reactions Criticality Noted Date Comments Amiodarone Unknown Medium 01/30/2024 Codeine Stomach upset Low 10/30/2014 Stomach/GI Upset Hydroxyzine Unknown Medium 01/30/2024 Medications omega 9-yzk-kcy-fish oil 300-1,000 mg capsule 8 Active cyanocobalamin/ folic acid (VITAMIN K09-PYURO ACID) 1,000-400 mcg tablet, sublingual Place under [...] Pacemaker. Dx; CHF, Afib/Aflutter. DOI 11/24/2021- Steyers. Margarita Serrato remote monitoring. Programmed VVIR. Mixed hyperlipidemia 02/22/2022 Assessment & Plan (02/22/2022 4:50 PM CDT): Continue Pravachol Moderate mitral regurgitation 02/17/2022 Assessment & Plan (02/17/2022 4:17 PM CDT): Modest on a recent echocardiogram. Asymptomatic. Follow. A-fib (CMS/HCC) 11/24/2021 Atypical atrial flutter (CMS/HCC) 09/06/2021 Assessment & Plan (02/17/2022 4:17 PM CDT): Rhythm regular and completely paced. Continue warfarin. Assessment & Plan (11/08/2021 3:04 PM STEAM AND GAS TURBINES ASSEMBLER): Persistent, probably atypical, symptomatic rapidly conducted atrial [...] Plan (2022 2:51 PM CDT): Confocal 2017 2019 TODAY OD 2549 2193 2249 OS 1878 1879 1732 Decrease in cell count OS today VA stable 20/20 and 20/25 Monitor MRx provided today RTC 1 year with confocal Assessment & Plan (06/12/2019 12:39 PM CDT): 2018 Today OD 2549 2193 OS 1878 1879 Vision stable OU Cell count OD slightly worse, OS stable Plan: follow-up 1 year w/ confocal Paroxysmal atrial fibrillation (CMS/HCC) Assessment & Plan (11/08/2021 3:02 PM STEAM AND GAS TURBINES ASSEMBLER): As above. Recommend AVJ/pacing for definitive rate [...] Diagnosed Date Resolved Date Cataract, total/mature 03/26/201807/30 Encounters Date Type Department Care Team Description 12/18/2024 Anticoagulation Visit [facility] [address] [facility] [address] [place] [phone] Jorge Ying RN H/O mechanical aortic valve replacement (Primary Dx) 12/17/2024 10:30 AM STEAM AND GAS TURBINES ASSEMBLER Ancillary Procedure [facility] [address] [facility] [address] [place] [phone] Pacemaker; Atrial fibrillation, unspecified type (HCC); Heart failure, unspecified (CMS/HCC) (HCC) 12/17/2024 Orders Only [facility] [address] [facility] [address], [place] [address] Cali Van MD Pacemaker (Primary Dx); Heart failure, unspecified (CMS/HCC) (HCC); Permanent atrial fibrillation (CMS/HCC) (HCC) 11/24/2024 11:15 AM STEAM AND GAS TURBINES ASSEMBLER Office Visit [address] 6[address] [place] [address] Cherry, Brenda Jackson NP Agitation (Primary Dx) 11/05/2024 Anticoagulation Visit [facility] [address] [place] [phone] Jorge Ying RN H/O mechanical aortic valve replacement (Primary Dx) 10/09/2024 Anticoagulation Visit [facility] [address] [place] [address] Rena Greco RN H/O mechanical aortic valve replacement (Primary Dx) from Last 3 Months Surgical History Surgery Date Site/Laterality Comments CORONARY ARTERY BYPASS GRAFT HYSTERECTOMY Medical History Medical History Date Comments Anemia A-fib (CMS/HCC) (HCC) CHF (congestive heart failure) (CMS/HCC) (HCC) Cancer (CMS/HCC) (HCC) Stroke (HCC) Hearing loss [place] (myocardial infarction) (HCC) Family History Medical History Relation Name Comments Cancer Brother Diabetes Father Heart failure Father Alzheimer's disease Mother Relation Name Status Comments Brother Father (Age 63) Mother (Age 81) Social History Tobacco Use Types Packs/Day Years Used Date Smoking Tobacco: Former Cigarettes Smokeless Tobacco: Never Tobacco Cessation:Counseling Given: Not Answered Comments:Not sure when she stopped. AUDIT-C Answer Date Recorded Q1: How often do you have a drink containing alc ohol? Never 11/24/2021 Average Number of Drinks Not on file Q3: How often do you have si x or more drinks on one occasion? Never 11/24/2021 Comments Unknown Sex and Gender Information Value Date Recorded Sex Assigned at Not on file Legal Sex Female 10:30 PM STEAM AND GAS TURBINES ASSEMBLER Gender Identity Not on file Sexual Orientation Not on file Obstetrics History Last Filed Vital Signs Vital Sign Reading Time Taken Comments Blood Pressure 114/61 11/24/2024 11:12 AM STEAM AND GAS TURBINES ASSEMBLER Pulse 60 11/24/2024 11:12 AM STEAM AND GAS TURBINES ASSEMBLER Temperature 36.4 C (97.5 F) 11/24/2024 11:12 AM STEAM AND GAS TURBINES ASSEMBLER Respiratory Rate 16 11/06/2023 1:55 PM STEAM AND GAS TURBINES ASSEMBLER Oxygen Saturation 98% 11/24/2024 11:12 AM STEAM AND GAS TURBINES ASSEMBLER Inhaled Oxygen Concentration - - Weight 42.6 kg (94 lb) 11/24/2024 11:12 AM STEAM AND GAS TURBINES ASSEMBLER Height 152.4 cm (5') 11/24/2024 11:12 AM STEAM AND GAS TURBINES ASSEMBLER Body Mass Index 18.36 11/24/2024 11:12 AM STEAM AND GAS TURBINES ASSEMBLER Plan of Treatment Health Maintenance Due Date Last Done Comments Depression Screening 1945 Hepatitis C Screening 1945 Osteoporosis Screening-Bone Density Scan 1945 DTaP/Tdap/Td Vaccine (1 - Tdap) 1956 Hepatitis B Screening 1963 Zoster Vaccine (1 of 2) 1995 Well Visit 65+ 2010 Fall Risk Assessment 11/25/2022 11/25/2021 Influenza Vaccine (#1) 2024 9, 07/29/2018, 02/07/2016, Additional history exists Pneumococcal vaccine 65+ Completed 020, 10/07/2019, 2018 Medical Devices Implanted Type Area Hosiery Pairer Device Identifier Shelf Expiration Date Model / Serial / Lot [employer] 2088tc/58 Tendril Sts 6fr 58cm Is-1 Connector Active Fixation Bipolar Soft - [id number] - [id number] Implanted:Qty : 1 on 11/24/2021 by Aldo Florian III, MD at [facility] Lead [employer] [id number] 08/25/2024 2088TC/58 / [id number] / [employer] 1458q/86 Quartet 5fr [id number] Electrode Is-4 Connector Steerable Tip - [id number] - [id number] Implanted:Qty : 1 on 11/24/2021 by Aldo Florian III, MD at [facility] Lead [employer] [id number] 08/25/2024 1458Q/86 / [id number] / [employer] [id number] Pacemaker Quadra Allure Mp Rf Group Fitness Instructor-P Mri - [id number] - [id number] Implanted:Qty : 1 on 11/24/2021 by Aldo Florian III, MD at [facility] Pacemaker [employer] [id number] 04/25/2023 PM356 2 / [id number] / Procedures Procedure Name Priority Date/Time Associated Diagnosis Comments DEVICE CHECK - IN OFFICE Routine 12/17/2024 10:24 AM STEAM AND GAS TURBINES ASSEMBLER Pacemaker Atrial fibrillation, unspecified type (HCC) Heart failure, unspecified (CMS/HCC) (HCC) PROTIME-INR Routine 12/17/2024 PROTIME-INR Routine 11/04/2024 PROTIME-INR Routine 10/08/2024 from Last 3 Months Results * DEVICE CHECK - IN OFFICE (12/17/2024 10:24 AM STEAM AND GAS TURBINES ASSEMBLER) Anatomical Region Laterality Modality Other Narrative 12/18/2024 2:43 PM STEAM AND GAS TURBINES ASSEMBLER Veras Quadra Allure BIV Pacemaker. Dx; CHF, Afib/Aflutter. DOI 11/24/2021-Steyers. Van-Francisco. Rojelio remote monitoring. Programmed VVIR. Bill for dual [...] 03/17/2026. Roseline remote f/u 03/24/2025. Laura Barber, RN Cali Van MD CV CARDIAC SERVICES PROC EDURES Final Result * (ABNORMAL) Protime-INR (12/17/2024) INR 3.30(A) 0.90 - 1.10 EXTERNAL LAB Blood Historical Provider LAB BLOOD ORDERABLES Martha l Result EXTERNAL LAB * (ABNORMAL) Protime-INR (11/04/2024) INR 2.50(A) 0.90 - 1.10 EXTERNAL LAB Blood Historical Provider MD LAB BLOOD ORDERABLES Martha l Result EXTERNAL LAB * (ABNORMAL) Protime-INR (10/08/2024) INR 3.00(A) 0.90 - 1.10 EXTERNAL LAB Blood Historical Provider MD LAB BLOOD ORDERABLES Martha l Result EXTERNAL LAB from Last 3 Months Insurance MEDICARE SOLUTIONS [facility] MEDIC[facility] Address: [facility] [address] [place] [address] MEDICARE SOLUTIONS MEDICARE SOLUTIONS Advance Directives For more information, please contact: [phone] Documents on File Type Date Recorded Patient Bisque Kiln Placer Expl anation Power of Legal Billing Analyst 09/18/2023 1:16 PM * Full Code (Latest Code Status on File) Date Activated Date Inactivated Comments 11/24/2021 4:37 PM 11/25/2021 4:06 PM Care Teams Return Agent Airport Relationship Specialty Start Date End Date Thad Mitchell MD [address] [facility] [address] [facility] [address] MEDICINE [place], [place] [id number] PCP - General 03/20/18
--- OUTSIDE RECORDS SUMMARY | 2025-01-08 12:21 | XMS_ITS | Encounter Summary ---
Author Organization [facility] Address [address] [place] [address] Care Team Providers Care Ocean Transportation Intermediary Name Role Phone Darrick Santos MD Primary Care Provider [phone] Encounter Details Date Type Department Care Team (Latest Contact Info) Description 04/13/2003 Outpatient Historical HIS [facility] Darrick Hayes MD [address] [place] [address] SCREENING MAMM-MAILG NEOPL-OTHER (Primary Dx) Social History Tobacco Use Types Packs/Day Years Used Date Smoking Tobacco: Never Assessed Comments Unknown Sex and Gender Information Value Date Recorded Sex Assigned at Not on file Legal Sex Female 3:18 AM SAW FILER Gender Identity Not on file Sexual Orientation Not on file documented as of this encounter Plan of Treatment Not on file documented as of this encounter Visit Diagnoses Diagnosis Other screening mammogram- Primary documented in this encounter Care Teams Ocean Transportation Intermediary Relationship Specialty Start Date End Date Darrick Santos MD [address] [place] [address] PCP - General 04/13/03 documented as of this encounter
--- OUTSIDE RECORDS SUMMARY | 2025-01-08 12:21 | XMS_ITS | Encounter Summary ---
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 Gender Identity Not on file Sexual Orientation Not on file documented as of this encounter Plan of Treatment Not on file documented as of this encounter Procedures Procedure Name Priority Date/Time Associated Diagnosis Comments SCAN - RADIOLOGY/IMAGING 01/22/2024 documented in this encounter Results * SCAN - RADIOLOGY/IMAGING (01/22/2024) Anatomical Region Laterality Modality Other us Provider Scanning Final Result documented in this encounter Visit Diagnoses Not on filedocumented in this encounter Care Teams Cook Short Order Relationship Specialty Start Date End Date Thad Mitchell MD [address] [facility] [address] [place] [address] PCP - General 03/20/18 documented as of this encounter
--- OUTSIDE RECORDS SUMMARY | 2025-01-08 12:21 | XMS_ITS | Clinical Summary ---
Author Organization [facility] Address [address] [facility] [address] [facility] [address] [facility] [address] Knight: Epic Prelude ADT [place] [address] Care Team Providers Care Soc Analyst Name Role Phone Darrick Santos MD Primary Care Provider [phone] Social History Tobacco Use Types Packs/Day Years Used Date Smoking Tobacco: Never Assessed Comments Unknown Sex and Gender Information Value Date Recorded Sex Assigned at Not on file Legal Sex Female 3:18 AM LEATHER ROLLER Gender Identity Not on file Sexual Orientation Not on file Plan of Treatment Health Maintenance Due Date Last Done Comments DTAP/TDAP/TD VACCINES (1 - Tdap) 1964 PNEUMOCOCCAL VACCINE 65+ YEARS (1 of 1 - PCV) 09/28/19 95 ZOSTER VACCINE (1 of 2) 1995 OSTEOPOROSIS SCREENING 2010 RSV VACCINE (60+ or ) (1 - 1-dose 75+ series) 2020 INFLUENZA VACCINE (#1) 2024 Care Teams Soc Analyst Relationship Specialty Start Date End Date Darrick Santos MD [address] [facility] [address] [place] [address] PCP - General 04/13/03
--- OUTSIDE RECORDS SUMMARY | 2025-01-08 12:21 | XMS_ITS | Encounter Summary ---
Author Organization [facility] Address [address] [place] [address] Care Team Providers Care Drafting Clerk Name Role Phone Darrick Santos MD Primary Care Provider [phone] Encounter Details Date Type Department Care Team (Latest Contact Info) Description 09/17/2006 Outpatient Historical HIS [facility] Darrick Hayes MD [address] [place], [place] [id number] Other Screening Mammogram (Primary Dx) Social History Tobacco Use Types Packs/Day Years Used Date Smoking Tobacco: Never Assessed Comments Unknown Sex and Gender Information Value Date Recorded Sex Assigned at Not on file Legal Sex Female 3:18 AM PRINT CONTROLLER Gender Identity Not on file Sexual Orientation Not on file documented as of this encounter Plan of Treatment Not on file documented as of this encounter Visit Diagnoses Diagnosis Other screening mammogram- Primary documented in this encounter Care Teams Drafting Clerk Relationship Specialty Start Date End Date Darrick Santos MD [address] [place] [address] PCP - General 04/13/03 documented as of this encounter
--- OUTSIDE RECORDS SUMMARY | 2025-01-08 12:21 | XMS_ITS | Encounter Summary ---
Author Organization [facility] Address [address] [place] [address] Care Team Providers Care Manager Reliability Name Role Phone Thad Mitchell MD Primary Care Provider [phone] Encounter Details Date Type Department Care Team (Late st Contact Info) Description 01/26/[address] [facility] Health Information Management [address] [place] [address] Delores Good, RAJNI [address] [place], [place] [id number] Social History Tobacco Use Types Packs/Day Years [...] on file Legal Sex Female 10:30 PM NUTRITION INTERNSHIP Gender Identity Not on file Sexual Orientation Not on file documented as of this encounter Plan of Treatment Not on file documented as of this encounter Procedures Procedure Name Priority Date/Time Associated Diagnosis Comments SCAN - RADIOLOGY/IMAGING 01/26/2024 documented in this encounter Results * SCAN - RADIOLOGY/IMAGING (01/26/2024) Anatomical Region Laterality Modality Other Delores Good WEB APPLICATIONS ADMINISTRATOR Final Result documented in this encounter Visit Diagnoses Not on filedocumented in this encounter Care Teams Manager Reliability Relationship Specialty Start Date End Date Thad Mitchell MD [address] [place] [address] PCP - General 03/20/18 documented as of this encounter
--- OUTSIDE RECORDS SUMMARY | 2025-01-08 12:21 | XMS_ITS | Encounter Summary ---
Author Organization [facility] Address 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
--- OUTSIDE RECORDS SUMMARY | 2025-01-08 12:21 | XMS_ITS | Clinical Summary ---
Author Organization [facility] Address [address] [place] [address] Care Team Providers Care Social Media Content Manager Name Role Phone Thad Mitchell MD Primary Care Provider Allergies Active Allergy Reactions Criticality Noted Date Comments Codeine GI Upset Low 10/30/2014 Stomach/GI Upset Medications amoxicillin-clavul anate (AUGMENTIN) 500-125 MG tablet 4 Active buPROPion XL (WELLBUTRIN XL) 150 MG 24 hr tablet Take 1 tablet (150 mg total) by mouth daily. 3 Active busPIRone (BUSPAR) 10 MG tablet Take 1 tablet (10 mg total) by mouth 3 (three) times daily. 3 Active Cholecalciferol 50 MCG (2000 UT) Cap Take 2,000 Units by mouth daily. Active Cobalamin Combinations (B-12) 1000-[address] under the tongue Active cyproheptadine (PERIACTIN) 4 MG tablet 4 Active escitalopram (LEXAPRO) 10 MG tablet Take 1 tablet (10 mg total) by mouth daily. Active famotidine (PEPCID) 20 MG tablet 4 Active furosemide (LASIX) 20 MG tablet Take 1 tablet (20 mg total) by mouth daily. Active LORazepam (ATIVAN) 0.5 MG tablet 4 Active memantine (NAMENDA) 5 MG tablet 3 Active OLANZapine (ZYPREXA ZYDIS) 5 MG TABLET DISPERSIBLE disintegrating tablet 4 Active warfarin (COUMADIN) 3 MG tablet 4 Active traZODone (DESYREL) 100 MG tablet 4 Active Riboflavin 25 MG Tab Take by mouth Active traMADol (ULTRAM) 50 MG tablet Take 1 tablet (50 mg total) by mouth every 6 (six) hours as needed. 3 Active HYDROcodone-acetam inophen (NORCO) 7.5-325 MG tablet 4 Active NYSTATIN 678030 UNIT/GM powder 4 Active warfarin (COUMADIN) 1 MG tablet TAKE 1 TABLET BY MOUTH ON Sunday AND 1 AND 1/2 TABLETS BY MOUTH ALL OTHER DAYS OR INSTRUCTED 4 Active Active Problems Problem Noted Date Diagnosed Date Cerebrovascular accident ([facility]) 02/04 Overview (02/05/2024): Last Assessment & Plan: Residual left-sided weakness No lagophthalmos PEE OS Intraparenchymal hematoma of brain ([facility]) 02/05/2024 Paroxysmal atrial fibrillation ([facility]) 02/05/2024 Overview (02/05/2024): Last Assessment & Plan: As above. Recommend AVJ/pacing for definitive rate control. Pacemaker 09/07/2022 Overview (02/05/2024): Veras Quadra Allure BIV Pacemaker. Dx; CHF, Afib/Aflutter. DOI 11/24/2021- Steyers. Margarita Serrato remote monitoring. Programmed VVIR. Mixed hyperlipidemia 02/22/2022 Overview (02/05/2024): Last Assessment & Plan: Continue Pravachol Moderate mitral regurgitation 02/17/2022 Overview (02/05/2024): Last Assessment & Plan: Modest on a recent echocardiogram. Asymptomatic. Follow. A-fib ([facility]) 11/24/2021 Atypical atrial flutter ([facility]) 2020 Overview (02/05/2024): Last Assessment & Plan: Rhythm regular and completely paced. Continue warfarin. Nonrheumatic mitral valve stenosis 05/22/2021 Chronic anticoagulation 04/11/2021 Essential hypertension 04/11/2021 H/O mechanical aortic valve replacement 04/11/20 Overview (02/05/2024): Last Assessment & Plan: Examination consistent with surgical history. Recent echocardiogram indicates normal functioning of mechanical prosthesis. Continue oral anticoagulant therapy. 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 Aftercataract 03/26/2018 Overview (02/05/2024): Last Assessment & Plan: S/p Yag Cap OU (spring 2017) - doing well MRX 20/40 to 20/25 OD / NI OS Recommend new frames or glasses since she has to lift current frames in order to see to read (placed in comments of MRX Fuchs' endothelial dystrophy 03/26/2018 Overview (02/05/2024): Last Assessment & Plan: Confocal 2017 2019 TODAY OD 2549 2193 2249 OS 1878 1879 1732 Decrease in cell count OS today VA stable 20/20 and 20/25 Monitor MRx provided today RTC 1 year with confocal Immunizations Name Administration Dates Next Due Abrysvo Respiratory Syncytia l Virus (RSV) 0.5 mL, PF 07/31/2023 Influenza (Generic) 08/14/2019 Influenza Adult (Generic) 07/29/2018,02/07/2016, 12/02/2012 Pneumococcal (Pneumovax 23) 10/07/2019 Pneumococcal (Prevnar 13) 08/20/2020,2018 Social History Tobacco Use Types Packs/Day Years Used Date Smoking Tobacco: Unknown Tobacco Cessation:Counseling Given: No Comments No Sex and Gender Information Value Date Recorded Sex Assigned at Not on file Legal Sex Female 1:21 PM CDT Gender Identity Not on file Sexual Orientation Not on file Last Filed Vital Signs Vital Sign Reading Time Taken Comments Blood Pressure 129/67 03/11/2024 2:06 PM CDT Pulse 87 03/11/2024 2:06 PM CDT Temperature 37 C (98.6 F) 03/11/2024 2:06 PM CDT Respiratory Rate 18 03/11/2024 2:06 PM CDT Oxygen Saturation 97% 03/11/2024 2:06 PM CDT Inhaled Oxygen Concentration - - Weight 41.3 kg (91 lb) 03/11/2024 2:06 PM CDT Height 160 cm (5' 3 ) 03/11/2024 2:06 PM CDT Body Mass Index 16.12 03/11/2024 2:06 PM CDT Plan of Treatment Health Maintenance Due Date Last Done Comments PHQ-2 (Physician [place]) 1957 Hepatitis C 1963 DTaP, Tdap and Td Vaccines (1 - Tdap) 1964 Zoster Vaccines (1 of 2) 1995 Annual Medicare Wellness Visit 2010 Dexa Scan (General) 2010 COVID-19 Vaccine ( season) 2024 06/16/2022, 09/20/2021, 02/14/2021, Additional history exists Influenza Adult (#1) 2024 08/14/2019, 07/29/2018, 02/07/2016, Additional history exists PHQ-2 (Physician [place]) 11/26/2024 Pneumococcal Vaccine: 65+ Years Completed 08/20/2020, 10/07/2019, 2018 RSV Immunization or 60+ Years Completed 07/31/2023 Meningococcal B Vaccine Aged Out No l onger eligible based on patient's age to complete this topic Meningococcal Vaccine Aged Out No gayla anival eligible based on patient's age to complete this topic RSV Immunizations Under 20 Months Aged Out No longer eligible based on patient's age to complete this topic Insurance [facility] Care Teams Social Media Content Manager Relationship Specialty Start Date End Date Thad Mitchell MD [address] [facility] [address] [place] [address] PCP - General INTERNAL MEDICINE 01/04/23
[2025-01-08 12:42] LABS: Basophils Percent Auto 0.4 % (0.2-1.2); Eosinophils Absolute Auto 0.1 K/mm3 (0-0.3); Eosinophils Percent Auto 0.6 % (0-4.4); Hemoglobin 13.4 g/dL (12.0-15.0); Immature Granulocyte Absolute 0.03 K/mm3 (0.00-0.031); Immature Granulocyte Percent A 0.4 % (0-0.5); Lymphocytes Absolute Auto 2.96 K/mm3 (0.9-3.2); Lymphocytes Percent Auto 35.6 % (18.3-44.2); Mean Corpuscular HGB Conc 32.7 g/dl (32-36); Mean Corpuscular Hemoglobin 29.6 pg (26-34); Mean Corpuscular Volume 90.7 fl (80-100); Monocytes Absolute Auto 0.7 K/mm3 (0.1-0.6); Monocytes Percent Auto 8.7 % (2.6-8.5); Neutrophils Absolute Auto 4.5 K/mm3 (1.3-6.7); Neutrophils Percent Auto 54.3 % (45.5-73.1); Platelet Count Result 170 k/mm3 (150-375); Red Blood Count 4.52 M/mm3 (4.2-5.4); Red Cell Distribution Width 14.6 % (11.5-14.5); White Blood Count 8.3 K/mm3 (4.5-10.0)
[2025-01-08 13:01] LABS: Alanine Aminotransferase 23 U/L (6-35); Albumin Level 4.2 g/dL (3.5-5.1); Alkaline Phosphatase 95 U/L (38-126); Anion Gap 12 mmol/L (4-12); Aspartate Amino Transferase 40 U/L (14-36); Bilirubin,Total 0.8 mg/dL (0.2-1.3); Blood Urea Nitrogen 18 mg/dL (7-17); Calcium 8.8 mg/dL (8.4-10.2); Carbon Dioxide 25 mmol/L (22-30); Chloride 101 mmol/L (98-107); Cholesterol 150 mg/dL (0-200); Estimated Glomerular Filt Rate 52; Glucose 99 mg/dL (65-110); HDL Direct 42 mg/dL; Potassium 4.5 mmol/L (3.4-5.0); Sodium 138 mmol/L (137-145); Triglycerides 92 mg/dL (<150)
[2025-01-08 13:12] LABS: LDL Cholesterol Direct 86 mg/dL
[2025-01-08 18:53] LABS: Free T4 Free Thyroxine 1.39 ng/dL (0.78-2.19); Vitamin D 25 Hydroxy 60.4 ng/mL
== END 2025-01-08 12:19 | disposition home or self-care (01) ==
LOC: ANHLAB 12:19
PROVIDERS: PCP Internal Medicine; Visit Provider Internal Medicine
DX: I10 Essential (primary) hypertension (principal); Z79.899 Other long term (current) drug therapy; E78.2 Mixed hyperlipidemia; Z13.29 Encounter for screening for other suspected endocrine disorder; E55.9 Vitamin D deficiency, unspecified; E78.5 Hyperlipidemia, unspecified
CPT/HCPCS: 36415; 80053; 80061; 82306; 84439; 84443; 85025; 85610

== ENCOUNTER 2025-01-28 14:57 | Outpatient (CLI) | payer MEDICARE, SELFPAY ==
[2025-01-28 15:24] LABS: Add Urine Microscopic? YES; Appearance Urine Clear (Clear); Bacteria Urine None Seen /hpf; Bilirubin Urine Negative (Negative); Blood Urine Trace (Negative); Color Urine Yellow (Yellow); Glucose Urine UA Negative (Negative); Ketones Urine Negative (Negative); Leukocyte Esterase Ur Negative LEU/UL (Negative); Nitrate Urine Negative (Negative); Protein Urine Negative (Negative); RBC Urine 0-2 /hpf (0-2); Specific Grav Ur 1.011 (1.001-1.035); Squamous Epithelial Cell Urine Occasional /hpf (Few); Urobilinogen Urine 0.2 mg/dL (<2.0); WBC Urine 0-5 /hpf (0-3)
--- OUTSIDE RECORDS SUMMARY | 2025-01-28 16:47 | XMS_ITS | Encounter Summary ---
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 Gender Identity Not on file Sexual Orientation Not on file documented as of this encounter Plan of Treatment Not on file documented as of this encounter Procedures Procedure Name Priority Date/Time Associated Diagnosis Comments SCAN - RADIOLOGY/IMAGING 01/26/2024 documented in this encounter Results * SCAN - RADIOLOGY/IMAGING (01/26/2024) Anatomical Region Laterality Modality Other Delores Good STEPDOWN NURSE Final Result documented in this encounter Visit Diagnoses Not on filedocumented in this encounter Care Teams Pattern Wheel Maker Relationship Specialty Start Date End Date Thad Mitchell MD [address] [place] [address] PCP - General 03/20/18 documented as of this encounter
--- OUTSIDE RECORDS SUMMARY | 2025-01-28 16:47 | XMS_ITS | Clinical Summary ---
Author Organization [facility] Address [address] Knight: Epic Prelude ADT [place] [address] Care Team Providers Care Director Of People Name Role Phone Darrick Santos MD Primary Care Provider [phone] Social History Tobacco Use Types Packs/Day Years Used Date Smoking Tobacco: Never Assessed Comments Unknown Sex and Gender Information Value Date Recorded Sex Assigned at Not on file Legal Sex Female 3:18 AM AWNING SPREADER Gender Identity Not on file Sexual Orientation Not on file Plan of Treatment Health Maintenance Due Date Last Done Comments DTAP/TDAP/TD VACCINES (1 - Tdap) 1964 PNEUMOCOCCAL VACCINE 50+ YEARS (1 of 1 - PCV) 09/28/19 95 ZOSTER VACCINE (1 of 2) 1995 OSTEOPOROSIS SCREENING 2010 RSV VACCINE (60+ or ) (1 - 1-dose 75+ series) 2020 INFLUENZA VACCINE (#1) 2024 Care Teams Director Of People Relationship Specialty Start Date End Date Darrick Santos MD [address] [facility] [facility] [place] [address] PCP - General 04/13/03
--- OUTSIDE RECORDS SUMMARY | 2025-01-28 16:47 | XMS_ITS | Referral Summary ---
Author Organization [facility] Address [address] [place] [address] Care Team Providers Care Chain Sales Consultant Name Role Phone Thad Mitchell MD Primary Care Provider [phone] Source Comments [facility],non-owned Affiliates and Associated Physician Practices is amultiple site organization consisting of ambulatory clinics and hospital sitesin [place], [place], [place] and [place]. This disclosure is being madepursuant to the Care Everywhere program and may not contain all information available regarding this patient. Last updated 18.[facility] AddThis Allergies No known active allergies Medications * [...] 2:40 PM 03/23/2021 12:44 PM Care Teams Chain Sales Consultant Relationship Specialty Start Date End Date Thad Mitchell MD [address] [place] [address] PCP - General Internal Medicine 03/16/21
--- OUTSIDE RECORDS SUMMARY | 2025-01-28 16:47 | XMS_ITS | Encounter Summary ---
Author Organization [facility] Address [address] [place] [address] Care Team Providers Care Borderer Name Role Phone Darrick Santos MD Primary Care Provider [phone] Encounter Details Date Type Department Care Team (Late st Contact Info) Description 11/09/2003 Outpatient Historical [facility] Andrew Hirsch MD [address] [facility] [address] [place] [address] SCREENING MAL NEOP-COLON (Primary Dx) Social History Tobacco Use Types Packs/Day Years Used Date Smoking Tobacco: Never Assessed Comments Unknown Sex and Gender Information Value Date Recorded Sex Assigned at Not on file Legal Sex Female 3:18 AM SPORTS JOURNALIST Gender Identity Not on file Sexual Orientation Not on file documented as of this encounter Plan of Treatment Not on file documented as of this encounter Visit Diagnoses Diagnosis Special screening for malignant neoplasms, colon- Primary documented in this encounter Care Teams Borderer Relationship Specialty Start Date End Date Darrick Santos MD [address] [facility] [address] [place] [address] PCP - General 04/13/03 documented as of this encounter
--- OUTSIDE RECORDS SUMMARY | 2025-01-28 16:47 | XMS_ITS | Encounter Summary ---
Author Organization [facility] Address [address] [place] [address] Care Team Providers Care Economic Development Specialist Name Role Phone Darrick Santos MD Primary Care Provider [phone] Encounter Details Date Type Department Care Team (Latest Contact Info) Description 11/09/2003 Outpatient Historical HIS [facility] BIBI Estrada, Ilya Pittman MD [address] [facility] [address] [place] [address] [facility] ANTICOAG USE (Primary Dx) Social History Tobacco Use Types Packs/Day Years Used Date Smoking Tobacco: Never Assessed Comments Unknown Sex and Gender Information Value Date Recorded Sex Assigned at Not on file Legal Sex Female 3:18 AM ROLL HAULER Gender Identity Not on file Sexual Orientation Not on file documented as of this encounter Plan of Treatment Not on file documented as of this encounter Visit Diagnoses Diagnosis snf (current) use of anticoagulants- Primary Long-term (current) use of anticoagulants documented in this encounter Care Teams Economic Development Specialist Relationship Specialty Start Date End Date Darrick Santos MD [address] [facility] [address] [place] [address] PCP - General 04/13/03 documented as of this encounter
--- OUTSIDE RECORDS SUMMARY | 2025-01-28 16:47 | XMS_ITS | Clinical Summary ---
Author Organization [facility] Address [address] [place] [address] Care Team Providers Care Senior Interactive Developer Name Role Phone Thad Mitchell MD Primary Care Provider [phone] Allergies Active Allergy Reactions Criticality Noted Date Comments Amiodarone Unknown Medium 01/30/2024 Codeine Stomach upset Low 10/30/2014 Stomach/GI Upset Hydroxyzine Unknown Medium 01/30/2024 Medications omega 0-kok-elo-fish oil 300-1,000 mg capsule 8 Active cyanocobalamin/ folic acid (VITAMIN W84-TDTVU ACID) 1,000-400 mcg tablet, sublingual Place under [...] on a recent echocardiogram. Asymptomatic. Follow. A-fib 11/24/2021 Atypical atrial flutter 09/06/2021 Assessment & Plan (02/17/2022 4:17 PM CDT): Rhythm regular and completely paced. Continue warfarin. Assessment & Plan (11/08/2021 3:04 PM SAS ARCHITECT): Persistent, probably atypical, symptomatic rapidly conducted atrial [...] 1 year w/ confocal Paroxysmal atrial fibrillation Assessment & Plan (11/08/2021 3:02 PM SAS ARCHITECT): As above. Recommend AVJ/pacing for definitive rate [...] Encounters Date Type Department Care Team Description 01/21/2025 Anticoagulation Visit [facility] Cardiology [address] [place] [address] [place] [phone] Adelaida Hugo RN H/O mechanical aortic valve replacement (Primary Dx) 01/08/2025 Anticoagulation Visit [facility] Cardiology [address] [place] [address] [place] [address] Jorge Ying RN H/O mechanical aortic valve replacement (Primary Dx) 12/18/2024 Anticoagulation Visit [facility] Cardiology [address] [place] [address] [place] [address] Jorge Ying RN H/O mechanical aortic valve replacement (Primary Dx) 12/17/2024 10:30 AM SAS ARCHITECT Ancillary Procedure [facility] Cardiology [address] [place] [address] [place] [phone] Pacemaker; Atrial fibrillation, unspecified type (HCC); Heart failure, unspecified (HCC) 12/17/2024 Orders Only [facility] Cardiology [address], [place] [address] Cali Van MD Pacemaker (Primary Dx); Heart failure, unspecified (HCC); Permanent atrial fibrillation (HCC) 11/24/2024 11:15 AM SAS ARCHITECT Office Visit [facility] [address] [facility] 6th [address] [place] [phone] Cherry, Brenda Jackson NP Agitation (Primary Dx) 11/05/2024 Anticoagulation Visit [facility] Cardiology [address] [place] [address] Jorge Ying RN H/O mechanical aortic valve replacement (Primary Dx) from Last 3 Months Surgical History Surgery Date Site/Laterality Comments CORONARY ARTERY BYPASS GRAFT HYSTERECTOMY Medical History Medical History Date Comments Anemia A-fib (HCC) CHF (congestive heart failure) (HCC) Cancer (HCC) Stroke (HCC) Hearing loss [place] (myocardial infarction) (HCC) Family History Medical History [...] on file Legal Sex Female 10:30 PM SAS ARCHITECT Gender Identity Not on file Sexual Orientation Not on file Obstetrics History Last Filed Vital Signs Vital Sign Reading Time Taken Comments Blood Pressure 114/61 11/24/2024 11:12 AM SAS ARCHITECT Pulse 60 11/24/2024 11:12 AM SAS ARCHITECT Temperature 36.4 C (97.5 F) 11/24/2024 11:12 AM SAS ARCHITECT Respiratory Rate 16 11/06/2023 1:55 PM SAS ARCHITECT Oxygen Saturation 98% 11/24/2024 11:12 AM SAS ARCHITECT Inhaled Oxygen Concentration - - Weight 42.6 kg (94 lb) 11/24/2024 11:12 AM SAS ARCHITECT Height 152.4 cm (5') 11/24/2024 11:12 AM SAS ARCHITECT Body Mass Index 18.36 11/24/2024 11:12 AM SAS ARCHITECT Plan of Treatment Health Maintenance Due Date [...] 10/07/2019, 2018 Medical Devices Implanted Type Area Mental Health Coordinator Device Identifier Shelf Expiration Date Model / Serial / Lot [employer] 8tc/58 Tendril Sts 6fr 58cm Is-1 Connector Active Fixation Bipolar Soft - [id number] - [id number] Implanted:Qty : 1 on 11/24/2021 by Aldo Florian III, MD at [facility] Lead [employer] [id number] 08/25/2024 2088TC/58 / [id number] / [employer] 1458q/86 Quartet 5fr [id number] 4 Electrode Is-4 Connector Steerable Tip - [id number] - [id number] Implanted:Qty : 1 on 11/24/2021 by Aldo Florian III, MD at [facility] Lead [employer] [id number] 08/25/2024 1458Q/86 / [id number] / [employer] [id number] Pacemaker Quadra Allure Mp Rf Home Care Rn-P Mri - [id number] - [id number] Implanted:Qty : 1 on 11/24/2021 by Aldo Florian III, MD at [facility] Pacemaker [employer] [id number] 04/25/2023 PM356 2 / [id number] / Procedures Procedure Name Priority Date/Time Associated Diagnosis Comments PROTIME-INR Routine 01/20/2025 PROTIME-INR Routine 01/08/2025 DEVICE CHECK - IN OFFICE Routine 12/17/2024 10:24 AM SAS ARCHITECT Pacemaker Atrial fibrillation, unspecified type (HCC) Heart failure, unspecified (HCC) PROTIME-INR Routine 12/17/2024 PROTIME-INR Routine 11/04/2024 from Last 3 Months Results * (ABNORMAL) Protime-INR (01/20/2025) INR 2.00(A) 0.90 - 1.10 EXTERNAL LAB Blood Historical Provider MD LAB BLOOD ORDERABLES Martha l Result EXTERNAL LAB * (ABNORMAL) Protime-INR (01/08/2025) INR 3.60(A) 0.90 - 1.10 EXTERNAL LAB Blood Historical Provider MD LAB BLOOD ORDERABLES Martha l Result EXTERNAL LAB * DEVICE CHECK - IN OFFICE (12/17/2024 10:24 AM SAS ARCHITECT) Anatomical Region Laterality Modality Other Narrative 12/18/2024 2:43 PM SAS ARCHITECT Veras Quadra Allure BIV Pacemaker. Dx; CHF, [...] f/u 03/17/2026. Roseline remote f/u 03/24/2025. Laura Barber RN Cali Van MD CV CARDIAC SERVICES PROC EDURES Final Result * (ABNORMAL) Protime-INR (12/17/2024) INR 3.30(A) 0.90 - 1.10 EXTERNAL LAB Blood Historical Provider MD LAB BLOOD ORDERABLES Martha l Result EXTERNAL LAB * (ABNORMAL) Protime-INR (11/04/2024) INR 2.50(A) 0.90 - 1.10 EXTERNAL LAB Blood Result [facility] Historical Provider MD LAB BLOOD ORDERABLES Martha l Result EXTERNAL LAB from Last 3 Months Insurance [facility] MEDICARE Address: [facility] [address] [place] [id number] MEDICARE [employer] Advance Directives For more information, please contact: [phone] Documents on File Type Date Recorded Patient Manufacturing Supervisor Expl anation Power of Prepared Foods Team Leader 09/18/2023 1:16 PM * Full Code (Latest Code Status on File) Date Activated Date Inactivated Comments 11/24/2021 4:37 PM 11/25/2021 4:06 PM Care Teams Senior Interactive Developer Relationship Specialty Start Date End Date Thad Mitchell MD [address] [facility] [address] [place] [id number] PCP - General 03/20/18
--- OUTSIDE RECORDS SUMMARY | 2025-01-28 16:47 | XMS_ITS | Encounter Summary ---
Author Organization [facility] Address [address] [place] [address] Care Team Providers Care Hand Splitter Name Role Phone Darrick Santos MD Primary Care Provider [phone] Encounter Details Date Type Department Care Team (Latest Contact Info) Description 09/17/2006 Outpatient Historical HIS [facility] Darrick Hayes MD [address] [place], [place] [phone] Other Screening Mammogram (Primary Dx) Social History Tobacco Use Types Packs/Day Years Used Date Smoking Tobacco: Never Assessed Comments Unknown Sex and Gender Information Value Date Recorded Sex Assigned at Not on file Legal Sex Female 3:18 AM PROJECT DRILLING ENGINEER Gender Identity Not on file Sexual Orientation Not on file documented as of this encounter Plan of Treatment Not on file documented as of this encounter Visit Diagnoses Diagnosis Other screening mammogram- Primary documented in this encounter Care Teams Hand Splitter Relationship Specialty Start Date End Date Darrick Santos MD [address] [place] [address] PCP - General 04/13/03 documented as of this encounter
--- OUTSIDE RECORDS SUMMARY | 2025-01-28 16:47 | XMS_ITS | Encounter Summary ---
Author Organization [facility] Healthcare Address [address] [place] [address] Care Team Providers Care Tile Fitter Name Role Phone Thad Mitchell MD Primary Care Provider [phone] Encounter Details Date Type Department Care Team (Late st Contact Info) Description 05/20/2024 Orders Only [facility] [place] Health Information Management [address] [place] [address] Scanning, Provider Social History Tobacco Use Types [...] on file Legal Sex Female 10:30 PM CASE MANAGEMENT ASSISTANT Gender Identity Not on file Sexual Orientation [...] on filedocumented in this encounter Care Teams Tile Fitter Relationship Specialty Start Date End Date Thad Mitchell MD [address] [facility] [address] [place], [place] [phone] PCP - General 03/20/18 documented as of this encounter
--- OUTSIDE RECORDS SUMMARY | 2025-01-28 16:47 | XMS_ITS | Referral Summary ---
Author Organization [facility] Address [address] [place] [address] Care Team Providers Care Airport Location Manager Name Role Phone Thad Mitchell MD Primary Care Provider [phone] Encounters Date Type Department Care Team Description 01/21/2025 Anticoagulation Visit [facility] Cardiology [address] [place] [address] [place] [phone] Adelaida Hugo RN H/O mechanical aortic valve replacement (Primary Dx) 01/08/2025 Anticoagulation Visit [facility] Cardiology [address] [place] [address] [place] [phone] Jorge Ying RN H/O mechanical aortic valve replacement (Primary Dx) 12/18/2024 Anticoagulation Visit [facility] Cardiology [address] [place] [address] [place] [phone] Jorge Ying RN H/O mechanical aortic valve replacement (Primary Dx) 12/17/2024 Orders Only [facility] Cardiology [address] [facility] [address] [place] [phone] Cali Van MD Pacemaker (Primary Dx); Heart failure, unspecified (HCC); Permanent atrial fibrillation (HCC) 12/17/2024 10:30 AM NUCLEAR POWER REACTOR OPERATOR Ancillary Procedure [facility] Cardiology [address] [place] [address] [place] [phone] Pacemaker; Atrial fibrillation, unspecified type (HCC); Heart failure, unspecified (HCC) 11/24/2024 11:15 AM NUCLEAR POWER REACTOR OPERATOR Office Visit [facility] [address] [facility] 6th [address] [place] [address] Brenda Cherry NP Agitation (Primary Dx) 11/05/[address] [facility] Cardiology [address] [place] [address] Jorge Ying RN H/O mechanical aortic valve replacement (Primary Dx) from Last 3 Months Allergies Active Allergy Reactions Criticality Noted Date Comments Amiodarone Unknown Medium 01/30/2024 Codeine Stomach upset Low 10/30/2014 Stomach/GI Upset Hydroxyzine Unknown Medium 01/30/2024 Medications omega 8-ota-dhc-fish oil 300-1,000 mg capsule 8 Active cyanocobalamin/ folic acid (VITAMIN L85-GIQXB ACID) 1,000-400 mcg tablet, sublingual Place under [...] warfarin. Assessment & Plan (11/08/2021 3:04 PM NUCLEAR POWER REACTOR OPERATOR): Persistent, probably atypical, symptomatic rapidly conducted atrial [...] 05/22/2021 H/O mechanical aortic valve replacement 04/11/20 Assessment & Plan (02/17/2022 4:17 PM CDT): [...] & Plan (2022 2:51 PM CDT): Confocal 2018 2019 TODAY OD [phone] OS [...] fibrillation Assessment & Plan (11/08/2021 3:02 PM NUCLEAR POWER REACTOR OPERATOR): As above. Recommend AVJ/pacing for definitive rate [...] on file Legal Sex Female 10:30 PM NUCLEAR POWER REACTOR OPERATOR Gender Identity Not on file Sexual Orientation Not on file Last Filed Vital Signs Vital Sign Reading Time Taken Comments Blood Pressure 114/61 11/24/2024 11:12 AM NUCLEAR POWER REACTOR OPERATOR Pulse 60 11/24/2024 11:12 AM NUCLEAR POWER REACTOR OPERATOR Temperature 36.4 C (97.5 F) 11/24/2024 11:12 AM NUCLEAR POWER REACTOR OPERATOR Respiratory Rate 16 11/06/2023 1:55 PM NUCLEAR POWER REACTOR OPERATOR Oxygen Saturation 98% 11/24/2024 11:12 AM NUCLEAR POWER REACTOR OPERATOR Inhaled Oxygen Concentration - - Weight 42.6 kg (94 lb) 11/24/2024 11:12 AM NUCLEAR POWER REACTOR OPERATOR Height 152.4 cm (5') 11/24/2024 11:12 AM NUCLEAR POWER REACTOR OPERATOR Body Mass Index 18.36 11/24/2024 11:12 AM NUCLEAR POWER REACTOR OPERATOR Plan of Treatment Not on file Medical Devices Implanted Type Area Cement Grinding Mill Operator Device Identifier Shelf Expiration Date Model / Serial / Lot [employer] 8tc/58 Tendril Sts 6fr 58cm Is-1 Connector Active Fixation Bipolar Soft - [id number] - [id number] Implanted:Qty : 1 on 11/24/2021 by Aldo Florian III, MD at [facility] Lead [employer] [id number] 08/25/2024 2088TC/58 / [id number] / [employer] 1458q/86 Quartet 5fr [id number] Electrode Is-4 Connector Steerable Tip - [id number] - [id number] Implanted:Qty : 1 on 11/24/2021 by Aldo Florian III, MD at [facility] Lead [employer] [id number] 08/25/2024 1458Q/86 / [id number] / [employer] [id number] Pacemaker Quadra Allure Mp Rf Marketing Automation Manager-P Mri - [id number] - [id number] Implanted:Qty : 1 on 11/24/2021 by Aldo Florian III, MD at [facility] Pacemaker [employer] [id number] 04/25/2023 PM356 2 / [id number] / Procedures Procedure Name Priority Date/Time Associated Diagnosis Comments PROTIME-INR Routine 01/20/2025 PROTIME-INR Routine 01/08/2025 DEVICE CHECK - IN OFFICE Routine 12/17/2024 10:24 AM NUCLEAR POWER REACTOR OPERATOR Pacemaker Atrial fibrillation, unspecified type (HCC) Heart failure, unspecified (HCC) PROTIME-INR Routine 12/17/2024 PROTIME-INR Routine 11/04/2024 from Last 3 Months Results * (ABNORMAL) Protime-INR (01/20/2025) INR 2.00(A) 0.90 - 1.10 EXTERNAL LAB Blood us Historical Provider MD LAB BLOOD ORDERABLES Martha l Result Performing Organization Address City[facility] Co de Phone Number EXTERNAL LAB * (ABNORMAL) Protime-INR (01/08/2025) INR 3.60(A) 0.90 - 1.10 EXTERNAL LAB Blood Result [facility] Historical Provider MD LAB BLOOD ORDERABLES Martha l Result Performing Organization Address [facility] Co de Phone Number EXTERNAL LAB * DEVICE CHECK - IN OFFICE (12/17/2024 10:24 AM NUCLEAR POWER REACTOR OPERATOR) Anatomical Region Laterality Modality Other Narrative 12/18/2024 2:43 PM NUCLEAR POWER REACTOR OPERATOR Veras Quadra Allure BIV Pacemaker. Dx; CHF, Afib/Aflutter. DOI 11/24/2021-[place]. Van- [place] remote monitoring. Programmed VVIR. Bill for dual [...] remote f/u 03/24/2025. Laura Barber, EVELIO Result [facility] Cali Van MD CV CARDIAC SERVICES PROC EDURES Final Result * (ABNORMAL) Protime-INR (12/17/2024) INR 3.30(A) 0.90 - 1.10 EXTERNAL LAB Blood Result [facility] Historical Provider LAB BLOOD ORDERABLES Martha l Result Performing Organization Address [facility] Co de Phone Number EXTERNAL LAB * (ABNORMAL) Protime-INR (11/04/2024) INR 2.50(A) 0.90 - 1.10 EXTERNAL LAB Blood us Historical Provider LAB BLOOD ORDERABLES Martha hernandez Result EXTERNAL LAB from Last 3 Months Insurance [employer] Advance Directives For more information, please contact: [phone] Documents on File Type Date Recorded Patient Form Tamping Machine Operator Expl anation Power of Manager Government 09/18/2023 1:16 PM * Full Code (Latest Code Status on File) Date Activated Date Inactivated Comments 11/24/2021 4:37 PM 11/25/2021 4:06 PM Care Teams Airport Location Manager Relationship Specialty Start Date End Date Thad Mitchell MD [address] [facility] [address] [place] [address] PCP - General 03/20/18
--- OUTSIDE RECORDS SUMMARY | 2025-01-28 16:47 | XMS_ITS | Clinical Summary ---
Author Organization [facility] Address [address] [place] [address] Care Team Providers Care Shank Pinner Name Role Phone Thad Mitchell MD Primary Care Provider [phone] Source Comments [facility],non-owned Affiliates and Associated Physician Practices is amultiple site organization consisting of ambulatory clinics and hospital sitesin [place], [place], [place] and [place]. This disclosure is being madepursuant to the Care Everywhere program and may not contain all information available regarding this patient. Last updated 18.[facility] Allergies No known active allergies Medications * [...] 2:40 PM 03/23/2021 12:44 PM Care Teams Shank Pinner Relationship Specialty Start Date End Date Thad Mitchell MD [address] [place] [address] PCP - General Internal Medicine 03/16/21
--- OUTSIDE RECORDS SUMMARY | 2025-01-28 16:47 | XMS_ITS | Clinical Summary ---
Author Organization [facility] Address [address] [place] [address] Care Team Providers Care Pulpwood Buyer Name Role Phone Thad Mitchell MD Primary Care Provider [phone] Allergies Active Allergy Reactions Criticality Noted Date [...] (NORCO) 7.5-325 MG tablet 4 Active NYSTATIN 301859 UNIT/GM powder 4 Active warfarin (COUMADIN) 1 MG tablet TAKE 1 TABLET BY MOUTH ON Sunday AND 1 AND 1/2 TABLETS BY MOUTH ALL OTHER DAYS OR INSTRUCTED 4 Active Active Problems Problem Noted Date Diagnosed Date Cerebrovascular accident ([facility]) 02/04 Overview (02/05/2024): Last Assessment & Plan: Residual left-sided weakness No lagophthalmos PEE OS Intraparenchymal hematoma of brain ([facility]) 02/05/2024 Paroxysmal atrial fibrillation ([facility]) 02/05/2024 Overview (02/05/2024): Last Assessment & Plan: [...] on a recent echocardiogram. Asymptomatic. Follow. A-fib ([facility]) 11/24/2021 Atypical atrial flutter ([facility]) 2020 Overview (02/05/2024): Last Assessment & Plan: [...] Due Date Last Done Comments PHQ-2 (Physician [place]) 1957 Hepatitis C 1963 DTaP, Tdap and Td Vaccines (1 - Tdap) 1964 Zoster Vaccines (1 of 2) 1995 Annual Medicare Wellness Visit 2010 Dexa Scan (General) 2010 COVID-19 Vaccine ( season) 2024 06/16/2022, 09/20/2021, 02/14/2021, Additional history exists Influenza Adult (#1) 2024 08/14/2019, 07/29/2018, 02/07/2016, Additional history exists PHQ-2 (Physician [place]) 11/26/2024 Pneumococcal Vaccine: 65+ Years Completed 08/20/2020, [...] patient's age to complete this topic Insurance [facility] Care Teams Pulpwood Buyer Relationship Specialty Start Date End Date Thad Mitchell MD [address] - [facility] [address] [place] [address] PCP - General INTERNAL MEDICINE 01/04/23
--- OUTSIDE RECORDS SUMMARY | 2025-01-28 16:47 | XMS_ITS | Encounter Summary ---
Author Organization [facility] Address [address] [place] [address] Care Team Providers Care Outside Sales Account Manager Name Role Phone Darrick Santos MD Primary Care Provider [phone] Encounter Details Date Type Department Care Team (Latest Contact Info) Description 04/13/2003 Outpatient Historical [facility] Darrick Hayes MD [address] [place] [address] SCREENING MAMM-MAILG NEOPL-OTHER (Primary Dx) Social History Tobacco Use Types Packs/Day Years Used Date Smoking Tobacco: Never Assessed Comments Unknown Sex and Gender Information Value Date Recorded Sex Assigned at Not on file Legal Sex Female 3:18 AM PRODUCT ENGINEER Gender Identity Not on file Sexual Orientation Not on file documented as of this encounter Plan of Treatment Not on file documented as of this encounter Visit Diagnoses Diagnosis Other screening mammogram- Primary documented in this encounter Care Teams Outside Sales Account Manager Relationship Specialty Start Date End Date Darrick Santos MD [address] [place] [address] PCP - General 04/13/03 documented as of this encounter
--- OUTSIDE RECORDS SUMMARY | 2025-01-28 16:47 | XMS_ITS | Encounter Summary ---
Author Organization [facility] Address [address] [place] [address] Care Team Providers Care Contract Programmer Name Role Phone Thad Mitchell MD Primary Care Provider [phone] Encounter Details Date Type Department Care Team (Late st Contact Info) Description 03/21/2024 Telephone [facility] Cardiology [address] [address] Cali Van MD [address] [facility] [address] [place] [address] Social History Tobacco Use Types [...] on file Legal Sex Female 10:30 PM REGISTERED OCCUPATIONAL THERAPIST Gender Identity Not on file Sexual Orientation Not on file documented as of this encounter Plan of Treatment Not on file documented as of this encounter Visit Diagnoses Not on filedocumented in this encounter Care Teams Contract Programmer Relationship Specialty Start Date End Date Thad Mitchell MD [address] [facility] [address] [place] [address] PCP - General 03/20/18 documented as of this encounter
--- OUTSIDE RECORDS SUMMARY | 2025-01-28 16:47 | XMS_ITS | Encounter Summary ---
Author Organization [facility] Address [address] [place] [address] Care Team Providers Care Bleacher Sulfite Pulp Name Role Phone Darrick Santos MD Primary Care Provider [phone] Encounter Details Date Type Department Care Team (Latest Contact Info) Description 04/03/2002 Outpatient Historical HIS [facility] Darrick Hayes MD [address] [place] [address] SCREENING MAMM-MAILG NEOPL-OTHER (Primary Dx) Social History Tobacco Use Types Packs/Day Years Used Date Smoking Tobacco: Never Assessed Comments Unknown Sex and Gender Information Value Date Recorded Sex Assigned at Not on file Legal Sex Female 3:18 AM SIMULATION SPECIALIST Gender Identity Not on file Sexual Orientation Not on file documented as of this encounter Plan of Treatment Not on file documented as of this encounter Visit Diagnoses Diagnosis Other screening mammogram- Primary documented in this encounter Care Teams Bleacher Sulfite Pulp Relationship Specialty Start Date End Date Darrick Santos MD [address] [place] [address] PCP - General 04/13/03 documented as of this encounter
--- OUTSIDE RECORDS SUMMARY | 2025-01-28 16:47 | XMS_ITS | Patient Health Summary ---
Author Organization [facility] Address [address] [place] [address] Care Team Providers Care Nuclear Chemistry Technician Name Role Phone Thad Mitchell MD Primary Care Provider [phone] Note from [facility],non-owned Affiliates and Associated Physician Practices is amultiple site organization consisting of ambulatory clinics and hospital sitesin [place], [place], [place] and [place]. This disclosure is being madepursuant to the Care Everywhere program and may not contain all information available regarding this patient. Last updated 18.[facility] Allergies No known active allergies Medications * [...] right, without loss of consciousness, initial encounter ([facility]) * TYPE + SCREEN PANEL(Performed 03/16/2021) * TROPONIN I(Performed 03/16/2021) * PT-INR [facility](Performed 03/16/2021) * COMPREHENSIVE METABOLIC PANEL(Performed 03/16/2021) * CBC W AUTO DIFFERENTIAL(Performed 03/16/2021) * CT ANGIO BRAIN(Performed 03/16/2021) Performed for Weakness * CREATININE - POCT INTERFACED(Performed 03/16/2021) * CT BRAIN STROKE(Performed 03/16/2021) Performed for Weakness * GROSS + MICRO EXAM(Performed 07/24/2001) Results * PT-INR [facility] (03/23/2021 1:30 AM CDT) Only the most recent of8 resultswithin the time period is included. PT 14.1 12.1 - 14.8 Seconds 03/23/2021 2:20 AM CDT [facility] INR 1.1 See Comment 03/23/2021 2:20 AM CDT [facility] Comment:The suggested therap eutic range for standard coumadin (warfarin) therapy is an INR of 2.0-3.0. For high-risk patients (Mechanical Mitral Valve Prosthesis, etc.), the suggested prophylactic therapeutic range is an INR of 2.5-3.5. Blood BLOOD SPECIMEN / Unknown Lab Venipuncture / Unknown 03/23/2021 1:30 AM CDT 03/23/2021 2:10 AM CDT Aidan Alcaraz MD LAB - COAGULATION O RDERABLES [facility] [address] [place] [address], [facility] [phone] * (ABNORMAL) CBC W/O DIFFERENTIAL (03/23/2021 1:30 AM [facility]) Only the most recent of7 resultswithin the time period is included. WBC 12.7(H) 3.5 - 10.5 10 3/uL 03/23/2021 2:07 AM [facility] RBC 3.92 3.90 - 5.00 10 6/uL 03/23/2021 2:07 AM [facility] Hemoglobin 11.9(L) 12.0 - 15.5 g/dL 03/23/2021 2:07 AM [facility] Hematocrit 35.3 35.0 - 45.0 % 03/23/2021 2:07 AM [facility] MCV 90.1 81.0 - 97.0 fL 03/23/2021 2:07 AM [facility] MCH 30.4 28.0 - 34.0 pg 03/23/2021 2:07 AM [facility] MCHC 33.7 32.0 - 36.0 g/dL 03/23/2021 2:07 AM [facility] Platelet Count 254 150 - 400 10 3/uL 03/23/2021 2:07 AM [facility] RDW-SD 47.4 36.0 - 50.0 fL 03/23/2021 2:07 AM [facility] RDW-CV 14.4 11.2 - 14.8 % 03/23/2021 2:07 AM [facility] MPV 9.9 9.3 - 12.8 fL 03/23/2021 2:07 AM [facility] nRBC Absolute 0.00 0 10 3/uL 03/23/2021 2:07 AM [facility] nRBC Auto 0.0 0 /100 WBC 03/23/2021 2:07 AM [facility] Blood BLOOD SPECIMEN / Unknown Lab Venipuncture / Unknown 03/23/2021 1:30 AM CDT 03/23/2021 2:02 AM CDT iAdan Alcaraz MD LAB - HEMATOLOGY OR DERABLES [facility] [address] [place] [address], [facility] [phone] * (ABNORMAL) BASIC METABOLIC PANEL (CALCIUM TOTAL) (03/23/2021 1:30 AM CDT) Only the most recent of7 resultswithin the time period is included. BUN 20 7 - 26 mg/dL 03/23/2021 2:27 AM [facility] Creatinine 1.0 0.6 - 1.2 mg/dL 03/23/2021 2:27 AM [facility] Sodium 138 136 - 145 mmol/L 03/23/2021 2:27 AM [facility] Potassium 4.3 3.5 - 4.5 mmol/L 03/23/2021 2:27 AM [facility] Chloride 104 98 - 107 mmol/L 03/23/2021 2:27 AM [facility] CO2 22 22 - 29 mmol/L 03/23/2021 2:27 AM [facility] Glucose 100 70 - 115 mg/dL 03/23/2021 2:27 AM [facility] Calcium 9.0 8.4 - 10.2 mg/dL 03/23/2021 2:27 AM [facility] Anion Gap 16 8 - 18 03/23/2021 2:27 AM [facility] BUN/Creatinine Ratio 20 7 - 23 03/23/2021 2:27 AM [facility] Osmolality Calculated 289 270 - 300 mOsm/kg 03/23/2021 2:27 AM [facility] eGFR 54(L) >60 mL/min/1.7 3 m2 03/23/2021 2:27 AM [facility] Blood BLOOD SPECIMEN / Unknown Lab Venipuncture / Unknown 03/23/2021 1:30 AM CDT 03/23/2021 2:01 AM CDT Aidan Alcaraz MD LAB - CHEMISTRY ORD ERABLES Performing Organization Address City/[facility]/ZIP Co de Phone Number [address] [address], [facility] [phone] * PHOSPHORUS BLOOD (03/23/2021 1:30 AM CDT) Only the most recent of7 resultswithin the time period is included. Phosphorus 4.2 2.3 - 4.7 mg/dL 03/23/2021 2:27 AM CDT [facility] Blood BLOOD SPECIMEN / Unknown Lab Venipuncture / Unknown 03/23/2021 1:30 AM CDT 03/23/2021 2:01 AM CDT Aidan Alcaraz MD LAB - CHEMISTRY ORD ERABLES Performing Organization Address [facility] Co de Phone Number [address] [address], [facility] [phone] * MAGNESIUM BLOOD (03/23/2021 1:30 AM CDT) Only the most recent of7 resultswithin the time period is included. Magnesium 2.0 1.6 - 2.6 mg/dL 03/23/2021 2:27 AM CDT [facility] Blood BLOOD SPECIMEN / Unknown Lab Venipuncture / Unknown 03/23/2021 1:30 AM CDT 03/23/2021 2:01 AM CDT Aidan Alcaraz MD LAB - CHEMISTRY ORD ERABLES [address] [address], [facility] [phone] * SARS-COV-2 (COVID-19) IN HOUSE (03/21/2021 4:01 PM CDT) COVID-19 PCR Not detected Not detected 03/22/2021 1:35 AM CDT [facility]CRO[facility] Microbiology SPECIMEN FROM NASOPHARYNGEAL STRUCTURE / Unknown Collection / Unknown 03/21/2021 4:01 PM CDT 03/21/2021 5:16 PM CDT Narrative [facility] - 03/22/2021 1:35 AM CDT This nucleic acid amplification assay performance was validated by [facility]. This test has been authorized [...] assay are available upon request. Braydon Torres DIESEL MECHANIC FARM-INTERDISCIPLINARY PROFESSOR LAB - MICROBIOLOGY ORDERABLES [facility] [address] [place] [address], [facility] [phone] * CT HEAD WO CONTRAST (03/21/2021 11:31 [...] KIMBERLY DARLING on 03/21/2021 12:52 PM . 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 No enhancing [...] detected Not detected 03/16/20 5:24 PM CDT [facility] Influenza A Rapid ELMA Not Detected Not Detected 03/16/2021 5:24 PM CDT [facility] Influenza B ELMA Rapid Not Detected Not Detected 03/16/2021 5:24 PM CDT [facility] Microbiology SPECIMEN FROM NASOPHARYNGEAL STRUCTURE / Unknown Collection / Unknown 03/16/2021 4:39 PM CDT 03/16/2021 4:55 PM CDT [facility] - 03/16/2021 5:24 PM CDT Influenza assay [...] acid amplification assay performance was validated by [facility]. This test has been authorized by the [...] RDERABLES Performing Organization Address [facility]/ZIP Co de Phone Number [facility] [address] [place] [address], [facility] [phone] * EKG 12-LEAD (03/16/2021 3:12 PM CDT) Pathologist [facility] Ventricular Rate 59 BPM [facility] MUSE Atrial Rate 59 BPM [facility] P-R Interval 230 ms [facility] QRS Duration ms 80 ms [facility] Q-T Interval ms 550 ms [facility] QTC Calculation (Bezet) 544 ms [facility] M[facility] Calculated P [place] 62 degrees [facility] Calculated R [place] -6 degrees [facility] Calculated T [place] 85 degrees [facility] Interpretation EKG SINUS BRADYCARDIA WITH 1ST DEGREE A-V BLOCK CANNOT RULE OUT INFERIOR INFARCT , AGE UNDETERMINED ST & T WAVE ABNORMALITY, CONSIDER ANTERIOR ISCHEMIA ABNORMAL ECG WHEN COMPARED WITH ECG OF 04-AUG-2001 18:13, [place] INTERVAL HAS INCREASED NONSPECIFIC T WAVE ABNORMALITY, IMPROVED IN INFERIOR LEADS T WAVE INVERSION NOW EVIDENT IN ANTERIOR LEADS QT HAS LENGTHENED HR DECREASED BY 21 BPM Confirmed by Dajuan Etienne ([id number]) on 03/19/2021 5:53:11 AM [facility] MUSE 03/16/2021 3:12 PM CDT 03/19/2021 5:53 AM CDT Aidan Alcaraz MD ECG ORDERABLES Performing Organization Address [facility] Co de Phone Number [facility] * TYPE + SCREEN PANEL (03/16/2021 3:05 PM CDT) Pathologist [facility] Antibody Screen NEG 3:54 PM CDT [facility] ABO Rh O NEG 03/16/2021 3:54 PM CDT [facility] Blood Bank BLOOD SPECIMEN / Unknown Venipuncture / Unknown 03/16/2021 3:05 PM CDT 03/16/2021 3:14 PM CDT Romaine Regalado MD LAB - BLOOD BANK ORD ERABLES [facility] [address] [place] [address], [facility] [phone] * (ABNORMAL) CBC W AUTO DIFFERENTIAL (03/16/2021 3:05 PM CDT) WBC 9.2 3.5 - 10.5 10 3/uL 03/16/2021 3:30 PM [facility] RBC 3.84(L) 3.90 - 5.00 10 6/uL 03/16/2021 3:30 PM [facility] Hemoglobin 11.4(L) 12.0 - 15.5 g/dL 03/16/2021 3:30 PM [facility] Hematocrit 34.4(L) 35.0 - 45.0 % 03/16/2021 3:30 PM [facility] MCV 89.6 81.0 - 97.0 fL 03/16/2021 3:30 PM [facility] MCH 29.7 28.0 - 34.0 pg 03/16/2021 3:30 PM [facility] MCHC 33.1 32.0 - 36.0 g/dL 03/16/2021 3:30 PM [facility] Platelet Count 279 150 - 400 10 3/uL 03/16/2021 3:30 PM [facility] RDW-SD 47.7 36.0 - 50.0 fL 03/16/2021 3:30 PM [facility] RDW-CV 14.6 11.2 - 14.8 % 03/16/2021 3:30 PM [facility] MPV 9.4 9.3 - 12.8 fL 03/16/2021 3:30 PM [facility] nRBC Absolute 0.00 0 10 3/uL 03/16/2021 3:30 PM [facility] nRBC Auto 0.0 0 /100 WBC 03/16/2021 3:30 PM [facility] Neutrophils % 70.8(H) 35.0 - 70.0 % 03/16/2021 3:30 PM [facility] Lymphocytes % 15.3(L) 19.7 - 55.1 % 03/16/2021 3:30 PM [facility] Monocytes % 8.9 3.0 - 15.0 % 03/16/2021 3:30 PM [facility] Eosinophils % 4.2 0.0 - 6.0 % 03/16/2021 3:30 PM [facility] Basophil % 0.5 0.0 - 1.5 % 03/16/2021 3:30 PM [facility] Neutrophils Absolute 6.5 1.6 - 7.0 10 3/uL 03/16/2021 3:30 PM [facility] Lymphocyte Absolute 1.4 0.8 - 2.9 10 3/uL 03/16/2021 3:30 PM [facility] Monocytes Absolute 0.82(H) 0.14 - 0.66 10 3/uL 03/16/2021 3:30 PM [facility] Eosinophils Absolute 0.39 0.00 - 0.45 10 3/uL 03/16/2021 3:30 PM [facility] Basophils Absolute 0.05 0.00 - 0.06 10 3/uL 03/16/2021 3:30 PM [facility] Immature Granulocytes % 0.3 0.0 - 1.0 % 03/16/2021 3:30 PM [facility] Blood BLOOD SPECIMEN / Unknown Venipuncture / Unknown 03/16/2021 3:05 PM CDT 03/16/2021 3:14 PM CDT Romaine Regalado MD LAB - HEMATOLOGY ORD ERABLES [facility] [address] [place] [address], [facility] [phone] * (ABNORMAL) COMPREHENSIVE METABOLIC PANEL (03/16/2021 3:05 PM [facility]) BUN 16 7 - 26 mg/dL 03/16/2021 3:40 PM [facility] Creatinine 1.0 0.6 - 1.2 mg/dL 03/16/2021 3:40 PM [facility] Sodium 141 136 - 145 mmol/L 03/16/2021 3:40 PM [facility] Potassium 3.1(L) 3.5 - 4.5 mmol/L 03/16/2021 3:40 PM [facility] Chloride 104 98 - 107 mmol/L 03/16/2021 3:40 PM [facility] CO2 26 22 - 29 mmol/L 03/16/2021 3:40 PM [facility] Glucose 110 70 - 115 mg/dL 03/16/2021 3:40 PM [facility] Calcium 8.3(L) 8.4 - 10.2 mg/dL 03/16/2021 3:40 PM [facility] Protein Total 7.3 6.0 - 8.3 g/dL 03/16/2021 3:40 PM [facility] Albumin 3.6 3.4 - 5.0 g/dL 03/16/2021 3:40 PM [facility] Bilirubin Total 0.7 0.2 - 1.2 mg/dL 03/16/2021 3:40 PM [facility] Alkaline Phosphatase 82 40 - 150 Units/L 03/16/2021 3:40 PM [facility] ALT 17 0 - 55 Units/L 03/16/2021 3:40 PM [facility] AST 31 5 - 34 Units/L 03/16/2021 3:40 PM [facility] Anion Gap 14 8 - 18 03/16/2021 3:40 PM [facility] BUN/Creatinine Ratio 16 7 - 23 03/16/2021 3:40 PM [facility] Osmolality Calculated 294 270 - 300 mOsm/kg 03/16/2021 3:40 PM [facility] Albumin/Globulin Ratio 1.0(L) 1.1 - 2.3 03/16/2021 3:40 PM CDT [facility] eGFR 54(L) >60 mL/min/1.7 3 m2 03/16/2021 3:40 PM CDT [facility] Blood BLOOD SPECIMEN / Unknown Venipuncture / Unknown 03/16/2021 3:05 PM CDT 03/16/2021 3:14 PM CDT Romaine Regalado MD LAB - CHEMISTRY [facility] Organization Address City/State/ZIP Co de Phone Number [facility] [address] [place] [address], [facility] [phone] * CT ANGIO BRAIN (03/16/2021 2:46 PM [...] Unknown LAB - POINT OF CARE ORDERABLES [address] [address], [facility] [phone] * CREATININE - POCT INTERFACED (03/16/2021 2:38 PM CDT) Creatinine POCT 0.76 0.30 - 1.30 mg/dL 03/16/2021 3:11 PM CDT [facility] eGFR >60 >60 mL/min/1.7 3 m2 03/16/2021 3:11 PM CDT [facility] Blood BLOOD SPECIMEN / Unknown 03/16/2021 2:38 PM CDT 03/16/2021 3:11 PM CDT Provider Unknown LAB - POINT OF CARE ORDERABLES Performing Organization Address [facility]/ZIP Co de Phone Number [address] [address], [facility] [phone] * CT BRAIN STROKE (03/16/2021 2:29 PM CDT) Anatomical Region Laterality Modality Head Computed Tomogra phy 03/16/2021 2:37 PM CDT Impressions 03/16/2021 2:53 PM CDT IMPRESSION: 1.Acute intraparenchymal hemorrhage centered in the right basal ganglia, without significant mass effect or midline shift. 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 The above findings were communicated to Dr. Moreno by Diane Boss (resident care supervisor) on 03/16/2021 at 2:43 PM with readback confirmation obtained. Dictated by Diane Boss MD (resident care supervisor). 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 Thegray-white matter differentiation otherwise appears normal. 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 The above findings were communicated to Dr. Moreno by Diane Boss (resident care supervisor) on 03/16/2021 at 2:43 PM with readback confirmation obtained. Dictated by Diane Boss MD (resident care supervisor). This report was approved by Diane Boss on 03/16/2021 2:53 PM . I, Dr. DARSHAN PFEIFFER have personally reviewed and interpreted this examination/study. This report was electronically signed by DARSHAN PFEIFFER on03/16/2021 2:53 PM . Romanie Regalado MD CT ORDERABLES * GROSS + [...] nodules on the base of the leaflet. Card Writer Hand sections of the leaflets are submitted in a single container for decalcification. 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 Malignancy or inflammation is not seen. 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 High [employer] Drafting Teacher bk Pathologist Erich Alexis M.D. [place]. 07/25/2001 1132 <1> CPT code 87830 MISCELLANEOUS SAMPLES / Unknown 07/24/2001 11:57 AM CDT 07/24/2001 11:57 AM CDT Historical Provider LAB - PATHOLOGY/C YTOLOGY ORDERABLES Care Teams Nuclear Chemistry Technician Relationship Specialty Start Date End Date Thad Mitchell MD [address] [facility] [address] [facility] [address] [place] [address] PCP - General Internal Medicine 03/16/21
--- OUTSIDE RECORDS SUMMARY | 2025-01-28 16:47 | XMS_ITS | Encounter Summary ---
Author Organization [facility] Address 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
--- OUTSIDE RECORDS SUMMARY | 2025-01-28 16:47 | XMS_ITS | Encounter Summary ---
Author Organization [facility] Address 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
== END 2025-01-28 14:58 | disposition home or self-care (01) ==
LOC: ANHLAB 15:00
PROVIDERS: PCP Internal Medicine; Visit Provider Internal Medicine
DX: R35.0 Frequency of micturition (principal)
CPT/HCPCS: 81001

== ENCOUNTER 2025-01-29 16:46 | Emergency (ER) | payer MEDICARE, SELFPAY ==
--- OUTSIDE RECORDS SUMMARY | 2025-01-29 17:05 | XMS_ITS | Encounter Summary ---
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
--- OUTSIDE RECORDS SUMMARY | 2025-01-29 17:05 | XMS_ITS | Patient Health Summary ---
Author Organization [facility] Address [address] [place] [address] Care Team Providers Care Automatic Chief Name Role Phone Thad Mitchell MD Primary Care Provider [phone] Note from [facility],non-owned Affiliates and Associated Physician Practices is amultiple site organization consisting of ambulatory clinics and hospital sitesin [place], [place], [place] and [place]. This disclosure is being madepursuant to the Care Everywhere program and may not contain all information available regarding this patient. Last updated 18.[facility] Allergies No known active allergies [...] right, without loss of consciousness, initial encounter ([facility]) * TYPE + SCREEN PANEL(Performed 03/16/2021) * TROPONIN I(Performed 03/16/2021) * PT-INR [facility](Performed 03/16/2021) * COMPREHENSIVE METABOLIC PANEL(Performed 03/16/2021) * CBC W AUTO DIFFERENTIAL(Performed 03/16/2021) * CT ANGIO BRAIN(Performed 03/16/2021) Performed for Weakness * CREATININE - POCT INTERFACED(Performed 03/16/2021) * CT BRAIN STROKE(Performed 03/16/2021) Performed for Weakness * GROSS + MICRO EXAM(Performed 07/24/2001) Results * PT-INR [facility] (03/23/2021 1:30 AM CDT) Only the most recent of8 resultswithin the time period is included. PT 14.1 12.1 - 14.8 Seconds 03/23/2021 2:20 AM CDT [facility] INR 1.1 See Comment 03/23/2021 2:20 AM CDT [facility] Comment:The suggested therap eutic range for standard coumadin (warfarin) therapy is an INR of 2.0-3.0. For high-risk patients (Mechanical Mitral Valve Prosthesis, etc.), the suggested prophylactic therapeutic range is an INR of 2.5-3.5. Blood BLOOD SPECIMEN / Unknown Lab Venipuncture / Unknown 03/23/2021 1:30 AM CDT 03/23/2021 2:10 AM CDT Aidan Alcaraz MD LAB - COAGULATION O RDERABLES [facility] [address] [place] [address], [facility] [phone] * (ABNORMAL) CBC W/O DIFFERENTIAL (03/23/2021 1:30 AM [facility]) Only the most recent of7 resultswithin the time period is included. WBC 12.7(H) 3.5 - 10.5 10 3/uL 03/23/2021 2:07 AM [facility] RBC 3.92 3.90 - 5.00 10 6/uL 03/23/2021 2:07 AM [facility] Hemoglobin 11.9(L) 12.0 - 15.5 g/dL 03/23/2021 2:07 AM [facility] Hematocrit 35.3 35.0 - 45.0 % 03/23/2021 2:07 AM [facility] MCV 90.1 81.0 - 97.0 fL 03/23/2021 2:07 AM [facility] MCH 30.4 28.0 - 34.0 pg 03/23/2021 2:07 AM [facility] MCHC 33.7 32.0 - 36.0 g/dL 03/23/2021 2:07 AM [facility] Platelet Count 254 150 - 400 10 3/uL 03/23/2021 2:07 AM [facility] RDW-SD 47.4 36.0 - 50.0 fL 03/23/2021 2:07 AM [facility] RDW-CV 14.4 11.2 - 14.8 % 03/23/2021 2:07 AM [facility] MPV 9.9 9.3 - 12.8 fL 03/23/2021 2:07 AM [facility] nRBC Absolute 0.00 0 10 3/uL 03/23/2021 2:07 AM [facility] nRBC Auto 0.0 0 /100 WBC 03/23/2021 2:07 AM [facility] Blood BLOOD SPECIMEN / Unknown Lab Venipuncture / Unknown 03/23/2021 1:30 AM CDT 03/23/2021 2:02 AM CDT Aidan Alcaraz MD LAB - HEMATOLOGY OR DERABLES [facility] [address] [place] [address], [facility] [phone] * (ABNORMAL) BASIC METABOLIC PANEL (CALCIUM TOTAL) (03/23/2021 1:30 AM CDT) Only the most recent of7 resultswithin the time period is included. BUN 20 7 - 26 mg/dL 03/23/2021 2:27 AM [facility] Creatinine 1.0 0.6 - 1.2 mg/dL 03/23/2021 2:27 AM [facility] Sodium 138 136 - 145 mmol/L 03/23/2021 2:27 AM [facility] Potassium 4.3 3.5 - 4.5 mmol/L 03/23/2021 2:27 AM [facility] Chloride 104 98 - 107 mmol/L 03/23/2021 2:27 AM [facility] CO2 22 22 - 29 mmol/L 03/23/2021 2:27 AM [facility] Glucose 100 70 - 115 mg/dL 03/23/2021 2:27 AM [facility] Calcium 9.0 8.4 - 10.2 mg/dL 03/23/2021 2:27 AM [facility] Anion Gap 16 8 - 18 03/23/2021 2:27 AM [facility] BUN/Creatinine Ratio 20 7 - 23 03/23/2021 2:27 AM [facility] Osmolality Calculated 289 270 - 300 mOsm/kg 03/23/2021 2:27 AM [facility] eGFR 54(L) >60 mL/min/1.7 3 m2 03/23/2021 2:27 AM [facility] Blood BLOOD SPECIMEN / Unknown Lab Venipuncture / Unknown 03/23/2021 1:30 AM CDT 03/23/2021 2:01 AM CDT Aidan Alcaraz MD LAB - CHEMISTRY ORD ERABLES Performing Organization Address City/[facility]/ZIP Co de Phone Number [address] [address], [facility] [phone] * PHOSPHORUS BLOOD (03/23/2021 1:30 AM CDT) Only the most recent of7 resultswithin the time period is included. Phosphorus 4.2 2.3 - 4.7 mg/dL 03/23/2021 2:27 AM CDT [facility] Blood BLOOD SPECIMEN / Unknown Lab Venipuncture / Unknown 03/23/2021 1:30 AM CDT 03/23/2021 2:01 AM CDT Aidan Alcaraz MD LAB - CHEMISTRY ORD ERABLES Performing Organization Address [facility] Co de Phone Number [address] [address], [facility] [phone] * MAGNESIUM BLOOD (03/23/2021 1:30 AM CDT) Only the most recent of7 resultswithin the time period is included. Magnesium 2.0 1.6 - 2.6 mg/dL 03/23/2021 2:27 AM CDT [facility] Blood BLOOD SPECIMEN / Unknown Lab Venipuncture / Unknown 03/23/2021 1:30 AM CDT 03/23/2021 2:01 AM CDT Aidan Alcaraz MD LAB - CHEMISTRY ORD ERABLES [address] [address], [facility] [phone] * SARS-COV-2 (COVID-19) IN HOUSE (03/21/2021 4:01 PM CDT) COVID-19 PCR Not detected Not detected 03/22/2021 1:35 AM CDT [facility] MICROBIOLOGY Microbiology SPECIMEN FROM NASOPHARYNGEAL STRUCTURE / Unknown Collection / Unknown 03/21/2021 4:01 PM CDT 03/21/2021 5:16 PM CDT Narrative [facility] MICROBIOLOGY - 03/22/2021 1:35 AM CDT This nucleic acid amplification assay performance was validated by [facility] Microbiology Laboratory. This test has been [...] assay are available upon request. Braydon Torres FIELD COLLECTOR-HEEL COMPRESSOR LAB - MICROBIOLOGY ORDERABLES [facility] MICROBIOLOGY [address] [place] [address], [facility] [phone] * CT HEAD WO CONTRAST (03/21/2021 11:31 [...] 0.031 <0.032 ng/mL 03/18/2021 3:06 AM CDT [facility] Blood BLOOD SPECIMEN / Unknown Lab Venipuncture / Unknown 03/18/2021 1:43 AM CDT 03/18/2021 2:36 AM CDT Romaine Regalado MD LAB - CHEMISTRY DINORA COLUNGA [facility] Organization Address City/State/ZIP Co de Phone Number [facility] [address] [place] [address] [phone] * CARDIAC EKG ORDER (03/17/2021 2:38 PM [...] Chronic infarcts are seen in the left SAMPLE PULLER territory and bilateral cerebellar hemispheres. No enhancing [...] Chronic infarcts are seen in the left SAMPLE PULLER territory and bilateral cerebellar hemispheres. No enhancing [...] detected Not detected 03/16/20 5:24 PM CDT [facility] Influenza A Rapid ELMA Not Detected Not Detected 03/16/2021 5:24 PM CDT [facility] Influenza B ELMA Rapid Not Detected Not Detected 03/16/2021 5:24 PM CDT [facility] Microbiology SPECIMEN FROM NASOPHARYNGEAL STRUCTURE / Unknown Collection / Unknown 03/16/2021 4:39 PM CDT 03/16/2021 4:55 PM CDT [facility] - 03/16/2021 5:24 PM CDT Influenza assay [...] acid amplification assay performance was validated by [facility]. This test has been authorized by the [...] this EUA assay are available upon request. Rmoaine Baldwin MD LAB - MICROBIOLOGY O RDERABLES Performing Organization Address [facility]/ZIP Co de Phone Number [facility] [address] [place] [address], [facility] [phone] * EKG 12-LEAD (03/16/2021 3:12 PM CDT) Pathologist [facility] Ventricular Rate 59 BPM [facility] MUSE Atrial Rate 59 BPM [facility] MUSE P-R Interval 230 ms [facility] MUSE QRS Duration ms 80 ms [facility] MUSE Q-T Interval ms 550 ms [facility] MUSE QTC Calculation (Bezet) 544 ms [facility] MUSE Calculated P [place] 62 degrees [facility] MUSE Calculated R [place] -6 degrees [facility] MUSE Calculated T [place] 85 degrees [facility] MUSE Interpretation EKG SINUS BRADYCARDIA WITH 1ST DEGREE A-V BLOCK CANNOT RULE OUT INFERIOR INFARCT , AGE UNDETERMINED ST & T WAVE ABNORMALITY, CONSIDER ANTERIOR ISCHEMIA ABNORMAL ECG WHEN COMPARED WITH ECG OF 04-AUG-2001 18:13, OR INTERVAL HAS INCREASED NONSPECIFIC T WAVE ABNORMALITY, IMPROVED IN INFERIOR LEADS T WAVE INVERSION NOW EVIDENT IN ANTERIOR LEADS QT HAS LENGTHENED HR DECREASED BY 21 BPM Confirmed by Dajuan Etienne ([id number]) on 03/19/2021 5:53:11 AM [facility] MUSE 03/16/2021 3:12 PM CDT 03/19/2021 5:53 AM CDT Aidan Alcaraz MD ECG ORDERABLES Performing Organization Address [facility] Co de Phone Number [facility] MUSE * TYPE + SCREEN PANEL (03/16/2021 3:05 PM CDT) Pathologist [facility] Antibody Screen NEG 3:54 PM CDT [facility] BLOOD BANK LAB ABO Rh O NEG 03/16/2021 3:54 PM CDT [facility] BLOOD BANK LAB Blood Bank BLOOD SPECIMEN / Unknown Venipuncture / Unknown 03/16/2021 3:05 PM CDT 03/16/2021 3:14 PM CDT Romaine Regalado MD LAB - BLOOD BANK ORD ERABLES [facility] BLOOD BANK LAB [address] [place] [address], [facility] [phone] * (ABNORMAL) CBC W AUTO DIFFERENTIAL (03/16/2021 3:05 PM CDT) WBC 9.2 3.5 - 10.5 10 3/uL 03/16/2021 3:30 PM [facility] RBC 3.84(L) 3.90 - 5.00 10 6/uL 03/16/2021 3:30 PM [facility] Hemoglobin 11.4(L) 12.0 - 15.5 g/dL 03/16/2021 3:30 PM [facility] Hematocrit 34.4(L) 35.0 - 45.0 % 03/16/2021 3:30 PM [facility] MCV 89.6 81.0 - 97.0 fL 03/16/2021 3:30 PM [facility] MCH 29.7 28.0 - 34.0 pg 03/16/2021 3:30 PM [facility] MCHC 33.1 32.0 - 36.0 g/dL 03/16/2021 3:30 PM [facility] Platelet Count 279 150 - 400 10 3/uL 03/16/2021 3:30 PM [facility] RDW-SD 47.7 36.0 - 50.0 fL 03/16/2021 3:30 PM [facility] RDW-CV 14.6 11.2 - 14.8 % 03/16/2021 3:30 PM [facility] MPV 9.4 9.3 - 12.8 fL 03/16/2021 3:30 PM [facility] nRBC Absolute 0.00 0 10 3/uL 03/16/2021 3:30 PM [facility] nRBC Auto 0.0 0 /100 WBC 03/16/2021 3:30 PM [facility] Neutrophils % 70.8(H) 35.0 - 70.0 % 03/16/2021 3:30 PM [facility] Lymphocytes % 15.3(L) 19.7 - 55.1 % 03/16/2021 3:30 PM [facility] Monocytes % 8.9 3.0 - 15.0 % 03/16/2021 3:30 PM [facility] Eosinophils % 4.2 0.0 - 6.0 % 03/16/2021 3:30 PM [facility] Basophil % 0.5 0.0 - 1.5 % 03/16/2021 3:30 PM [facility] Neutrophils Absolute 6.5 1.6 - 7.0 10 3/uL 03/16/2021 3:30 PM [facility] Lymphocyte Absolute 1.4 0.8 - 2.9 10 3/uL 03/16/2021 3:30 PM [facility] Monocytes Absolute 0.82(H) 0.14 - 0.66 10 3/uL 03/16/2021 3:30 PM [facility] Eosinophils Absolute 0.39 0.00 - 0.45 10 3/uL 03/16/2021 3:30 PM [facility] Basophils Absolute 0.05 0.00 - 0.06 10 3/uL 03/16/2021 3:30 PM [facility] Immature Granulocytes % 0.3 0.0 - 1.0 % 03/16/2021 3:30 PM [facility] Blood BLOOD SPECIMEN / Unknown Venipuncture / Unknown 03/16/2021 3:05 PM CDT 03/16/2021 3:14 PM CDT Romaine Regalado MD LAB - HEMATOLOGY ORD ERABLES [facility] [address] [place] [address], [facility] [phone] * (ABNORMAL) COMPREHENSIVE METABOLIC PANEL (03/16/2021 3:05 PM [facility]) BUN 16 7 - 26 mg/dL 03/16/2021 3:40 PM [facility] Creatinine 1.0 0.6 - 1.2 mg/dL 03/16/2021 3:40 PM [facility] Sodium 141 136 - 145 mmol/L 03/16/2021 3:40 PM [facility] Potassium 3.1(L) 3.5 - 4.5 mmol/L 03/16/2021 3:40 PM [facility] Chloride 104 98 - 107 mmol/L 03/16/2021 3:40 PM [facility] CO2 26 22 - 29 mmol/L 03/16/2021 3:40 PM [facility] Glucose 110 70 - 115 mg/dL 03/16/2021 3:40 PM [facility] Calcium 8.3(L) 8.4 - 10.2 mg/dL 03/16/2021 3:40 PM [facility] Protein Total 7.3 6.0 - 8.3 g/dL 03/16/2021 3:40 PM [facility] Albumin 3.6 3.4 - 5.0 g/dL 03/16/2021 3:40 PM [facility] Bilirubin Total 0.7 0.2 - 1.2 mg/dL 03/16/2021 3:40 PM [facility] Alkaline Phosphatase 82 40 - 150 Units/L 03/16/2021 3:40 PM [facility] ALT 17 0 - 55 Units/L 03/16/2021 3:40 PM [facility] AST 31 5 - 34 Units/L 03/16/2021 3:40 PM [facility] Anion Gap 14 8 - 18 03/16/2021 3:40 PM [facility] BUN/Creatinine Ratio 16 7 - 23 03/16/2021 3:40 PM [facility] Osmolality Calculated 294 270 - 300 mOsm/kg 03/16/2021 3:40 PM [facility] Albumin/Globulin Ratio 1.0(L) 1.1 - 2.3 03/16/2021 3:40 PM CDT [facility] eGFR 54(L) >60 mL/min/1.7 3 m2 03/16/2021 3:40 PM CDT [facility] Blood BLOOD SPECIMEN / Unknown Venipuncture / Unknown 03/16/2021 3:05 PM CDT 03/16/2021 3:14 PM CDT Romaine Regalado MD LAB - CHEMISTRY DINORA COLUNGA [facility] Organization Address City/State/ZIP Co de Phone Number [facility] [address] [place] [address], [facility] [phone] * CT ANGIO BRAIN (03/16/2021 2:46 PM [...] Unknown LAB - POINT OF CARE ORDERABLES [address] [address], [facility] [phone] * CREATININE - POCT INTERFACED (03/16/2021 2:38 PM CDT) Creatinine POCT 0.76 0.30 - 1.30 mg/dL 03/16/2021 3:11 PM CDT [facility] eGFR >60 >60 mL/min/1.7 3 m2 03/16/2021 3:11 PM CDT [facility] Blood BLOOD SPECIMEN / Unknown 03/16/2021 2:38 PM CDT 03/16/2021 3:11 PM CDT Provider Unknown LAB - POINT OF CARE ORDERABLES Performing Organization Address [facility]/ZIP Co de Phone Number [address] [address], [facility] [phone] * CT BRAIN STROKE (03/16/2021 2:29 PM CDT) Anatomical Region Laterality Modality Head Computed Tomogra phy 03/16/2021 2:37 PM CDT Impressions 03/16/2021 2:53 PM CDT IMPRESSION: 1.Acute intraparenchymal hemorrhage centered in the right basal ganglia, without significant mass effect or midline shift. 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 The above findings were communicated to Dr. Moreno by Diane Boss (vice president and portfolio manager) on 03/16/2021 at 2:43 PM with readback confirmation obtained. Dictated by Diane Boss MD (vice president and portfolio manager). This report was approved by Diane Boss [...] Old infarct is noted in the left SAMPLE PULLER territory. The reyes-white matter differentiation otherwise appears [...] Old infarct is noted in the left SAMPLE PULLER territory. Thegray-white matter differentiation otherwise appears normal. [...] 2.Old infarct is noted in the left SAMPLE PULLER territory and small old infarctsin the cerebellum. The above findings were communicated to Dr. Moreno by Diane Boss (vice president and portfolio manager) on 03/16/2021 at 2:43 PM with readback confirmation obtained. Dictated by Diane Boss MD (vice president and portfolio manager). This report was approved by Diane Boss [...] nodules on the base of the leaflet. Center Medical Specialist sections of the leaflets are submitted in a single container for decalcification. 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 Malignancy or inflammation is not seen. 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 Reclamation Engineer bk Pathologist Erich Alexis M.D. [place]. 07/25/2001 1132 <1> CPT code 86065 MISCELLANEOUS SAMPLES / Unknown 07/24/2001 11:57 AM CDT 07/24/2001 11:57 AM CDT Historical Provider LAB - PATHOLOGY/C YTOLOGY ORDERABLES Care Teams Automatic Chief Relationship Specialty Start Date End Date Thad Mitchell MD [address] [facility] [address] [facility] [address] [place] [address] PCP - General Internal Medicine 03/16/21
--- OUTSIDE RECORDS SUMMARY | 2025-01-29 17:05 | XMS_ITS | Clinical Summary ---
Author Organization [facility] Address [address] [place] [address] Care Team Providers Care Pharmacy Order Entry Technician Name Role Phone Thad Mitchell MD Primary Care Provider [phone] Source Comments [facility] [place],non-owned Affiliates and Associated Physician Practices is amultiple site organization consisting of ambulatory clinics and hospital sitesin [place], [place], [place] and [place]. This disclosure is being madepursuant to the Care Everywhere program and may not contain all information available regarding this patient. Last updated 18.[facility] [place] Allergies No known active allergies Medications * [...] 2:40 PM 03/23/2021 12:44 PM Care Teams Pharmacy Order Entry Technician Relationship Specialty Start Date End Date Thad Mitchell MD [address] [place] [address] PCP - General Internal Medicine 03/16/21
--- OUTSIDE RECORDS SUMMARY | 2025-01-29 17:05 | XMS_ITS | Encounter Summary ---
Author Organization [facility] Address [address] [place] [address] Care Team Providers Care Eeg Technologist Name Role Phone Darrick Santos MD Primary Care Provider [phone] Encounter Details Date Type Department Care Team (Latest Contact Info) Description 11/09/2003 Outpatient Historical HIS [facility] BIBI Estrada, Ilya Pittman MD [address] [place] [address] AFTERCARE CORRECTION ANTICOAG USE (Primary Dx) Social History Tobacco Use Types Packs/Day Years Used Date Smoking Tobacco: Never Assessed Comments Unknown Sex and Gender Information Value Date Recorded Sex Assigned at Not on file 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
--- OUTSIDE RECORDS SUMMARY | 2025-01-29 17:05 | XMS_ITS | Clinical Summary ---
Author Organization [facility] Address [address] 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
--- OUTSIDE RECORDS SUMMARY | 2025-01-29 17:05 | XMS_ITS | Encounter Summary ---
Author Organization [facility] Address 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
--- OUTSIDE RECORDS SUMMARY | 2025-01-29 17:05 | XMS_ITS | Encounter Summary ---
Author Organization [facility] Address [address] [place] [address] Care Team Providers Care Advertising Copy Writer Name Role Phone Darrick Santos MD Primary Care Provider [phone] Encounter Details Date Type Department Care Team (Latest Contact Info) Description 04/03/2002 Outpatient Historical HIS [facility] Darrick Hayes MD [address] [place] [address] [address] SCREENING MAMM-MAILG NEOPL-OTHER (Primary Dx) Social History Tobacco Use Types Packs/Day Years Used Date Smoking Tobacco: Never Assessed Comments Unknown Sex and Gender Information Value Date Recorded Sex Assigned at Not on file 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
--- OUTSIDE RECORDS SUMMARY | 2025-01-29 17:05 | XMS_ITS | Encounter Summary ---
Author Organization [facility] Address [address] [place] [address] Care Team Providers Care Machine Welder Name Role Phone Darrick Santos MD Primary Care Provider [phone] Encounter Details Date Type Department Care Team (Latest Contact Info) Description 09/17/2006 Outpatient Historical HIS [facility] Darrick Hayes MD [address] [place], [place] [id number] Other Screening Mammogram (Primary Dx) Social History Tobacco Use Types Packs/Day Years Used Date Smoking Tobacco: Never Assessed Comments Unknown Sex and Gender Information Value Date Recorded Sex Assigned at Not on file 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
--- OUTSIDE RECORDS SUMMARY | 2025-01-29 17:05 | XMS_ITS | Clinical Summary ---
Author Organization [facility] Address [address] [place] [address] Care Team Providers Care Cellophane Casting Machine Repairer Name Role Phone Thad Mitchell MD Primary Care Provider [phone] Allergies Active Allergy Reactions Criticality Noted Date [...] (NORCO) 7.5-325 MG tablet 4 Active NYSTATIN 208016 UNIT/GM powder 4 Active warfarin (COUMADIN) 1 MG tablet TAKE 1 TABLET BY MOUTH ON Sunday AND 1 AND 1/2 TABLETS BY MOUTH ALL OTHER DAYS OR INSTRUCTED 4 Active Active Problems Problem Noted Date Diagnosed Date Cerebrovascular accident ([facility]) 02/04 Overview (02/05/2024): Last Assessment & Plan: Residual left-sided weakness No lagophthalmos PEE OS Intraparenchymal hematoma of brain ([facility]) 02/05/2024 Paroxysmal atrial fibrillation ([facility]) 02/05/2024 Overview (02/05/2024): Last Assessment & [...] on a recent echocardiogram. Asymptomatic. Follow. A-fib ([facility]) 11/24/2021 Atypical atrial flutter ([facility]) 2020 Overview (02/05/2024): Last Assessment & [...] Due Date Last Done Comments PHQ-2 (Physician [place]) 1957 Hepatitis C 1963 DTaP, Tdap and Td Vaccines (1 - Tdap) 1964 Zoster Vaccines (1 of 2) 1995 Annual Medicare Wellness Visit 2010 Dexa Scan (General) 2010 COVID-19 Vaccine ( season) 2024 06/16/2022, 09/20/2021, 02/14/2021, Additional history exists Influenza Adult (#1) 2024 08/14/2019, 07/29/2018, 02/07/2016, Additional history exists PHQ-2 (Physician [place]) 11/26/2024 Pneumococcal Vaccine: 65+ Years Completed 08/20/2020, [...] patient's age to complete this topic Insurance [facility] Care Teams Cellophane Casting Machine Repairer Relationship Specialty Start Date End Date Thad Mitchell MD [address] - [facility] [address] [place] [address] PCP - General INTERNAL MEDICINE 01/04/23
--- OUTSIDE RECORDS SUMMARY | 2025-01-29 17:05 | XMS_ITS | Encounter Summary ---
Author Organization [facility] Address [address] [place] [address] Care Team Providers Care Industrial Waste Inspector Name Role Phone Darrick Santos MD Primary Care Provider [phone] Encounter Details Date Type Department Care Team (Latest Contact Info) Description 04/13/2003 Outpatient Historical HIS [facility] Darrick Hayes MD [address] [place] [address] SCREENING MAMM-MAILG NEOPL-OTHER (Primary Dx) Social History Tobacco Use Types Packs/Day Years Used Date Smoking Tobacco: Never Assessed Comments Unknown Sex and Gender Information Value Date Recorded Sex Assigned at Not on file Legal Sex Female 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
--- OUTSIDE RECORDS SUMMARY | 2025-01-29 17:05 | XMS_ITS | Encounter Summary ---
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 Gender Identity Not on file Sexual Orientation Not on file documented as of this encounter Plan of Treatment Not on file documented as of this encounter Procedures Procedure Name Priority Date/Time Associated Diagnosis Comments SCAN - RADIOLOGY/IMAGING 01/26/2024 documented in this encounter Results * SCAN - RADIOLOGY/IMAGING (01/26/2024) Anatomical Region Laterality Modality Other Delores Good CHAMFERING MACHINE OPERATOR Final Result documented in this encounter Visit Diagnoses Not on filedocumented in this encounter Care Teams Rail Transportation Tabeler Relationship Specialty Start Date End Date Thad Mitchell MD [address] [place] [address] PCP - General 03/20/18 documented as of this encounter
--- OUTSIDE RECORDS SUMMARY | 2025-01-29 17:05 | XMS_ITS | Clinical Summary ---
Author Organization [facility] Address [address] [place] [address] Care Team Providers Care Engineering Programmer Name Role Phone Thad Mitchell MD Primary Care Provider [phone] Allergies Active Allergy Reactions Criticality Noted Date Comments Amiodarone Unknown Medium 01/30/2024 Codeine Stomach upset Low 10/30/2014 Stomach/GI Upset Hydroxyzine Unknown Medium 01/30/2024 Medications omega 5-bos-mev-fish oil 300-1,000 mg capsule 8 Active cyanocobalamin/ folic acid (VITAMIN T36-SKYZR ACID) 1,000-400 mcg tablet, sublingual Place under [...] warfarin. Assessment & Plan (11/08/2021 3:04 PM PARIMUTUEL TICKET CHECKER): Persistent, probably atypical, symptomatic rapidly conducted atrial [...] fibrillation Assessment & Plan (11/08/2021 3:02 PM PARIMUTUEL TICKET CHECKER): As above. Recommend AVJ/pacing for definitive rate [...] Department Care Team Description 01/21/2025 Anticoagulation Visit [facility] Cardiology [address] [place] [address] [place] [phone] Adelaida Hugo RN H/O mechanical aortic valve replacement (Primary Dx) 01/08/2025 Anticoagulation Visit [facility]iology [address] [place] [address] [place] [phone] Jorge Ying RN H/O mechanical aortic valve replacement (Primary Dx) 12/18/2024 Anticoagulation Visit [facility]iology [address] [place] [address] [place] [phone] Jorge Ying RN H/O mechanical aortic valve replacement (Primary Dx) 12/17/2024 10:30 AM PARIMUTUEL TICKET CHECKER Ancillary Procedure [facility] [address] [place] [address] [place] [phone] Pacemaker; Atrial fibrillation, unspecified type (HCC); Heart failure, unspecified (HCC) 12/17/2024 Orders Only [facility] Cardiology [address], [place] [address] Cali Van MD Pacemaker (Primary Dx); Heart failure, unspecified (HCC); Permanent atrial fibrillation (HCC) 11/24/2024 11:15 AM PARIMUTUEL TICKET CHECKER Office Visit [facility] [address] [place] [phone] Cherry, Brenda Jackson NP Agitation (Primary Dx) 11/05/[address] [facility] Cardiology [address] [place] [address] Jorge Ying RN H/O mechanical aortic valve replacement (Primary Dx) from Last 3 Months Surgical History Surgery Date Site/Laterality Comments CORONARY ARTERY BYPASS GRAFT HYSTERECTOMY Medical History Medical History Date Comments Anemia A-fib (HCC) CHF (congestive heart failure) (HCC) Cancer (HCC) Stroke (HCC) Hearing loss [place] (myocardial infarction) (HCC) Family History Medical History [...] on file Legal Sex Female 10:30 PM PARIMUTUEL TICKET CHECKER Gender Identity Not on file Sexual Orientation Not on file Obstetrics History Last Filed Vital Signs Vital Sign Reading Time Taken Comments Blood Pressure 114/61 11/24/2024 11:12 AM PARIMUTUEL TICKET CHECKER Pulse 60 11/24/2024 11:12 AM PARIMUTUEL TICKET CHECKER Temperature 36.4 C (97.5 F) 11/24/2024 11:12 AM PARIMUTUEL TICKET CHECKER Respiratory Rate 16 11/06/2023 1:55 PM PARIMUTUEL TICKET CHECKER Oxygen Saturation 98% 11/24/2024 11:12 AM PARIMUTUEL TICKET CHECKER Inhaled Oxygen Concentration - - Weight 42.6 kg (94 lb) 11/24/2024 11:12 AM PARIMUTUEL TICKET CHECKER Height 152.4 cm (5') 11/24/2024 11:12 AM PARIMUTUEL TICKET CHECKER Body Mass Index 18.36 11/24/2024 11:12 AM PARIMUTUEL TICKET CHECKER Plan of Treatment Health Maintenance Due Date [...] 10/07/2019, 2018 Medical Devices Implanted Type Area Plant Accountant Device Identifier Shelf Expiration Date Model / Serial / Lot [employer] 8tc/58 Tendril Sts 6fr 58cm Is-1 Connector Active Fixation Bipolar Soft - [id number] - [id number] Implanted:Qty : 1 on 11/24/2021 by Aldo Florian III, MD at [facility] Lead [employer] [id number] 08/25/2024 2088TC/58 / [id number] / [employer] 1458q/86 Quartet 5fr [id number] 4 Electrode Is-4 Connector Steerable Tip - [id number] - [id number] Implanted:Qty : 1 on 11/24/2021 by Aldo Florian III, MD at [facility] Lead [employer] [id number] 08/25/2024 1458Q/86 / [id number] / [employer] [id number] Pacemaker Quadra Allure [employer] Electronics Technical Officer-P Mri - [id number] - [id number] Implanted:Qty : 1 on 11/24/2021 by Aldo Florian III, MD at [facility] Pacemaker [employer] [id number] 04/25/2023 PM356 2 / [id number] / Procedures Procedure Name Priority Date/Time Associated Diagnosis Comments PROTIME-INR Routine 01/20/2025 PROTIME-INR Routine 01/08/2025 DEVICE CHECK - IN OFFICE Routine 12/17/2024 10:24 AM PARIMUTUEL TICKET CHECKER Pacemaker Atrial fibrillation, unspecified type (HCC) Heart [...] CHECK - IN OFFICE (12/17/2024 10:24 AM PARIMUTUEL TICKET CHECKER) Anatomical Region Laterality Modality Other Narrative 12/18/2024 2:43 PM PARIMUTUEL TICKET CHECKER Veras Quadra Allure BIV Pacemaker. Dx; CHF, [...] 0.90 - 1.10 EXTERNAL LAB Blood Result [facility] Historical Provider MD LAB BLOOD ORDERABLES Martha l Result EXTERNAL LAB from Last 3 Months Insurance MEDICARE [employer]UTIONS MEDICARE [employer]UTIONS Advance Directives For more information, please contact: [phone] Documents on File Type Date Recorded Patient Wind Turbine Sheet Metal Worker Expl anation Power of Assembler Musical Equipment 09/18/2023 1:16 PM * Full Code (Latest Code Status on File) Date Activated Date Inactivated Comments 11/24/2021 4:37 PM 11/25/2021 4:06 PM Care Teams Engineering Programmer Relationship Specialty Start Date End Date Thad Mitchell MD [address] [facility] [address] MEDICINE [place] [id number] PCP - General 03/20/18
--- OUTSIDE RECORDS SUMMARY | 2025-01-29 17:05 | XMS_ITS | Referral Summary ---
Author Organization [facility] Address [address] [place] [address] Care Team Providers Care Pharmaceutical Sales Specialist Name Role Phone Thad Mitchell MD Primary Care Provider [phone] Source Comments [facility],non-owned Affiliates and Associated Physician Practices is amultiple site organization consisting of ambulatory clinics and hospital sitesin [place], [place], [place] and [place]. This disclosure is being madepursuant to the Care Everywhere program and may not contain all information available regarding this patient. Last updated 18.[facility] Allergies No known active allergies Medications * [...] 2:40 PM 03/23/2021 12:44 PM Care Teams Pharmaceutical Sales Specialist Relationship Specialty Start Date End Date Thad Mitchell MD [address] [place] [address] PCP - General Internal Medicine 03/16/21
--- OUTSIDE RECORDS SUMMARY | 2025-01-29 17:05 | XMS_ITS | Encounter Summary ---
Author Organization [facility] Address [address] [place] [address] Care Team Providers Care Patent Prosecution Attorney Name Role Phone Darrick Santos MD Primary Care Provider [phone] Encounter Details Date Type Department Care Team (Late st Contact Info) Description 11/09/2003 Outpatient Historical HIS [facility] Andrew Hirsch MD [address] [facility] [facility] [address] [place] [address] SCREENING MAL NEOP-COLON (Primary Dx) Social History Tobacco Use Types Packs/Day Years Used Date Smoking Tobacco: Never Assessed Comments Unknown Sex and Gender Information Value Date Recorded Sex Assigned at Not on file Legal Sex Female 3:18 AM TRIAGE SPECIALIST Gender Identity Not on file Sexual Orientation Not on file documented as of this encounter Plan of Treatment Not on file documented as of this encounter Visit Diagnoses Diagnosis Special screening for malignant neoplasms, colon- Primary documented in this encounter Care Teams Patent Prosecution Attorney Relationship Specialty Start Date End Date Darrick Santos MD [address] [facility] [address] [place] [address] PCP - General 04/13/03 documented as of this encounter
--- OUTSIDE RECORDS SUMMARY | 2025-01-29 17:05 | XMS_ITS | Encounter Summary ---
Author Organization [facility] Address [address] [place] [address] Care Team Providers Care Marketing Professional Name Role Phone Darrick Santos MD Primary Care Provider [phone] Encounter Details Date Type Department Care Team (Latest Contact Info) Description 06/23/[address] [facility] Darrick Hayes MD [address] [place] [address] SCREENING MAMM-MAILG NEOPL-OTHER (Primary Dx) Social History Tobacco Use Types Packs/Day Years Used Date Smoking Tobacco: Never Assessed Comments Unknown Sex and Gender Information Value Date Recorded Sex Assigned at Not on file Legal Sex Female 3:18 AM EQUALIZER OPERATOR Gender Identity Not on file Sexual Orientation Not on file documented as of this encounter Plan of Treatment Not on file documented as of this encounter Visit Diagnoses Diagnosis Other screening mammogram- Primary documented in this encounter Care Teams Marketing Professional Relationship Specialty Start Date End Date Darrick Santos MD [address] [place] [address] PCP - General 04/13/03 documented as of this encounter
[2025-01-29 17:06] VITALS: BP 128/44; PULSE 60; RESP 16; TEMP 36.6; O2SAT 99
--- OUTSIDE RECORDS SUMMARY | 2025-01-29 17:06 | XMS_ITS | Referral Summary ---
[facility] Address [address] [place] [address] Care Team Providers Care Laboratory Cureman Name Role Phone Thad Mitchell MD Primary Care Provider [phone] Encounters Date Type Department Care Team Description 01/21/2025 Anticoagulation Visit [facility] [address] [place] [address] [place] [phone] Adelaida Hugo RN H/O mechanical aortic valve replacement (Primary Dx) 01/08/2025 Anticoagulation Visit [facility] [address] [place] [address] [place] [phone] Jorge Ying RN H/O mechanical aortic valve replacement (Primary Dx) 12/18/2024 Anticoagulation Visit [facility] [address] [place] [address] [place] [phone] Jorge Ying RN H/O mechanical aortic valve replacement (Primary Dx) 12/17/2024 Orders Only [facility] [address] [facility] [address] [place] [phone] Cali Van MD Pacemaker (Primary Dx); Heart failure, unspecified (HCC); Permanent atrial fibrillation (HCC) 12/17/2024 10:30 AM DOLL WIG MAKER ROOTED HAIR Ancillary Procedure [facility] [address] [place] [address] [place] [phone] Pacemaker; Atrial fibrillation, unspecified type (HCC); Heart failure, unspecified (HCC) 11/24/2024 11:15 AM DOLL WIG MAKER ROOTED HAIR Office Visit [facility] [address] [facility] 6th [address] [place] [address] Brenda Cherry NP Agitation (Primary Dx) 11/05/2024 Anticoagulation Visit [facility] Cardiology [address] [place] [address] Jorge Ying RN H/O mechanical aortic valve replacement (Primary Dx) from Last 3 Months Allergies Active Allergy Reactions Criticality Noted Date Comments Amiodarone Unknown Medium 01/30/2024 Codeine Stomach upset Low 10/30/2014 Stomach/GI Upset Hydroxyzine Unknown Medium 01/30/2024 Medications omega 9-thy-shn-fish oil 300-1,000 mg capsule 8 Active cyanocobalamin/ folic acid (VITAMIN X80-JIBMZ ACID) 1,000-400 mcg tablet, sublingual Place under [...] warfarin. Assessment & Plan (11/08/2021 3:04 PM DOLL WIG MAKER ROOTED HAIR): Persistent, probably atypical, symptomatic rapidly conducted atrial [...] fibrillation Assessment & Plan (11/08/2021 3:02 PM DOLL WIG MAKER ROOTED HAIR): As above. Recommend AVJ/pacing for definitive rate [...] on file Legal Sex Female 10:30 PM DOLL WIG MAKER ROOTED HAIR Gender Identity Not on file Sexual Orientation Not on file Last Filed Vital Signs Vital Sign Reading Time Taken Comments Blood Pressure 114/61 11/24/2024 11:12 AM DOLL WIG MAKER ROOTED HAIR Pulse 60 11/24/2024 11:12 AM DOLL WIG MAKER ROOTED HAIR Temperature 36.4 C (97.5 F) 11/24/2024 11:12 AM DOLL WIG MAKER ROOTED HAIR Respiratory Rate 16 11/06/2023 1:55 PM DOLL WIG MAKER ROOTED HAIR Oxygen Saturation 98% 11/24/2024 11:12 AM DOLL WIG MAKER ROOTED HAIR Inhaled Oxygen Concentration - - Weight 42.6 kg (94 lb) 11/24/2024 11:12 AM DOLL WIG MAKER ROOTED HAIR Height 152.4 cm (5') 11/24/2024 11:12 AM DOLL WIG MAKER ROOTED HAIR Body Mass Index 18.36 11/24/2024 11:12 AM DOLL WIG MAKER ROOTED HAIR Plan of Treatment Not on file Medical Devices Implanted Type Area Water Resource Consultant Device Identifier Shelf Expiration Date Model / Serial / Lot [employer] 8tc/58 Tendril Sts 6fr 58cm Is-1 Connector Active Fixation Bipolar Soft - [id number] - [id number] Implanted:Qty : 1 on 11/24/2021 by Aldo Florian III, MD at [facility] Lead [employer] [id number] 08/25/2024 2088TC/58 / [id number] / [employer] 1458q/86 Quartet 5fr 61wnf08in 4 Electrode Is-4 Connector Steerable Tip - [id number] - [id number] Implanted:Qty : 1 on 11/24/2021 by Aldo Florian III, MD at [facility] Lead [employer] [id number] 08/25/2024 1458Q/86 / [id number] / [employer] [id number] Pacemaker Quadra Allure Mp Rf Data Governance Analyst-P Mri - [id number] - [id number] Implanted:Qty : 1 on 11/24/2021 by Aldo Florian III, MD at [facility] Pacemaker [employer] [id number] 04/25/2023 PM356 2 / [id number] / Procedures Procedure Name Priority Date/Time Associated Diagnosis Comments PROTIME-INR Routine 01/20/2025 PROTIME-INR Routine 01/08/2025 DEVICE CHECK - IN OFFICE Routine 12/17/2024 10:24 AM DOLL WIG MAKER ROOTED HAIR Pacemaker Atrial fibrillation, unspecified type (HCC) Heart failure, unspecified (HCC) PROTIME-INR Routine 12/17/2024 PROTIME-INR Routine 11/04/2024 from Last 3 Months Results * (ABNORMAL) Protime-INR (01/20/2025) INR 2.00(A) 0.90 - 1.10 EXTERNAL LAB Blood us Historical Provider MD LAB BLOOD ORDERABLES Martha l Result Performing Organization Address City/[facility] Co de Phone Number EXTERNAL LAB * (ABNORMAL) Protime-INR (01/08/2025) INR 3.60(A) 0.90 - 1.10 EXTERNAL LAB Blood Result [facility] Historical Provider MD LAB BLOOD ORDERABLES Martha l Result Performing Organization Address [facility] Co de Phone Number EXTERNAL LAB * DEVICE CHECK - IN OFFICE (12/17/2024 10:24 AM DOLL WIG MAKER ROOTED HAIR) Anatomical Region Laterality Modality Other Narrative 12/18/2024 2:43 PM DOLL WIG MAKER ROOTED HAIR [employer] Quadra Allure BIV Pacemaker. Dx; CHF, Afib/Aflutter. DOI 11/24/2021-[place]. Van- [place] remote monitoring. Programmed VVIR. Bill for dual [...] remote f/u 03/24/2025. Laura Barber, EVELIO Result [facility] Cali Van MD CV CARDIAC SERVICES PROC EDURES Final Result * (ABNORMAL) Protime-INR (12/17/2024) INR 3.30(A) 0.90 - 1.10 EXTERNAL LAB Blood Result [facility] Historical Provider LAB BLOOD ORDERABLES Martha l Result Performing Organization Address [facility] Co de Phone Number EXTERNAL LAB * (ABNORMAL) Protime-INR (11/04/2024) INR 2.50(A) 0.90 - 1.10 EXTERNAL LAB Blood us Historical Provider LAB BLOOD ORDERABLES Martha hernandez Result EXTERNAL LAB from Last 3 Months Insurance MEDICARE SOLUTIONS MEDICARE SOLUTIONS MEDICARE SOLUTIONS Advance Directives For more information, please contact: [phone] Documents on File Type Date Recorded Patient Tuckpointer Expl anation Power of Residential Property Consultant 09/18/2023 1:16 PM * Full Code (Latest Code Status on File) Date Activated Date Inactivated Comments 11/24/2021 4:37 PM 11/25/2021 4:06 PM Care Teams Laboratory Cureman Relationship Specialty Start Date End Date Thad Mitchell MD [address] [facility] [address] [place] [address] PCP - General 03/20/18
--- OUTSIDE RECORDS SUMMARY | 2025-01-29 17:06 | XMS_ITS | Encounter Summary ---
Author Organization [facility] Healthcare Address [address] [place] [address] Care Team Providers Care Factory Expert Name Role Phone Thad Mitchell MD Primary Care Provider [phone] Encounter Details Date Type Department Care Team (Late st Contact Info) Description 03/21/2024 Telephone [facility] Cardiology [address] [address] Cali Van MD [address] [facility] [address] [place] [address] Social History Tobacco Use Types [...] on file Legal Sex Female 10:30 PM BRONZE PLATER Gender Identity Not on file Sexual Orientation Not on file documented as of this encounter Plan of Treatment Not on file documented as of this encounter Visit Diagnoses Not on filedocumented in this encounter Care Teams Factory Expert Relationship Specialty Start Date End Date Thad Mitchell MD [address] [facility] [address] [place] [address] PCP - General 03/20/18 documented as of this encounter
--- NOTE | 2025-01-29 18:49 | PC.NURSE ---
PT DECLINES TO STAY ANY LONGER. WILL BE LEAVING NOW AND CALLING THEIR PHYSICIAN IN THE MORNING.
--- OUTSIDE RECORDS SUMMARY | 2025-01-29 19:26 | XMS_ITS | Encounter Summary ---
Author Organization [facility] Healthcare Address [address] [place] [address] Care Team Providers Care Asbestos Shingle Inspector Name Role Phone Thad Mitchell MD Primary Care Provider [phone] Encounter Details Date Type Department Care Team (Late st Contact Info) Description 05/20/2024 Orders Only [facility] Information Management [address] [place] [id number] Scanning, Provider Social History Tobacco Use Types [...] on file Legal Sex Female 10:30 PM CRYPTOGRAPHIC MACHINE OPERATOR Gender Identity Not on file [...] on filedocumented in this encounter Care Teams Asbestos Shingle Inspector Relationship Specialty Start Date End Date Thad Mithcell MD [address] [facility] [address] [place], [place] [id number] PCP - General 03/20/18 documented as of this encounter
--- OUTSIDE RECORDS SUMMARY | 2025-01-29 19:26 | XMS_ITS | Referral Summary ---
Author Organization [facility] Address [address] [place] [address] Care Team Providers Care Lining Stuffer Name Role Phone Thad Mitchell MD Primary Care Provider [phone] Source Comments [facility],non-owned Affiliates and Associated Physician Practices is amultiple site organization consisting of ambulatory clinics and hospital sitesin [place], [place], [place] and [place]. This disclosure is being madepursuant to the Care Everywhere program and may not contain all information available regarding this patient. Last updated 18.[facility] [employer] Allergies No known active allergies Medications * [...] 2:40 PM 03/23/2021 12:44 PM Care Teams Lining Stuffer Relationship Specialty Start Date End Date Thad Mitchell MD [address] [place] [address] PCP - General Internal Medicine 03/16/21
--- OUTSIDE RECORDS SUMMARY | 2025-01-29 19:26 | XMS_ITS | Encounter Summary ---
Author Organization [facility] Healthcare Address [address] [place] [address] Care Team Providers Care Logistics Coordinator Name Role Phone Thad Mitchell MD Primary Care Provider [phone] Encounter Details Date Type Department Care Team (Late st Contact Info) Description 01/26/2024 Orders Only [facility] Health Information Management [address] [place] [address] Delores Good, RAJNI [address] [place], [place] [id number] Social History Tobacco Use Types Packs/Day Years [...] on file Legal Sex Female 10:30 PM SERVICES EXECUTIVE Gender Identity Not on file Sexual Orientation Not on file documented as of this encounter Plan of Treatment Not on file documented as of this encounter Procedures Procedure Name Priority Date/Time Associated Diagnosis Comments SCAN - RADIOLOGY/IMAGING 01/26/2024 documented in this encounter Results * SCAN - RADIOLOGY/IMAGING (01/26/2024) Anatomical Region Laterality Modality Other Delores Good MAIL DISTRIBUTION CLERK Final Result documented in this encounter Visit Diagnoses Not on filedocumented in this encounter Care Teams Logistics Coordinator Relationship Specialty Start Date End Date Thad Mitchell MD [address] [place] [address] [place] [address] PCP - General 03/20/18 documented as of this encounter
--- OUTSIDE RECORDS SUMMARY | 2025-01-29 19:26 | XMS_ITS | Clinical Summary ---
Author Organization [facility] Address [address] [facility] [address] Knight: Epic Prelude ADT [place]AND [address] Care Team Providers Care Machine Operator Farmworker Name Role Phone Darrick Santos MD Primary Care Provider [phone] Social History Tobacco Use Types Packs/Day Years Used Date Smoking Tobacco: Never Assessed Comments Unknown Sex and Gender Information Value Date Recorded Sex Assigned at Not on file Legal Sex Female 3:18 AM TECHNICAL TRAINING COORDINATOR Gender Identity Not on file Sexual Orientation Not on file Plan of Treatment Health Maintenance Due Date Last Done Comments DTAP/TDAP/TD VACCINES (1 - Tdap) 1964 PNEUMOCOCCAL VACCINE 50+ YEARS (1 of 1 - PCV) 09/28/19 95 ZOSTER VACCINE (1 of 2) 1995 OSTEOPOROSIS SCREENING 2010 RSV VACCINE (60+ or ) (1 - 1-dose 75+ series) 2020 INFLUENZA VACCINE (#1) 2024 Care Teams Machine Operator Farmworker Relationship Specialty Start Date End Date Darrick Santos MD [address] [facility] [address] [place] [address] PCP - General 04/13/03
--- OUTSIDE RECORDS SUMMARY | 2025-01-29 19:26 | XMS_ITS | Clinical Summary ---
Author Organization [facility] Address [address] [place] [address] Care Team Providers Care Dispute Resolution Analyst Name Role Phone Thad Mitchell MD Primary Care Provider [phone] Source Comments [facility],non-owned Affiliates and Associated Physician Practices is amultiple site organization consisting of ambulatory clinics and hospital sitesin [place], [place], [place] and [place]. This disclosure is being madepursuant to the Care Everywhere program and may not contain all information available regarding this patient. Last updated 18.[facility] Allergies No known active allergies Medications * [...] 2:40 PM 03/23/2021 12:44 PM Care Teams Dispute Resolution Analyst Relationship Specialty Start Date End Date Thad Mitchell MD [address] [place] [address] PCP - General Internal Medicine 03/16/21
--- OUTSIDE RECORDS SUMMARY | 2025-01-29 19:26 | XMS_ITS | Encounter Summary ---
Author Organization [facility] Address [address] [place] [address] Care Team Providers Care Bearing Ring Assembler Name Role Phone Darrick Santos MD Primary Care Provider [phone] Encounter Details Date Type Department Care Team (Latest Contact Info) Description 09/17/2006 Outpatient Historical [facility] Darrick Hayes MD [address] [place], [place] [phone] Other Screening Mammogram (Primary Dx) Social History Tobacco Use Types Packs/Day Years Used Date Smoking Tobacco: Never Assessed Comments Unknown Sex and Gender Information Value Date Recorded Sex Assigned at Not on file Legal Sex Female 3:18 AM HEALTH AND WELLNESS SALES CONSULTANT Gender Identity Not on file Sexual Orientation Not on file documented as of this encounter Plan of Treatment Not on file documented as of this encounter Visit Diagnoses Diagnosis Other screening mammogram- Primary documented in this encounter Care Teams Bearing Ring Assembler Relationship Specialty Start Date End Date Darrick Santos MD [address] [place] [address] PCP - General 04/13/03 documented as of this encounter
--- OUTSIDE RECORDS SUMMARY | 2025-01-29 19:26 | XMS_ITS | Encounter Summary ---
Author Organization [facility] Address [address] [place] [address] Care Team Providers Care Public Speaker Name Role Phone Darrick Santos MD Primary Care Provider [phone] Encounter Details Date Type Department Care Team (Latest Contact Info) Description 04/13/2003 Outpatient Historical [facility] Darrick Hayes MD [address] [place] [address] SCREENING MAMM-MAILG NEOPL-OTHER (Primary Dx) Social History Tobacco Use Types Packs/Day Years Used Date Smoking Tobacco: Never Assessed Comments Unknown Sex and Gender Information Value Date Recorded Sex Assigned at Not on file Legal Sex Female 3:18 AM RIVER GUIDE Gender Identity Not on file Sexual Orientation Not on file documented as of this encounter Plan of Treatment Not on file documented as of this encounter Visit Diagnoses Diagnosis Other screening mammogram- Primary documented in this encounter Care Teams Public Speaker Relationship Specialty Start Date End Date Darrick Santos MD [address] [place] [address] PCP - General 04/13/03 documented as of this encounter
--- OUTSIDE RECORDS SUMMARY | 2025-01-29 19:26 | XMS_ITS | Encounter Summary ---
Author Organization [facility] Address [address] [place] [address] Care Team Providers Care Product Safety Officer Name Role Phone Darrick Santos MD Primary Care Provider [phone] Encounter Details Date Type Department Care Team (Latest Contact Info) Description 11/09/2003 Outpatient Historical [facility] BIBI Estrada, Ilya Pittman MD [address] [facility] [address] [place] [address] AFTERCARE [facility] ANTICOAG USE (Primary Dx) Social History Tobacco Use Types Packs/Day Years Used Date Smoking Tobacco: Never Assessed Comments Unknown Sex and Gender Information Value Date Recorded Sex Assigned at Not on file Legal Sex Female 3:18 AM HUMAN RESOURCES 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
--- OUTSIDE RECORDS SUMMARY | 2025-01-29 19:26 | XMS_ITS | Referral Summary ---
Author Organization [facility] Address [address] [place] [address] Care Team Providers Care Flower Cheniller Name Role Phone Thad Mitchell MD Primary Care Provider [phone] Encounters Date Type Department Care Team Description 01/21/2025 Anticoagulation Visit [facility] Cardiology [address] [place] [address] [place] [phone] Adelaida Hugo RN H/O mechanical aortic valve replacement (Primary Dx) 01/08/2025 Anticoagulation Visit [facility] Cardiology [address] [place] [address] [place] [phone] Jorge Ying RN H/O mechanical aortic valve replacement (Primary Dx) 12/18/2024 Anticoagulation Visit [facility] Cardiology [address] [place] [address] [place] [phone] Jorge Ying RN H/O mechanical aortic valve replacement (Primary Dx) 12/17/2024 Orders Only [facility] Cardiology [address] [facility] [address] [place] [phone] Cali Van MD Pacemaker (Primary Dx); Heart failure, unspecified (HCC); Permanent atrial fibrillation (HCC) 12/17/2024 10:30 AM OFFICE SECRETARY Ancillary Procedure [facility] Cardiology [address] [place] [address] [place] [phone] Pacemaker; Atrial fibrillation, unspecified type (HCC); Heart failure, unspecified (HCC) 11/24/2024 11:15 AM OFFICE SECRETARY Office Visit [facility] [address] [facility] 6th [address] [place] [address] Brenda Cherry NP Agitation (Primary Dx) 11/05/2024 Anticoagulation Visit [facility] Cardiology [address] [place] [address] Jorge Ying RN H/O mechanical aortic valve replacement (Primary Dx) from Last 3 Months Allergies Active Allergy Reactions Criticality Noted Date Comments Amiodarone Unknown Medium 01/30/2024 Codeine Stomach upset Low 10/30/2014 Stomach/GI Upset Hydroxyzine Unknown Medium 01/30/2024 Medications omega 8-foh-afg-fish oil 300-1,000 mg capsule 8 Active cyanocobalamin/ folic acid (VITAMIN C29-QQALY ACID) 1,000-400 mcg tablet, sublingual Place under [...] warfarin. Assessment & Plan (11/08/2021 3:04 PM OFFICE SECRETARY): Persistent, probably atypical, symptomatic rapidly conducted atrial [...] fibrillation Assessment & Plan (11/08/2021 3:02 PM OFFICE SECRETARY): As above. Recommend AVJ/pacing for definitive rate [...] on file Legal Sex Female 10:30 PM OFFICE SECRETARY Gender Identity Not on file Sexual Orientation Not on file Last Filed Vital Signs Vital Sign [place] Time Taken Comments Blood Pressure 114/61 11/24/2024 11:12 AM OFFICE SECRETARY Pulse 60 11/24/2024 11:12 AM OFFICE SECRETARY Temperature 36.4 C (97.5 F) 11/24/2024 11:12 AM OFFICE SECRETARY Respiratory Rate 16 11/06/2023 1:55 PM OFFICE SECRETARY Oxygen Saturation 98% 11/24/2024 11:12 AM OFFICE SECRETARY Inhaled Oxygen Concentration - - Weight 42.6 kg (94 lb) 11/24/2024 11:12 AM OFFICE SECRETARY Height 152.4 cm (5') 11/24/2024 11:12 AM OFFICE SECRETARY Body Mass Index 18.36 11/24/2024 11:12 AM OFFICE SECRETARY Plan of Treatment Not on file Medical Devices Implanted Type Area Shipwright Helper Device Identifier Shelf Expiration Date Model / Serial / Lot [employer] 8tc/58 Tendril Sts 6fr 58cm Is-1 Connector Active Fixation Bipolar Soft - [id number] - [id number] Implanted:Qty : 1 on 11/24/2021 by Aldo Florian III, MD at [facility] Lead [employer] [id number] 08/25/2024 2088TC/58 / [id number] / [employer] 1458q/86 Quartet 5fr [id number] Electrode Is-4 Connector Steerable Tip - [id number] - [id number] Implanted:Qty : 1 on 11/24/2021 by Aldo Florian III, MD at [facility] Lead [employer] [id number] 08/25/2024 1458Q/86 / [id number] / [employer] [id number] Pacemaker Quadra Allure Mp Rf Contour Path Tape Mill Operator-P Mri - [id number] - [id number] Implanted:Qty : 1 on 11/24/2021 by Aldo Florian III, MD at [facility] Pacemaker [employer] [id number] 04/25/2023 PM356 2 / [id number] / Procedures Procedure Name Priority Date/Time Associated Diagnosis Comments PROTIME-INR Routine 01/20/2025 PROTIME-INR Routine 01/08/2025 DEVICE CHECK - IN OFFICE Routine 12/17/2024 10:24 AM OFFICE SECRETARY Pacemaker Atrial fibrillation, unspecified type (HCC) Heart failure, unspecified (HCC) PROTIME-INR Routine 12/17/2024 PROTIME-INR Routine 11/04/2024 from Last 3 Months Results * (ABNORMAL) Protime-INR (01/20/2025) INR 2.00(A) 0.90 - 1.10 EXTERNAL LAB Blood us Historical Provider MD LAB BLOOD ORDERABLES Martha l Result Performing Organization Address [facility] Co de Phone Number EXTERNAL LAB * (ABNORMAL) Protime-INR (01/08/2025) INR 3.60(A) 0.90 - 1.10 EXTERNAL LAB Blood Result [facility] Historical Provider MD LAB BLOOD ORDERABLES Martha l Result Performing Organization Address [facility] Co de Phone Number EXTERNAL LAB * DEVICE CHECK - IN OFFICE (12/17/2024 10:24 AM OFFICE SECRETARY) Anatomical Region Laterality Modality Other Narrative 12/18/2024 2:43 PM OFFICE SECRETARY Ver[employer] Quadra Allure BIV Pacemaker. Dx; CHF, Afib/Aflutter. DOI 11/24/2021-[place]. Van- [place] remote monitoring. Programmed VVIR. Bill for dual [...] remote f/u 03/24/2025. Laura Barber, EVELIO Result [facility] Cali Van MD CV CARDIAC SERVICES PROC EDURES Final Result * (ABNORMAL) Protime-INR (12/17/2024) INR 3.30(A) 0.90 - 1.10 EXTERNAL LAB Blood Result [facility] Historical Provider LAB BLOOD ORDERABLES Martha l Result Performing Organization Address [facility] Co de Phone Number EXTERNAL LAB * (ABNORMAL) Protime-INR (11/04/2024) INR 2.50(A) 0.90 - 1.10 EXTERNAL LAB Blood us Historical Provider LAB BLOOD ORDERABLES Martha hernandez Result EXTERNAL LAB from Last 3 Months Insurance MEDICARE SOLUTIONS MEDICARE SOLUTIONS MEDICARE SOLUTIONS Advance Directives For more information, please contact: [phone] Documents on File Type Date Recorded Patient Core Assembly Supervisor Expl anation Power of Pharmacy Intake Coordinator 09/18/2023 1:16 PM * Full Code (Latest Code Status on File) Date Activated Date Inactivated Comments 11/24/2021 4:37 PM 11/25/2021 4:06 PM Care Teams Flower Cheniller Relationship Specialty Start Date End Date Thad Mitchell MD [address] [facility] [address] [place] [address] PCP - General 03/20/18
--- OUTSIDE RECORDS SUMMARY | 2025-01-29 19:26 | XMS_ITS | Clinical Summary ---
Author Organization [facility] Address [address] [place] [address] Care Team Providers Care Cut To Length Operator Name Role Phone Thad Mitchell MD Primary Care Provider [phone] Allergies Active Allergy Reactions Criticality Noted Date [...] (NORCO) 7.5-325 MG tablet 4 Active NYSTATIN 533291 UNIT/GM powder 4 Active warfarin (COUMADIN) 1 MG tablet TAKE 1 TABLET BY MOUTH ON Sunday AND 1 AND 1/2 TABLETS BY MOUTH ALL OTHER DAYS OR INSTRUCTED 4 Active Active Problems Problem Noted Date Diagnosed Date Cerebrovascular accident ([facility]) 02/04 Overview (02/05/2024): Last Assessment & Plan: Residual left-sided weakness No lagophthalmos PEE OS Intraparenchymal hematoma of brain ([facility]/ [facility]) 02/05/2024 Paroxysmal atrial fibrillation ([facility]) 02/05/2024 Overview (02/05/2024): Last Assessment & Plan: [...] Follow. A-fib ([facility]) 11/24/2021 Atypical atrial flutter ([facility]) 2020 Overview (02/05/2024): Last Assessment & Plan: [...] Due Date Last Done Comments PHQ-2 ([facility] [place]) 1957 Hepatitis C 1963 DTaP, Tdap and Td Vaccines (1 - Tdap) 1964 Zoster Vaccines (1 of 2) 1995 Annual Medicare Wellness Visit 2010 Dexa Scan (General) 2010 COVID-19 Vaccine ( season) 2024 06/16/2022, 09/20/2021, 02/14/2021, Additional history exists Influenza Adult (#1) 2024 08/14/2019, 07/29/2018, 02/07/2016, Additional history exists PHQ-2 ([facility] [place]) 11/26/2024 Pneumococcal Vaccine: 65+ Years Completed 08/20/2020, [...] patient's age to complete this topic Insurance [facility] Care Teams Cut To Length Operator Relationship Specialty Start Date End Date Thad Mitchell MD [address] - [facility] [address] [place] [address] PCP - General INTERNAL MEDICINE 01/04/23
--- OUTSIDE RECORDS SUMMARY | 2025-01-29 19:26 | XMS_ITS | Encounter Summary ---
Author Organization [facility] Address [address] [place] [address] Care Team Providers Care Slackline Operator Name Role Phone Darrick Santos MD Primary Care Provider [phone] Encounter Details Date Type Department Care Team (Late st Contact Info) Description 11/09/2003 Outpatient Historical [facility] Andrew Hirsch MD [address] [facility] [address] [place] [address] SCREENING MAL NEOP-COLON (Primary Dx) Social History Tobacco Use Types Packs/Day Years Used Date Smoking Tobacco: Never Assessed Comments Unknown Sex and Gender Information Value Date Recorded Sex Assigned at Not on file Legal Sex Female 3:18 AM INSTRUCTIONAL MEDIA SERVICES TECHNICIAN Gender Identity Not on file Sexual Orientation Not on file documented as of this encounter Plan of Treatment Not on file documented as of this encounter Visit Diagnoses Diagnosis Special screening for malignant neoplasms, colon- Primary documented in this encounter Care Teams Slackline Operator Relationship Specialty Start Date End Date Darrick Santos MD [address] [facility] [address] [place] [address] PCP - General 04/13/03 documented as of this encounter
--- OUTSIDE RECORDS SUMMARY | 2025-01-29 19:26 | XMS_ITS | Encounter Summary ---
Author Organization [facility] Address [address] [place] [address] Care Team Providers Care Teasel Setter Name Role Phone Thad Mitchell MD Primary Care Provider Encounter Details Date Type Department Care Team (Late st Contact Info) Description 03/21/2024 Telephone [facility] Cardiology [address] [address] Cali Van MD [address] [facility] [address] [place] [address] Social History Tobacco Use Types [...] on file Legal Sex Female 10:30 PM MANAGER QUALITY IMPROVEMENT Gender Identity Not on file Sexual Orientation Not on file documented as of this encounter Plan of Treatment Not on file documented as of this encounter Visit Diagnoses Not on filedocumented in this encounter Care Teams Teasel Setter Relationship Specialty Start Date End Date Thad Mitchell MD [address] [facility] [address] [place] [address] PCP - General 03/20/18 documented as of this encounter
--- OUTSIDE RECORDS SUMMARY | 2025-01-29 19:26 | XMS_ITS | Encounter Summary ---
Author Organization [facility] Address [address] [place] [address] Care Team Providers Care Sterile Supervisor Name Role Phone Darrick Santos MD Primary Care Provider [phone] Encounter Details Date Type Department Care Team (Latest Contact Info) Description 08/20/2003 Outpatient Historical [facility] Darrick Santos MD [address] [place] [address] SYMPTOMATIC FEMALE CLIMACTERIC STATE (Primary Dx) Social History Tobacco Use Types Packs/Day Years Used Date Smoking Tobacco: Never Assessed Comments Unknown Sex and Gender Information Value Date Recorded Sex Assigned at Not on file Legal Sex Female 3:18 AM AIRCRAFT CHARTER DISPATCHER Gender Identity Not on file Sexual Orientation Not on file documented as of this encounter Plan of Treatment Not on file documented as of this encounter Visit Diagnoses Diagnosis Symptomatic menopausal or female climacteric states- Primary documented in this encounter Care Teams Sterile Supervisor Relationship Specialty Start Date End Date Darrick Santos MD [address] [place] [address] PCP - General 04/13/03 documented as of this encounter
--- OUTSIDE RECORDS SUMMARY | 2025-01-29 19:26 | XMS_ITS | Clinical Summary ---
Author Organization [facility] [facility] Address [address] [place] [address] Care Team Providers Care Anesthesiology Fellow Name Role Phone Thad Mitchell MD Primary Care Provider [phone] Allergies Active Allergy Reactions Criticality Noted Date Comments Amiodarone Unknown Medium 01/30/2024 Codeine Stomach upset Low 10/30/2014 Stomach/GI Upset Hydroxyzine Unknown Medium 01/30/2024 Medications omega 7-pap-lug-fish oil 300-1,000 mg capsule 8 Active cyanocobalamin/ folic acid (VITAMIN Z26-ARCXV ACID) 1,000-400 mcg tablet, sublingual Place under [...] warfarin. Assessment & Plan (11/08/2021 3:04 PM TECHNICIAN SUPPORT ASSOCIATION): Persistent, probably atypical, symptomatic rapidly conducted atrial [...] fibrillation Assessment & Plan (11/08/2021 3:02 PM TECHNICIAN SUPPORT ASSOCIATION): As above. Recommend AVJ/pacing for definitive rate [...] Department Care Team Description 01/21/2025 Anticoagulation Visit [facility] Cardiology [address] [place] [address] [place] [phone] Adelaida Hugo RN H/O mechanical aortic valve replacement (Primary Dx) 01/08/2025 Anticoagulation Visit [facility] Cardiology [address] [place] [address] [place] [phone] Jorge Ying RN H/O mechanical aortic valve replacement (Primary Dx) 12/18/2024 Anticoagulation Visit [facility] Cardiology [address] [place] [address] [place] [phone] Jorge Ying RN H/O mechanical aortic valve replacement (Primary Dx) 12/17/2024 10:30 AM TECHNICIAN SUPPORT ASSOCIATION Ancillary Procedure [facility] Cardiology [address] [place] [address] [place] [phone] Pacemaker; Atrial fibrillation, unspecified type (HCC); Heart failure, unspecified (HCC) 12/17/2024 Orders Only [facility] Cardiology [address], [place] [address] Cali Van MD Pacemaker (Primary Dx); Heart failure, unspecified (HCC); Permanent atrial fibrillation (HCC) 11/24/2024 11:15 AM TECHNICIAN SUPPORT ASSOCIATION Office Visit [facility] [address] [facility] 6th Floor [address] [place] [phone] Cherry, Brenda Jackson NP Agitation (Primary Dx) 11/05/2024 Anticoagulation Visit [facility] Cardiology [address] [place] [address] Jorge Ying RN H/O mechanical aortic valve replacement (Primary Dx) from Last 3 Months Surgical History Surgery Date Site/Laterality Comments CORONARY ARTERY BYPASS GRAFT HYSTERECTOMY Medical History Medical History Date Comments Anemia A-fib (HCC) CHF (congestive heart failure) (HCC) Cancer (HCC) Stroke (HCC) Hearing loss [place] (myocardial infarction) (HCC) Family History Medical History [...] on file Legal Sex Female 10:30 PM TECHNICIAN SUPPORT ASSOCIATION Gender Identity Not on file Sexual Orientation Not on file Obstetrics History Last Filed Vital Signs Vital Sign [place] Time Taken Comments Blood Pressure 114/61 11/24/2024 11:12 AM TECHNICIAN SUPPORT ASSOCIATION Pulse 60 11/24/2024 11:12 AM TECHNICIAN SUPPORT ASSOCIATION Temperature 36.4 C (97.5 F) 11/24/2024 11:12 AM TECHNICIAN SUPPORT ASSOCIATION Respiratory Rate 16 11/06/2023 1:55 PM TECHNICIAN SUPPORT ASSOCIATION Oxygen Saturation 98% 11/24/2024 11:12 AM TECHNICIAN SUPPORT ASSOCIATION Inhaled Oxygen Concentration - - Weight 42.6 kg (94 lb) 11/24/2024 11:12 AM TECHNICIAN SUPPORT ASSOCIATION Height 152.4 cm (5') 11/24/2024 11:12 AM TECHNICIAN SUPPORT ASSOCIATION Body Mass Index 18.36 11/24/2024 11:12 AM TECHNICIAN SUPPORT ASSOCIATION Plan of Treatment Health Maintenance Due Date [...] 10/07/2019, 2018 Medical Devices Implanted Type Area Slide Developer Device Identifier Shelf Expiration Date Model / Serial / Lot [employer] 8tc/58 Tendril Sts 6fr 58cm Is-1 Connector Active Fixation Bipolar Soft - [id number] - [id number] Implanted:Qty : 1 on 11/24/2021 by Aldo Florian III, MD at [facility] Lead [employer] [id number] 08/25/2024 2088TC/58 / [id number] / [employer] 1458q/86 Quartet 5fr [id number] Electrode Is-4 Connector Steerable Tip - [id number] - [id number] Implanted:Qty : 1 on 11/24/2021 by Aldo Florian III, MD at [facility] Lead [employer] [id number] 08/25/2024 1458Q/86 / [id number] / [employer] [id number] Pacemaker Quadra Allure Mp Rf Associate Java Developer-P Mri - [id number] - [id number] Implanted:Qty : 1 on 11/24/2021 by Aldo Florian III, MD at [facility] Pacemaker [employer] [id number] 04/25/2023 PM356 2 / [id number] / Procedures Procedure Name Priority Date/Time Associated Diagnosis Comments PROTIME-INR Routine 01/20/2025 PROTIME-INR Routine 01/08/2025 DEVICE CHECK - IN OFFICE Routine 12/17/2024 10:24 AM TECHNICIAN SUPPORT ASSOCIATION Pacemaker Atrial fibrillation, unspecified type (HCC) Heart [...] CHECK - IN OFFICE (12/17/2024 10:24 AM TECHNICIAN SUPPORT ASSOCIATION) Anatomical Region Laterality Modality Other Narrative 12/18/2024 2:43 PM TECHNICIAN SUPPORT ASSOCIATION Veras Quadra Allure BIV Pacemaker. Dx; CHF, [...] 0.90 - 1.10 EXTERNAL LAB Blood Result [facility] Historical Provider MD LAB BLOOD ORDERABLES Martha l Result EXTERNAL LAB from Last 3 Months Insurance MEDICARE SOLUTIONS MEDICARE SOLUTIONS Advance Directives For more information, please contact: [phone] Documents on File Type Date Recorded Patient Auto Claims Adjuster Expl anation Power of Ice Cream Shop Associate 09/18/2023 1:16 PM * Full Code (Latest Code Status on File) Date Activated Date Inactivated Comments 11/24/2021 4:37 PM 11/25/2021 4:06 PM Care Teams Anesthesiology Fellow Relationship Specialty Start Date End Date Thad Mitchell MD [address] [facility] [address] [place] [id number] PCP - General 03/20/18
--- OUTSIDE RECORDS SUMMARY | 2025-01-29 19:26 | XMS_ITS | Encounter Summary ---
Author Organization [facility] Address [address] [place] [address] Care Team Providers Care Lab Coordinator Name Role Phone Darrick Santos MD Primary Care Provider [phone] Encounter Details Date Type Department Care Team (Latest Contact Info) Description 06/23/2004 Outpatient Historical [facility] Darrick Hayes MD [address] [place] [address] SCREENING MAMM-MAILG NEOPL-OTHER (Primary Dx) Social History Tobacco Use Types Packs/Day Years Used Date Smoking Tobacco: Never Assessed Comments Unknown Sex and Gender Information Value Date Recorded Sex Assigned at Not on file Legal Sex Female 3:18 AM DRYING CAN WORKER Gender Identity Not on file Sexual Orientation Not on file documented as of this encounter Plan of Treatment Not on file documented as of this encounter Visit Diagnoses Diagnosis Other screening mammogram- Primary documented in this encounter Care Teams Lab Coordinator Relationship Specialty Start Date End Date Darrick Santos MD [address] [place] [address] PCP - General 04/13/03 documented as of this encounter
--- OUTSIDE RECORDS SUMMARY | 2025-01-29 19:26 | XMS_ITS | Patient Health Summary ---
Author Organization [facility] Address [address] [place] [address] Care Team Providers Care Duct Installer Name Role Phone Thad Mitchell MD Primary Care Provider [phone] Note from [facility],non-owned Affiliates and Associated Physician Practices is amultiple site organization consisting of ambulatory clinics and hospital sitesin [place], [place], [place] and [place]. This disclosure is being madepursuant to the Care Everywhere program and may not contain all information available regarding this patient. Last updated 18.[facility] Allergies No known active allergies [...] right, without loss of consciousness, initial encounter ([facility]) * TYPE + SCREEN PANEL(Performed 03/16/2021) * TROPONIN I(Performed 03/16/2021) * PT-INR [facility](Performed 03/16/2021) * COMPREHENSIVE METABOLIC PANEL(Performed 03/16/2021) * CBC W AUTO DIFFERENTIAL(Performed 03/16/2021) * CT ANGIO BRAIN(Performed 03/16/2021) Performed for Weakness * CREATININE - POCT INTERFACED(Performed 03/16/2021) * CT BRAIN STROKE(Performed 03/16/2021) Performed for Weakness * GROSS + MICRO EXAM(Performed 07/24/2001) Results * PT-INR [facility] (03/23/2021 1:30 AM CDT) Only the most recent of8 resultswithin the time period is included. PT 14.1 12.1 - 14.8 Seconds 03/23/2021 2:20 AM CDT [facility] INR 1.1 See Comment 03/23/2021 2:20 AM CDT [facility] Comment:The suggested therap eutic range for standard coumadin (warfarin) therapy is an INR of 2.0-3.0. For high-risk patients (Mechanical Mitral Valve Prosthesis, etc.), the suggested prophylactic therapeutic range is an INR of 2.5-3.5. Blood BLOOD SPECIMEN / Unknown Lab Venipuncture / Unknown 03/23/2021 1:30 AM CDT 03/23/2021 2:10 AM CDT Aidan Alcaraz MD LAB - COAGULATION O RDERABLES [facility] [address] [place] [address], [facility] [phone] * (ABNORMAL) CBC W/O DIFFERENTIAL (03/23/2021 1:[address] [facility]) Only the most recent of7 resultswithin the [...] Alcaraz MD LAB - HEMATOLOGY OR DERABLES [facility] [address] [place] [address], [facility] [phone] * (ABNORMAL) BASIC METABOLIC PANEL (CALCIUM TOTAL) (03/23/2021 1:30 AM CDT) Only the most recent of7 resultswithin the time period is included. BUN 20 7 - 26 mg/dL 03/23/2021 2:27 AM [facility] Creatinine 1.0 [...] - CHEMISTRY ORD ERABLES Performing Organization Address City/[facility]/ZIP Co de Phone Number [address] [address], [facility] [phone] * PHOSPHORUS BLOOD (03/23/2021 1:30 AM CDT) Only the most recent of7 resultswithin the time period is included. Phosphorus 4.2 2.3 - 4.7 mg/dL 03/23/2021 2:27 AM CDT [facility] Blood BLOOD SPECIMEN / Unknown Lab Venipuncture / Unknown 03/23/2021 1:30 AM CDT 03/23/2021 2:01 AM CDT Aidan Alcaraz MD LAB - CHEMISTRY ORD ERABLES Performing Organization Address [facility] Co de Phone Number [address] [address], [facility] [phone] * MAGNESIUM BLOOD (03/23/2021 1:30 AM CDT) Only the most recent of7 resultswithin the time period is included. Magnesium 2.0 1.6 - 2.6 mg/dL 03/23/2021 2:27 AM CDT [facility] Blood BLOOD SPECIMEN / Unknown Lab Venipuncture / Unknown 03/23/2021 1:30 AM CDT 03/23/2021 2:01 AM CDT Aidan Alcaraz MD LAB - CHEMISTRY ORD ERABLES [address] [address], [facility] [phone] * SARS-COV-2 (COVID-19) IN HOUSE (03/21/2021 4:01 PM CDT) COVID-19 PCR Not detected Not detected 03/22/2021 1:35 AM CDT [facility] MICROBIOLOGY Microbiology SPECIMEN FROM NASOPHARYNGEAL STRUCTURE / Unknown Collection / Unknown 03/21/2021 4:01 PM CDT 03/21/2021 5:16 PM CDT Narrative [facility] MICROBIOLOGY - 03/22/2021 1:35 AM CDT This nucleic acid amplification assay performance was validated by [facility] Microbiology Laboratory. This test has been [...] assay are available upon request. Braydon Torres OCCUPATIONAL THERAPIST PER DIEM-SUPERVISOR [place] LAB - MICROBIOLOGY ORDERABLES [facility] MICROBIOLOGY [address] [place] [address], [facility] [phone] * CT HEAD WO CONTRAST (03/21/2021 11:31 [...] 0.031 <0.032 ng/mL 03/18/2021 3:06 AM CDT [facility] Blood BLOOD SPECIMEN / Unknown Lab Venipuncture / Unknown 03/18/2021 1:43 AM CDT 03/18/2021 2:36 AM CDT Romaine Regalado MD LAB - CHEMISTRY DINORA COLUNGA [facility] Organization Address City/State/ZIP Co de Phone Number [facility] [address] [place] [address]RUST [phone] * CARDIAC EKG ORDER (03/17/2021 2:38 PM [...] 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 No enhancing [...] detected Not detected 03/16/20 5:24 PM CDT [facility] Influenza A Rapid ELMA Not Detected Not Detected 03/16/2021 5:24 PM CDT [facility] Influenza B ELMA Rapid Not Detected Not Detected 03/16/2021 5:24 PM CDT [facility] Microbiology SPECIMEN FROM NASOPHARYNGEAL STRUCTURE / Unknown Collection / Unknown 03/16/2021 4:39 PM CDT 03/16/2021 4:55 PM CDT [place] [facility] - 03/16/2021 5:24 PM CDT Influenza assay [...] acid amplification assay performance was validated by [facility]. This test has been authorized by the [...] - MICROBIOLOGY O RDERABLES Performing Organization Address [facility]/ZIP Co de Phone Number [facility] [address] [place] [address], [facility] [phone] * EKG 12-LEAD (03/16/2021 3:12 PM CDT) Pathologist [facility] Ventricular Rate 59 BPM [facility] MUSE Atrial Rate 59 BPM [facility] MUSE P-R Interval 230 ms [facility] QRS Duration ms 80 ms [facility] Q-T Interval ms 550 ms [facility] QTC Calculation (Bezet) 544 ms [facility] M[facility] Calculated P Hawks 62 degrees [facility] Calculated R Hawks -6 degrees [facility] Calculated T Hawks 85 degrees [facility] Interpretation EKG SINUS BRADYCARDIA WITH 1ST DEGREE A-V BLOCK CANNOT RULE OUT INFERIOR INFARCT , AGE UNDETERMINED ST & T WAVE ABNORMALITY, CONSIDER ANTERIOR ISCHEMIA ABNORMAL ECG WHEN COMPARED WITH ECG OF 04-AUG-2001 18:13, [place] INTERVAL HAS INCREASED NONSPECIFIC T WAVE ABNORMALITY, IMPROVED IN INFERIOR LEADS T WAVE INVERSION NOW EVIDENT IN ANTERIOR LEADS QT HAS LENGTHENED HR DECREASED BY 21 BPM Confirmed by Dajuan Etienne ([id number]) on 03/19/2021 5:53:11 AM [facility] MUSE 03/16/2021 3:12 PM CDT 03/19/2021 5:53 AM CDT Aidan Alcaraz MD ECG ORDERABLES Performing Organization Address [facility] Co de Phone Number [facility] * TYPE + SCREEN PANEL (03/16/2021 3:05 PM CDT) Pathologist [facility] Antibody Screen NEG 3:54 PM CDT [facility] B[facility]OD BANK LAB ABO Rh O NEG 03/16/2021 3:54 PM CDT [facility] LAB Blood Bank BLOOD SPECIMEN / Unknown Venipuncture / Unknown 03/16/2021 3:05 PM CDT 03/16/2021 3:14 PM CDT Romaine Regalado MD LAB - BLOOD BANK ORD ERABLES [facility] LAB [address] [place] [address], [facility] [phone] * (ABNORMAL) CBC W AUTO DIFFERENTIAL (03/16/2021 [...] Regalado MD LAB - HEMATOLOGY ORD ERABLES [facility] [address] [place] [address], [facility] [phone] * (ABNORMAL) COMPREHENSIVE METABOLIC PANEL (03/16/2021 3:[address] [facility]) BUN 16 7 - 26 mg/dL 03/16/2021 [...] 1.1 - 2.3 03/16/2021 3:40 PM CDT [facility] eGFR 54(L) >60 mL/min/1.7 3 m2 03/16/2021 3:40 PM CDT [facility] Blood BLOOD SPECIMEN / Unknown Venipuncture / Unknown 03/16/2021 3:05 PM CDT 03/16/2021 3:14 PM CDT Romaine Regalado MD LAB - CHEMISTRY DINORA COLUNGA [facility] Organization Address City/State/ZIP Co de Phone Number [facility] [address] [place] [address], [facility] [phone] * CT ANGIO BRAIN (03/16/2021 2:46 PM [...] Unknown LAB - POINT OF CARE ORDERABLES [address] [address], [facility] [phone] * CREATININE - POCT INTERFACED (03/16/2021 2:38 PM CDT) Creatinine POCT 0.76 0.30 - 1.30 mg/dL 03/16/2021 3:11 PM CDT [facility] eGFR >60 >60 mL/min/1.7 3 m2 03/16/2021 3:11 PM CDT [facility] Blood BLOOD SPECIMEN / Unknown 03/16/2021 2:38 PM CDT 03/16/2021 3:11 PM CDT Provider Unknown LAB - POINT OF CARE ORDERABLES Performing Organization Address [facility]/ZIP Co de Phone Number [address] [address], [facility] [phone] * CT BRAIN STROKE (03/16/2021 2:29 PM CDT) Anatomical Region Laterality Modality Head Computed Tomogra phy 03/16/2021 2:37 PM CDT Impressions 03/16/2021 2:53 PM CDT IMPRESSION: 1.Acute intraparenchymal hemorrhage centered in the right basal ganglia, without significant mass effect or midline shift. 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 The above findings were communicated to Dr. Moreno by Diane Boss (vice president quality assurance) on 03/16/2021 at 2:43 PM with readback confirmation obtained. Dictated by Diane Boss MD (vice president quality assurance). 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 Thegray-white matter differentiation otherwise appears normal. 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 The above findings were communicated to Dr. Moreno by Diane Boss (vice president quality assurance) on 03/16/2021 at 2:43 PM with readback confirmation obtained. Dictated by Diane Boss MD (vice president quality assurance). This report was approved by Diane Boss [...] nodules on the base of the leaflet. Machine Chain Maker sections of the leaflets are submitted in a single container for decalcification. 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 Malignancy or inflammation is not seen. 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 Blockers Skiver bk Pathologist Erich Alexis M.D. [place]. 07/25/2001 1132 <1> CPT code 46318 MISCELLANEOUS SAMPLES / Unknown 07/24/2001 11:57 AM CDT 07/24/2001 11:57 AM CDT Historical Provider LAB - PATHOLOGY/C YTOLOGY ORDERABLES Care Teams Duct Installer Relationship Specialty Start Date End Date Thad Mitchell MD [address] [facility] [address] [facility] [address] [place] [address] PCP - General Internal Medicine 03/16/21
--- OUTSIDE RECORDS SUMMARY | 2025-01-29 19:26 | XMS_ITS | Encounter Summary ---
Author Organization [facility] Address [address] [place] [address] Care Team Providers Care Rug Layer Name Role Phone Darrick Santos MD Primary Care Provider [phone] Encounter Details Date Type Department Care Team (Latest Contact Info) Description 04/03/2002 Outpatient Historical HIS [facility] Darrick Hayes MD [address] [place] [address] SCREENING MAMM-MAILG NEOPL-OTHER (Primary Dx) Social History Tobacco Use Types Packs/Day Years Used Date Smoking Tobacco: Never Assessed Comments Unknown Sex and Gender Information Value Date Recorded Sex Assigned at Not on file Legal Sex Female 3:18 AM MANAGER WEB APPLICATION Gender Identity Not on file Sexual Orientation Not on file documented as of this encounter Plan of Treatment Not on file documented as of this encounter Visit Diagnoses Diagnosis Other screening mammogram- Primary documented in this encounter Care Teams Rug Layer Relationship Specialty Start Date End Date Darrick Santos MD [address] [place] [address] PCP - General 04/13/03 documented as of this encounter
== END 2025-01-29 18:49 | disposition left against medical advice (07) ==
PROVIDERS: PCP Internal Medicine
DX: R53.1 Weakness (principal)
CPT/HCPCS: 99199

== ENCOUNTER 2025-03-06 13:38 | Outpatient (RCR) | payer MEDICARE, SELFPAY ==
[2024-12-17 12:02] LABS: INR 3.3; Prothrombin Time 33.5 Seconds (11.1-14.7)
[2025-01-08 12:56] LABS: INR 3.6; Prothrombin Time 36.7 Seconds (11.1-14.7)
[2025-01-20 11:59] LABS: Prothrombin Time 23.5 Seconds (11.1-14.7)
[2025-02-03 11:57] LABS: INR 2.7; Prothrombin Time 29.3 Seconds (11.1-14.7)
[2025-03-06 14:17] LABS: INR 2.5; Prothrombin Time 27.9 Seconds (11.1-14.7)
== END 2025-03-17 23:59 | disposition home or self-care (01) ==
LOC: ANHLAB 13:38
PROVIDERS: PCP Internal Medicine; Visit Provider Specialist
DX: Z51.81 Encounter for therapeutic drug level monitoring (principal); I48.91 Unspecified atrial fibrillation; Z95.2 Presence of prosthetic heart valve
CPT/HCPCS: 36415; 85610

== ENCOUNTER 2025-06-25 12:59 | Outpatient (RCR) | payer MEDICARE, SELFPAY ==
[2025-04-08 14:22] LABS: INR 2.4; Prothrombin Time 26.2 Seconds (11.1-14.7)
[2025-05-20 17:07] LABS: INR 2.9; Prothrombin Time 29.4 Seconds (11.1-14.7)
[2025-06-25 14:07] LABS: INR 2.8; Prothrombin Time 28.6 Seconds (11.1-14.7)
== END 2025-07-07 23:59 | disposition home or self-care (01) ==
LOC: ANHLAB 12:59
PROVIDERS: PCP Family Medicine; Visit Provider Specialist
DX: I48.21 Permanent atrial fibrillation (principal); Z95.2 Presence of prosthetic heart valve
CPT/HCPCS: 36415; 85610

== ENCOUNTER 2025-07-28 14:00 | Outpatient (CLI) | payer MEDICARE, SELFPAY ==
--- OUTSIDE RECORDS SUMMARY | 2025-07-28 14:14 | XMS_ITS | Clinical Summary ---
Author Organization [facility] Address [address] [place]: Epic Prelude ADT [place] [address] Care Team Providers Care Hydroelectric Component Machinist Name Role Phone Darrick Santos MD Primary Care Provider [phone] Social History Tobacco Use Types Packs/Day Years Used Date Smoking Tobacco: Never Assessed Comments Unknown Sex and Gender Information Value Date Recorded Sex Assigned at Not on file Legal Sex Female 3:18 AM MATERIALS ASSISTANT Gender Identity Not on file Sexual Orientation Not on file Plan of Treatment Health Maintenance Due Date Last Done Comments DTAP/TDAP/TD VACCINES (1 - Tdap) 1964 PNEUMOCOCCAL VACCINE 50+ YEARS (1 of 1 - PCV) 09/28/19 95 ZOSTER VACCINE (1 of 2) 1995 OSTEOPOROSIS SCREENING 2010 RSV VACCINE (60+ or ) (1 - 1-dose 75+ series) 2020 INFLUENZA VACCINE (#1) 2025 Care Teams Hydroelectric Component Machinist Relationship Specialty Start Date End Date Darrick Santos MD [address] [facility] [facility] [address] [place] [address] PCP - General 04/13/03
--- OUTSIDE RECORDS SUMMARY | 2025-07-28 14:14 | XMS_ITS | Encounter Summary ---
Author Organization [facility] Healthcare Address [address] [place] [address] Care Team Providers Care Palliative Care Coordinator Name Role Phone Thad Mitchell MD Primary Care Provider [phone] Encounter Details Date Type Department Care Team (Late st Contact Info) Description 12/17/2024 Orders Only [facility] Information Management [address] [place] [address] Scanning, Provider Social History Tobacco Use Types Packs/Day Years Used Date Smoking Tobacco: Former Cigarettes Smokeless Tobacco: Never Comments:Not sure when she s topped. AUDIT-C Answer Date Recorded Q1: How often do you have a drink containing alc ohol? Never 11/24/2021 Average Number of Drinks Not on file 021 Q3: How often do you have si x or more drinks on one occasion? Never 11/24/2021 Comments Unknown Sex and Gender Information Value Date Recorded Sex Assigned at Not on file Legal Sex Female 10:30 PM OBSERVATION ASSISTANT Gender Identity Not on file Sexual Orientation Not on file documented as of this encounter Plan of Treatment Not on file documented as of this encounter Procedures Procedure Name Priority Date/Time Associated Diagnosis Comments SCAN - LABS 12/17/2024 documented in this encounter Results * SCAN - LABS (12/17/2024) us Provider Scanning Final Result documented in this encounter Visit Diagnoses Not on filedocumented in this encounter Care Teams Palliative Care Coordinator Relationship Specialty Start Date End Date Thad Mitchell MD [address] [facility] [address] [facility] [address] [place] [address] PCP - General 03/20/18 documented as of this encounter
--- OUTSIDE RECORDS SUMMARY | 2025-07-28 14:14 | XMS_ITS | Encounter Summary ---
Author Organization [facility] Address [address] [place] [address] Care Team Providers Care Cook Fishing Vessel Name Role Phone Darrick Santos MD Primary Care Provider [phone] Encounter Details Date Type Department Care Team (Latest Contact Info) Description 04/03/2002 Outpatient Historical HIS [facility] Darrick Hayes MD [address] [place] [address] SCREENING MAMM-MAILG NEOPL-OTHER (Primary Dx) Social History Tobacco Use Types Packs/Day Years Used Date Smoking Tobacco: Never Assessed Comments Unknown Sex and Gender Information Value Date Recorded Sex Assigned at Not on file Legal Sex Female 3:18 AM COORDINATOR OF PLACEMENT Gender Identity Not on file Sexual Orientation Not on file documented as of this encounter Plan of Treatment Not on file documented as of this encounter Visit Diagnoses Diagnosis Other screening mammogram- Primary documented in this encounter Care Teams Cook Fishing Vessel Relationship Specialty Start Date End Date Darrick Santos MD [address] [place] [address] PCP - General 04/13/03 documented as of this encounter
--- OUTSIDE RECORDS SUMMARY | 2025-07-28 14:14 | XMS_ITS | Encounter Summary ---
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 CENTER SUPERVISOR Gender Identity Not on file Sexual Orientation Not on file documented as of this encounter Plan of Treatment Not on file documented as of this encounter Procedures Procedure Name Priority Date/Time Associated Diagnosis Comments SCAN - LABS 02/03/2025 documented in this encounter Results * SCAN - LABS (02/03/2025) us Provider Scanning Final Result documented in this encounter Visit Diagnoses Not on filedocumented in this encounter Care Teams Automatic Mounter Relationship Specialty Start Date End Date Thad Mitchell MD [address] [facility] [address] [facility] [address] [place] [address] PCP - General 03/20/18 documented as of this encounter
--- OUTSIDE RECORDS SUMMARY | 2025-07-28 14:14 | XMS_ITS | Encounter Summary ---
Author Organization [facility] Healthcare Address [address] [place] [address] Care Team Providers Care Program Consultant Name Role Phone Thad Mitchell MD Primary Care Provider [phone] Encounter Details Date Type Department Care Team (Late st Contact Info) Description 04/08/2025 Orders Only [facility] Health Information Management [address] [place] [address] Scanning, Provider Social History Tobacco Use [...] on file Legal Sex Female 10:30 PM SPINNING SUPERVISOR Gender Identity Not on file Sexual Orientation Not on file documented as of this encounter Plan of Treatment Not on file documented as of this encounter Procedures Procedure Name Priority Date/Time Associated Diagnosis Comments SCAN - LABS 04/08/2025 documented in this encounter Results * SCAN - LABS (04/08/2025) us Provider Scanning Final Result documented in this encounter Visit Diagnoses Not on filedocumented in this encounter Care Teams Program Consultant Relationship Specialty Start Date End Date Thad Mitchell MD [address] [address] [address] [facility] [address] [place] [address] PCP - General 03/20/18 documented as of this encounter
--- OUTSIDE RECORDS SUMMARY | 2025-07-28 14:14 | XMS_ITS | Encounter Summary ---
Author Organization [facility] Healthcare Address [address] [place] [address] Care Team Providers Care Agriscience Instructor Name Role Phone Thad Mitchell MD Primary Care Provider [phone] Encounter Details Date Type Department Care Team (Late st Contact Info) Description 01/08/2025 Orders Only [facility] Health Information Management [address] [place] [address] Scanning, Provider Social History Tobacco Use [...] on file Legal Sex Female 10:30 PM PAROLE AGENT Gender Identity Not on file Sexual Orientation Not on file documented as of this encounter Plan of Treatment Not on file documented as of this encounter Procedures Procedure Name Priority Date/Time Associated Diagnosis Comments SCAN - LABS 01/08/2025 documented in this encounter Results * SCAN - LABS (01/08/2025) us Provider Scanning Final Result documented in this encounter Visit Diagnoses Not on filedocumented in this encounter Care Teams Agriscience Instructor Relationship Specialty Start Date End Date Thad Mitchell MD [address] [facility] [address] [facility] [address] [place] [address] PCP - General 03/20/18 documented as of this encounter
--- OUTSIDE RECORDS SUMMARY | 2025-07-28 14:14 | XMS_ITS | Clinical Summary ---
Author Organization [facility] Address [address] [place] [address] Care Team Providers Care Resident Physician In Radiology Name Role Phone Thad Mitchell MD Primary Care Provider [phone] Allergies Active Allergy Reactions Criticality Noted Date Comments Amiodarone Unknown,Vision changes Medium 01/30/2024 Codeine Stomach upset Low 10/30/2014 Stomach/GI Upset Hydroxyzine Unknown,Nausea And Vomiting Medium 024 Medications omega 8-uoi-wzx-fish oil 300-1,000 mg capsule 03/26/20 18 Active cyanocobalamin /folic acid (VITAMIN M54-KTMYQ ACID) 1,000-400 mcg tablet, sublingual Place under the tongue Active riboflavin, vitamin B2, 25 mg tablet Take by mouth Active Nyamyc powder Apply 10,000 Applications topically 2 (two) times a day 02/27/20 24 Active famotidine (PEPCID) 20 mg tablet Take 1 tablet (20 mg total) by mouth 2 (two) times a day 02/02/20 24 Active potassium chloride ER 20 mEq CR tablet Take 1 tablet (20 mEq total) by mouth daily 06/09/20 24 Active furosemide (LASIX) 20 mg tablet Take 1 tablet (20 mg total) by mouth every morning 06/11/20 24 Active QUEtiapine (SEROquel) 25 mg tablet Take 1 tablet (25 mg total) by mouth daily 30 tablet 1 06/11/20 25 Active busPIRone (BUSPAR) 10 mg tablet Take 1 tablet (10 mg total) by mouth 3 (three) times a day 90 tablet 2 06/11/20 25 Active buPROPion XL (WELLBUTRIN XL) 150 mg 24 hr tablet TAKE 1 TABLET BY MOUTH EVERY MORNING 30 tablet 11 06/26/20 25 Active memantine (NAMENDA) 10 mg tablet TAKE 1 TABLET BY MOUTH TWICE DAILY 200 tablet 2 07/10/20 25 Active warfarin (COUMADIN) 1 mg tablet TAKE 1 TABLET BY MOUTH ON SUNDAY AND SUNDAY AND 1 AND 1/2 TABLETS BY MOUTH ON ALL OTHER DAYS OR INSTRUCTED 138 tablet 2 07/10/20 25 Active QUEtiapine (SEROquel) 100 mg tablet Take 2 tablets (200 mg total) by mouth nightly 120 tablet 2 07/17/20 25 025 Active memantine (NAMENDA) 10 mg tablet TAKE 1 TABLET BY MOUTH TWICE DAILY 200 tablet 3 08/04/20 24 025 Discontinued warfarin (COUMADIN) 1 mg tablet TAKE 1 TABLET BY MOUTH ON SUNDAY AND SUNDAY AND 1 AND 1/2 TABLETS BY MOUTH ON ALL OTHER DAYS OR INSTRUCTED 138 tablet 04/29/20 25 025 Discontinued QUEtiapine (SEROquel) 100 mg tablet Take 2 tablets (200 mg total) by mouth nightly 30 tablet 1 06/11/20 25 025 Discontinued Active Problems Problem Noted Date Diagnosed Date [...] warfarin. Assessment & Plan (11/08/2021 3:04 PM LENS BLOCK GAUGER): Persistent, probably atypical, symptomatic rapidly conducted atrial [...] fibrillation Assessment & Plan (11/08/2021 3:02 PM LENS BLOCK GAUGER): As above. Recommend AVJ/pacing for definitive rate [...] Encounters Date Type Department Care Team Description 07/14/2025 Telephone [facility] [address] [facility] 7th Floor [facility] [facility] [place] [address] González Machado MSW 07/06/2025 11:00 AM CDT Office Visit [facility] [address] [facility] 6th [place] [address] [place] [address] Alina Ahmadi MD Moderate vascular dementia with agitation (HCC) (Primary Dx) 06/29/2025 Anticoagulation Visit [facility] [address] [place] [address] Adelaida Hugo RN H/O mechanical aortic valve replacement (Primary Dx) 06/25/2025 Orders Only [facility] Health Information Management [address] [place] [address] Scanning, Provider 06/23/2025 8:00 AM CDT Ancillary Procedure [facility] [address] [facility] [address], [place] [address] Pacemaker; Heart failure, unspecified (HCC); Permanent atrial fibrillation (HCC) 06/11/2025 12:00 PM CDT Office Visit [facility] Medicine Psychiatry [address] [facility] [address] [place] [address] Justin Shearer MD Moderate Alzheimer's dementia with agitation, unspecified timing of dementia onset (HCC) (Primary Dx) 05/21/2025 Anticoagulation Visit [facility] [address] [facility] [address] [place] [address] Adelaida Hugo RN H/O mechanical aortic valve replacement (Primary Dx) from Last 3 Months Surgical History Surgery Date Site/Laterality Comments CORONARY ARTERY BYPASS GRAFT HYSTERECTOMY Medical History Medical History Date Comments Anemia A-fib (HCC) CHF (congestive heart failure) (HCC) Cancer (HCC) Stroke (HCC) Hearing loss MD (myocardial infarction) (HCC) Family History Medical History [...] on file Legal Sex Female 10:30 PM LENS BLOCK GAUGER Gender Identity Not on file Sexual Orientation Not on file Obstetrics History Last Filed Vital Signs Vital Sign Reading Time Taken Comments Blood Pressure 133/59 07/06/2025 11:11 AM CDT Pulse 64 07/06/2025 11:11 AM CDT Temperature 36.4 C (97.5 F) 11/24/2024 11:12 AM LENS BLOCK GAUGER Respiratory Rate 16 11/06/2023 1:55 PM LENS BLOCK GAUGER Oxygen Saturation 96% 03/06/2025 2:07 PM CDT Inhaled Oxygen Concentration - - Weight 47.9 kg (105 lb 9.6 oz) 07/06/2025 11:11 AM CDT Height 152.4 cm (5') 07/06/2025 11:11 AM CDT Body Mass Index 20.62 07/06/2025 11:11 AM CDT Plan of Treatment Health Maintenance Due Date Last Done Comments Depression Screening 1945 Hepatitis C Screening 1945 Osteoporosis Screening-Bone Density Scan 1945 DTaP/Tdap/Td Vaccine (1 - Tdap) 1956 Hepatitis B Screening 1963 Zoster Vaccine (1 of 2) 1995 Well Visit 65+ 2010 Fall Risk Assessment 11/25/2022 11/25/2021 Influenza Vaccine (#1) 2025 9, 07/29/2018, 02/07/2016, Additional history exists Pneumococcal vaccine 65+ Completed 020, 10/07/2019, 2018 Medical Devices Implanted Type Area Outbound Sales Advisor Device Identifier Shelf Expiration Date Model / Serial / Lot [employer] 2087tc/ Tendril Sts 6fr 58cm Is-1 Connector Active Fixation Bipolar Soft - [id number] - [id number] Implanted:Qty : 1 on 11/24/2021 by Aldo Florian III, MD at [facility] Lead [employer] [id number] 08/25/20242087TC/58 / [id number] / [employer] 1458q/86 Quartet 5fr [id number] Electrode Is-4 Connector Steerable Tip - [id number] - [id number] Implanted:Qty : 1 on 11/24/2021 by Aldo Florian III, MD at [facility] Lead [employer] [id number] 08/25/2024 1458Q/86 / [id number] / [employer] [id number] Pacemaker Quadra Allure Mp Rf Spot Man-P [facility] - [id number] - [id number] Implanted:Qty : 1 on 11/24/2021 by Aldo Florian III, MD at [facility] Pacemaker [employer] [id number] 04/25/2023 PM356 2 / [id number] / Procedures Procedure Name Priority Date/Time Associated Diagnosis Comments SCAN - LABS 06/25/2025 PROTIME-INR Routine 06/25/2025 PROTIME-INR Routine 05/21/2025 from Last 3 Months Results * SCAN - LABS (06/25/2025) Provider Scanning Final Result * (ABNORMAL) Protime-INR (06/25/2025) INR 2.80(A) 0.90 - 1.10 EXTERNAL LAB Blood Result [facility] Historical Provider LAB BLOOD ORDERABLES Martha l Result EXTERNAL LAB * (ABNORMAL) Protime-INR (05/21/2025) INR 2.90(A) 0.90 - 1.10 EXTERNAL LAB Blood Historical Provider LAB BLOOD ORDERABLES Edit ed Result - Final EXTERNAL LAB from Last 3 Months Insurance [facility] MEDICARE ADVANTAGE [id number] [facility] [place] [id number] UHC MEDICARE ADVANTAGE [place] [id number] Advance Directives For more information, please contact: [phone] Documents on File Type Date Recorded Patient Strategic Client Executive Expl anation Power of Hydraulic Hammer Operator 09/18/2023 1:16 PM * Full Code (Latest Code Status on File) Date Activated Date Inactivated Comments 11/24/2021 4:37 PM 11/25/2021 4:06 PM Care Teams Resident Physician In Radiology Relationship Specialty Start Date End Date Thad Mitchell MD [address] [facility] [address] [facility] [address] [place] [id number] PCP - General 03/20/18
--- OUTSIDE RECORDS SUMMARY | 2025-07-28 14:14 | XMS_ITS | Encounter Summary ---
Author Organization [facility] Address [address] [place] [address] Care Team Providers Care Dog Warden Name Role Phone Darrick Santos MD Primary Care Provider [phone] Encounter Details Date Type Department Care Team (Late st Contact Info) Description 11/09/2003 Outpatient Historical [facility] Andrew Hirsch MD [address] 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
--- OUTSIDE RECORDS SUMMARY | 2025-07-28 14:14 | XMS_ITS | Encounter Summary ---
Author Organization [facility] Address [address] [place] [address] Care Team Providers Care Field Support Rep Name Role Phone Darrick Santos MD Primary Care Provider [phone] Encounter Details Date Type Department Care Team (Latest Contact Info) Description 06/23/2004 Outpatient Historical HIS [facility] Darrick Hayes MD [address] [place] [address] SCREENING MAMM-MAILG NEOPL-OTHER (Primary Dx) Social History Tobacco Use Types Packs/Day Years Used Date Smoking Tobacco: Never Assessed Comments Unknown Sex and Gender Information Value Date Recorded Sex Assigned at Not on file Legal Sex Female 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
--- OUTSIDE RECORDS SUMMARY | 2025-07-28 14:14 | XMS_ITS | Encounter Summary ---
Author Organization [facility] Address [address] [place] [address] Care Team Providers Care Computer Programmer Chief Name Role Phone Darrick Santos MD Primary Care Provider [phone] Encounter Details Date Type Department Care Team (Latest Contact Info) Description 09/17/2006 Outpatient Historical HIS [facility] Darrick Hayes MD [address] [place], [place] [address] Other Screening Mammogram (Primary Dx) Social History Tobacco Use Types Packs/Day Years Used Date Smoking Tobacco: Never Assessed Comments Unknown Sex and Gender Information Value Date Recorded Sex Assigned at Not on file Legal Sex Female 3:18 AM DIRECTOR OF 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
--- OUTSIDE RECORDS SUMMARY | 2025-07-28 14:14 | XMS_ITS | Encounter Summary ---
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 Gender Identity Not on file Sexual Orientation Not on file documented as of this encounter Plan of Treatment Not on file documented as of this encounter Procedures Procedure Name Priority Date/Time Associated Diagnosis Comments SCAN - LABS 01/20/2025 documented in this encounter Results * SCAN - LABS (01/20/2025) us Provider Scanning Final Result documented in this encounter Visit Diagnoses Not on filedocumented in this encounter Care Teams International Logistics Analyst Relationship Specialty Start Date End Date Thad Mitchell MD [address] [facility] [address] [facility] [address] [place] [address] PCP - General 03/20/18 documented as of this encounter
--- OUTSIDE RECORDS SUMMARY | 2025-07-28 14:14 | XMS_ITS | Clinical Summary ---
Author Organization [facility] Address [address] [place] [address] Care Team Providers Care Mill House Supervisor Name Role Phone Thad Mitchell MD Primary Care Provider [phone] Allergies Active Allergy Reactions Criticality Noted Date [...] (NORCO) 7.5-325 MG tablet 4 Active NYSTATIN 940467 UNIT/GM powder 4 Active warfarin (COUMADIN) 1 MG tablet TAKE 1 TABLET BY MOUTH ON Sunday AND 1 AND 1/2 TABLETS BY MOUTH ALL OTHER DAYS OR INSTRUCTED 4 Active Active Problems Problem Noted Date Diagnosed Date Cerebrovascular accident ([facility]) 02/04 Overview (02/05/2024): Last Assessment & Plan: Residual left-sided weakness No lagophthalmos PEE OS Intraparenchymal hematoma of brain 02/05/2024 Paroxysmal atrial fibrillation ([facility]) 02/05/2024 Overview (02/05/2024): Last Assessment & [...] on a recent echocardiogram. Asymptomatic. Follow. A-fib ([facility]) 11/24/2021 Atypical atrial flutter ([facility]) 2020 Overview (02/05/2024): Last Assessment & Plan: Rhythm regular and completely paced. Continue warfarin. Nonrheumatic mitral valve stenosis 05/22/2021 Chronic anticoagulation 04/11/2021 Essential hypertension 04/11/2021 H/O mechanical aortic valve replacement 04/11/20 21 Overview (02/05/2024): Last Assessment & Plan: Examination [...] today RTC 1 year with confocal Immunizations Immunization Administration Dates Next Due Abrysvo Respiratory Syncytia l Virus (RSV) 0.5 mL, PF 07/31/2023 Influenza (Generic) 08/14/2019 Influenza Adult (Generic) 07/29/2018,02/07/2016, 12/02/2012 Pneumococcal (Pneumovax 23) 10/07/2019 Pneumococcal (Prevnar 13) 08/20/2020,2018 Social History Tobacco Use Types Packs/Day Years Used Date Smoking Tobacco: Unknown Tobacco Cessation:Counseling Given: No Comments No Sex and Gender Information Value Date Recorded Sex Assigned at Female 01/30/2025 1:02 PM RAILWAY SHUNTER Legal Sex Female 1:21 PM CDT Gender Identity Not on file Sexual Orientation Not on file Last Filed Vital Signs Vital Sign Reading Time Taken Comments Blood Pressure 127/52 01/30/2025 2:04 PM RAILWAY SHUNTER Pulse 63 01/30/2025 2:04 PM RAILWAY SHUNTER Temperature 37.4 C (99.3 F) 01/30/2025 2:04 PM RAILWAY SHUNTER Respiratory Rate 16 01/30/2025 2:04 PM RAILWAY SHUNTER Oxygen Saturation 98% 01/30/2025 2:04 PM RAILWAY SHUNTER Inhaled Oxygen Concentration - - Weight 42.2 kg (93 lb) 01/30/2025 2:04 PM RAILWAY SHUNTER Height 160 cm (5' 3) 01/30/2025 2:04 PM RAILWAY SHUNTER Body Mass Index 16.47 01/30/2025 2:04 PM RAILWAY SHUNTER Plan of Treatment Health Maintenance Due Date Last Done Comments Hepatitis C 1963 DTaP, Tdap and Td Vaccines (1 - Tdap) 1964 Zoster Vaccines (1 of 2) 1995 Annual Medicare Wellness Visit 2010 Dexa Scan (General) 2010 COVID-19 Vaccine ( season) 2024 06/16/2022, 09/20/2021, 02/14/2021, Additional history exists PHQ-2 (Physician [place]) 11/26/2024 Pneumococcal Vaccine: 50+ Years Completed 08/20/2020, 10/07/2019, 2018 RSV Immunization [...] patient's age to complete this topic Insurance [facility] Care Teams Mill House Supervisor Relationship Specialty Start Date End Date Thad Mitchell MD [address] [place] [address] PCP - General INTERNAL MEDICINE 01/04/23
--- OUTSIDE RECORDS SUMMARY | 2025-07-28 14:14 | XMS_ITS | Encounter Summary ---
Author Organization [facility] Address [address] [place] [address] Care Team Providers Care Bridge Construction Inspector Name Role Phone Darrick Santos MD Primary Care Provider [phone] Encounter Details Date Type Department Care Team (Latest Contact Info) Description 04/13/2003 Outpatient Historical HIS [facility] Darrick Hayes MD [address] [place] [address] SCREENING MAMM-MAILG NEOPL-OTHER (Primary Dx) Social History Tobacco Use Types Packs/Day Years Used Date Smoking Tobacco: Never Assessed Comments Unknown Sex and Gender Information Value Date Recorded Sex Assigned at Not on file Legal Sex Female 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
--- OUTSIDE RECORDS SUMMARY | 2025-07-28 14:14 | XMS_ITS | Encounter Summary ---
Author Organization [facility] Address [address] [place] [address] Care Team Providers Care Lineman A Class Name Role Phone Darrick Santos MD Primary Care Provider [phone] Encounter Details Date Type Department Care Team (Latest Contact Info) Description 11/09/2003 Outpatient Historical HIS [facility] BIBI Estrada, Ilya Pittman MD [address] [facility] [address] [place] [address] AFTERCARE LACE ROLLER OPERATOR ANTICOAG USE (Primary Dx) Social History Tobacco Use Types Packs/Day Years Used Date Smoking Tobacco: Never Assessed Comments Unknown Sex and Gender Information Value Date Recorded Sex Assigned at Not on file Legal Sex Female 3:18 AM JBOSS DEVELOPER Gender Identity Not on file Sexual Orientation Not on file documented as of this encounter Plan of Treatment Not on file documented as of this encounter Visit Diagnoses Diagnosis superintendent marine oil terminal (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
--- OUTSIDE RECORDS SUMMARY | 2025-07-28 14:14 | XMS_ITS | Encounter Summary ---
Author Organization [facility] Healthcare Address [address] [place] [address] Care Team Providers Care Glove Printer Name Role Phone Thad Mitchell MD Primary Care Provider [phone] Encounter Details Date Type Department Care Team (Late st Contact Info) Description 07/08/[address] 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 Gender Identity Not on file Sexual Orientation Not on file documented as of this encounter Plan of Treatment Not on file documented as of this encounter Procedures Procedure Name Priority Date/Time Associated Diagnosis Comments SCAN - LABS 07/08/2024 documented in this encounter Results * SCAN - LABS (07/08/2024) us Provider Scanning Final Result documented in this encounter Visit Diagnoses Not on filedocumented in this encounter Care Teams Glove Printer Relationship Specialty Start Date End Date Thad Mitchell MD [address] [facility] [address] [facility] [address] [place] [address] PCP - General 03/20/18 documented as of this encounter
--- OUTSIDE RECORDS SUMMARY | 2025-07-28 14:14 | XMS_ITS | Encounter Summary ---
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 Gender Identity Not on file Sexual Orientation Not on file documented as of this encounter Plan of Treatment Not on file documented as of this encounter Procedures Procedure Name Priority Date/Time Associated Diagnosis Comments SCAN - LABS 10/08/2024 documented in this encounter Results * SCAN - LABS (10/08/2024) us Provider Scanning Final Result documented in this encounter Visit Diagnoses Not on filedocumented in this encounter Care Teams Vaccine Customer Representative Relationship Specialty Start Date End Date Thad Mitchell MD [address] [facility] [address] [facility] [address] [place] [address] PCP - General 03/20/18 documented as of this encounter
--- OUTSIDE RECORDS SUMMARY | 2025-07-28 14:14 | XMS_ITS | Encounter Summary ---
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 Gender Identity Not on file Sexual Orientation Not on file documented as of this encounter Plan of Treatment Not on file documented as of this encounter Procedures Procedure Name Priority Date/Time Associated Diagnosis Comments SCAN - LABS 09/15/2024 documented in this encounter Results * SCAN - LABS (09/15/2024) us Provider Scanning Final Result documented in this encounter Visit Diagnoses Not on filedocumented in this encounter Care Teams Ticket Sorter Relationship Specialty Start Date End Date Thad Mitchell MD [address] [facility] [address] [facility] [address] [place] [address] PCP - General 03/20/18 documented as of this encounter
--- OUTSIDE RECORDS SUMMARY | 2025-07-28 14:14 | XMS_ITS | Clinical Summary ---
Author Organization [facility] Address [address] [place] [address] Care Team Providers Care Hemodialysis Patient Care Specialist Name Role Phone Thad Mitchell MD Primary Care Provider [phone] Source Comments [facility],non-owned Affiliates and Associated Physician Practices is amultiple site organization consisting of ambulatory clinics and hospital sitesin [place], [place], [place] and [place]. This disclosure is being madepursuant to the Care Everywhere program and may not contain all information available regarding this patient. Last updated 18.[facility] Allergies No known active allergies Medications * Be aware that medications may not be up to date on this document. Alwaysverify current medications with the patient. donepezil (ARICEPT) 5 MG tablet 03/15/2021 Active [...] Mon, Tu, Wed, , & Sun03/24/2021 Active umeclidinium-sangeetha anterol (ANORO ELLIPTA) 62.5-25 MCG/INH inhaler Inhale 1 [...] Weakness 03/16/2021 Intraparenchymal hematoma of brain Immunizations Immunization Administration Dates Next Due Covid Moderna primary monovalent 12+ yr 0.5mL Social History Tobacco Use Types Packs/Day Years Used Date Smoking Tobacco: Never Cigarettes Smokeless Tobacco: Never Alcohol Use Standard Drinks/Week Comments Yes 0 (1 standard drink = 0.6 oz pur e alcohol) Comments No Sex and Gender Information Value Date Recorded Sex Assigned at Not on file Legal Sex Female 6:23 AM INTERNATIONAL FIRST OFFICER Gender Identity Not on file Sexual Orientation [...] (2 - 2023-2 5 season) 2024 02/14/2021 DEPRESSION SCREENING 11/26/2024 INFLUENZA VACCINE (#1) 2025 HEPATITIS B VACCINE Aged Out No longe r eligible based on patient's age to complete this topic HIB VACCINE Aged Out No longer eligi ble based on patient's age to complete this topic HPV VACCINE Aged Out No longer eligi ble based on patient's age to complete this topic MENINGOCOCCAL (Group B) VACC INE SHARED DECISION-MAKING Aged Out No longer eligibl e based on patient's age to complete this topic MENINGOCOCCAL GROUPS A/C/Y/W VACCINE Aged Out No longer eligible b ased on patient's age to complete this topic Insurance [facility] MANAGED MEDICARE ADV [facility] MANAGED MEDICARE ADV Advance Directives * Full Code (Latest Code Status on File) Date Activated Date Inactivated Comments 03/16/2021 2:40 PM 03/23/2021 12:44 PM Care Teams Hemodialysis Patient Care Specialist Relationship Specialty Start Date End Date Thad Mitchell MD [address] [facility] [address] [place] [address] PCP - General Internal Medicine 03/16/21
--- OUTSIDE RECORDS SUMMARY | 2025-07-28 14:14 | XMS_ITS | Encounter Summary ---
Author Organization [facility] Address 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
[2025-07-28 14:56] LABS: Hematocrit 40.1 % (37.0-47.0); Hemoglobin 13.0 g/dL (12.0-15.0); Immature Granulocyte Percent A 0.4 % (0-0.5); Lymphocytes Absolute Auto 2.25 K/mm3 (0.9-3.2); Mean Corpuscular HGB Conc 32.4 g/dl (32-36); Mean Corpuscular Hemoglobin 30.1 pg (26-34); Mean Corpuscular Volume 92.8 fl (80-100); Nucleated Red Blood Cells Absolute Auto 0.000 K/mm3 (0.0-0.012); Nucleated Red Blood Cells Perc 0.0 % (0.0-0.2); Platelet Count Result 217 k/mm3 (150-375); Red Blood Count 4.32 M/mm3 (4.2-5.4); White Blood Count 9.6 K/mm3 (4.5-10.0)
[2025-07-28 15:16] LABS: Alanine Aminotransferase 20 U/L (6-35); Albumin Level 4.3 g/dL (3.5-5.1); Alkaline Phosphatase 90 U/L (38-126); Anion Gap 8 mmol/L (4-12); Aspartate Amino Transferase 37 U/L (14-36); Bilirubin,Total 0.8 mg/dL (0.2-1.3); Blood Urea Nitrogen 17 mg/dL (7-17); Calcium 9.2 mg/dL (8.4-10.2); Carbon Dioxide 28 mmol/L (22-30); Chloride 103 mmol/L (98-107); Cholesterol 178 mg/dL (0-200); Estimated Glomerular Filt Rate 42; Glucose 103 mg/dL (65-110); HDL Direct 56 mg/dL; Magnesium 2.0 mg/dL (1.6-2.3); Potassium 4.1 mmol/L (3.4-5.0); Sodium 139 mmol/L (137-145); Total Protein 8.0 g/dL (6.3-8.2); Triglycerides 76 mg/dL (<150)
[2025-07-28 15:21] LABS: Hemoglobin A1C 4.9 % (<5.7)
[2025-07-28 15:52] LABS: Thyroid Stimulating Hormone 1.000 uIU/mL (0.465-4.680)
[2025-07-28 16:11] LABS: Vitamin B12 > 1000.0 pg/mL (239-931)
== END 2025-07-28 14:01 | disposition home or self-care (01) ==
LOC: ANHLAB 14:01
PROVIDERS: PCP Family Medicine; Visit Provider Family Medicine
DX: I50.40 Unspecified combined systolic (congestive) and diastolic (congestive) heart failure (principal); Z79.899 Other long term (current) drug therapy; F41.9 Anxiety disorder, unspecified; F32.A Depression, unspecified; I51.89 Other ill-defined heart diseases; Z95.0 Presence of cardiac pacemaker; Z79.01 Long term (current) use of anticoagulants; D64.9 Anemia, unspecified; D83.9 Common variable immunodeficiency, unspecified; I61.9 Nontraumatic intracerebral hemorrhage, unspecified; R53.83 Other fatigue; F32.9 Major depressive disorder, single episode, unspecified; I48.92 Unspecified atrial flutter; I12.9 Hypertensive chronic kidney disease with stage 1 through stage 4 chronic kidney disease, or unspecified chronic kidney disease; N18.30 Chronic kidney disease, stage 3 unspecified
CPT/HCPCS: 36415; 80053; 80061; 82306; 82607; 83036; 83735; 84443; 85025; 85610

== ENCOUNTER 2025-08-09 12:08 | Emergency (ER) | payer MEDICARE, SELFPAY ==
--- OUTSIDE RECORDS SUMMARY | 2025-08-09 12:10 | XMS_ITS | Encounter Summary ---
Author Organization [facility] Address 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
--- OUTSIDE RECORDS SUMMARY | 2025-08-09 12:10 | XMS_ITS | Encounter Summary ---
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 Gender Identity Not on file Sexual Orientation Not on file documented as of this encounter Plan of Treatment Not on file documented as of this encounter Procedures Procedure Name Priority Date/Time Associated Diagnosis Comments SCAN - LABS 10/04/2023 documented in this encounter Results * SCAN - LABS (10/04/2023) us Provider Scanning Final Result documented in this encounter Visit Diagnoses Not on filedocumented in this encounter Care Teams Pattern Ruler Relationship Specialty Start Date End Date Thad Mitchell MD [address] [facility] [address] [place] [address] PCP - General 03/20/18 documented as of this encounter
--- OUTSIDE RECORDS SUMMARY | 2025-08-09 12:10 | XMS_ITS | Clinical Summary ---
Author Organization [facility] Address [address] [place] [address] Care Team Providers Care Mixer Operator Helper Hot Metal Name Role Phone Thad Mitchell MD Primary Care Provider [phone] Allergies Active Allergy Reactions Criticality Noted Date [...] (NORCO) 7.5-325 MG tablet 4 Active NYSTATIN 219713 UNIT/GM powder 4 Active warfarin (COUMADIN) 1 MG tablet TAKE 1 TABLET BY MOUTH ON Sunday AND 1 AND 1/2 TABLETS BY MOUTH ALL OTHER DAYS OR INSTRUCTED 4 Active Active Problems Problem Noted Date Diagnosed Date Cerebrovascular accident ([facility]) 02/04 Overview (02/05/2024): Last Assessment & Plan: Residual left-sided weakness No lagophthalmos PEE OS Intraparenchymal hematoma of brain 02/05/2024 Paroxysmal atrial fibrillation ([facility]) 02/05/2024 Overview (02/05/2024): Last Assessment & Plan: [...] on a recent echocardiogram. Asymptomatic. Follow. A-fib ([facility]) 11/24/2021 Atypical atrial flutter ([facility]) 2020 Overview (02/05/2024): Last Assessment & Plan: [...] Sex Assigned at Female 01/30/2025 1:02 PM THERAPY AIDE Legal Sex Female 1:21 PM CDT Gender Identity Not on file Sexual Orientation Not on file Last Filed Vital Signs Vital Sign Reading Time Taken Comments Blood Pressure 127/52 01/30/2025 2:04 PM THERAPY AIDE Pulse 63 01/30/2025 2:04 PM THERAPY AIDE Temperature 37.4 C (99.3 F) 01/30/2025 2:04 PM THERAPY AIDE Respiratory Rate 16 01/30/2025 2:04 PM THERAPY AIDE Oxygen Saturation 98% 01/30/2025 2:04 PM THERAPY AIDE Inhaled Oxygen Concentration - - Weight 42.2 kg (93 lb) 01/30/2025 2:04 PM THERAPY AIDE Height 160 cm (5' 3) 01/30/2025 2:04 PM THERAPY AIDE Body Mass Index 16.47 01/30/2025 2:04 PM THERAPY AIDE Plan of Treatment Health Maintenance Due Date Last Done Comments Hepatitis C 1963 DTaP, Tdap and Td Vaccines (1 - Tdap) 1964 Zoster Vaccines (1 of 2) 1995 Annual Medicare Wellness Visit 2010 Dexa Scan (General) 2010 PHQ-2 (Physician [place]) 11/26/2024 COVID-19 Vaccine ( season) 2025 06/16/2022, 09/20/2021, 02/14/2021, Additional history exists Pneumococcal Vaccine: 50+ Years Completed 08/20/2020, 10/07/2019, [...] patient's age to complete this topic Insurance [facility] Care Teams Mixer Operator Helper Hot Metal Relationship Specialty Start Date End Date Thad Mitchell MD [address] [place] [address] PCP - General INTERNAL MEDICINE 01/04/23
--- OUTSIDE RECORDS SUMMARY | 2025-08-09 12:10 | XMS_ITS | Encounter Summary ---
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
--- OUTSIDE RECORDS SUMMARY | 2025-08-09 12:10 | XMS_ITS | Clinical Summary ---
Author Organization [facility] Address [address] 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
--- OUTSIDE RECORDS SUMMARY | 2025-08-09 12:10 | XMS_ITS | Encounter Summary ---
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 Gender Identity Not on file Sexual Orientation Not on file documented as of this encounter Plan of Treatment Not on file documented as of this encounter Procedures Procedure Name Priority Date/Time Associated Diagnosis Comments SCAN - LABS 12/27/2023 documented in this encounter Results * SCAN - LABS (12/27/2023) us Provider Scanning Final Result documented in this encounter Visit Diagnoses Not on filedocumented in this encounter Care Teams Combined Rail Operator Relationship Specialty Start Date End Date Thad Mitchell MD [address] [facility] [address] [place] [address] PCP - General 03/20/18 documented as of this encounter
--- OUTSIDE RECORDS SUMMARY | 2025-08-09 12:10 | XMS_ITS | Clinical Summary ---
Author Organization [facility] Address [address] [place] [address] Care Team Providers Care Fly Winder Name Role Phone Thad Mitchell MD Primary Care Provider [phone] Allergies Active Allergy Reactions Criticality Noted Date Comments Amiodarone Unknown,Vision changes Medium 01/30/2024 Codeine Stomach upset Low 10/30/2014 Stomach/GI Upset Hydroxyzine Unknown,Nausea And Vomiting Medium 024 Medications omega 1-tlj-ljt-fish oil 300-1,000 mg capsule 03/26/20 18 Active cyanocobalamin /folic acid (VITAMIN F98-WHOWG ACID) 1,000-400 mcg tablet, sublingual Place under [...] 120 tablet 2 07/17/20 25 025 Active QUEtiapine (SEROquel) 100 mg tablet Take [...] warfarin. Assessment & Plan (11/08/2021 3:04 PM TEST CONSULTANT): Persistent, probably atypical, symptomatic rapidly conducted atrial [...] fibrillation Assessment & Plan (11/08/2021 3:02 PM TEST CONSULTANT): As above. Recommend AVJ/pacing for definitive rate [...] Encounters Date Type Department Care Team Description 07/29/2025 Anticoagulation Visit [facility] Cardiology [address] [place] [address] Adelaida Hugo RN H/O mechanical aortic valve replacement (Primary Dx) 07/28/2025 Orders Only [facility] Health Information Management [address] [place] [address] Scanning, Provider 07/14/2025 Telephone [facility] [place] [address] [facility] 7th [place] [address] González Machado MSW 07/06/2025 11:00 AM CDT Office Visit [facility] [address] [facility] [address] 6[address] [place] [address] [place] [address] Alina Ahmadi MD Moderate vascular dementia with agitation (HCC) (Primary Dx) 06/29/2025 Anticoagulation Visit [facility] Cardiology [address] [place] [address] Adelaida Hugo, EVELIO H/O mechanical aortic valve replacement (Primary Dx) 06/25/2025 Orders Only [facility] Health Information Management [address] [place] [address] Scanning, Provider 06/23/2025 8:00 AM CDT Ancillary Procedure [facility] Cardiology [address] [facility] [address], [place] [address] Pacemaker; Heart failure, unspecified (HCC); Permanent atrial fibrillation (HCC) 06/11/2025 12:00 PM CDT Office Visit [facility] Psychiatry [address] [place] [address] Justin Shearer MD Moderate Alzheimer's dementia with agitation, unspecified timing of dementia onset (HCC) (Primary Dx) 05/21/2025 Anticoagulation Visit [facility] Cardiology [address] [place] [address] Adelaida Hugo RN H/O mechanical aortic valve replacement (Primary Dx) from Last 3 Months Surgical History Surgery Date Site/Laterality Comments CORONARY ARTERY BYPASS GRAFT HYSTERECTOMY Medical History Medical History Date Comments Anemia A-fib (HCC) CHF (congestive heart failure) (HCC) Cancer (HCC) Stroke (HCC) Hearing loss [place] (myocardial infarction) (HCC) Family History Medical History [...] on file Legal Sex Female 10:30 PM TEST CONSULTANT Gender Identity Not on file Sexual Orientation Not on file Obstetrics History Last Filed Vital Signs Vital Sign Reading Time Taken Comments Blood Pressure 133/59 07/06/2025 11:11 AM CDT Pulse 64 07/06/2025 11:11 AM CDT Temperature 36.4 C (97.5 F) 11/24/2024 11:12 AM TEST CONSULTANT Respiratory Rate 16 11/06/2023 1:55 PM TEST CONSULTANT Oxygen Saturation 96% 03/06/2025 2:07 PM CDT [...] 10/07/2019, 2018 Medical Devices Implanted Type Area Coach Operator Device Identifier Shelf Expiration Date Model / Serial / Lot [employer] 2087tc/ Tendril Sts 6fr 58cm Is-1 Connector Active Fixation Bipolar Soft - [id number] - [id number] Implanted:Qty : 1 on 11/24/2021 by Aldo Florian III, MD at [facility] Lead [employer] [id number] 08/25/20242087TC/58 / [id number] / [employer] 1458q/86 Quartet 5fr [id number] Electrode Is-4 Connector Steerable Tip - [id number] - [id number] Implanted:Qty : 1 on 11/24/2021 by Aldo Florian III, MD at [facility] Lead [employer] [id number] 08/25/2024 1458Q/86 / [id number] / [employer] [id number] Pacemaker Quadra Allure Mp Rf Sales Floor Team Leader-P [facility] - [id number] - [id number] Implanted:Qty : 1 on 11/24/2021 by Aldo Florian III, MD at [facility] Pacemaker [employer] [id number] 04/25/2023 PM356 2 / [id number] / Procedures Procedure Name Priority Date/Time Associated Diagnosis Comments SCAN - LABS 07/28/2025 PROTIME-INR Routine 07/28/2025 SCAN - LABS 06/25/2025 PROTIME-INR Routine 06/25/2025 DEVICE CHECK - REMOTE Routine 06/23/2025 9:16 AM CDT Pacemaker Heart failure, unspecified (HCC) Permanent atrial fibrillation (HCC) PROTIME-INR Routine 05/21/2025 from Last 3 Months Results * SCAN - LABS (07/28/2025) us Provider Scanning Final Result * (ABNORMAL) Protime-INR (07/28/2025) INR 2.10(A) 0.90 - 1.10 EXTERNAL LAB Blood us Historical Provider LAB BLOOD ORDERABLES Martha l Result EXTERNAL LAB * SCAN - LABS (06/25/2025) us Provider Scanning Final Result * (ABNORMAL) Protime-INR (06/25/2025) INR 2.80(A) 0.90 - 1.10 EXTERNAL LAB Blood Historical Provider LAB BLOOD ORDERABLES Martha l Result Performing Organization Address [facility] Co de Phone Number EXTERNAL LAB * DEVICE CHECK - REMOTE (06/23/2025 9:16 AM CDT) Anatomical Region Laterality Modality Other Narrative 07/31/2025 12:39 PM CDT [employer] Quadra Allure BI-V pacemaker imp on 11/24/21 for Afib/CHF. Terapio Routine VVIR Pacemaker Remote. Transmission attached. Battery status: 3.02 V , 6.8-7.3 years remaining battery life to [id number]. Stable lead impedances, pacing and sensing thresholds. Presenting rhythm: BP BIVP-> 99%. No Ventricular high rate episodes detected. Medications: Warfarin See scanned report. Office pacemaker follow up: 03/17/26 [employer] remote f/u 09/22/25. Eddie Thompson RN Cali Van MD [facility] CARDIAC SERVICES PROC EDURES Final Result * (ABNORMAL) Protime-INR (05/21/2025) INR 2.90(A) 0.90 - 1.10 EXTERNAL LAB Blood Historical Provider LAB BLOOD ORDERABLES Edit ed Result - Final Performing Organization Address City/[facility] Co de Phone Number EXTERNAL LAB from Last 3 Months Insurance [facility] MEDICARE ADVANTAGE UHC MEDICARE ADVANTAGE UHC MEDICARE ADVANTAGE Advance Directives For more information, please contact: [phone] Documents on File Type Date Recorded Patient Gallery Director Expl anation Power of Solar [employer] Sales Specialist 09/18/2023 1:16 PM * Full Code (Latest Code Status on File) Date Activated Date Inactivated Comments 11/24/2021 4:37 PM 11/25/2021 4:06 PM Care Teams Fly Winder Relationship Specialty Start Date End Date Thad Mitchell MD [address] [facility] [address] [place] [address] PCP - General 03/20/18
--- OUTSIDE RECORDS SUMMARY | 2025-08-09 12:10 | XMS_ITS | Encounter Summary ---
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
--- OUTSIDE RECORDS SUMMARY | 2025-08-09 12:10 | XMS_ITS | Encounter Summary ---
Author Organization [facility] Address 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
--- OUTSIDE RECORDS SUMMARY | 2025-08-09 12:10 | XMS_ITS | Encounter Summary ---
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
--- OUTSIDE RECORDS SUMMARY | 2025-08-09 12:10 | XMS_ITS | Encounter Summary ---
Author Organization [facility] Healthcare Address [address] [place] [address] Care Team Providers Care Waste Management Specialist Name Role Phone Thad Mitchell MD Primary Care Provider [phone] Encounter Details Date Type Department Care Team (Late st Contact Info) Description 12/17/2024 Orders Only [facility] [place] Management [address] [place] [address] Scanning, Provider Social History Tobacco Use [...] on file Legal Sex Female 10:30 PM CUTTER OUT Gender Identity Not on file Sexual Orientation [...] on filedocumented in this encounter Care Teams Waste Management Specialist Relationship Specialty Start Date End Date Thad Mitchell MD [address] [facility] [address] [facility] [address] [place] [address] PCP - General 03/20/18 documented as of this encounter
--- OUTSIDE RECORDS SUMMARY | 2025-08-09 12:10 | XMS_ITS | Encounter Summary ---
Author Organization [facility] Address [address] [place] [address] Care Team Providers Care Front End Manager Name Role Phone Darrick Santos MD Primary Care Provider [phone] Encounter Details Date Type Department Care Team (Latest Contact Info) Description 11/09/2003 Outpatient Historical HIS [facility] BIBI Estrada, Ilya Pittman MD [address] [facility] [address] [place] [address] AFTERCARE NURSING SCHEDULER ANTICOAG USE (Primary Dx) Social History Tobacco Use Types Packs/Day Years Used Date Smoking Tobacco: Never Assessed Comments Unknown Sex and Gender Information Value Date Recorded Sex Assigned at Not on file Legal Sex Female 3:18 AM INSURANCE COMMISSIONER Gender Identity Not on file Sexual Orientation Not on file documented as of this encounter Plan of Treatment Not on file documented as of this encounter Visit Diagnoses Diagnosis intermediate (current) use of anticoagulants- Primary Long-term (current) use of anticoagulants documented in this encounter Care Teams Front End Manager Relationship Specialty Start Date End Date Darrick Santos MD [address] [facility] [address] [place] [address] PCP - General 04/13/03 documented as of this encounter
--- OUTSIDE RECORDS SUMMARY | 2025-08-09 12:10 | XMS_ITS | Encounter Summary ---
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
--- OUTSIDE RECORDS SUMMARY | 2025-08-09 12:10 | XMS_ITS | Encounter Summary ---
Author Organization [facility] Address [address] [place] [address] Care Team Providers Care Drum Loader And Unloader Name Role Phone Darrick Santos MD Primary Care Provider [phone] Encounter Details Date Type Department Care Team (Latest Contact Info) Description 04/13/2003 Outpatient Historical HIS [facility] Darrick Hayes MD [address] [place] [address] SCREENING MAMM-MAILG NEOPL-OTHER (Primary Dx) Social History Tobacco Use Types Packs/Day Years Used Date Smoking Tobacco: Never Assessed Comments Unknown Sex and Gender Information Value Date Recorded Sex Assigned at Not on file 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
--- OUTSIDE RECORDS SUMMARY | 2025-08-09 12:10 | XMS_ITS | Encounter Summary ---
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
--- OUTSIDE RECORDS SUMMARY | 2025-08-09 12:10 | XMS_ITS | Encounter Summary ---
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 Gender Identity Not on file Sexual Orientation Not on file documented as of this encounter Plan of Treatment Not on file documented as of this encounter Procedures Procedure Name Priority Date/Time Associated Diagnosis Comments SCAN - LABS 11/04/2024 documented in this encounter Results * SCAN - LABS (11/04/2024) us Provider Scanning Final Result documented in this encounter Visit Diagnoses Not on filedocumented in this encounter Care Teams Emergency Management Consultant Relationship Specialty Start Date End Date Thad Mitchell MD [address] [facility] [address] [facility] [address] [place] [address] PCP - General 03/20/18 documented as of this encounter
--- OUTSIDE RECORDS SUMMARY | 2025-08-09 12:10 | XMS_ITS | Encounter Summary ---
Author Organization [facility] Address [address] [place] [address] Care Team Providers Care Police Justice Name Role Phone Darrick Santos MD Primary Care Provider [phone] Encounter Details Date Type Department Care Team (Latest Contact Info) Description 04/03/2002 Outpatient Historical HIS [facility] Darrick Hayes MD [address] [place] [address] SCREENING MAMM-MAILG NEOPL-OTHER (Primary Dx) Social History Tobacco Use Types Packs/Day Years Used Date Smoking Tobacco: Never Assessed Comments Unknown Sex and Gender Information Value Date Recorded Sex Assigned at Not on file Legal Sex Female 3:18 AM [place] SEAL Gender Identity Not on file Sexual Orientation Not on file documented as of this encounter Plan of Treatment Not on file documented as of this encounter Visit Diagnoses Diagnosis Other screening mammogram- Primary documented in this encounter Care Teams Police Justice Relationship Specialty Start Date End Date Darrick Santos MD [address] [place] [address] PCP - General 04/13/03 documented as of this encounter
--- OUTSIDE RECORDS SUMMARY | 2025-08-09 12:10 | XMS_ITS | Encounter Summary ---
Author Organization [facility] Address [address] [place] [address] Care Team Providers Care Ag Service Manager Name Role Phone Darrick Santos MD Primary Care Provider [phone] Encounter Details Date Type Department Care Team (Latest Contact Info) Description 06/23/2004 Outpatient Historical HIS [facility] Darrick Hayes MD [address] [place] [address] SCREENING MAMM-MAILG NEOPL-OTHER (Primary Dx) Social History Tobacco Use Types Packs/Day Years Used Date Smoking Tobacco: Never Assessed Comments Unknown Sex and Gender Information Value Date Recorded Sex Assigned at Not on file 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
--- OUTSIDE RECORDS SUMMARY | 2025-08-09 12:10 | XMS_ITS | Encounter Summary ---
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
[2025-08-09 12:14] VITALS: BP 122/45; PULSE 59; RESP 15; TEMP 36.4; O2SAT 97
[2025-08-09] MEDS: diphenhydrAMINE HCl CAP 25 MG CAPSULE PO (13:42)
[2025-08-09 13:43] VITALS: BP 120/92; PULSE 84; RESP 18; O2SAT 96
--- NOTE | 2025-08-09 14:13 | ED.GENADULT ---
HPI - General Adult General Chief complaint: Skin/Abscess/Foreign Body Stated complaint: stung by wasps Time Seen by Provider: 08/09/25 12:52 History of Present Illness HPI narrative: Patient is a 79-year-old female who presents ER after being stung by several wasps. This stone her on the arms bilaterally. Right worse than left. No known allergy. She is having some itching. No fevers or chills or sweats. No difficulty breathing. No difficulty swallowing. She was on her back porch when the wasp nest dropped and started to sting her. Related Data Home Medications ?Medication ?Instructions ?Recorded ?Confirmed ?Last Taken ?Type riboflavin (vitamin B2) 400 mg PO DAILY 12/30/23 02/10/25 01/21/24 History cholecalciferol (vitamin D3) 50 50 mcg PO DAILY 05/26/24 02/10/25 Unknown History mcg (2,000 unit) capsule Allergies Allergy/AdvReac Type Severity Reaction Status Date / Time amiodarone Allergy Blurry Verified 08/09/25 12:19 Vision hydroxyzine AdvReac Intermediate Nausea and Verified 08/09/25 12:19 Vomiting Review of Systems Review of Systems: All systems reviewed & are unremarkable except as noted in HPI and below Constitutional: Constitutional: Reports no additional constitutional complaints ENT: Reports system reviewed and no additional complaints, except as documented Integumentary/Breasts: Skin/Breast: Reports system reviewed and no additional complaints, except as docu PMFSH Past Medical History Medical History Obstructive sleep apnea on CPAP Chronic anticoagulation Mechanical aortic valve. 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 History of abdominoplasty History of pacemaker History of hysterectomy Family History Family History Sibling Diabetes mellitus Cancer Breast cancer Father Family history of heart disease in male family member before age 55 Family history of cardiovascular disease Diabetes mellitus Family history of diabetes mellitus in first degree relative Family history of congestive heart failure Mother Family history of Alzheimer's disease Social History Social History Social History: Surrogate medical decision maker: Justin Barkley, significant other. Code status: Full code. Smoking packs per day: 0.5 Smoking cigarettes per day: 10.0 Years smoked: 10 Smoking pack-years: 5.00 Smoking status: Former smoker Tobacco type: cigarettes Second hand tobacco smoke exposure: Yes Alcohol intake: never Substance use: never Substance use type: does not use Do You Feel Safe in your Home?: Yes Lack of Transportation: No Lack of Food: Never True Current Housing: I Have Housing Concerned About Future Housing: No Difficulty Paying Gas/Electric Bills: No Difficulty Paying for Meds: No Currently Unemployed: No Education: High School Diploma/GED Difficulty w/ Childcare or Family Care: No Living arrangements: fpc Occupation/Education: retired Spiritual care concerns: No Exam Narrative: GENERAL: Well-appearing, well-nourished, and in no acute distress. HEAD: Normocephalic, atraumatic. ENT: Mucous membranes moist. CHEST: Clear to auscultation. No respiratory distress. HEART: Regular rate and rhythm. Normal peripheral pulses. EXTREMITIES: Normal range of motion. No edema. SKIN: Warm, dry. Erythema of the right arm with multiple spots where she was stone. No retained stinger. Similar on left side. NEURO: Alert and oriented x3. PSYCH: Normal mood and affect. Course Course Emergency Course: Discussed conservative treatment with Tylenol/ibuprofen for pain, Benadryl for itching, and cold compresses to help with her discomfort. Vital Signs Vital signs: Vital Signs Temperature 97.5 F L 08/09/25 12:14 Pulse Rate 59 L 08/09/25 12:14 Respiratory Rate 15 08/09/25 12:14 Blood Pressure 122/45 L 08/09/25 12:14 Pulse Oximetry 97 08/09/25 12:14 Oxygen Delivery Room Air 08/09/25 12:14 Temperature 97.5 F L 08/09/25 12:14 Pulse Rate 84 08/09/25 13:43 Respiratory Rate 18 08/09/25 13:43 Blood Pressure 120/92 H 08/09/25 13:43 Pulse Oximetry 96 08/09/25 13:43 Oxygen Delivery Room Air 08/09/25 12:14 Medical Decision Making Vital Signs Vital Signs: Vital Signs Temperature 97.5 F L 08/09/25 12:14 Pulse Rate 59 L 08/09/25 12:14 Respiratory Rate 15 08/09/25 12:14 Blood Pressure 122/45 L 08/09/25 12:14 Pulse Oximetry 97 08/09/25 12:14 Oxygen Delivery Room Air 08/09/25 12:14 Temperature 97.5 F L 08/09/25 12:14 Pulse Rate 84 08/09/25 13:43 Respiratory Rate 18 08/09/25 13:43 Blood Pressure 120/92 H 08/09/25 13:43 Pulse Oximetry 96 08/09/25 13:43 Oxygen Delivery Room Air 08/09/25 12:14 Discharge Plan Discharge Clinical Impression: Wasp sting Patient Disposition: Home Condition: Stable Instructions: Insect Bite or Sting (ED) Additional Instructions: Take Tylenol for pain, Benadryl for itching, apply cold compresses to the areas that are affected by the sting. Patient Language: [place]ese Prescriptions: No Action warfarin 2 mg tablet 2 mg PO QMWF Qty: 30 3RF quetiapine 25 mg tablet 25 mg PO QID Qty: 270 1RF riboflavin (vitamin B2) 400 mg PO DAILY memantine 10 mg tablet 10 mg PO BID Qty: 60 2RF cholecalciferol (vitamin D3) 50 mcg (2,000 unit) capsule 50 mcg PO DAILY bupropion HCl 150 mg tablet extended release 24 hr 150 mg PO QAM Qty: 90 1RF buspirone 10 mg tablet 10 mg PO TID Qty: 90 2RF famotidine 20 mg tablet See Rx Instructions .ROUTE .COMPLEX Qty: 180 0RF Dose Instruction: TAKE 1 TABLET BY MOUTH EVERY 12 HOURS Rx Instructions: TAKE 1 TABLET BY MOUTH EVERY 12 HOURS furosemide 20 mg tablet 20 mg PO QAM Qty: 90 1RF potassium chloride 20 mEq tablet extended release See Rx Instructions .ROUTE .COMPLEX Qty: 90 0RF Dose Instruction: TAKE 1 TABLET BY MOUTH DAILY Rx Instructions: TAKE 1 TABLET BY MOUTH DAILY Follow-up/Referrals: Ramon West MD [Primary Care Provider, Family Practice] - 1 Week
[2025-08-09 14:27] VITALS: BP 120/59; PULSE 60; RESP 18; TEMP 36.4; O2SAT 97
== END 2025-08-09 14:30 | disposition home or self-care (01) ==
PROVIDERS: Emergency Provider Emergency Medicine; PCP Family Medicine
DX: T63.461A Toxic effect of venom of wasps, accidental (unintentional), initial encounter (principal); L29.9 Pruritus, unspecified; G47.30 Sleep apnea, unspecified; Z79.01 Long term (current) use of anticoagulants; I13.0 Hypertensive heart and chronic kidney disease with heart failure and stage 1 through stage 4 chronic kidney disease, or unspecified chronic kidney disease; N18.9 Chronic kidney disease, unspecified; I50.82 Biventricular heart failure; E78.5 Hyperlipidemia, unspecified; F41.9 Anxiety disorder, unspecified; F32.A Depression, unspecified; D64.9 Anemia, unspecified; J44.9 Chronic obstructive pulmonary disease, unspecified; I25.2 Old myocardial infarction; I48.91 Unspecified atrial fibrillation
CPT/HCPCS: 99283; A9270

== ENCOUNTER 2025-08-25 13:28 | Outpatient (CLI) | payer MEDICARE, SELFPAY ==
--- NOTE | ~2025-08-25 | XR_ITS ---
EXAMINATION: XR foot RT min 3V, 08/25/2025 13:31 CDT HISTORY: M79.671 - Pain in right foot COMPARISON: No comparisons available. Findings: Remote appearing fracture of the calcaneus with moderate degenerative changes. Moderate degenerative changes of the tarsometatarsal joints. Soft tissues unremarkable. Impression: No acute fracture or malalignment. Reviewed, dictated and finalized at location P. Impression: No acute fracture or malalignment.
--- NOTE | ~2025-08-25 | XR_ITS ---
EXAMINATION: XR ankle RT min 3V, 08/25/2025 13:31 CDT HISTORY: M25.579 - Pain in unspecified ankle and joints of unspeci... COMPARISON: No comparisons available. Findings: Remote corticated fractures of the medial and lateral malleoli. No acute fracture is identified.There is a remote appearing fracture of the calcaneus. No significant degenerative changes. Soft tissues unremarkable. Impression: No acute fracture or malalignment. Reviewed, dictated and finalized at location P. Impression: No acute fracture or malalignment.
== END 2025-08-25 13:29 | disposition home or self-care (01) ==
LOC: MICIMG 13:30
PROVIDERS: PCP Nurse Practitioner Family; Visit Provider Nurse Practitioner Family
DX: M79.671 Pain in right foot (principal); M25.571 Pain in right ankle and joints of right foot
CPT/HCPCS: 73610; 73630

== ENCOUNTER 2025-09-10 15:47 | Outpatient (RCR) | payer MEDICARE, SELFPAY ==
[2025-07-28 15:09] LABS: INR 2.1; Prothrombin Time 22.6 Seconds (11.1-14.7)
[2025-09-10 16:37] LABS: INR 2.8; Prothrombin Time 28.4 Seconds (11.1-14.7)
== END 2025-10-26 23:59 | disposition home or self-care (01) ==
LOC: ANHLAB 15:47
PROVIDERS: PCP Family Medicine; Visit Provider Specialist
DX: I48.21 Permanent atrial fibrillation (principal); Z95.2 Presence of prosthetic heart valve; Z94.2 Lung transplant status
CPT/HCPCS: 36415; 85610

== ENCOUNTER 2025-09-16 13:15 | Outpatient (RCR) | payer MEDICARE, SELFPAY ==
--- NOTE | 2025-08-04 15:36 | OPREHPOC ---
Outpatient Therapy Plan of Care This is a Multidisciplinary Plan of Care that may contain components documented by all disciplines (PT, OT, and ST.) PT Problem 1 PT Problem #1 Knowledge Deficit PT Goal 1 Goal / Goal Update 1* education to pt and family for HEP 2* correct use of assistive device Target Visit 10 PT Problem 2 PT Problem #2 Pain PT Goal 1 Goal / Goal Update * monitor R hip pain with increase activity Target Visit 10 PT Problem 3 PT Problem #3 Impaired Strength PT Goal 1 Goal / Goal Update increase strength of LE's to improve mobility skills 1* gross strength of R and L hip and knee 4/5 2* sit/stand transfer with use of 1 UE 3* pt stand for 3 minutes with trunk, hip and knee extension at 0' Target Visit 10 PT Problem 4 PT Problem #4 Impaired Functional Mobility PT Goal 1 Goal / Goal Update 1* 2 minute walking test distance of 300' with assistive device 2* 5 reps sit/stand with use of 1 UE in 15 seconds 3* with sit/stand transfer- able to let go of arm rest with standing up Target Visit 10
--- NOTE | 2025-08-04 15:36 | PTOPEVAL1 ---
Assessment and note entered by Kellen Mejia, PT Evaluation Information Assessment Status Evaluation ICD-10 Condition Codes (PT) Pain in left hip M25.552,Difficulty Walking R26.2, Abnormalities of gait and mobility R26.9,Weakness R53.1 Other ICD-10 Condition Codes ( R29.898 PT) Subjective Information pain in R hip with weakness since ORIF in Dec 2023 ; activity: home with significant other, who does cooking, cleaning home; independent with bathing and dressing; grand daughter goes a few days a week and other family assist with transportation and home tasks; use the cane or wheeled walker; limited community outings; have stairs with 1 hand railing and does go on them; does not do any leg exercises; goal: walk better and get stronger; less pain in hip; Reported Pain Level Pain Score 5: Self Report R hip pain Additional Pain Score Comments tylenol PRN; heat pad PRN; Assessment PT Clinical Summary Elizabeth has the diagnosis of decreased gait and mobility skills, with LE weakness. Reports gradual decline since Dec 2023 and R hip ORIF. Self assessment with LE functional rating of 70% limitation in activity level. She has dementia, is independent with self care, and requires assist with transportation and home tasks. Grand daughter present during eval and assists her 2x/ week. Medical history includes: CVA with L weakness, [place] [facility], COPD, pacemaker. With the evaluation: she has weakness in both LE' s, decreased gait and standing balance and posture ; 2 minute walking test distance of 210' with cane; reports at home, sometimes uses a wheeled walker; 5 reps sit/stand time of 16 seconds with use of both UE's. Skilled PT services are indicated for modalities PRN for R hip pain, therapeutic exercises to increase LE strength, gait and balance skills, to improve mobility and decrease risk for falls. Plan of Care Interventions Hot Pack/Cold Pack,Manual Therapy,Neuro Re- education,Patient/Caregiver Education,Therapeutic Activities,Therapeutic Exercise PT Services Indicated Yes Treatment Frequency and 1-2x/wk for 10 visits Duration These treatments will address the objective and functional deficits as defined above. The patient will be advanced safely and appropriately in order for the patient to progress towards his/her prior level of function. Additional exercises will be introduced and as well as a comprehensive home exercise program upon discharge, if needed, ?to ensure carryover of functional gains achieved in the clinic. This treatment plan has been reviewed and agreement upon by the patient.
== END 2025-11-02 23:59 | disposition home or self-care (01) ==
LOC: ANHPT 13:15
PROVIDERS: PCP Family Medicine; Visit Provider Family Medicine
DX: R29.898 Other symptoms and signs involving the musculoskeletal system (principal); R26.9 Unspecified abnormalities of gait and mobility; M25.552 Pain in left hip; R26.2 Difficulty in walking, not elsewhere classified; R53.1 Weakness
CPT/HCPCS: 97110; 97112; 97116; 97161; 97530